=== PATIENT | male | born 1955 | race Caucasian/White ===

== ENCOUNTER → 2018-02-18 09:56 | Outpatient (CLI) | payer OTHER, SELFPAY ==
[2018-02-18 12:13] LABS: Absolute Lymphocyte Count 1.77 X10^3/ul (0.83-4.51); Absolute Neutrophil Count 5.3 X10^3/uL (2.0-7.7); Basophil# 0.05 X10^3/uL; Basophil% 0.6 % (0-1); Eosinophils% 1.3 % (0-5); Hematocrit 47.4 % (40-54); Hemoglobin 16.6 g/dl (13.0-16.5); Lymphocyte # 1.77 X10^3/ul (4.0); Lymphocyte % 22.6 % (19-41); Mean Corpuscular Hgb 31.3 pg (27.0-32.0); Mean Corpuscular Volume 89.3 fL (80-94); Mean Platelet Vol. 9.5 fl (6.2-12.0); Monocyte# 0.58 X10^3/uL; Monocyte% 7.4 % (0-10); Neutrophil # 5.32 X10^3/uL (2.7-7.7); Platelet Count 305 K/mm3 (150-450); RBC Distribution Width CV 13.1 % (11.6-14.6); RBC Distribution Width SD 42.6 fl (35.1-43.9); Red Blood Count 5.31 M/mm3 (4.6-6.2); White Blood Count 7.8 K/mm3 (4.4-11.0)
[2018-02-18 12:25] LABS: POSITIVE COUNT NO; POSITIVE DIFFERENTIAL NO; POSITIVE MORPHOLOGY NO
[2018-02-18 12:27] LABS: ALB/GLOB Ratio 1.4 RATIO (0.9-2.4); AST(SGOT) 34 U/L (15-37); Alanine Aminotransfer ALT/SGPT 72 U/L (16-61); Albumin, Serum 4.2 g/dL (3.2-5.0); Alkaline Phosphatase 78 U/L (45-117); Anion Gap 10 (5-15); BUN 16 mg/dL (7-18); BUN/Creat Ratio 15.8 RATIO (10-20); Calcium,Total 8.5 mg/dL (8.5-10.1); Chloride 106 mmol/L (98-107); Creatinine, Serum 1.01 mg/dL (0.70-1.30); EST Glomerular Filtration Rate 79 mL/min (>60); Est Glom Filt Rate - Afr Amer 96 mL/min (>60); Glucose 78 mg/dL (74-106); Potassium 3.9 mmol/L (3.5-5.1); Protein, Total 7.2 g/dL (6.4-8.2); Sodium Level 140 mmol/L (136-145)
--- OUTSIDE RECORDS SUMMARY | 2018-04-15 17:50 | XMS RPT_ITS ---
:1955 Author Organization OHIP Care Team Providers Name Role Phone Sean Boone Attending Unavailable Paolo, Sean Primary Care Unavailable Sean Boone Attending Unavailable Sean Boone Referring Unavailable Sean Boone Primary Care Unavailable PROBLEMS PROBLEMS No Problem Records FoundPROCEDURES PROCEDURES No Procedure Records FoundRESULTS RESULTS Observed: 02/19/2018 Status: C Source: KYM CDIFF (MOLECULAR) 8:00 AM [facility] REPOSITORY RESULTS CALLED TO [employer] 02/19/18 [facility] Arnel Downs. REPORT READ BACK BY SAME. SENT TO [facility] 02-19-18 [id number] Cdiff-Molecular Normal Reference Range = Negative C. Diff DNA Positive-Toxigenic C. Difficile DNA Detected NAAT METHOD Testing was performed using nucleic acid amplification ORGANISM 1: Toxigenic C. difficile DNA Performed By: #### M100.6796, M100.637 #### [facility] [address] [place], [place], [address] Observed: 02/19/2018 Status: F Source: KYM ENTERIC PATHOGEN 8:00 AM [facility] PANEL STOOL REPOSITORY RESULTS CALLED TO [employer] 02/19/18 1556 Arnel Downs. REPORT READ BACK BY SAME. SENT TO [facility] 02-19-18 [id number] EP PANEL STOOL Normal Reference Range = Not Detected Not detected for Campylobacter group, Salmonella species, Shigella species, Vibrio Group, Yersinia enterocolitica, EHEC (Shiga Toxin 1, Shiga Toxin 2), Norovirus Gl/Gll, and Rotavirus A. Other common stool pathogens are not detected on this panel include: Aeromonas/Plesiomonas or parasites. Order testing for these organisms separately if suspected. This is an amplified DNA test which makes it both specific and sensitive. CAMPYLOBACTER Not Detected Salmonella Not Detected Shigella sp. Not Detected Shiga Toxin Not Detected Yersinia Not Detected VIBRIO Not Detected Norovirus Not Detected Rotavirus Not Detected Performed By: #### M100.6796, M100.637 #### [facility] [address] [place], [address] Observed: 02/19/2018 Status: F Source: [place] OVA AND PARASITES 8:00 AM [facility] REPOSITORY O + P OVA AND PARASITES EXAM, ROUTINE These results were obtained using wet preparation(s) and trichrome stained smear. This test does not include testing for Crytosporidium parvum, Cyclospora, or Microsporidia. TESTING PERFORMED AT [facility]. ORIGINAL REPORT ON FILE IN LAB CONTAINS ADDITIONAL TEST SITE INFORMATION. Ova/Parasite Exam NO OVA, CYSTS, OR PARASITES FOUND. Performed By: #### M600.5000 #### [facility] [place], [address] CBC W/DIFF, AUTOMATED Collected: 02/18/2018 Status: F Source: KYM 9:58 AM [facility] REPOSITORY TYPE CODE TESTS RESULT OUT OF RANGE REFERENCE UNITS LAB L100.1000 4.4-11.0 K/mm3 Normal WBC 7.8 LAB L100.1200 4.6-6.2 M/mm3 Normal RBC 5.31 LAB L100.1300 13.0-16.5 g/dl High HGB 16.6 LAB L100.1400 40-54 % Normal HCT 47.4 LAB L100.1500 80-94 fL Normal MCV 89.3 LAB L100.1600 27.0-32.0 pg Normal MCH 31.3 LAB L100.1700 32-36 g/gl Normal MCHC 35.0 LAB L100.1810 11.6-14.6 % Normal RDW CV 13.1 LAB L100.1820 35.1-43.9 fl Normal RDW SD 42.6 LAB L100.1900 150-450 K/mm3 Normal PLT 305 LAB L100.2000 6.2-12.0 fl Normal MPV 9.5 LAB L100.2100 47-70 % Normal NEUT% 68.0 LAB L100.2200 19-41 % Normal LY% 22.6 LAB L100.2300 0-10 % Normal MONO% 7.4 LAB L100.2400 0-5 % Normal EO% 1.3 LAB L100.2500 0-1 % Normal BASO% 0.6 LAB L100.2550 0.0-0.9 % Normal IM GRAN % 0.100 Result Comment: IG% - Immature Granulocytes (promyelocytes, myelocytes and metamyelocytes) > 1% indicates that a LEFT SHIFT is Present. LAB L100.2620 2.0-7.7 X10 3/uL Normal Absolute Neut 5.3 LAB L100.2720 0.83-4.51 X10 3/ul Normal Absolute Lymph 1.77 Performed By: #### L100.0100 #### [facility] [address] [place], [address] COMPREHENSIVE METABOLIC Collected: 02/18/2018 Status: F Source: [facility] 9:58 AM [facility] REPOSITORY TYPE CODE TESTS RESULT OUT OF RANGE REFERENCE UNITS LAB L501.0100 74-106 mg/dL Normal GLU 78 Result Comment: Please note revised GLUCOSE reference range effective 2017. LAB L501.1000 7-18 mg/dL Normal BUN 16 LAB L501.1100 0.70-1.30 mg/dL Normal CREAT,SERUM 1.01 Result Comment: The validity of the calculated GFR AND GFRAA in patients over 70 years has not been determined. Clinical correlation is essential. LAB L501.1110 >60 mL/min Normal EST GFR 79 Result Comment: Non- GFR Calc LAB L501.1115 >60 mL/min Normal EST GFR - AA 96 Result Comment: GFR Calc LAB L501.1300 10-20 RATIO Normal BUN/CRE 15.8 LAB L501.1500 6.4-8.2 g/dL T Normal PROT 7.2 LAB L501.1800 3.2-5.0 g/dL Normal ALB 4.2 LAB L501.1950 2.2-4.2 g/dL Normal GLOB 3.0 LAB L501.2000 0.9-2.4 RATIO Normal A/G 1.4 LAB L501.2200 8.5-10.1 mg/dL CA Normal 8.5 LAB L501.4100 15-37 U/L Normal AST 34 LAB L501.4305 45-117 U/L Normal ALK P 78 LAB L501.4405 16-61 U/L High ALT 72 LAB L501.4600 0.20-1.00 mg/dL T Normal BILI 0.50 LAB L501.5300 136-145 mmol/L NA Normal 140 LAB L501.5600 3.5-5.1 mmol/L K Normal 3.9 LAB L501.5900 98-107 mmol/L CL Normal 106 LAB L501.6100 21.0-32.0 mmol/L Normal CO2 24.0 LAB L501.6200 5-15 Normal GAP 10 Performed By: #### L500.4050 #### [facility] [address] [place], [place], [address] ALLERGIES ALLERGIES No Allergies Records FoundENCOUNTERS ENCOUNTERS ADMIT/DISCHARGE ACCOUNT ADMITTING ENCOUNTER LOCATION SOURCE NUMBER CLASS 02/19/2018 [id number] [facility] 1 [facility] ing:LABSPEC Repository 02/18/2018 [id number] [facility] 4 [facility] ing:MFPLAB Repository PAYERS PAYERS ENCOUNTER GUARANTOR PAYER SUBSCRIBER SOURCE 02/19/2018 WILD Antunez Primary WILD [id number] Insurance:Ranjeet PETERSEN: [facility] Number: [id number] [id number] Repository [address]Pps: ([phone]) Date:6074-64-45[phone] () [id number] JOAO MORRIS [id number]: 02/19/2018 Secondary NOT GIVENUNK [place] Insurance:SELF PAY [facility] Number: Effective Repository Date:2018-02-19 02/18/2018 Wild Antunez Primary Wild [id number] Insurance:AETNAPolicy HodgRenataOB: [facility] Number: [id number], [place] [id number] Repository [address]Gqb: ([phone]) Date:2361-93-34TQ [phone] () [id number] [place] [address]GP: 02/18/2018 Secondary NOT GIVENUNK [place] Insurance:SELF PAY [facility] Number: Effective Repository Date:2018-02-18
== END ==
PROVIDERS: Family Provider Family Medicine; PCP Family Medicine; Visit Provider Family Medicine
DX: R19.7 Diarrhea, unspecified (principal)
CPT/HCPCS: 36415; 80053; 85025

== ENCOUNTER → 2018-02-19 12:53 | Outpatient (CLI) | payer OTHER, SELFPAY ==
--- OUTSIDE RECORDS SUMMARY | 2018-04-16 16:37 | XMS RPT_ITS ---
:1955 Author Organization OHIP Care Team Providers Name Role Phone Sean Boone Attending Unavailable Paolo, Sean Primary Care Unavailable Sean Boone Attending Unavailable Sean Boone Referring Unavailable Sean Boone Primary Care Unavailable PROBLEMS PROBLEMS No Problem Records FoundPROCEDURES PROCEDURES No Procedure Records FoundRESULTS RESULTS Observed: 02/19/2018 Status: C Source: KYM CDIFF (MOLECULAR) 8:00 AM [facility] REPOSITORY RESULTS CALLED TO [facility] 02/19/18 [facility] Arnel Downs. REPORT READ BACK BY SAME. SENT TO [facility] 02-19-18 [id number] Cdiff-Molecular Normal Reference Range = Negative C. Diff DNA Positive-Toxigenic C. Difficile DNA Detected NAAT METHOD Testing was performed using nucleic acid amplification ORGANISM 1: Toxigenic C. difficile DNA Performed By: #### M100.6796, M100.637 #### [facility] [address] [place], [place], [address] Observed: 02/19/2018 Status: F Source: KYM ENTERIC PATHOGEN 8:00 AM [facility] PANEL STOOL REPOSITORY RESULTS CALLED TO [facility] 02/19/18 1556 Arnel Downs. REPORT READ BACK BY SAME. SENT TO [facility] 02-19-18 [id number] EP PANEL STOOL Normal Reference Range = [...] Detected Performed By: #### M100.6796, M100.637 #### [facility] [address] [place], [address] Observed: 02/19/2018 Status: F Source: [place] OVA AND PARASITES 8:00 AM [facility] REPOSITORY O + P OVA AND PARASITES EXAM, ROUTINE These results were obtained using wet preparation(s) and trichrome stained smear. This test does not include testing for Crytosporidium parvum, Cyclospora, or Microsporidia. TESTING PERFORMED AT [facility]. ORIGINAL REPORT ON FILE IN LAB CONTAINS ADDITIONAL TEST SITE INFORMATION. Ova/Parasite Exam NO OVA, CYSTS, OR PARASITES FOUND. Performed By: #### M600.5000 #### [facility] [place], [address] CBC W/DIFF, AUTOMATED Collected: 02/18/2018 Status: F Source: KYM 9:58 AM [facility] REPOSITORY TYPE CODE TESTS RESULT OUT OF [...] Lymph 1.77 Performed By: #### L100.0100 #### [facility] [address] [place], [address] COMPREHENSIVE METABOLIC Collected: 02/18/2018 Status: F Source: [facility] 9:58 AM [facility] REPOSITORY TYPE CODE TESTS RESULT OUT OF [...] GAP 10 Performed By: #### L500.4050 #### [facility] [address] [place], [place], [address] ALLERGIES ALLERGIES No Allergies Records FoundENCOUNTERS ENCOUNTERS ADMIT/DISCHARGE ACCOUNT ADMITTING ENCOUNTER LOCATION SOURCE NUMBER CLASS 02/19/2018 [id number] [facility] 1 [facility] ing:LABSPEC Repository 02/18/2018 [id number] [facility] 4 [facility] ing:MFPLAB Repository PAYERS PAYERS ENCOUNTER GUARANTOR PAYER SUBSCRIBER SOURCE 02/19/2018 WILD Antunez Primary WILD [id number] Insurance:Ranjeet PETERSEN: [facility] Number: [id number], [place] [id number] Repository [address]Zar: ([phone]) Date:3302-87-05WX [phone] () [id number] JOAO MORRIS [id number]: 02/19/2018 Secondary NOT GIVENUNK [place] Insurance:SELF PAY [facility] Number: Effective Repository Date:2018-02-19 02/18/2018 Wild Antunez Primary [id number] Insurance:AETNAPolicy HodgRenataOB: Community Maria Stein Number: [id number], [place] [id number] Repository [address]Aef: ([phone]) Date:1793-07-92PK [phone] () [id number] [address]KJ: 02/18/2018 Secondary NOT GIVENUNK Kym Insurance:SELF PAY [facility] Number: Effective Repository Date:2018-02-18
== END ==
PROVIDERS: Family Provider Family Medicine; PCP Family Medicine; Referring Provider Family Medicine; Visit Provider Family Medicine
DX: R19.7 Diarrhea, unspecified (principal)
CPT/HCPCS: 87177; 87209; 87493; 87506

== ENCOUNTER → 2018-07-18 | Outpatient (CLI) | payer OTHER, SELFPAY ==
[2018-07-18 08:26] LABS: AST(SGOT) 21 U/L (15-37); Alanine Aminotransfer ALT/SGPT 44 U/L (16-61); Albumin, Serum 4.2 g/dL (3.2-5.0); Alkaline Phosphatase 77 U/L (45-117); Anion Gap 8 (5-15); BUN 18 mg/dL (7-18); Bilirubin, Direct 0.19 mg/dL (0.00-0.30); Calcium,Total 8.7 mg/dL (8.5-10.1); Chloride 106 mmol/L (98-107); Cholesterol 197 mg/dL (200); Creatinine, Serum 0.95 mg/dL (0.70-1.30); EST Glomerular Filtration Rate 85 mL/min (>60); Est Glom Filt Rate - Afr Amer 103 mL/min (>60); Glucose 208 mg/dL (74-106); High Density Lipoprotein 50 mg/dL; Potassium 4.2 mmol/L (3.5-5.1); Protein, Total 7.2 g/dL (6.4-8.2); Sodium Level 139 mmol/L (136-145); Triglycerides 150 mg/dL; Very Low Density Lipoprotein 30 mg/dL (5-40)
== END | disposition home or self-care (01) ==
LOC: LAB 07:22
PROVIDERS: Family Provider Family Medicine; PCP Family Medicine; Referring Provider Family Medicine; Visit Provider Family Medicine
DX: E11.9 Type 2 diabetes mellitus without complications (principal)
CPT/HCPCS: 36415; 80048; 80061; 80076

== ENCOUNTER 2019-03-25 10:51 | Emergency (ER) | payer OTHER, SELFPAY ==
[2019-03-25 10:52] VITALS: BP 153/87; PULSE 101; RESP 17; TEMP 36.9; O2SAT 96; BMI 31.7
--- NOTE | 2019-03-25 12:00 | ED.DCSUM_ITS ---
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 No loss of consciousness. Injury happened approximately 2 hours before evaluation. No nausea or vomiting. No neurologic deficits. Unknown last tetanus. He denies being on any blood thinners. Past Medical History - Allergies and Home Meds Allergies/Adverse Reactions: Allergies No Known Allergies Allergy (Verified 03/25/19 10:52) Primary Care Physician: Sean Boone MD [Primary Care Provider] - Smoking Status: Never smoker Review of Systems General: Denies: Chills, Fever, Sweats Eyes: Denies: Visual changes - bilaterally, Diplopia ENT: Denies: Rhinorrhea, Sore throat Cardiovascular: Denies: Chest pain, Palpitations Respiratory: Denies: Dyspnea, Cough, Dyspnea on exertion Gastrointestinal: Denies: Abdominal pain, Nausea, Vomiting, Diarrhea, Melena, Hematochezia Genitourinary: Denies: Dysuria, Hematuria, Frequency Musculoskeletal: Denies: Back pain, Extremity Pain Skin: Denies: Rash, Wounds Neurological: Denies: Headache, Weakness, Numbness Physical Exam Vital Signs/Narrative: Vital Signs Temp Pulse Resp BP Pulse Ox 03/25/19 10:52 98.4 F 101 H 17 153/87 H 96 Inital Vital Signs reviewed: Yes General: Well nourished, Well developed, No Acute Distress Head: Normocephalic, Trauma - Located in the occiput is a 5 cm linear laceration across the skin folds. There is matted hair both in and around the wound. There is no active bleeding. There is no palpable depression. Neurologically the patient is intact Eyes: Perrl, EOMI ENT: Moist mucous membranes, No rhinorrhea Neck: Supple, Nontender Cardiovascular: Regular rate, Regular rhythm, No murmurs Respiratory: No distress, CTA bilaterally, Chest nontender Abdomen: Soft, Nontender, Nondistended, Normal bowel sounds Back: Nontender, Normal Inspection Extremities: Nontender, No edema Skin: Normal color, No rash Neurological: Alert, Oriented x3, Cranial nerves II-XII grossly intact, Normal Strength, Normal Sensation Psychological: Normal affect, Normal Mood Diagnostic/Tx/Re-eval - Medical Decision Making Wounds were sutured. Wound care discussed with patient. Stitches will need to be removed in about 7 days. He does not wish this to be Workmen's Comp. as he is self-employed. Procedures - Lacerations No standard instances Length: 5 ft Depth: Sub Q Shape: Linear Prep: Sterile Conditions, Shure-Clens Laceration repair: Lidocaine, Wound explored Number of Sutures/[place]: 7 Suture Information: Ethilon, - - 3-0 ED Disposition - Plan for ED Patient: Disposition: Home or Assisted Living Diagnosis: Scalp laceration Instructions: HEAD INJURY, No Wake-Up (Adult), LACERATION, Scalp Referrals: Sean Boone MD [Primary Care Provider] - 7 Days for suture removal
[2019-03-25] MEDS: Diphth,Pertuss(Acell),Tet Vac 0.5 ML Vial IM (12:20)
[2019-03-25 12:27] VITALS: BP 147/91; PULSE 93; RESP 16; O2SAT 97
== END 2019-03-25 12:28 | disposition home or self-care (01) ==
PROVIDERS: Emergency Provider Emergency Medicine; Family Provider Family Medicine; PCP Family Medicine
DX: S01.01XA Laceration without foreign body of scalp, initial encounter (principal); W00.0XXA Fall on same level due to ice and snow, initial encounter; Y93.9 Activity, unspecified; Y92.9 Unspecified place or not applicable; Y99.0 Civilian activity done for income or pay
CPT/HCPCS: 12002; 90471; 90715; 99283

== ENCOUNTER → 2019-04-19 17:10 | Outpatient (CLI) | payer OTHER, SELFPAY ==
[2019-03-25 10:52] VITALS: BMI 31.7
--- NOTE | 2019-04-19 17:12 | RAD_ITS ---
STUDY: X-RAY - RIGHT KNEE REASON FOR EXAM: Male, 63 years old. PAIN, NKI TECHNIQUE: 4 view(s) of the knee. COMPARISON: None. FINDINGS: Normal visualized distal femur. Normal visualized proximal tibia and fibula. Normal proximal tibiofibular articulation. There is mild degenerative arthrosis of the medial femorotibial compartment. Normal lateral femorotibial compartment. Normal patellofemoral articulation. The soft tissue structures are unremarkable. RAD/Knee 4 or More Views IMPRESSION: Mild degenerative changes with joint space narrowing of the medial knee compartment. Electronically Signed: Randy Reyes MD at 23:49 EST , Service support ,
== END ==
PROVIDERS: PCP Family Medicine; Referring Provider Family Medicine; Visit Provider Family Medicine
DX: M25.569 Pain in unspecified knee (principal)
CPT/HCPCS: 73564

== ENCOUNTER → 2019-05-19 11:06 | Outpatient (CLI) | payer OTHER, SELFPAY ==
[2019-05-19 14:06] LABS: Absolute Lymphocyte Count 1.84 X10^3/uL (0.83-4.51); Absolute Neutrophil Count 8.2 X10^3/uL (2.0-7.7); Basophil# 0.05 X10^3/uL; Basophil% 0.5 % (0-1); Eosinophil# 0.11 X10^3/uL; Hematocrit 48.5 % (40-54); Hemoglobin 16.3 g/dL (13.0-16.5); Lymphocyte # 1.84 X10^3/ul (4.0); Lymphocyte % 16.9 % (19-41); Mean Corp Hgb Conc 33.6 g/dL (32-36); Mean Corpuscular Hgb 30.4 pg (27.0-32.0); Mean Corpuscular Volume 90.5 fL (80-94); Mean Platelet Vol. 9.8 fl (6.2-12.0); Monocyte# 0.64 X10^3/uL; Monocyte% 5.9 % (0-10); NRBC Flagged by Analyzer 0 % (0-5); Neutrophil # 8.18 X10^3/uL (2.7-7.7); Neutrophil % 75.3 % (47-70); Platelet Count 280 K/mm3 (150-450); RBC Distribution Width CV 12.3 % (11.6-14.6); RBC Distribution Width SD 40.5 fl (35.1-43.9); RET-HE 35.1 pg (30-35); Red Blood Count 5.36 M/mm3 (4.6-6.2); Reticulocyte Count 0.98 % (0.5-1.5); White Blood Count 10.9 K/mm3 (4.4-11.0)
[2019-05-19 14:35] LABS: Anion Gap 6 (5-15); BUN 16 mg/dL (7-18); BUN/Creat Ratio 15.5 RATIO (10-20); Calcium,Total 8.9 mg/dL (8.5-10.1); Chloride 105 mmol/L (98-107); Cholesterol 169 mg/dL (200); Creatinine, Serum 1.03 mg/dL (0.70-1.30); EST Glomerular Filtration Rate 77 mL/min (>60); Est Glom Filt Rate - Afr Amer 94 mL/min (>60); Glucose 125 mg/dL (74-106); High Density Lipoprotein 46 mg/dL; Iron 85 ug/dL (65-175); Iron Binding Capacity,Total 355 ug/dL (250-450); PERCENT IRON SATURATION 23.9 % (15.0-55.0); Potassium 3.9 mmol/L (3.5-5.1); Sodium Level 136 mmol/L (136-145); Triglycerides 100 mg/dL; Very Low Density Lipoprotein 20 mg/dL (5-40)
[2019-05-19 15:17] LABS: Microalbumin,Random Urine < 5.0 mg/L (NO RANGE EST.)
== END ==
PROVIDERS: PCP Family Medicine; Referring Provider Family Medicine; Visit Provider Family Medicine
DX: D64.9 Anemia, unspecified (principal); E11.9 Type 2 diabetes mellitus without complications
CPT/HCPCS: 36415; 80048; 80061; 82043; 82570; 83540; 83550; 85025; 85045

== ENCOUNTER → 2019-05-26 14:12 | Outpatient (CLI) | payer OTHER, SELFPAY ==
--- NOTE | 2019-05-26 14:15 | CT_ITS ---
STUDY: CT BRAIN WITHOUT CONTRAST REASON FOR EXAM: Male, 63 years old. Fall. Headache. RADIATION DOSAGE (If Supplied By Facility): CTDIvol = ( 44.99 ) mGy, DLP = ( 796.11 ) mGycm TECHNIQUE: Transaxial CT imaging of the brain was performed without administration of intravenous contrast material. Individualized dose optimization techniques were used for this CT. COMPARISON: None. FINDINGS: There is no acute bleed or infarct. There are mild chronic ischemic changes. The ventricles are normal in configuration. There is no hydrocephalus. The visualized paranasal sinuses are clear. The mastoid air cells are well aerated. There is no skull fracture. CT/Brain/Head without Contrast IMPRESSION: No acute intracranial abnormality. Mild chronic ischemic change. Electronically Signed: Dayron Overton, at 15:35 EST Tel , Service support ,
== END ==
PROVIDERS: PCP Family Medicine; Referring Provider Family Medicine; Visit Provider Family Medicine
DX: R51 Headache (principal)
CPT/HCPCS: 70450

== ENCOUNTER 2019-05-29 17:49 | Emergency (ER) | payer OTHER, SELFPAY ==
[2019-05-29 17:49] VITALS: BP 119/70; PULSE 85; RESP 16; TEMP 36.1; O2SAT 98; BMI 29.8
[2019-05-29 18:26] LABS: Bedside Glucose 109 mg/dL (70-110)
--- NOTE | 2019-05-29 18:43 | ED.VIS.GEN ---
History of Present Illness Chief Complaint: Hyperglycemia Informant: Patient, Significant Other Onset: Days - 4 Narrative: Presents for evaluation elevated blood glucose of 250s today. States his been running high for the past 4 days. However he has not really checked this. He states typically blood glucose 140s. He is on oral glucose medicines and is taking them regularly. Concern due to being started on oral fluconazole pills 4 days ago for thrush. States he was on nystatin swish and spit for 2 weeks prior. He is a diabetic. No steroid use with inhalers or pills. reports patient also has not been acting right since his head injury March 30 nearly 2 months ago. Fall on ice hitting back his head needing stitches. Intermittent headaches, sleeping more per . States follow-up with PCP had a CT head this past Friday that was negative. States has sleep study pending in 2 weeks. There is been no additional falls. States there is been discussion with neurology follow-up however states this has not been initiated. Reports patient's had trouble sleeping tried melatonin recently put on nortriptyline. Past Medical History - Allergies and Home Meds Allergies/Adverse Reactions: Allergies No Known Allergies Allergy (Verified 03/25/19 10:52) Primary Care Physician: Sean Boone MD [Primary Care Provider] - Past Medical History: - - Diabetes, concussion Smoking Status: Never smoker Review of Systems General: Denies: Chills, Fever, Sweats Eyes: Denies: Visual changes - bilaterally, Diplopia ENT: Denies: Rhinorrhea, Sore throat Cardiovascular: Denies: Chest pain, Palpitations Respiratory: Denies: Dyspnea, Cough, Dyspnea on exertion Gastrointestinal: Denies: Abdominal pain, Nausea, Vomiting, Diarrhea, Melena, Hematochezia Genitourinary: Denies: Dysuria, Hematuria, Frequency Musculoskeletal: Denies: Back pain, Extremity Pain Skin: Denies: Rash, Wounds Neurological: Reports: Headache. Denies: Weakness, Numbness Physical Exam Vital Signs/Narrative: Vital Signs Temp Pulse Resp BP Pulse Ox 05/29/19 17:49 97 F L 85 16 119/70 98 Inital Vital Signs reviewed: Yes General: Well nourished, Well developed, No Acute Distress Head: Normocephalic, Atraumatic Eyes: Perrl, EOMI ENT: Moist mucous membranes, No rhinorrhea, - - White layering noted on tongue, no posterior pharyngeal erythema, airway patent. Neck: Supple, Nontender Cardiovascular: Regular rate, Regular rhythm, No murmurs Respiratory: No distress, CTA bilaterally, Chest nontender Abdomen: Soft, Nontender, Nondistended, Normal bowel sounds Back: Nontender, Normal Inspection Extremities: Nontender, No edema Skin: Normal color, No rash Neurological: Alert, Oriented x3, Cranial nerves II-XII grossly intact, Normal Strength, Normal Sensation Psychological: Normal affect, Normal Mood Diagnostic/Tx/Re-eval - Medical Decision Making Patient's blood glucose 109. He does have oral thrush on his tongue which he is on medications for. states patient has been stressed over his symptoms, discussed likely from stress could elevate blood glucose. They will continue to monitor glucose at home. Further discussion patient spouse concerns for these postconcussive symptoms. Discussed patient using Tylenol and discussed likely need neuro follow-up. I did discuss with covering physician Dr. Longo for Dr. Fernandez, relayed their frustration concerns, he will relay a message to have a neuro referral for the patient. ED Disposition - Plan for ED Patient: Disposition: Home or Assisted Living Diagnosis: Postconcussion syndrome, Oral thrush Instructions: Managing Post-Traumatic Headaches After Traumatic Brain Injury, After a Concussion Referrals: Sean Boone MD [Primary Care Provider] - 3-5 Days
== END 2019-05-29 19:01 | disposition home or self-care (01) ==
PROVIDERS: Emergency Provider Emergency Medicine; PCP Family Medicine
DX: F07.81 Postconcussional syndrome (principal); B37.0 Candidal stomatitis; E11.9 Type 2 diabetes mellitus without complications
CPT/HCPCS: 82962; 99282

== ENCOUNTER → 2019-07-14 16:24 | Outpatient (CLI) | payer OTHER, SELFPAY ==
[2019-07-14 17:43] LABS: Absolute Lymphocyte Count 1.88 X10^3/uL (0.83-4.51); Basophil# 0.06 X10^3/uL; Basophil% 0.6 % (0-1); Eosinophil# 0.12 X10^3/uL; Eosinophils% 1.2 % (0-5); Hematocrit 43.4 % (40-54); Hemoglobin 14.8 g/dL (13.0-16.5); Lymphocyte # 1.88 X10^3/ul (4.0); Lymphocyte % 19.4 % (19-41); Mean Corp Hgb Conc 34.1 g/dL (32-36); Mean Corpuscular Hgb 30.1 pg (27.0-32.0); Mean Corpuscular Volume 88.2 fL (80-94); Mean Platelet Vol. 9.7 fl (6.2-12.0); Monocyte# 0.59 X10^3/uL; Monocyte% 6.1 % (0-10); NRBC Flagged by Analyzer 0 % (0-5); Neutrophil # 7.02 X10^3/uL (2.7-7.7); Neutrophil % 72.5 % (47-70); Platelet Count 254 K/mm3 (150-450); RBC Distribution Width CV 12.8 % (11.6-14.6); RBC Distribution Width SD 40.8 fl (35.1-43.9); Red Blood Count 4.92 M/mm3 (4.6-6.2); White Blood Count 9.7 K/mm3 (4.4-11.0)
[2019-07-14 18:17] LABS: ALB/GLOB Ratio 1.2 RATIO (0.9-2.4); AST(SGOT) 16 U/L (15-37); Alanine Aminotransfer ALT/SGPT 33 U/L (16-61); Albumin, Serum 3.9 g/dL (3.2-5.0); Alkaline Phosphatase 62 U/L (45-117); Anion Gap 8 (5-15); BUN 20 mg/dL (7-18); BUN/Creat Ratio 16.9 RATIO (10-20); Calcium,Total 8.7 mg/dL (8.5-10.1); Chloride 104 mmol/L (98-107); Creatinine, Serum 1.18 mg/dL (0.70-1.30); EST Glomerular Filtration Rate 66 mL/min (>60); Est Glom Filt Rate - Afr Amer 80 mL/min (>60); Globulin 3.2 g/dL (2.2-4.2); Glucose 116 mg/dL (74-106); Potassium 3.7 mmol/L (3.5-5.1); Protein, Total 7.1 g/dL (6.4-8.2); Sodium Level 137 mmol/L (136-145); Thyroid Stim Hormone (TSH) 1.24 uIU/mL (0.358-3.74)
== END ==
PROVIDERS: PCP Family Medicine; Referring Provider Family Medicine; Visit Provider Family Medicine
DX: R63.4 Abnormal weight loss (principal)
CPT/HCPCS: 36415; 80053; 84443; 85025

== ENCOUNTER → 2019-07-26 17:00 | Outpatient (CLI) | payer OTHER, SELFPAY ==
[2019-07-19 10:51] VITALS: BMI 29.8
--- NOTE | 2019-07-26 17:01 | CT_ITS ---
We are attempting to reach an attending provider to discuss findings. An addendum with communication details will be sent when the communication is complete. STUDY: CT ABDOMEN AND PELVIS WITH CONTRAST REASON FOR EXAM: Male, 63 years old. RLQ PAIN X 1 WEEK WITH CONSTIPATION, WEIGHT LOSS, PT IS DIABETIC RADIATION DOSAGE (If Supplied By Facility): CTDIvol = ( 17.49 ) mGy, DLP = ( 976.34 ) mGycm TECHNIQUE: Transaxial images were obtained from the dome of the diaphragm to the symphysis pubis without oral contrast. Oral and amp; IV Gastrografin and amp; 100mL Isovue-300 was administered. Sagittal and coronal images were reconstructed. Individualized dose optimization techniques were used for this CT. COMPARISON: None. FINDINGS: The visualized lung bases are unremarkable. The visualized portions of the heart are within normal limits. There are scattered hepatic cysts, the largest located in the anterior left hepatic lobe measuring 3.6 cm. There is an enhancing focus of the dome of the right hepatic lobe measuring 9 mm, suggestive of an hemangioma. There are several additional heterogeneously peripherally enhancing hypodensities of the inferior right hepatic lobe measuring 2.0 x 1.7 cm and 4.3 x 2.5 cm. These may also represent hemangiomas. Normal gallbladder and extrahepatic biliary system. Normal spleen. Normal pancreas. Normal bilateral adrenal glands. Normal right kidney. Normal left kidney. Normal visualized stomach. Normal small intestine. Normal colon. The appendix is fluid-filled and distended, measuring up to 10 mm. No periappendiceal inflammatory process is evident however. There are calcified plaques of the abdominal aorta. Normal inferior vena cava. Normal retroperitoneum. Normal urinary bladder. The prostate is enlarged and contains calcifications. The seminal vesicles and seminal vesicle angles appear normal. There is a small fat-containing right inguinal hernia. A small fat-containing umbilical hernia is also noted. There are diffuse degenerative changes of the visualized thoracolumbar spine. CT/Abdomen/Pelvis WITH Contrast IMPRESSION: 1. Dilated fluid-filled appendix suspicious for acute appendicitis. There is no evidence of periappendiceal inflammatory process or abnormal free or loculated fluid collection in the region however. 2. Scattered hepatic cysts. Enhancing focus of the dome of the right hepatic lobe measuring 9 mm suggestive of an hemangioma. There are several additional heterogeneously peripherally enhancing hypodensities of the inferior right hepatic lobe measuring 2.0 x 1.7 cm and 4.3 x 2.5 cm respectively. These may also represent hemangiomas, but neoplastic process cannot be excluded. Ultrasound and/or MRI correlation is recommended. 3. Enlarged prostate containing calcifications. 4. Small fat-containing right inguinal hernia and small fat-containing umbilical hernia. Electronically Signed: Randy Reyes MD at 20:12 EDT , Service support ,
== END ==
PROVIDERS: PCP Family Medicine; Referring Provider Surgery; Visit Provider Surgery
DX: R63.4 Abnormal weight loss (principal); R10.31 Right lower quadrant pain
CPT/HCPCS: 74177; Q9967

== ENCOUNTER → 2019-07-29 07:30 | Outpatient (CLI) | payer OTHER, SELFPAY ==
[2019-07-27 09:39] VITALS: BMI 29.8
--- NOTE | 2019-07-29 07:34 | US_ITS ---
STUDY: ABDOMINAL ULTRASOUND - RIGHT UPPER QUADRANT REASON FOR VISIT: Male, 63 years old LIVER MASS TECHNIQUE: Ultrasound evaluation of the right upper quadrant was performed with real-time and static yusuf-scale imaging. TECHNICAL QUALITY: Adequate. COMPARISON: Comparison is made with prior CT scan of the abdomen and pelvis dated July 26, 2019. FINDINGS: Liver: The liver measures 13.9 cm. There is normal echogenicity of the liver. The bile ducts are within normal limits. There is hepatic color flow. The direction of portal flow is hepatopetal. There is a 3.8 cm x 3.6 cm x 3.2 cm cyst in the left lobe of the liver. There is a 3.8 cm x 1.5 cm x 2.2 cm echogenic nodule in the central aspect of the right, the liver. A similar appearing nodule measuring 3.2 cm by 3.8 cm x 2.7 cm is seen near the dome of the right lobe of the liver. This is suggestive of hemangiomas. Gallbladder: Normal distended gallbladder. The gallbladder wall measures 2.5 mm. There is a negative sonographic Burt''s sign. There is no pericholecystic fluid. There are no gallstones. Common Bile Duct (C.B.D.): The common bile duct measures 2.5 mm. Pancreas: There is nonvisualization of the pancreas due to overlying bowel gas. Right Kidney: Normal size of the right kidney. The right kidney measures 11 cm x 5.1 cm x 5.0 cm. Normal renal cortex. The right cortex measures 1.7 cm. There is no demonstrated renal mass or cyst. There is no right hydronephrosis. US/Liver IMPRESSION: 2 hemangiomas are seen in the right lobe of the liver. 3.8 cm x 3.6 cm x 3.2 cm cyst is seen in the left lobe of the liver. Electronically Signed: Claudio Anderson, at 9:17 EDT , Service support ,
== END ==
PROVIDERS: PCP Family Medicine Geriatric Medicine; Referring Provider Family Medicine Geriatric Medicine; Visit Provider Family Medicine Geriatric Medicine
DX: K76.89 Other specified diseases of liver (principal)
CPT/HCPCS: 76705

== ENCOUNTER 2019-08-03 07:21 | Day surgery (SDC) | payer OTHER, SELFPAY ==
[2019-07-27 09:39] VITALS: BMI 29.8
[2019-08-03] VITALS (7 sets, daily range): BP systolic 114–136; BP diastolic 73–82; PULSE 58–73; RESP 15–16; TEMP 36.1–36.6; O2SAT 94–100; BMI 27.1
--- NOTE | 2019-08-03 | APP_PTH ---
PATIENT: NADIA CONKLIN LOC[place] [facility] [place][id number] AGE/SX: 63/M ROOM: RE08/03/[address]: Dr. Kehinde Sebastian MD : 1955 BED: DIS: 08/03/2019 SPEC #: [id number] RECD: 08/03/19 12:32 STATUS: ELGIN REQ #: [id number] NARENDRA: 08/03/19 00:[address]: Kehinde Sebastian DEPT: SURGICAL PATHOLOGY RECD BY: Fabian Reynolds ENTERED: 08/03/19 12:32 SP TYPE: APPENDIX OTHR DR: Dr. 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 SJ:saira 08/04/19 COMMENT Most of the lesion consists of mucocele, adenomatous changes are noted focally. Proximal resection margin is free of adenomatous changes. Case has been reviewed in consultation with Dr. Marie who concurs with the above diagnosis. IDC:AM MICROSCOPIC DESCRIPTION Slides are reviewed. GROSS DESCRIPTION Received is one container labeled with the patient's name and designated appendix. The specimen consists of an appendix measuring 4.5 cm in length. The proximal 3 cm portion of the appendix is dilated and measures up to 1 cm in diameter. The distal 1.5 cm portion of the appendix is not dilated and measures up to 0.4 cm in diameter. The attached periappendiceal adipose tissue measures up to 2.5 cm in width. The serosal surface of the appendix is inked black. The proximal resection margin is stapled. The serosal surface is amin, glistening. The lumen is filled with amin-yusuf, cloudy turbid fluid. No obvious mass lesion is identified. Sections of the periappendiceal adipose tissue do not reveal any obviously enlarged lymph node. Cigar Making Supervisor sections are submitted in four cassettes as follows: 1-3 - appendix (1 - proximal margin and tip of the appendix longitudinally bisected, 2 - proximal portion of appendix, 3 - distal portion of appendix, 4??periappendiceal adipose tissue. / DOUG:saira 08/03/19 TC:1 CPT: 39736
--- NOTE | 2019-08-03 07:31 | EKG12_ITS ---
Test Reason : PRE OP Blood Pressure : / mmHG Vent. Rate : 059 BPM Atrial Rate : 059 BPM P-R Int : 154 ms QRS Dur : 092 ms QT Int : 400 ms P-R-T Axes : 058 043 035 degrees QTc Int : 396 ms Sinus bradycardia Otherwise normal ECG No previous ECGs available Confirmed by NADIA TANG ([id number]), news assignment editor DONTAE CLEMENT ([id number]) on 08/09/2019 1:51:32 PM Referred By: Kehinde Sebastian Confirmed By:NADIA TANG
[2019-08-03] MEDS: Lactated Ringers 1,000 ML 100 ML IV (08:09)
--- NOTE | 2019-08-03 08:53 | PCM.HP.BLA ---
Problem List (1) Mucocele of appendix Status: Acute History and Physical Date of Admission: 08/03/19 Intake Intake Visit Reasons: Amb Documentation Chief Complaint: Right lower quadrant pain Allergies lisinopril Allergy (Mild, Verified 07/19/19 10:23) Unknown metformin Allergy (Mild, Verified 07/19/19 10:23) Unknown nortriptyline Allergy (Mild, Verified 07/19/19 10:23) Unknown Sulfa (Sulfonamide Antibiotics) Allergy (Mild, Verified 07/19/19 10:23) Unknown [facility] Medical History (Updated 07/19/19 @ 10:27 by Sammi Engel) Weight loss (Acute) Diabetes (Acute) Hypertension (Chronic) Social History (Updated 07/27/19 @ 09:[address] Kehinde Sebastian MD) Smoking Status: Never smoker second hand exposure: No alcohol intake: current alcohol intake frequency: holidays/special occasions only substance use type: does not use caffeine: No seatbelt use: always HPI HPI Chief Complaint: Right lower quadrant pain Details: Patient was informed that this visit will be billed to patient. This visit was conducted during COVID-19 pandemic. NADIA CONKLIN, is a 63 M Who had a CT scan due to right lower quadrant pain. I saw him in the office approximately 1 week ago and he was having 1 week of right lower quadrant pain and weight loss.Patient is still reporting right lower quadrant pain with no nausea or vomiting or fevers or chills. Nothing is changed in the last 2 weeks. ROS Const Constitutional: Positive for anorexia and weight change Resp Respiratory: No cough Cardio Cardiology: No chest pain at rest Gastro GI: Positive for abdominal pain and constipation Exam Const General: cooperative, comfortable GI Inspection: normal to inspection Palpation: soft, tender Assessment & Plan Problems 1. Mucocele of appendix K38.[address] scan done yesterday which showed a fluid-filled dilated appendix. There were no periappendiceal inflammatory changes. The patient has been having these symptoms for a few weeks now with no change. He is not having any nausea or vomiting or fevers or chills. I do not believe that the patient has acute appendicitis I believe that he has a mucocele of the appendix. I reviewed his CT scan and do recommend laparoscopic appendectomy. I discussed laparoscopic appendectomy in detail with the patient. I discussed the risks including but not limited to bleeding, infection, injury to surrounding structures such as bowel, perforation of the mucocele. Patient understands the risks and would like to proceed with laparoscopic appendectomy. I will perform surgery later this week as an outpatient. Patient understands and all questions were answered. Kehinde Sebastian MD Pager: [facility] [address] [place] [address], [address] [place] [address] Office: I have seen and examined the pt today and there are no changes. Kehinde Sebastian Essential Procedure Criteria Procedure Essential: Yes Criteria Note: On 06/08/2019 the [place] Department of Health ([facility]) Public Order signed by [facility] Director Gail Castillo M.D., regarding the Management of Non-Essential Surgeries and Procedures for the purpose of preserving Personal Protective Equipment (PPE) and critical hospital capacity and resources within [place] went into effect as of 06/09/2019 at 5:00PM. According to the [facility] Public Order: This action will remain in full force and effect until the State of Emergency declared by the Governor no longer exists or the Director of the [facility] rescinds or modifies this Order.. This [facility] order stated all non-essential or elective surgeries and procedures that utilize PPE should be delayed unless there is undue risk to the current or future health of a patient. After reviewing the aforementioned [facility] Public Order and the patients clinical case, I have determined that the scheduled procedure meets the criteria to go forward. Risk to Patient if Procedure Delayed: Risk of metastasis or progression of staging if delayed
[2019-08-03 09:41] LABS: Bedside Glucose 153 mg/dL (70-110)
[2019-08-03] MEDS: Bupiv/Epi 0.25% 30 ML Vial (10:00)
--- NOTE | 2019-08-03 10:13 | OP.PCM_ITS ---
Problem List (1) Mucocele of appendix Status: Acute Report of Operation Date of Procedure: 08/03/19 Pre-Operative Diagnosis: Mucocele of appendix Post-Operative Diagnosis: Same Surgery/Procedure Performed:: Laparoscopic appendectomy Specimen's removed: Appendix Description of Procedure: The patient was brought into the operating room and general anesthesia was i nduced. The left arm was tucked and the abdomen was prepped and draped in usual sterile fashion. A small midline incision was made superior to the umbilicus and deepened to the level of the fascia. The fascia was elevated and incised. The peritoneum was also elevated and incised. A finger sweep was performed and a balloon trocar was placed into the abdomen and inflated. The abdomen was insufflated to 15 mmHg and the camera was inserted and the abdomen was inspected for any injuries upon entering the abdomen. There were none. The patient was placed in Trendelenburg position and a 5 mm ports placed in the left lower quadrant and suprapubic areas under direct visualization. Next using atraumatic bowel graspers the appendix was identified. The appendix was grasped and elevated and Enseal was used to take down the mesoappendix. A stapler was used to come across the base of the appendix. The appendix was then placed in Endo Catch bag and removed through the umbilical incision. The staple line was inspected and found to be hemostatic and intact. The 2 5 mm ports are removed under direct visualization. The balloon trocar was deflated and removed and all the air was removed from the abdomen. The umbilical incision fascia was closed with an 0 Vicryl [id number] suture. The incisions were then irrigated with saline and dried. Local anesthetic was injected into the incision sites. The skin incisions were then closed with interrupted 4-0 Monocryl suture and Steri- Strips. Bandages were applied and the patient was awoken and taken to PACU in stable condition. Patient tolerated the procedure well. - Admit VTE Documentation VTE Mechan Device Prophylaxis: SCD's
--- NOTE | 2019-08-03 10:15 | PCM.DC.APPY ---
Discharge Diet: Light diet - advance as tolerated Discharge Activity: May Not Drive - for 3-5 days or while taking narcotic pain meds. May shower in (days): 1 Lifting Restrictions: 20 lbs for 2 weeks Call your doctor if your incision/area has: Continuous Slow Oozing, Sudden Increased Bleeding, Increased Pain/ Swelling, Increased Redness, Foul Smelling Discharge Call your doctor if you observe: Fever of 101 or Higher Suture Line Care: Avoid Pulling/Pushing, Avoid Pinching/Bending Additional Dressing/Incision Instructions:: Keep dressing clean and dry. Change or remove dressing in 2 days. Leave steri strips for 1 week. May protect with a gauze bandaid. Medications to take at Discharge Brimonidine Tartrate [Alphagan P] 1 drop OP BID 05/29/19 Glimepiride 2 mg PO BID 05/29/19 Prednisolone Acetate/Pf [Prednisolone Acet 1% Eye Drop] 1 drop OP QWEEK 05/29/19 Sitagliptin Phosphate [Januvia] 100 mg PO DAILY 05/29/19 zolpidem 5 mg tablet 5 mg PO QHS PRN 07/19/19 Docusate Sodium [Colace] 100 mg PO BID #30 cap 08/03/19 Oxycodone HCl/Acetaminophen [Percocet 5-325 mg Tablet] 1 - 2 tab PO Q6H PRN 4 Days #20 tablet 08/03/19 Allergies/Adverse Reactions: Allergies lisinopril Allergy (Mild, Verified 08/03/19 07:59) Unknown metformin Allergy (Mild, Verified 08/03/19 07:59) Unknown nortriptyline Allergy (Mild, Verified 08/03/19 07:59) Unknown Sulfa (Sulfonamide Antibiotics) Allergy (Mild, Verified 08/03/19 07:59) Unknown doxepin Adverse Reaction (Verified 08/03/19 07:59) PT UNSURE OF REACTION hallucinations The following prescriptions were given: Docusate Sodium [Colace] 100 mg PO BID #30 cap Transmission Status: Pending to [facility] Oxycodone HCl/Acetaminophen [Percocet 5-325 mg Tablet] 1 - 2 tab PO Q6H PRN 4 Days #20 tablet PRN Reason: Pain Score 4-10/10 Transmission Status: Sent to [facility] Primary Care Physician: Rudi,Leandro Chi, MD [Primary Care Provider] - Test Results: Test results from this visit will be discussed in further detail at your follow-up appointment, if applicable. Please Follow Up With: Kehinde Sebastian MD When: Please call to schedule 2 week follow up appointment. [phone]
[2019-08-03 11:06] LABS: Bedside Glucose 125 mg/dL (70-110)
== END 2019-08-03 12:30 | disposition home or self-care (01) ==
LOC: SDC 07:24 → AC 07:26
PROVIDERS: PCP Family Medicine Geriatric Medicine; Referring Provider Surgery; Visit Provider Surgery
PROC: 0DTJ4ZZ Resection of Appendix, Percutaneous Endoscopic Approach (ICD-10-PCS; CPT 44970; principal; 2019-08-03 09:05)
DX: D12.1 Benign neoplasm of appendix (principal); E11.9 Type 2 diabetes mellitus without complications; I10 Essential (primary) hypertension; Z79.899 Other long term (current) drug therapy; Z79.84 Long term (current) use of oral hypoglycemic drugs
CPT/HCPCS: 00840; 44970; 82962; 88304; 88307; 93005; J7120; C1760; J0330; J2405

== ENCOUNTER → 2019-08-12 16:29 | Outpatient (CLI) | payer OTHER, SELFPAY ==
[2019-08-03 08:00] VITALS: BMI 27.1
[2019-08-12 17:40] LABS: PSA,Total - Annual Screen 6.04 ng/mL (0.00-4.00); T3 Uptake 40 % (33-40); T4 Free Direct 0.98 ng/dL (0.76-1.46); Thyroid Stim Hormone (TSH) 0.79 uIU/mL (0.358-3.74)
[2019-08-15 01:04] LABS: Thyroid Peroxidase AB 15 IU/mL (0-34)
== END ==
PROVIDERS: PCP Family Medicine Geriatric Medicine; Visit Provider Family Medicine Geriatric Medicine
DX: R63.4 Abnormal weight loss (principal); Z12.5 Encounter for screening for malignant neoplasm of prostate
CPT/HCPCS: 36415; 84153; 84439; 84443; 84479; 86376; G0103

== ENCOUNTER 2019-09-02 06:55 | Day surgery (SDC) | payer OTHER, SELFPAY ==
[2019-08-03 08:00] VITALS: BMI 27.1
[2019-09-02] VITALS (8 sets, daily range): BP systolic 103–115; BP diastolic 68–75; PULSE 67–74; RESP 15–16; TEMP 36.3–36.8; O2SAT 96–100; BMI 25.8
--- NOTE | 2019-09-02 06:59 | HP.PCM_ITS ---
History of Present Illness Date of Admission: 09/02/19 The patient is a 63 year old M presents today for colonoscopy and EGD. The patient had right lower quadrant pain and weight loss. CT scan revealed a dilated appendix. The patient had surgery for mucocele of the appendix but he is still having abdominal pain and weight loss. I recommend an EGD and colonoscopy. Past Medical/Surgical History - Planned Operation Planned Operative Procedure/s: COLONOSCOPY, EGD Date of Operative Procedure: 09/02/19 Permit Signed: Yes S.O.S: No Is This Patient Having a Total Joint: No - Previous Hospitalizations/Surgeries HX Hospitalizations: No HX of Surgeries: fatty tumor removed scapula/right. wisdom teeth removed. LAP APPE 08/03/19 Any Problems With Anesthesia: No You/Your Family Experience Fever (Hyperthermia) With Anes: No Cholinesterase deficiency: No - Cardiovascular Hx Chest Pain within Last 2 months: No Hx of Irregular Heartbeat and/or Afib: No Hx Heart Attack: No Hx Congestive Heart Failure: No Hx Rheumatic Fever: No Hx Hypertension: No Hx Internal Defibrillator: No Hx Pacemaker: No Hx Cardiac Catheterization: No Hx Cardiac Surgery/Stents/Etc.: No Hx Stress Test: No HX Edema: No Hx Pain in Legs when Walking/Leg Cramps: No - Respiratory Chronic Cough: No HX of Shortness of Breath: No Hoarseness: No Hx Chronic Obstructive Pulmonary Disease (COPD): No Hx Asthma: No Hx Emphysema: No Hx Sleep Apnea: No - had sleep test 2019, states neg Hx Oxygen Use at Home: No Hx Respiratory Tract Infection/Cold (presently): No Do You Snore Loudly (louder than talking or can be heard): No Do You Often Feel Tired/ Fatigued/ Sleepy Dring Daytime?: No Has Anyone Observed You Stop Breathing During Sleep?: No Result (for STOP score): Negative Hx Smoking: No Smoking Status: Never smoker - Gastrointestinal Hx Gastroesophageal Reflux: No Hx Gastrointestinal Disorders: Yes - constipation Hx Gastrointestinal Bleed: No Hx Ulcer: No Hx Hiatal Hernia: No Difficulty Chewing/Swallowing: No Recent Onset of Swallowing Problems: No Special diet followed at home: Yes - diabetic Hx Unplanned Weight Loss of 20#: Yes - lost 20#+ HX Unplanned Weight Gain of 20#: No - Neurological Hx Seizures: No HX Syncope/Blackout Spells/Unconsciousness: No Hx CVA/Stroke: No Hx Transient Ischemic Attacks (TIA): No Hx Multiple Sclerosis: No Hx Parkinson's Disease: No Hx Head/Neck Injury: Yes - head injury, stitches 03/2019 Hx Headaches: Yes - occas Hx Back Injury/Pain: No Recent Onset of Speech Difficulty: No Restless Legs: No Does patient have nerve stimulator: No - Blood Disorder Hx Leukemia: No Bleeding Tendencies: No Hx Deep Vein Thrombosis: No Hx High Cholesterol: No Blood Transmitted Disease: No Hx Hepatitis: No Hx Cirrhosis: No Hx Anemia: No Hx Blood Disorders: No - Genitourinary Hx Renal Disease: No - Musculoskeletal Hx Arthritis: No Hx Rheumatoid Arthritis: No Hx Gout: No Recent Onset of an Orthopedic Problem: No - Endocrine Hx Diabetes: Yes - TYPE 2, oral med Insulin: No Thyroid Disease: No Hx Steroid Therapy: No - Psycho/Social Hx Substance Use: No Hx Alcohol Use: No Hx Anxiety: No Hx Depression: No Mental Illness: No Hx Dementia: No - Miscellaneous Hx Cancer: No Recent Exposure to Contagious Disease: No Active MRSA: No Hx of C-Diff: Yes - states treated 2018? Any Loose Teeth: No Allergies lisinopril Allergy (Mild, Verified 09/01/19 09:20) Unknown metformin Allergy (Mild, Verified 09/01/19 09:20) Unknown nortriptyline Allergy (Mild, Verified 09/01/19 09:20) Unknown Sulfa (Sulfonamide Antibiotics) Allergy (Mild, Verified 09/01/19 09:20) Unknown doxepin Adverse Reaction (Verified 09/01/19 09:20) PT UNSURE OF REACTION hallucinations - Discharge Is Pt Admitted From a Prison, or a Intermediate: No Who Could Help: -ADRIANA After D/C, Where Do you Plan to Go: Return Home - From the PAT History Number of Risk Factors: 2 - Physical Exam Vitals/I&O's: Body Mass Index (BMI) 27.1 Finger Stick Blood Glucose 109 General: Alert, Oriented x3 Neck: No JVD Lungs: Normal air movement Cardiovascular: Regular rate, Regular Rhythm Abdomen: Soft, Tender Laboratory Results 09/02/19 12:00: COVID-19 ([facility]GHAN) Not Detected Assessment/Plan All Active Problems (Last Reviewed 08/10/19 @ 14:22 by Debi Carpenter) Mucocele of appendix (Acute) Weight loss (Acute) Diabetes (Acute) 63-year-old male with weight loss and abdominal pain and appendiceal mucocele 1. Patient had laparoscopic appendectomy for appendiceal mucocele but he is co ntinuing to have abdominal pain as well as weight loss. Recommend EGD and colonoscopy. I explained endoscopy in detail to the patient. I explained the risks including but not limited to stroke or heart attack with anesthesia, perforation of the GI tract, bleeding, infection. I explained that any of these could necessitate further emergency surgery. The patient understands and all questions were answered sufficiently. The patient wishes to proceed with procedure. We discussed the current risks associated with COVID-19. While it is understood that there is a community spread of COVID-19, the risk of arturo COVID-19 while at [facility] ([facility]) is very low; however, the risk cannot be completely mitigated because of the community spread of the disease. We discussed in detail the risk of exposure to and/or potential harm posed by the COVID-19 virus with having a surgery/procedure at this time versus the risk of delaying the surgery/procedure. It is not possible to know either the risk of delaying the surgery or procedure or chance of getting an infection with perfect accuracy, but a joint decision was made to proceed at this time with the scheduled surgery/procedure as indicated on the consent form. Patient was notified that we will need to comply with any screening or testing [facility] wishes to perform or that surgery may be delayed for any positive results. Kehinde Sebastian MD Pager: [facility] [address] [place] [address], [address] [place] [address] Office: Surgery Risks - Colonoscopy Risks Include but are not Limited To: Risks include but are not limited to: Bleeding, perforation requiring further surgery, inability to complete colonoscopy requiring barium enema.
[2019-09-02] MEDS: Lactated Ringers 1,000 ML 100 ML IV (07:29)
[2019-09-02 07:36] LABS: Bedside Glucose 88 mg/dL (70-110)
--- NOTE | 2019-09-02 08:00 | EGD_PTH ---
PATIENT: NADIA CONKLIN LOC: [place] U#:[id number] AGE/SX: 63/M ROOM: RE09/02/[address]: Dr. Kehinde Sebastian MD : 1955 BED: DIS: 09/02/2019 SPEC #: [id number] RECD: 09/02/19 08:59 STATUS: ELGIN RELaura #: [id number] NARENDRA: 09/02/19 08:[address]: Kehinde Sebastian DEPT: SURGICAL PATHOLOGY RECD BY: Licha Soto ENTERED: 09/02/19 09:10 SP TYPE: EGD BIOPSY OTHR DR: Dr. Leandro Grijalva MD Tissues: Gastric mucous membrane Procedures: Surgery Specimen Level IV HEADER OPERATION: Colonoscopy, EGD ([facility] PRE-OP DIAGNOSIS: Mucocele of appendix, weight loss TISSUE SUBMITTED: Antrum biopsy for histo and H. pylori MICROSCOPIC DIAGNOSIS Antrum biopsy: Mild gastritis. A minute lymphoid aggregate, favor benign. See microscopic description and comment. DOUG:saira 09/03/19 COMMENT The results of immunohistochemistry for Helicobacter pylori will be reported separately ([id number]). MICROSCOPIC DESCRIPTION Slides are reviewed. The specimen shows fragments of gastric mucosa with chronic inflammatory cell infiltrates in the lamina propria consisting of lymphocytes and plasma cells, consistent with mild chronic gastritis. A minute lymphoid aggregate is also noted, favor benign. GROSS DESCRIPTION Received in fixative is one container labeled with the patient's name and designated antrum biopsy. The specimen consists of two irregular fragments of light amin soft tissue that in aggregate measure 0.3 x 0.2 x 0.1 cm. The specimen is totally submitted in one cassette. / DOUG:saira 09/02/19 TC:3 CPT: 27746
--- NOTE | 2019-09-02 08:00 | IMM_PTH ---
PATIENT: NADIA CONKLIN LOC: EN U#:[id number] AGE/SX: 63/M ROOM: RE09/02/[address]: Dr. Kehinde Sebastian MD : 1955 BED: DIS: 09/02/2019 SPEC #: [id number] RECD: 09/02/19 09:31 STATUS: ELGIN RELaura #: [id number] NARENDRA: 09/02/19 08:[address]: Kehinde Sebastian DEPT: IMMUNOHISTOCHEMISTRY RECD BY: Latrice Mesa ENTERED: 09/02/19 09:31 SP TYPE: IMMUNO OTHR DR: Dr. Leandro Grijalva MD Tissues: Stomach, NOS Procedures: H Pylori (initial) PHYSICIAN & INSTITUTION [place] [address] SPECIMEN INFORMATION: Tissue Source: Antrum biopsy Clinical Info: Mucocele of appendix, weight loss Specimen Number: [id number] CPT code: 49788 METHODOLOGY: Deparaffinized sections of prefer/formalin-fixed tissue or PAP/DQ stained slides are incubated with monoclonal/polyclonal antibodies/oligonucleotide probes. Localization is made via biotin free immunoperoxidase method. Appropriate controls are performed and reacted as expected. Results on target cell population are indicated in the following table: RESULTS: ANTIBODY / CLONE RESULT H Pylori (polyclonal) negative These tests were developed and their performance characteristics determined by [facility]. They may not have been cleared or approved by the U.S. Food and Drug Administration. The FDA has determined that such clearance or approval is not necessary. INTERPRETATION: Antrum, biopsy: Negative for Helicobacter pylori organisms. SJ:saira 09/06/19
--- NOTE | 2019-09-02 08:31 | OP.EGD_ITS ---
Patient Name: Wild Cornejo Procedure Date: 09/02/2019 7:27 AM Date of : 1955 Age: 63 Procedure: Upper GI endoscopy Indications: Abdominal pain in the right upper quadrant, Weight loss Providers: Kehinde Sebastian MD Medicines: Monitored Anesthesia Care Patient Profile: This is a 63 year old male. Refer to note in patient chart for documentation of history and physical. Complications: No immediate complications. Estimated blood loss: Minimal. Procedure: Pre-Anesthesia Assessment: - Prior to the procedure, a History and Physical was performed, and patient medications and allergies were reviewed. The patient's tolerance of previous anesthesia was also reviewed. The risks and benefits of the procedure and the sedation options and risks were discussed with the patient. All questions were answered, and informed consent was obtained. Prior Anticoagulants: The patient has taken no previous anticoagulant or antiplatelet agents. After reviewing the risks and benefits, the patient was deemed in satisfactory condition to undergo the procedure. After obtaining informed consent, the endoscope was passed under direct vision. Throughout the procedure, the patient's blood pressure, pulse, and oxygen saturations were monitored continuously. The gastroscope was introduced through the mouth, and advanced to the second part of duodenum. The upper GI endoscopy was accomplished without difficulty. The patient tolerated the procedure well. Scope In: 8:06:26 AM Scope Out: 8:09:19 AM Total Procedure Duration Time 0 hours 2 minutes 53 seconds Findings: The esophagus was normal. The examined duodenum was normal. Few oozing linear gastric ulcers with pigmented material were found in the gastric antrum. Biopsies were taken with a cold forceps for histology and Helicobacter pylori testing. Impression: - Normal esophagus. - Normal examined duodenum. - Oozing gastric ulcers with pigmented material. Biopsied. Recommendation: - Await pathology results. - Discharge patient to home. - Resume previous diet. - Use Prilosec (omeprazole) 20 mg PO daily for 3 months. - Continue present medications. - Use sucralfate tablets 1 gram PO QID for 1 month. Procedure Code(s): --- Professional --- 46520, Esophagogastroduodenoscopy, flexible, transoral; with biopsy, single or multiple Diagnosis Code(s): --- Professional --- K25.4, Chronic or unspecified gastric ulcer with hemorrhage R10.11, Right upper quadrant pain R63.4, Abnormal weight loss CPT copyright 2017 [employer]. All rights reserved. The codes documented in this report are preliminary and upon internet sales representative review may be revised to meet current compliance requirements. Kehinde Sebastian MD 09/02/2019 8:30:48 AM This report has been signed electronically. Number of Addenda: 0 Note Initiated On: 09/02/2019 7:27 AM
--- NOTE | 2019-09-02 08:31 | OP.CCLET_ITS ---
09/02/2019 Leandro Grijalva MD [address] [place] [address] Re : Upper GI endoscopy procedure for Wild Cornejo Dear Dr. Grijalva This procedure was performed on August. My impressions and recommendations are as follows: Impressions : - Normal esophagus. - Normal examined duodenum. - Oozing gastric ulcers with pigmented material. Biopsied. Recommendations : - Await pathology results. - Discharge patient to home. - Resume previous diet. - Use Prilosec (omeprazole) 20 mg PO daily for 3 months. - Continue present medications. - Use sucralfate tablets 1 gram PO QID for 1 month. My findings are described in the full procedure note, which is enclosed. If I can be of further assistance, please feel free to contact me at Doctor phone number(s): , Work: . Sincerely, Kehinde Sebastian MD 09/02/2019 8:30:48 AM This report has been signed electronically.
--- NOTE | 2019-09-02 08:32 | OP.CCLET_ITS ---
09/02/2019 Leandro Grijalva MD [address] [place] [address] Re : Colonoscopy procedure for Wild Cornejo Dear Dr. Grijalva This procedure was performed on August. My impressions and recommendations are as follows: Impressions : - The entire examined colon is normal on direct and retroflexion views. - No specimens collected. Recommendations : - Discharge patient to home. - Resume previous diet. - Continue present medications. - Repeat colonoscopy in 10 years for screening purposes. My findings are described in the full procedure note, which is enclosed. If I can be of further assistance, please feel free to contact me at Doctor phone number(s): , Work: . Sincerely, Kehinde Sebastian MD 09/02/2019 8:32:14 AM This report has been signed electronically.
--- NOTE | 2019-09-02 08:32 | OP.COLON_ITS ---
Patient Name: Wild Cornejo Procedure Date: 09/02/2019 8:10 AM Date of : 1955 Age: 63 Procedure: Colonoscopy Indications: Screening for colorectal malignant neoplasm Providers: Kehinde Sebastian MD Medicines: Monitored Anesthesia Care Patient Profile: This is a 63 year old male. Refer to note in patient chart for documentation of history and physical. Last Colonoscopy: none. The patient's first colonoscopy is today. Complications: No immediate complications. Estimated blood loss: Minimal. Procedure: Pre-Anesthesia Assessment: - Prior to the procedure, a History and Physical was performed, and patient medications and allergies were reviewed. The patient's tolerance of previous anesthesia was also reviewed. The risks and benefits of the procedure and the sedation options and risks were discussed with the patient. All questions were answered, and informed consent was obtained. Prior Anticoagulants: The patient has taken no previous anticoagulant or antiplatelet agents. After reviewing the risks and benefits, the patient was deemed in satisfactory condition to undergo the procedure. After I obtained informed consent, the scope was passed under direct vision. Throughout the procedure, the patient's blood pressure, pulse, and oxygen saturations were monitored continuously. The Colonoscope was introduced through the anus and advanced to the cecum, identified by appendiceal orifice and ileocecal valve. The colonoscopy was performed without difficulty. The patient tolerated the procedure well. The quality of the bowel preparation was good. Scope In: 8:11:17 AM Scope Withdrawal Time 0 hours 6 minutes 2 seconds Scope Out: 8:23:54 AM Total Procedure Duration Time 0 hours 12 minutes 37 seconds Findings: The entire examined colon appeared normal on direct and retroflexion views. Impression: - The entire examined colon is normal on direct and retroflexion views. - No specimens collected. Recommendation: - Discharge patient to home. - Resume previous diet. - Continue present medications. - Repeat colonoscopy in 10 years for screening purposes. Procedure Code(s): --- Professional --- 07087, Colonoscopy, flexible; diagnostic, including collection of specimen(s) by brushing or washing, when performed (separate procedure) Diagnosis Code(s): --- Professional --- Z12.11, Encounter for screening for malignant neoplasm of colon CPT copyright 2017 [employer]. All rights reserved. The codes documented in this report are preliminary and upon sergeant at arms review may be revised to meet current compliance requirements. Kehinde Sebastian MD 09/02/2019 8:32:14 AM This report has been signed electronically. Number of Addenda: 0 Note Initiated On: 09/02/2019 8:10 AM
== END 2019-09-02 09:28 | disposition home or self-care (01) ==
LOC: EN 06:56 → AC 06:57
PROVIDERS: Anesthesiology; PCP Family Medicine Geriatric Medicine; Referring Provider Family Medicine Geriatric Medicine; Visit Provider Surgery
PROC: 0DJD8ZZ Inspection of Lower Intestinal Tract, Via Natural or Artificial Opening Endoscopic (ICD-10-PCS; CPT 45378; principal; 2019-09-02 07:55)
DX: K29.70 Gastritis, unspecified, without bleeding (principal); K25.4 Chronic or unspecified gastric ulcer with hemorrhage; Z11.59 Encounter for screening for other viral diseases; R63.4 Abnormal weight loss; E11.9 Type 2 diabetes mellitus without complications; Z79.84 Long term (current) use of oral hypoglycemic drugs
CPT/HCPCS: 43239; 45378; 82962; 87635; 88305; 88342; G2023; J7120; U0003

== ENCOUNTER → 2019-09-27 15:33 | Outpatient (CLI) | payer OTHER, SELFPAY ==
[2019-09-02 07:14] VITALS: BMI 25.8
[2019-09-27 17:16] LABS: PSA,Total- Diagnostic 3.82 ng/mL (0.0-4.0)
[2019-09-29 15:17] LABS: PSA, Free 0.87 ng/mL; PSA, Free % 22.9 % (.); PSA, Total Ultrasensitive 3.8 ng/mL (0.0-4.0)
== END ==
PROVIDERS: PCP Family Medicine Geriatric Medicine; Referring Provider Nurse Practitioner Adult Health; Visit Provider Nurse Practitioner Adult Health
DX: R97.20 Elevated prostate specific antigen [PSA] (principal)
CPT/HCPCS: 36415; 84153; 84154

== ENCOUNTER → 2019-10-26 14:34 | Outpatient (CLI) | payer OTHER, SELFPAY ==
[2019-09-02 07:14] VITALS: BMI 25.8
[2019-10-26 15:39] LABS: Absolute Lymphocyte Count 1.88 X10^3/uL (0.83-4.51); Absolute Neutrophil Count 5.5 X10^3/uL (2.0-7.7); Basophil# 0.09 X10^3/uL; Basophil% 1.1 % (0-1); Eosinophil# 0.22 X10^3/uL; Eosinophils% 2.7 % (0-5); Hematocrit 44.6 % (40-54); Hemoglobin 15.2 g/dL (13.0-16.5); Lymphocyte # 1.88 X10^3/ul (4.0); Mean Corp Hgb Conc 34.1 g/dL (32-36); Mean Platelet Vol. 9.6 fl (6.2-12.0); Monocyte% 6.1 % (0-10); NRBC Flagged by Analyzer 0 % (0-5); Neutrophil # 5.49 X10^3/uL (2.7-7.7); Platelet Count 237 K/mm3 (150-450); RBC Distribution Width CV 12.8 % (11.6-14.6); RBC Distribution Width SD 42.1 fl (35.1-43.9); White Blood Count 8.2 K/mm3 (4.4-11.0)
[2019-10-26 16:00] LABS: ALB/GLOB Ratio 1.1 RATIO (0.9-2.4); AST(SGOT) 21 U/L (15-37); Alanine Aminotransfer ALT/SGPT 38 U/L (16-61); Albumin, Serum 3.7 g/dL (3.2-5.0); Alkaline Phosphatase 66 U/L (45-117); Anion Gap 6 (5-15); BUN 20 mg/dL (7-18); Calcium,Total 8.3 mg/dL (8.5-10.1); Chloride 104 mmol/L (98-107); EST Glomerular Filtration Rate 80 mL/min (>60); Est Glom Filt Rate - Afr Amer 97 mL/min (>60); Globulin 3.3 g/dL (2.2-4.2); Glucose 135 mg/dL (74-106); Sodium Level 138 mmol/L (136-145); Thyroid Stim Hormone (TSH) 1.19 uIU/mL (0.358-3.74)
== END ==
PROVIDERS: PCP Family Medicine Geriatric Medicine; Visit Provider Family Medicine Geriatric Medicine
DX: E11.65 Type 2 diabetes mellitus with hyperglycemia (principal); R53.83 Other fatigue
CPT/HCPCS: 36415; 80053; 84443; 85025

== ENCOUNTER → 2020-01-25 14:41 | Outpatient (CLI) | payer OTHER, SELFPAY ==
[2019-11-23 10:53] VITALS: BMI 29.7
[2020-01-25 17:20] LABS: Absolute Lymphocyte Count 2.65 X10^3/uL (0.83-4.51); Basophil# 0.12 X10^3/uL; Basophil% 1.4 % (0-1); Eosinophil# 0.24 X10^3/uL; Eosinophils% 2.8 % (0-5); Hematocrit 44.3 % (40-54); Hemoglobin 15.5 g/dL (13.0-16.5); Lymphocyte # 2.65 X10^3/ul (4.0); Lymphocyte % 30.6 % (19-41); Mean Corpuscular Hgb 31.8 pg (27.0-32.0); Mean Corpuscular Volume 90.8 fL (80-94); Mean Platelet Vol. 9.2 fl (6.2-12.0); Monocyte% 6.9 % (0-10); NRBC Flagged by Analyzer 0 % (0-5); Neutrophil % 57.8 % (47-70); Platelet Count 291 K/mm3 (150-450); RBC Distribution Width CV 12.6 % (11.6-14.6); RBC Distribution Width SD 41.1 fl (35.1-43.9); Red Blood Count 4.88 M/mm3 (4.6-6.2); White Blood Count 8.7 K/mm3 (4.4-11.0)
[2020-01-25 17:36] LABS: ALB/GLOB Ratio 1.1 RATIO (0.9-2.4); AST(SGOT) 25 U/L (15-37); Alanine Aminotransfer ALT/SGPT 45 U/L (16-61); Albumin, Serum 3.8 g/dL (3.2-5.0); Alkaline Phosphatase 69 U/L (45-117); Anion Gap 9 (5-15); BUN 22 mg/dL (7-18); BUN/Creat Ratio 21.6 RATIO (10-20); Calcium,Total 8.1 mg/dL (8.5-10.1); Chloride 103 mmol/L (98-107); Creatinine, Serum 1.02 mg/dL (0.70-1.30); EST Glomerular Filtration Rate 78 mL/min (>60); Est Glom Filt Rate - Afr Amer 95 mL/min (>60); Globulin 3.4 g/dL (2.2-4.2); Glucose 155 mg/dL (74-106); Protein, Total 7.2 g/dL (6.4-8.2); Sodium Level 136 mmol/L (136-145); Thyroid Stim Hormone (TSH) 1.63 uIU/mL (0.358-3.74)
== END ==
PROVIDERS: PCP Family Medicine Geriatric Medicine; Visit Provider Family Medicine Geriatric Medicine
DX: E11.65 Type 2 diabetes mellitus with hyperglycemia (principal); R53.83 Other fatigue
CPT/HCPCS: 36415; 80053; 84443; 85025

== ENCOUNTER → 2020-03-27 11:46 | Outpatient (CLI) | payer OTHER, SELFPAY ==
[2019-11-23 10:53] VITALS: BMI 29.7
[2020-03-27 13:22] LABS: PSA,Total- Diagnostic 6.04 ng/mL (0.0-4.0)
== END ==
PROVIDERS: PCP Family Medicine Geriatric Medicine; Referring Provider Nurse Practitioner Adult Health; Visit Provider Nurse Practitioner Adult Health
DX: R97.20 Elevated prostate specific antigen [PSA] (principal)
CPT/HCPCS: 36415; 84153

== ENCOUNTER → 2020-04-25 10:28 | Outpatient (CLI) | payer OTHER, SELFPAY ==
[2019-11-23 10:53] VITALS: BMI 29.7
[2020-04-25 12:58] LABS: Absolute Lymphocyte Count 2.84 X10^3/uL (0.83-4.51); Absolute Neutrophil Count 5.4 X10^3/uL (2.0-7.7); Basophil# 0.08 X10^3/uL; Basophil% 0.9 % (0-1); Eosinophil# 0.23 X10^3/uL; Eosinophils% 2.5 % (0-5); Hematocrit 48.9 % (40-54); Hemoglobin 16.2 g/dL (13.0-16.5); Lymphocyte # 2.84 X10^3/ul (4.0); Mean Corp Hgb Conc 33.1 g/dL (32-36); Mean Corpuscular Hgb 30.1 pg (27.0-32.0); Mean Corpuscular Volume 90.7 fL (80-94); Mean Platelet Vol. 9.2 fl (6.2-12.0); Monocyte# 0.63 X10^3/uL; Monocyte% 6.9 % (0-10); NRBC Flagged by Analyzer 0 % (0-5); Neutrophil # 5.36 X10^3/uL (2.7-7.7); Neutrophil % 58.5 % (47-70); Platelet Count 296 K/mm3 (150-450); RBC Distribution Width CV 12.6 % (11.6-14.6); RBC Distribution Width SD 41.2 fl (35.1-43.9); Red Blood Count 5.39 M/mm3 (4.6-6.2); White Blood Count 9.2 K/mm3 (4.4-11.0)
[2020-04-25 13:12] LABS: ALB/GLOB Ratio 1.1 RATIO (0.9-2.4); AST(SGOT) 30 U/L (15-37); Alanine Aminotransfer ALT/SGPT 46 U/L (16-61); Albumin, Serum 3.9 g/dL (3.2-5.0); Alkaline Phosphatase 68 U/L (45-117); Anion Gap 8 (5-15); BUN 22 mg/dL (7-18); BUN/Creat Ratio 21.6 RATIO (10-20); Calcium,Total 8.6 mg/dL (8.5-10.1); Chloride 106 mmol/L (98-107); Creatinine, Serum 1.02 mg/dL (0.70-1.30); EST Glomerular Filtration Rate 78 mL/min (>60); Est Glom Filt Rate - Afr Amer 94 mL/min (>60); Globulin 3.7 g/dL (2.2-4.2); Glucose 106 mg/dL (74-106); Potassium 4.1 mmol/L (3.5-5.1); Protein, Total 7.6 g/dL (6.4-8.2); Sodium Level 136 mmol/L (136-145); Thyroid Stim Hormone (TSH) 1.72 uIU/mL (0.358-3.74)
== END ==
PROVIDERS: PCP Family Medicine Geriatric Medicine; Visit Provider Family Medicine Geriatric Medicine
DX: E11.65 Type 2 diabetes mellitus with hyperglycemia (principal); R53.83 Other fatigue
CPT/HCPCS: 36415; 80053; 84443; 85025

== ENCOUNTER → 2020-06-30 11:33 | Outpatient (CLI) | payer OTHER, SELFPAY ==
[2019-11-23 10:53] VITALS: BMI 29.7
[2020-06-30 12:54] LABS: PSA,Total- Diagnostic 5.27 ng/mL (0.0-4.0)
[2020-07-01 13:28] LABS: PSA, Free 1.01 ng/mL; PSA, Total Ultrasensitive 4.8 ng/mL (0.0-4.0)
== END ==
PROVIDERS: PCP Family Medicine Geriatric Medicine; Referring Provider Nurse Practitioner Adult Health; Visit Provider Nurse Practitioner Adult Health
DX: R97.20 Elevated prostate specific antigen [PSA] (principal)
CPT/HCPCS: 36415; 84153; 84154

== ENCOUNTER → 2020-07-26 11:00 | Outpatient (CLI) | payer OTHER, SELFPAY ==
[2019-11-23 10:53] VITALS: BMI 29.7
[2020-07-26 11:54] LABS: Absolute Lymphocyte Count 2.37 X10^3/uL (0.83-4.51); Absolute Neutrophil Count 5.4 X10^3/uL (2.0-7.7); Basophil# 0.07 X10^3/uL; Basophil% 0.8 % (0-1); Eosinophil# 0.24 X10^3/uL; Eosinophils% 2.8 % (0-5); Hematocrit 45.6 % (40-54); Hemoglobin 15.7 g/dL (13.0-16.5); Lymphocyte # 2.37 X10^3/ul (0.83-4.51); Lymphocyte % 27.2 % (19-41); Mean Corp Hgb Conc 34.4 g/dL (32-36); Mean Corpuscular Hgb 30.8 pg (27.0-32.0); Mean Corpuscular Volume 89.6 fL (80-94); Mean Platelet Vol. 9.2 fl (6.2-12.0); Monocyte# 0.62 X10^3/uL; Monocyte% 7.1 % (0-10); NRBC Flagged by Analyzer 0 % (0-5); Neutrophil # 5.37 X10^3/uL (2.7-7.7); Neutrophil % 61.8 % (47-70); Platelet Count 272 K/mm3 (150-450); RBC Distribution Width CV 12.3 % (11.6-14.6); RBC Distribution Width SD 40.1 fl (35.1-43.9); Red Blood Count 5.09 M/mm3 (4.6-6.2); White Blood Count 8.7 K/mm3 (4.4-11.0)
[2020-07-26 12:25] LABS: ALB/GLOB Ratio 1.2 RATIO (0.9-2.4); AST(SGOT) 25 U/L (15-37); Alanine Aminotransfer ALT/SGPT 40 U/L (16-61); Alkaline Phosphatase 73 U/L (45-117); Anion Gap 7 (5-15); BUN 23 mg/dL (7-18); BUN/Creat Ratio 23.6 RATIO (10-20); Calcium,Total 8.7 mg/dL (8.5-10.1); Chloride 106 mmol/L (98-107); Creatinine, Serum 0.97 mg/dL (0.70-1.30); EST Glomerular Filtration Rate 82 mL/min (>60); Est Glom Filt Rate - Afr Amer 100 mL/min (>60); Globulin 3.2 g/dL (2.2-4.2); Glucose 129 mg/dL (74-106); PSA,Total - Annual Screen 3.56 ng/mL (0.00-4.00); Potassium 4.4 mmol/L (3.5-5.1); Protein, Total 7.2 g/dL (6.4-8.2); Sodium Level 136 mmol/L (136-145); Thyroid Stim Hormone (TSH) 1.46 uIU/mL (0.358-3.74)
== END ==
PROVIDERS: PCP Family Medicine Geriatric Medicine; Visit Provider Family Medicine Geriatric Medicine
DX: E11.65 Type 2 diabetes mellitus with hyperglycemia (principal); R53.83 Other fatigue; Z12.5 Encounter for screening for malignant neoplasm of prostate
CPT/HCPCS: 36415; 80053; 84153; 84443; 85025; G0103

== ENCOUNTER → 2021-01-08 10:20 | Outpatient (CLI) | payer OTHER, SELFPAY ==
[2021-01-08 12:17] LABS: PSA,Total- Diagnostic 3.65 ng/mL (0.0-4.0)
[2021-01-09 11:49] LABS: PSA, Free 0.74 ng/mL; PSA, Free % 24.7 % (.)
== END ==
PROVIDERS: PCP Family Medicine Geriatric Medicine; Referring Provider Nurse Practitioner Adult Health; Visit Provider Nurse Practitioner Adult Health
DX: R97.20 Elevated prostate specific antigen [PSA] (principal)
CPT/HCPCS: 36415; 84153; 84154

== ENCOUNTER → 2021-01-24 11:42 | Outpatient (CLI) | payer OTHER, SELFPAY ==
[2021-01-24 12:32] LABS: Absolute Lymphocyte Count 2.38 X10^3/uL (0.83-4.51); Absolute Neutrophil Count 5.4 X10^3/uL (2.0-7.7); Basophil# 0.08 X10^3/uL; Basophil% 0.9 % (0-1); Eosinophil# 0.25 X10^3/uL; Eosinophils% 2.9 % (0-5); Hematocrit 44.7 % (40-54); Hemoglobin 15.7 g/dL (13.0-16.5); Lymphocyte # 2.38 X10^3/ul (0.83-4.51); Lymphocyte % 27.2 % (19-41); Mean Corp Hgb Conc 35.1 g/dL (32-36); Mean Corpuscular Hgb 31.1 pg (27.0-32.0); Mean Corpuscular Volume 88.5 fL (80-94); Mean Platelet Vol. 9.3 fl (6.2-12.0); Monocyte# 0.65 X10^3/uL; Monocyte% 7.4 % (0-10); NRBC Flagged by Analyzer 0 % (0-5); Neutrophil # 5.37 X10^3/uL (2.7-7.7); Neutrophil % 61.4 % (47-70); Platelet Count 276 K/mm3 (150-450); RBC Distribution Width CV 12.4 % (11.6-14.6); RBC Distribution Width SD 39.4 fl (35.1-43.9); Red Blood Count 5.05 M/mm3 (4.6-6.2); White Blood Count 8.8 K/mm3 (4.4-11.0)
[2021-01-24 12:55] LABS: Vitamin D,25 Hydroxy 37.2 ng/mL
[2021-01-24 12:59] LABS: ALB/GLOB Ratio 1.1 RATIO (0.9-2.4); AST(SGOT) 23 U/L (15-37); Alanine Aminotransfer ALT/SGPT 49 U/L (16-61); Alkaline Phosphatase 72 U/L (45-117); Anion Gap 6 (5-15); BUN 22 mg/dL (7-18); BUN/Creat Ratio 21.2 RATIO (10-20); Calcium,Total 8.9 mg/dL (8.5-10.1); Chloride 104 mmol/L (98-107); Creatinine, Serum 1.04 mg/dL (0.70-1.30); EST Glomerular Filtration Rate 76 mL/min (>60); Est Glom Filt Rate - Afr Amer 92 mL/min (>60); Globulin 3.7 g/dL (2.2-4.2); Glucose 151 mg/dL (74-106); Potassium 4.2 mmol/L (3.5-5.1); Protein, Total 7.7 g/dL (6.4-8.2); Sodium Level 133 mmol/L (136-145); Thyroid Stim Hormone (TSH) 1.87 uIU/mL (0.358-3.74)
== END ==
PROVIDERS: PCP Family Medicine Geriatric Medicine; Visit Provider Family Medicine Geriatric Medicine
DX: E11.65 Type 2 diabetes mellitus with hyperglycemia (principal); E55.9 Vitamin D deficiency, unspecified; R53.83 Other fatigue
CPT/HCPCS: 36415; 80053; 82306; 84443; 85025

== ENCOUNTER 2021-04-06 12:12 | Outpatient (CLI) | payer OTHER, SELFPAY | END 2021-04-06 23:59 | disposition short-term general hospital (02) | LOC: PSN 12:14 | PROVIDERS: PCP Family Medicine Geriatric Medicine; Referring Provider Family Medicine Geriatric Medicine; Visit Provider Family Medicine Geriatric Medicine | DX: R68.83 Chills (without fever) (principal) | CPT/HCPCS: 87635; 87804; 87807; C9803; U0003; U0005 ==

== ENCOUNTER 2021-04-25 09:50 | Outpatient (CLI) | payer OTHER, SELFPAY ==
[2021-04-25 12:41] LABS: Absolute Lymphocyte Count 2.03 X10^3/uL (0.83-4.51); Absolute Neutrophil Count 6.6 X10^3/uL (2.0-7.7); Basophil# 0.11 X10^3/uL; Basophil% 1.1 % (0-1); Eosinophil# 0.22 X10^3/uL; Eosinophils% 2.3 % (0-5); Hematocrit 43.7 % (40-54); Hemoglobin 15.3 g/dL (13.0-16.5); Lymphocyte # 2.03 X10^3/ul (0.83-4.51); Lymphocyte % 20.8 % (19-41); Mean Corpuscular Hgb 31.3 pg (27.0-32.0); Mean Corpuscular Volume 89.4 fL (80-94); Mean Platelet Vol. 9.3 fl (6.2-12.0); Monocyte# 0.72 X10^3/uL; Monocyte% 7.4 % (0-10); NRBC Flagged by Analyzer 0 % (0-5); Neutrophil # 6.64 X10^3/uL (2.7-7.7); Neutrophil % 68.2 % (47-70); Platelet Count 275 K/mm3 (150-450); RBC Distribution Width CV 12.6 % (11.6-14.6); RBC Distribution Width SD 40.6 fl (35.1-43.9); Red Blood Count 4.89 M/mm3 (4.6-6.2); White Blood Count 9.7 K/mm3 (4.4-11.0)
[2021-04-25 13:13] LABS: AST(SGOT) 21 U/L (15-37); Alanine Aminotransfer ALT/SGPT 43 U/L (16-61); Albumin, Serum 3.7 g/dL (3.2-5.0); Alkaline Phosphatase 83 U/L (45-117); Anion Gap 8 (5-15); BUN 21 mg/dL (7-18); BUN/Creat Ratio 19.8 RATIO (10-20); Calcium,Total 8.8 mg/dL (8.5-10.1); Chloride 103 mmol/L (98-107); Creatinine, Serum 1.06 mg/dL (0.70-1.30); EST Glomerular Filtration Rate 74 mL/min (>60); Est Glom Filt Rate - Afr Amer 90 mL/min (>60); Globulin 3.8 g/dL (2.2-4.2); Glucose 143 mg/dL (74-106); Protein, Total 7.5 g/dL (6.4-8.2); Sodium Level 136 mmol/L (136-145); Thyroid Stim Hormone (TSH) 1.54 uIU/mL (0.358-3.74)
== END 2021-04-25 23:59 | disposition short-term general hospital (02) ==
LOC: POLAB3 09:51
PROVIDERS: PCP Family Medicine Geriatric Medicine; Visit Provider Family Medicine Geriatric Medicine
DX: E11.65 Type 2 diabetes mellitus with hyperglycemia (principal); R53.83 Other fatigue
CPT/HCPCS: 36415; 80053; 84443; 85025

== ENCOUNTER → 2021-07-27 | Outpatient (CLI) | payer OTHER, SELFPAY ==
[2021-07-27 12:43] LABS: Absolute Lymphocyte Count 2.38 X10^3/uL (0.83-4.51); Absolute Neutrophil Count 4.8 X10^3/uL (2.0-7.7); Basophil# 0.07 X10^3/uL; Basophil% 0.9 % (0-1); Eosinophil# 0.19 X10^3/uL; Eosinophils% 2.3 % (0-5); Hemoglobin 15.8 g/dL (13.0-16.5); Lymphocyte # 2.38 X10^3/ul (0.83-4.51); Lymphocyte % 29.3 % (19-41); Mean Corp Hgb Conc 35.9 g/dL (32-36); Mean Corpuscular Volume 89.1 fL (80-94); Mean Platelet Vol. 9.4 fl (6.2-12.0); Monocyte# 0.65 X10^3/uL; NRBC Flagged by Analyzer 0 % (0-5); Neutrophil % 59.3 % (47-70); Platelet Count 288 K/mm3 (150-450); RBC Distribution Width CV 12.7 % (11.6-14.6); RBC Distribution Width SD 39.7 fl (35.1-43.9); Red Blood Count 4.94 M/mm3 (4.6-6.2); White Blood Count 8.1 K/mm3 (4.4-11.0)
[2021-07-27 12:59] LABS: Vitamin D,25 Hydroxy 37.1 ng/mL
[2021-07-27 13:14] LABS: ALB/GLOB Ratio 1.1 RATIO (0.9-2.4); AST(SGOT) 20 U/L (15-37); Alanine Aminotransfer ALT/SGPT 40 U/L (16-61); Albumin, Serum 3.9 g/dL (3.2-5.0); Alkaline Phosphatase 62 U/L (45-117); Anion Gap 7 (5-15); BUN 22 mg/dL (7-18); BUN/Creat Ratio 23.1 RATIO (10-20); Calcium,Total 8.9 mg/dL (8.5-10.1); Chloride 105 mmol/L (98-107); Creatinine, Serum 0.95 mg/dL (0.70-1.30); EST Glomerular Filtration Rate 84 mL/min (>60); Est Glom Filt Rate - Afr Amer 102 mL/min (>60); Globulin 3.4 g/dL (2.2-4.2); Glucose 118 mg/dL (74-106); PSA,Total - Annual Screen 4.36 ng/mL (0.00-4.00); Potassium 4.2 mmol/L (3.5-5.1); Protein, Total 7.3 g/dL (6.4-8.2); Sodium Level 137 mmol/L (136-145); Thyroid Stim Hormone (TSH) 1.72 uIU/mL (0.358-3.74)
== END | disposition home or self-care (01) ==
LOC: POLAB3 10:36
PROVIDERS: PCP Family Medicine Geriatric Medicine; Visit Provider Family Medicine Geriatric Medicine
DX: E55.9 Vitamin D deficiency, unspecified (principal); R53.83 Other fatigue; Z12.5 Encounter for screening for malignant neoplasm of prostate
CPT/HCPCS: 36415; 80053; 82306; 84153; 84443; 85025; G0103

== ENCOUNTER → 2021-10-18 | Outpatient (CLI) | payer OTHER, SELFPAY ==
--- NOTE | 2021-10-18 17:49 | MRI_ITS ---
STUDY: MRI LUMBAR SPINE WITHOUT CONTRAST REASON FOR EXAM: Male, 66 years old. RADICULOPATHY TECHNIQUE: Standardized fat and water weighted pulse sequences were obtained in the sagittal and axial planes. COMPARISON: 07/25/2021 CT abdomen/pelvis FINDINGS: Normal lumbar lordosis. Mild retrolisthesis at L2-3, L3-4, L5-S1. There is no substantial scoliosis. Normal conus medullaris that terminates at the level of L1. T12-L1: Normal endplates. Normal disc height, hydration and morphology. Normal bilateral facet joints. Normal central canal and bilateral lateral recesses. Normal bilateral intervertebral neural foramina. L1-2: Normal endplates. Normal disc height, hydration and morphology. Normal bilateral facet joints. Normal central canal and bilateral lateral recesses. Normal bilateral intervertebral neural foramina. L2-3: Normal endplates. Disc bulge crowds both lateral recesses. Normal bilateral facet joints. Normal central canal. Normal bilateral intervertebral neural foramina. L3-4: Normal endplates. Mild disc bulge. Normal bilateral facet joints. Normal central canal and bilateral lateral recesses. Mild bilateral neural foraminal stenosis. L4-5: Normal endplates. Mild disc bulge. Moderate bilateral facet arthrosis. Normal central canal and bilateral lateral recesses. Mild bilateral neural foraminal stenosis. L5-S1: Normal endplates. Disc bulge and posterior annular fissure. Mild bilateral facet arthrosis with synovial cysts.. Normal central canal and bilateral lateral recesses. Normal bilateral intervertebral neural foramina. Normal visualized sacral ala. Normal visualized paraspinous soft tissue structures. MRI/Spine Lumbar (Routine) IMPRESSION: Mid to lower lumbar spine degenerative change with mild bilateral neural foraminal stenosis at L3-4 and L4-5. Electronically Signed: Sean Bridges MD at 6:22 EDT ,
== END | disposition home or self-care (01) ==
LOC: MRI 17:47
PROVIDERS: PCP Family Medicine Geriatric Medicine; Visit Provider Anesthesiology Pain Medicine
DX: M54.16 Radiculopathy, lumbar region (principal)
CPT/HCPCS: 72148

== ENCOUNTER → 2021-11-12 | Outpatient (CLI) | payer OTHER, SELFPAY ==
[2021-11-12 12:39] LABS: Absolute Lymphocyte Count 2.56 X10^3/uL (0.83-4.51); Absolute Neutrophil Count 5.5 X10^3/uL (2.0-7.7); Basophil# 0.07 X10^3/uL; Basophil% 0.8 % (0-1); Eosinophil# 0.14 X10^3/uL; Eosinophils% 1.6 % (0-5); Hemoglobin 14.1 g/dL (13.0-16.5); Lymphocyte # 2.56 X10^3/ul (0.83-4.51); Mean Corp Hgb Conc 36.2 g/dL (32-36); Mean Corpuscular Hgb 32.6 pg (27.0-32.0); Mean Corpuscular Volume 90.1 fL (80-94); Mean Platelet Vol. 9.1 fl (6.2-12.0); Monocyte# 0.58 X10^3/uL; Monocyte% 6.6 % (0-10); NRBC Flagged by Analyzer 0 % (0-5); Neutrophil # 5.45 X10^3/uL (2.7-7.7); Neutrophil % 61.7 % (47-70); Platelet Count 254 K/mm3 (150-450); RBC Distribution Width CV 13.3 % (11.6-14.6); Red Blood Count 4.33 M/mm3 (4.6-6.2); White Blood Count 8.8 K/mm3 (4.4-11.0)
[2021-11-12 13:22] LABS: ALB/GLOB Ratio 1.2 RATIO (0.9-2.4); AST(SGOT) 20 U/L (15-37); Alanine Aminotransfer ALT/SGPT 46 U/L (16-61); Albumin, Serum 3.7 g/dL (3.2-5.0); Alkaline Phosphatase 59 U/L (45-117); Anion Gap 7 (5-15); BUN 22 mg/dL (7-18); Calcium,Total 8.5 mg/dL (8.5-10.1); Chloride 105 mmol/L (98-107); EST Glomerular Filtration Rate 79 mL/min (>60); Est Glom Filt Rate - Afr Amer 96 mL/min (>60); Glucose 254 mg/dL (74-106); Protein, Total 6.7 g/dL (6.4-8.2); Sodium Level 136 mmol/L (136-145); Thyroid Stim Hormone (TSH) 1.28 uIU/mL (0.358-3.74)
== END | disposition home or self-care (01) ==
LOC: POLAB3 09:44
PROVIDERS: PCP Family Medicine Geriatric Medicine; Referring Provider Family Medicine Geriatric Medicine; Visit Provider Family Medicine Geriatric Medicine
DX: I10 Essential (primary) hypertension (principal); E11.65 Type 2 diabetes mellitus with hyperglycemia; E55.9 Vitamin D deficiency, unspecified
CPT/HCPCS: 36415; 80053; 82306; 84443; 85025

== ENCOUNTER 2022-01-18 16:30 | Outpatient (RCR) | payer OTHER, SELFPAY ==
--- NOTE | 2022-01-10 14:36 | HP.PTEVAL ---
Patient's Visit Information NADIA CONKLIN is a 66 year old M referred to Physical Therapy by ROSS Pearson with a diagnosis of L L4/L5 laminectomies, degenerative disc herniation. Date of Evaluation: 01/10/22 Physical Therapist: Gibran Steiner DPT - Visit Plan Frequency: 2x /Week Duration: 6 Weeks Plan: Start with neutral spine core stability. Wean out of brace over the next 3 weeks and slowly progress ROM over the same time frame. - Subjective Pt. is here today for his initial evaluation with diagnosis of L L4/L5 laminectomies, degenerative disc herniation. Pt. reports ~2 months ago he was lifting a box that was heavier than expected and felt a pop. He had a gradual increase in symptoms, but a few weeks before surgery his pain reduced, but then was unable to lift his foot on the L side. This was accompanied by N/T in his L foot. Pt. is still having issues with his L foot strengthen, but has improved. Pain is improved dramatically as well. He arrives with his brace on. He has been instructed to avoid bending, twisting, lifting. 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 He has been walking and working on light strengthening. He reports no adverse reaction thus far. He is not scheduled to see physician at this point in time, but is to follow up if not progressing like he should be. Pt. pleased with surgery thus far. - Pain L LE Pain Intensity (Out of 10): 2 Pain Intensity Range: 0, 6 - Objective POSTURE: Pt. has decent posture in stance. Pt. has slight increase in anterior pelvic tilt. Normal iliac crest heights. PALPATION: Normal healing noted. Pt. has mild tenderness along lumbar erector spinae. NEURO: Pt. has normal sensation in BLEs, except slight reduce in symptoms at L lateral distal LE and into foot. Pt. has 2+ achilles and patellar DTR bilaterally. Pt. is able to rise on heels well bilaterally. He is unable to do so on LLE only. He is able to complete DF B, but decreased strength noted in L LE. ROM: PT. has normal hip ROM bilaterally without issues. Pt. normal L ankle/knee ROM without increase in symptoms. LUMBAR SPINE: flexion min loss (tightness), ext mod loss (tightness), rotation mod loss bilat (tightness), SB mod loss (tightness). Pt. instructed to not force motion. Pt. did well. Tight B HS noted. MMT: RLE: ankle 5/5 throughout; knee: ext 5/5, flexion 5/5; hip: flexion 5-/5, abd 5-/5. LLE: ankle: PF 5/5, DF 3/5, INV 3/5, EVR 3+/5; knee: ext 4+/5, flexion 4+/5: hip: flexion 4+/5, abd 4+/5. Core strength: poor+. GAIT: Pt. has a decent gait pattern, but does have marked loss of DF during swing phase and decreased eccentric control of DF on L side. Pt. tends to have an increased R lateral lean to make up for his loss of DF. - Balance/Special Test Scores Oswestry Low Back Score: 20 - Goals Goal 1:: LTG: Pt. to be I with HEP. Goal Time Frame: 4-6 Weeks Goal 2:: LTG: Pt. to wean from brace over the next 3 weeks. Goal 3:: STG: Pt. to have normal gait pattern without increase in symptoms and improved DF of LLE. Goal Time Frame: 2-4 Weeks Goal 4:: STG: Pt. to have full active DF of L ankle. Goal Time Frame: 2 Weeks Goal 5:: LTG: Pt. have increased L DF strength by 1/2 grade allowing for improved gait mechanics. Goal Time Frame: 4-6 Weeks Goal 6:: LTG: Pt. to demonstrate proper body mechanics with all work related activities. Goal Time Frame: 4-6 Weeks - Rehabilitation Potential Physical Therapy Diagnosis: Pt. has signs and symptoms consistent with L L4/L5 laminectomies, degenerative disc herniation. Pt. has marked loss of core stability, difficulty with walking, and marked DF weakness on L side. Pt would benefit from PT to address the above limitations progressing back to all work and recreational activities without limitations. Rehabilitation Potential: Excellent - Anticipated Interventions Patient/Client Instruction: Educate patient on: Condition, Plan of Care, Risk Factors, Benefits of Fitness Program For the Purpose of:: To improve health and function, To foster healthy habits, To improve decision making, To facilitate caregiver knowledge, To improve self management, To prevent re-injury, To improve ability to perform tasks related to life management Therapeutic Exercise to Include: Strength training, Balance training, Coordination, Flexibilty training, Gait and locomotor training, Passive ROM, Active ROM, Dynamic Lumbar Stabilization For the Purpose of:: To decrease pain, To decrease swelling/inflammation, To increase ROM, To improve nutrient delivery to tissue, To increase oxygenation perfusion, To improve gait and locomotor functions, To improve health of tissue, To decrease soft tissue restriction Thank you for the opportunity to evaluate your patient. For Medicare and Medicare HMO plans, please review the plan of care and approve it. It will need to be FAXED BACK to us at [phone] for Medicare purposes. For Medicare only, by signing this I certify the plan of care. Please let me know if there are questions or concerns regarding this plan of care. Physician Signature: Date:
== END 2022-01-18 19:00 | disposition home or self-care (01) ==
LOC: PT 16:30
PROVIDERS: PCP Family Medicine Geriatric Medicine; Referring Provider Nurse Practitioner Acute Care; Visit Provider Nurse Practitioner Acute Care
DX: Z48.89 Encounter for other specified surgical aftercare (principal); M48.061 Spinal stenosis, lumbar region without neurogenic claudication; M21.372 Foot drop, left foot
CPT/HCPCS: 97110; 97161

== ENCOUNTER → 2022-01-30 | Outpatient (CLI) | payer OTHER, SELFPAY | END | disposition home or self-care (01) | LOC: PSN 12:44 | PROVIDERS: PCP Family Medicine Geriatric Medicine; Visit Provider Family Medicine Geriatric Medicine | DX: R68.83 Chills (without fever) (principal) | CPT/HCPCS: 87635; 87804; 87807; C9803; U0003; U0005 ==

== ENCOUNTER → 2022-02-18 | Outpatient (CLI) | payer OTHER, SELFPAY ==
[2022-02-18 13:21] LABS: Absolute Lymphocyte Count 1.83 X10^3/uL (0.83-4.51); Absolute Neutrophil Count 5.8 X10^3/uL (2.0-7.7); Basophil# 0.08 X10^3/uL; Eosinophil# 0.18 X10^3/uL; Eosinophils% 2.2 % (0-5); Hematocrit 45.2 % (40-54); Hemoglobin 15.7 g/dL (13.0-16.5); Lymphocyte # 1.83 X10^3/ul (0.83-4.51); Lymphocyte % 21.9 % (19-41); Mean Corp Hgb Conc 34.7 g/dL (32-36); Mean Corpuscular Hgb 31.5 pg (27.0-32.0); Mean Corpuscular Volume 90.8 fL (80-94); Mean Platelet Vol. 9.6 fl (6.2-12.0); Monocyte# 0.43 X10^3/uL; Monocyte% 5.1 % (0-10); NRBC Flagged by Analyzer 0 % (0-5); Neutrophil # 5.81 X10^3/uL (2.7-7.7); Neutrophil % 69.4 % (47-70); Platelet Count 245 K/mm3 (150-450); RBC Distribution Width SD 39.2 fl (35.1-43.9); Red Blood Count 4.98 M/mm3 (4.6-6.2); White Blood Count 8.4 K/mm3 (4.4-11.0)
[2022-02-18 13:42] LABS: Vitamin D,25 Hydroxy 31.7 ng/mL
[2022-02-18 14:18] LABS: AST(SGOT) 17 U/L (15-37); Alanine Aminotransfer ALT/SGPT 38 U/L (16-61); Albumin, Serum 3.6 g/dL (3.2-5.0); Alkaline Phosphatase 70 U/L (45-117); Anion Gap 12 (5-15); BUN 18 mg/dL (7-18); BUN/Creat Ratio 18.5 RATIO (10-20); Calcium,Total 8.4 mg/dL (8.5-10.1); Chloride 102 mmol/L (98-107); Creatinine, Serum 0.98 mg/dL (0.70-1.30); EST Glomerular Filtration Rate 82 mL/min (>60); Est Glom Filt Rate - Afr Amer 99 mL/min (>60); Globulin 3.5 g/dL (2.2-4.2); Glucose 363 mg/dL (74-106); Potassium 3.9 mmol/L (3.5-5.1); Protein, Total 7.1 g/dL (6.4-8.2); Sodium Level 134 mmol/L (136-145); Thyroid Stim Hormone (TSH) 1.54 uIU/mL (0.358-3.74)
== END | disposition home or self-care (01) ==
LOC: POLAB3 09:28
PROVIDERS: PCP Family Medicine Geriatric Medicine; Visit Provider Family Medicine Geriatric Medicine
DX: E55.9 Vitamin D deficiency, unspecified (principal); E11.65 Type 2 diabetes mellitus with hyperglycemia; I10 Essential (primary) hypertension
CPT/HCPCS: 36415; 80053; 82306; 84443; 85025

== ENCOUNTER → 2022-05-15 | Outpatient (CLI) | payer OTHER, SELFPAY ==
[2022-05-15 17:20] LABS: Absolute Lymphocyte Count 2.35 X10^3/uL (0.83-4.51); Absolute Neutrophil Count 5.9 X10^3/uL (2.0-7.7); Basophil# 0.06 X10^3/uL; Basophil% 0.7 % (0-1); Eosinophil# 0.16 X10^3/uL; Eosinophils% 1.8 % (0-5); Hematocrit 43.5 % (40-54); Hemoglobin 15.3 g/dL (13.0-16.5); Lymphocyte # 2.35 X10^3/ul (0.83-4.51); Mean Corp Hgb Conc 35.2 g/dL (32-36); Mean Corpuscular Hgb 31.7 pg (27.0-32.0); Mean Corpuscular Volume 90.1 fL (80-94); Mean Platelet Vol. 9.7 fl (6.2-12.0); Monocyte# 0.55 X10^3/uL; Monocyte% 6.1 % (0-10); NRBC Flagged by Analyzer 0 % (0-5); Neutrophil % 65.3 % (47-70); Platelet Count 294 K/mm3 (150-450); RBC Distribution Width CV 13.5 % (11.6-14.6); RBC Distribution Width SD 41.3 fl (35.1-43.9); Red Blood Count 4.83 M/mm3 (4.6-6.2)
[2022-05-15 17:56] LABS: ALB/GLOB Ratio 1.2 RATIO (0.9-2.4); AST(SGOT) 27 U/L (15-37); Alanine Aminotransfer ALT/SGPT 44 U/L (16-61); Albumin, Serum 4.1 g/dL (3.2-5.0); Alkaline Phosphatase 73 U/L (45-117); Anion Gap 10 (5-15); BUN 21 mg/dL (7-18); BUN/Creat Ratio 19.1 RATIO (10-20); Calcium,Total 9.1 mg/dL (8.5-10.1); Chloride 106 mmol/L (98-107); EST Glomerular Filtration Rate 71 mL/min (>60); Est Glom Filt Rate - Afr Amer 86 mL/min (>60); Globulin 3.4 g/dL (2.2-4.2); Glucose 173 mg/dL (74-106); Protein, Total 7.5 g/dL (6.4-8.2); Sodium Level 138 mmol/L (136-145)
== END | disposition home or self-care (01) ==
LOC: POLAB3 13:50
PROVIDERS: PCP Family Medicine Geriatric Medicine; Visit Provider Family Medicine Geriatric Medicine
DX: E11.65 Type 2 diabetes mellitus with hyperglycemia (principal); I10 Essential (primary) hypertension; E55.9 Vitamin D deficiency, unspecified
CPT/HCPCS: 36415; 80053; 82306; 84443; 85025

== ENCOUNTER → 2022-08-14 | Outpatient (CLI) | payer OTHER, SELFPAY ==
[2022-08-14 13:12] LABS: Absolute Lymphocyte Count 2.01 X10^3/uL (0.83-4.51); Absolute Neutrophil Count 5.8 X10^3/uL (2.0-7.7); Basophil# 0.08 X10^3/uL; Basophil% 0.9 % (0-1); Eosinophil# 0.23 X10^3/uL; Eosinophils% 2.6 % (0-5); Hematocrit 43.6 % (40-54); Hemoglobin 15.3 g/dL (13.0-16.5); Lymphocyte # 2.01 X10^3/ul (0.83-4.51); Lymphocyte % 23.1 % (19-41); Mean Corp Hgb Conc 35.1 g/dL (32-36); Mean Corpuscular Hgb 31.7 pg (27.0-32.0); Mean Corpuscular Volume 90.5 fL (80-94); Monocyte# 0.56 X10^3/uL; Monocyte% 6.4 % (0-10); NRBC Flagged by Analyzer 0 % (0-5); Neutrophil # 5.78 X10^3/uL (2.7-7.7); Neutrophil % 66.7 % (47-70); Platelet Count 291 K/mm3 (150-450); RBC Distribution Width CV 12.5 % (11.6-14.6); Red Blood Count 4.82 M/mm3 (4.6-6.2); White Blood Count 8.7 K/mm3 (4.4-11.0)
[2022-08-14 13:28] LABS: Vitamin D,25 Hydroxy 43.8 ng/mL
[2022-08-14 13:48] LABS: ALB/GLOB Ratio 1.3 RATIO (0.9-2.4); AST(SGOT) 25 U/L (15-37); Alanine Aminotransfer ALT/SGPT 40 U/L (16-61); Albumin, Serum 3.9 g/dL (3.2-5.0); Alkaline Phosphatase 60 U/L (45-117); Anion Gap 9 (5-15); BUN 22 mg/dL (7-18); BUN/Creat Ratio 21.6 RATIO (10-20); Calcium,Total 8.4 mg/dL (8.5-10.1); Chloride 107 mmol/L (98-107); Creatinine, Serum 1.02 mg/dL (0.70-1.30); EST Glomerular Filtration Rate 77 mL/min (>60); Est Glom Filt Rate - Afr Amer 94 mL/min (>60); Glucose 183 mg/dL (74-106); PSA,Total - Annual Screen 3.92 ng/mL (0.00-4.00); Potassium 4.4 mmol/L (3.5-5.1); Protein, Total 6.9 g/dL (6.4-8.2); Sodium Level 138 mmol/L (136-145)
== END | disposition home or self-care (01) ==
LOC: POLAB3 11:01
PROVIDERS: PCP Family Medicine Geriatric Medicine; Visit Provider Family Medicine Geriatric Medicine
DX: E11.65 Type 2 diabetes mellitus with hyperglycemia (principal); I10 Essential (primary) hypertension; E55.9 Vitamin D deficiency, unspecified
CPT/HCPCS: 36415; 80053; 82306; 84153; 84443; 85025; G0103

== ENCOUNTER → 2022-10-18 | Outpatient (CLI) | payer OTHER, SELFPAY ==
[2022-10-18 13:52] LABS: PSA,Total- Diagnostic 3.78 ng/mL (0.0-4.0)
[2022-10-21 12:08] LABS: PSA, Free % 27.4 % (.)
== END | disposition home or self-care (01) ==
LOC: LAB 12:33
PROVIDERS: PCP Family Medicine Geriatric Medicine; Referring Provider Urology; Visit Provider Urology
DX: R97.20 Elevated prostate specific antigen [PSA] (principal)
CPT/HCPCS: 36415; 84153; 84154

== ENCOUNTER 2022-12-21 19:26 | Emergency (ER) | payer OTHER, SELFPAY ==
[2022-12-21 19:28] VITALS: BP 122/79; PULSE 80; RESP 18; TEMP 36.7; O2SAT 99; BMI 29.8
--- NOTE | 2022-12-21 19:58 | EX.ED.DYSGE1 ---
HPI <CLARA Nowak - Last Filed: 12/21/22 21:06> History of Present Illness Chief Complaint: Hyperglycemia Narrative Narrative: Patient presenting today due to poor troll of his blood sugar that he has had over the past several weeks. He reports that in the mornings it has been in the 200s. He recently started a new medication, Janumet and is also on glimepiride. He last saw his PCP, Dr. Grijalva on Friday who did not seem to be overly concerned. He reports that he has had a difficult time sleeping over the past few months due to being under a lot of stress and sometimes only sleeps 1 to [address] Grijalva gave him a prescription for sleeping medication anxiety which seems to be helping some, but he is still only getting a few hours of sleep each night. His reports that he has been acting more confused over the past several weeks. She reports that Dr. Grijalva seem to think that this was related to him being sleep deprived. He denies any fever, chills, abdominal pain, nausea, vomiting, chest pain, and shortness of breath. [facility] <CLARA Nowak - Last Filed: 12/21/22 21:06> [facility] Medical History (Updated 12/21/22 @ 23:[address] Sergey Rosen MD) Diabetes Hypertension Weight loss Home Medications brimonidine 0.15 % eye drops 1 drp RIGHT EYE BID glaucoma 05/29/19 [History Last Taken Unknown] glimepiride 2 mg tablet 2 mg PO BID diabetes 05/29/19 [History Last Taken Unknown] prednisolone acetate (PF) 1 % eye drops,suspension 1 drp RIGHT EYE QWEEK eye pain 05/29/19 [History Last Taken Unknown] sitagliptin phosphate 100 mg tablet 100 mg PO DAILY diabetes 05/29/19 [History Last Taken Unknown] zolpidem 5 mg tablet (Ambien) 3.75 mg PO QHS PRN Insomnia 07/19/19 [History Last Taken Unknown] omeprazole 20 mg tablet,delayed release 20 mg PO DAILY #60 tabs 09/02/19 [Rx Last Taken Unknown] sucralfate 1 gram tablet (Carafate) 1 g PO QACHS #120 tabs 09/02/19 [Rx Last Taken Unknown] quetiapine 25 mg tablet (Seroquel) 25 mg PO TID #90 tabs 12/21/22 [Rx Last Taken Unknown] Allergy/AdvReac Type Severity Reaction Status Date / Time lisinopril Allergy Mild Unknown Verified 12/21/22 19:30 metformin Allergy Mild Unknown Verified 12/21/22 19:30 nortriptyline Allergy Mild Unknown Verified 12/21/22 19:30 Sulfa (Sulfonamide Allergy Mild Unknown Verified 12/21/22 19:30 Antibiotics) doxepin AdvReac PT UNSURE Verified 12/21/22 19:30 OF REACTION Surgical History S/P appendectomy Social History Smoking Status: Never smoker second hand exposure: No alcohol intake: current alcohol intake frequency: holidays/special occasions only substance use type: does not use caffeine: No frequency: 3-4 times per week seatbelt use: always ROS <CLARA Nowak - Last Filed: 12/21/22 21:06> ROS ED Constitutional Constitutional ED: Denies chills or fever(s) Cardiovascular Cardiovascular: Denies chest pain or palpitations Respiratory/Chest Respiratory/Chest: Denies cough or dyspnea Gastrointestinal Gastrointestinal: Denies abdominal pain, nausea or vomiting Genitourinary Genitourinary ED: Denies dysuria, hematuria or urinary urgency Musculoskeletal Musculoskeletal: Denies arthralgias or myalgias Integumentary Denies rash Neurologic Neurologic: Denies paresthesias or weakness EXAM <CLARA Nowak - Last Filed: 12/21/22 21:06> Physical Exam Const Vital Signs: 12/21/22 19:28 12/21/22 20:15 Temperature 98.1 F Temperature Source Temporal Pulse Rate 80 Respiratory Rate 18 Respiratory Effort Normal Non-Labored Blood Pressure 122/79 H Blood Pressure Mean 93 Pulse Ox 99 Oxygen Delivery Method Room Air Positive well nourished, well developed and no apparent distress General Appearance ED: well developed HEENT Reports normocephalic and head/scalp atraumatic Mouth ED: Yes moist mucous membranes normal Eyes PERRL and EOMs intact bilaterally Neck full ROM and supple Chest Wall inspection of chest normal Resp normal respiratory effort and clear to auscultation bilaterally Cardio regular rate and regular rhythm GI soft to palpation, non-tender, non-distended and no masses Back/Spine normal ROM and normal to inspection Extremity normal to inspection and full ROM Neuro oriented x3, CN's II-XII intact bilaterally, moves all extremities, no focal motor deficits and no sensory deficits noted Sensorium / Orientation: awake and alert Psych mental status grossly normal and thought process normal Skin no rashes or lesions noted and no wounds <Dr. Sergey Rosen MD - Last Filed: 12/21/22 23:28> Physical Exam Const Vital Signs: 12/21/22 19:28 12/21/22 20:15 Temperature 98.1 F Temperature Source Temporal Pulse Rate 80 Respiratory Rate 18 Respiratory Effort Normal Non-Labored Blood Pressure 122/79 H Blood Pressure Mean 93 Pulse Ox 99 Oxygen Delivery Method Room Air MDM <CLARA Nowak - Last Filed: 12/21/22 21:06> MDM MDM Narrative Medical decision making narrative: Patient presenting due to concerns for hyperglycemia as his blood sugars have been under good control over the past several weeks, he was recently started on an additional blood sugar medication, Janumet which has not seemed to help him much. He saw his PCP on Friday, Dr. Grijalva who did not seem to be overly concerned for this and did not prescribe any additional medications. He is also had very little sleep over the past several weeks due to being stressed and is sometimes only sleeping 1 to 2 hours per night and his reports that he has been acting more confused because he is not sleeping. Dr. Grijalva prescribed him a sleeping medication as well as an anxiety medication to help with this, he reports he is sleeping a little bit more, but still is not sleeping enough. Labs and UA will be obtained, as well as an EKG, chest x-ray, and head CT. Lab Data Attestation: I reviewed the patient's lab results. Labs: Laboratory Results - last 24 hr 12/21/22 12/21/22 19:35 20:20 WBC 9.3 RBC 4.82 Hgb 15.6 Hct 43.1 MCV 89.4 MCH 32.4 H MCHC 36.2 H RDW Std Deviation 39.5 RDW Coeff of Anabelle 12.2 Plt Count 258 MPV 9.1 Immature Gran % (Auto) 0.100 Neut % (Auto) 62.7 Lymph % (Auto) 28.7 [place] % (Auto) 6.6 Eos % (Auto) 1.4 Baso % (Auto) 0.5 Absolute Neuts (auto) 5.8 Absolute Lymphs (auto) 2.68 Nucleated RBC % 0 Sodium 135 L Potassium 3.9 Chloride 104 Carbon Dioxide 24.0 Anion Gap 7 BUN 18 Creatinine 0.98 Estim Creat Clear Calc 73.14 Est GFR (MDRD) Af Amer 98 Est GFR (MDRD) Non-Af 81 BUN/Creatinine Ratio 18.4 Glucose 177 H Calcium 8.7 Urine Color Yellow Urine Clarity Clear Urine pH 6.0 Ur Specific [place] 1.015 Urine Protein Negative Urine Glucose (UA) Normal Urine Ketones Negative Urine Occult Blood Negative Urine Nitrite Negative Urine Bilirubin Negative Urine Urobilinogen Normal Ur Leukocyte Esterase Negative Urine RBC 0 SEEN Urine WBC 0 SEEN Ur Squamous Epith Cells 0 SEEN Urine Bacteria 0 SEEN Urine Mucus 0 SEEN Radiography Diagnostic Testing: Clinical Impression(s) from Imaging Studies Brain CT 12/21/22 20:50 IMPRESSION: No acute intracranial hemorrhage. Similar examination findings compared to prior CT. Electronically Signed: Enio Chapman MD at 21:26 EDT , Chest X-Ray 12/21/22 21:00 IMPRESSION: No radiographic evidence of acute cardiopulmonary disease. Electronically Signed: Enio Chapman MD at 21:22 EDT , <Dr. Sergey Rosen MD - Last Filed: 12/21/22 23:28> [facility] Lab Data Labs: Laboratory Results - last 24 hr 12/21/22 12/21/22 19:35 20:20 WBC 9.3 RBC 4.82 Hgb 15.6 Hct 43.1 MCV 89.4 MCH 32.4 H MCHC 36.2 H RDW Std Deviation 39.5 RDW Coeff of Anabelle 12.2 Plt Count 258 MPV 9.1 Immature Gran % (Auto) 0.100 Neut % (Auto) 62.7 Lymph % (Auto) 28.7 [place] % (Auto) 6.6 Eos % (Auto) 1.4 Baso % (Auto) 0.5 Absolute Neuts (auto) 5.8 Absolute Lymphs (auto) 2.68 Nucleated RBC % 0 Sodium 135 L Potassium 3.9 Chloride 104 Carbon Dioxide 24.0 Anion Gap 7 BUN 18 Creatinine 0.98 Estim Creat Clear Calc 73.14 Est GFR (MDRD) Af Amer 98 Est GFR (MDRD) Non-Af 81 BUN/Creatinine Ratio 18.4 Glucose 177 H Calcium 8.7 Urine Color Yellow Urine Clarity Clear Urine pH 6.0 Ur Specific [place] 1.015 Urine Protein Negative Urine Glucose (UA) Normal Urine Ketones Negative Urine Occult Blood Negative Urine Nitrite Negative Urine Bilirubin Negative Urine Urobilinogen Normal Ur Leukocyte Esterase Negative Urine RBC 0 SEEN Urine WBC 0 SEEN Ur Squamous Epith Cells 0 SEEN Urine Bacteria 0 SEEN Urine Mucus 0 SEEN Radiography Diagnostic Testing: Clinical Impression(s) from Imaging Studies Brain CT 12/21/22 20:50 IMPRESSION: No acute intracranial hemorrhage. Similar examination findings compared to prior CT. Electronically Signed: Enio Chapman MD at 21:26 EDT , Chest X-Ray 12/21/22 21:00 IMPRESSION: No radiographic evidence of acute cardiopulmonary disease. Electronically Signed: Enio Chapman MD at 21:22 EDT , Rhythm Strip Rhythm Strip: Sinus Rhythm Rate: 80 Ectopy: None EKG Initial EKG: Attestation: I personally reviewed and interpreted this EKG as follows: Interpretation: Sinus Rhythm and No Acute Injury Pattern Comments: nml EKG Prior EKG tracings: available for review Prior: Unchanged Management Discussion w/another healthcare provider: PCP Treatment and Re-Evaluation Comments:: I have personally performed a face to face assessment of the patient and have reviewed the PHILLIP Note. I performed a substantive portion of the visit including all aspects of the following. My hamilton findings include: History is 5-6 weeks of bizarre behavior according to the . Insomnia, waxing and waning blood sugars which seem to make things worse according to the patient, she is very concerned and states that he is doing dangerous things which she refers to as sitting on a tractor refusing to get off threatening to use it. No suicidality or homicidality. states patient has seemed to be delusional at times, agitated about the police looking for him to arrest him, nonsensically laying down in the middle of the ER to take a 10-minute nap and then getting up to walk to the barn, wandering aimlessly in the house in the middle of the night, complaining that he has been hemorrhaging from his nose for 3 days when he has not had a nosebleed at all, etc. Exam is normal physical exam. Not objectively delusional at this time nor actively hallucinating. Patient is writing off all of what the is saying to me as stress, poor sleep, and my blood sugar. Medical Decison Making medical work-up including CT of the head, chest x-ray, EKG normal/negative. I reviewed images of the CT and the report which I agree with. 2 view chest x-ray normal my interpretation, radiology in agreement. EKG on my interpretation is normal. I do not think this is all blood sugar related. It may be worsened by that and/or insomnia or stress, but this has been worsening for 1-2 months. I discussed with the patient's PCP. He knows the patient well. My suspicion or thoughts was that this could be dementia with or without behavior disturbance and/or psychotic features. His thoughts were more that this is actually a psychiatric illness. The patient was in the office this past week and PCP tried to encourage him to start Seroquel but he was resistant and wanted to start mirtazapine instead. Does not seem to be helping with his sleep as much. He is amenable to starting Seroquel. I offered crisis evaluation of possible psychiatric admission which I do not think he will qualify for emergently right now, they declined this and will follow-up with PCP and we will start him on Seroquel tonight. Discussed at length with and patient. Discharge Plan Triage Chief Complaint: Hyperglycemia ED Midlevel Provider: Ale Bradford ED Provider: Sergey Rosen Dx/Rx/DC Orders Clinical Impression: Insomnia, Hyperglycemia due to type 2 diabetes mellitus, Anxiety, Delusional disorder Instructions: Understanding Delusional Disorders Prescriptions: New quetiapine [Seroquel] 25 mg tablet 25 mg PO TID Qty: 90 0RF No Action zolpidem [Ambien] 5 mg tablet 3.75 mg PO QHS PRN (Reason: Insomnia) sucralfate [Carafate] 1 gram tablet 1 g PO QACHS Qty: 120 0RF omeprazole 20 mg tablet,delayed release (DR/EC) 20 mg PO DAILY Qty: 60 1RF glimepiride 2 MG tablet 2 mg PO BID brimonidine 5 ML drops 1 drp RIGHT EYE BID sitagliptin phosphate 100 MG tablet 100 mg PO DAILY prednisolone acetate (PF) 5 ML drops,suspension 1 drp RIGHT EYE QWEEK Primary Care Provider: Leandro Grijalva Chi Referrals: Leandro Grijalva Chi, MD [Primary Care Provider] - As soon as possible Disposition Disposition: Home, Self Care
[2022-12-21 20:11] LABS: Absolute Lymphocyte Count 2.68 X10^3/uL (0.83-4.51); Absolute Neutrophil Count 5.8 X10^3/uL (2.0-7.7); Basophil# 0.05 X10^3/uL; Basophil% 0.5 % (0-1); Eosinophil# 0.13 X10^3/uL; Eosinophils% 1.4 % (0-5); Hematocrit 43.1 % (40-54); Hemoglobin 15.6 g/dL (13.0-16.5); Lymphocyte # 2.68 X10^3/ul (0.83-4.51); Lymphocyte % 28.7 % (19-41); Mean Corp Hgb Conc 36.2 g/dL (32-36); Mean Corpuscular Hgb 32.4 pg (27.0-32.0); Mean Corpuscular Volume 89.4 fL (80-94); Mean Platelet Vol. 9.1 fl (6.2-12.0); Monocyte# 0.62 X10^3/uL; Monocyte% 6.6 % (0-10); NRBC Flagged by Analyzer 0 % (0-5); Neutrophil # 5.84 X10^3/uL (2.7-7.7); Neutrophil % 62.7 % (47-70); Platelet Count 258 K/mm3 (150-450); RBC Distribution Width CV 12.2 % (11.6-14.6); RBC Distribution Width SD 39.5 fl (35.1-43.9); Red Blood Count 4.82 M/mm3 (4.6-6.2); White Blood Count 9.3 K/mm3 (4.4-11.0)
[2022-12-21 20:25] LABS: Anion Gap 7 (5-15); BUN 18 mg/dL (7-18); BUN/Creat Ratio 18.4 RATIO (10-20); Calcium,Total 8.7 mg/dL (8.5-10.1); Chloride 104 mmol/L (98-107); Creatinine, Serum 0.98 mg/dL (0.70-1.30); EST Glomerular Filtration Rate 81 mL/min (>60); Est Glom Filt Rate - Afr Amer 98 mL/min (>60); Estimated Creatinine Clearance 73.14 ml/min; Glucose 177 mg/dL (74-106); Potassium 3.9 mmol/L (3.5-5.1); Sodium Level 135 mmol/L (136-145)
[2022-12-21 20:26] LABS: Bacteria 0 SEEN /hpf (None Seen); Mucous, Urine 0 SEEN /hpf (<or=2+); Red Blood Cells-Urine 0 SEEN /hpf (0-5); Squamous Epithelial Cells - UA 0 SEEN /hpf (0-5); White Blood Cells 0 SEEN /hpf (0-5)
[2022-12-21 20:27] LABS: Color, Urine Yellow (Yellow); Glucose, Dipstick Normal (Normal); Ketone-Dipstick Negative (Negative); Leukocyte Esterase-Dipstick Negative /ul (Negative); Nitrite-Dipstick Negative (Negative); Occult Blood-Urine Negative /ul (Negative); Protein-Dipstick Negative (Negative); Specific Gravity, Urine 1.015 (1.002-1.030); Urine Bilirubin Dipstick Negative (Negative); Urine Clarity Clear (Clear); Urine Urobilinogen Normal (Normal)
--- NOTE | 2022-12-21 20:50 | CT_ITS ---
INDICATION: confusion EXAMINATION: CT BRAIN - CT Head or Brain W/O Contrast Injection TECHNIQUE: Multiple axial images were obtained of the head without intravenous contrast. A radiation dose optimization technique was used for this scan. IV Contrast dosage and agent: None. COMPARISON: May 26, 2019 FINDINGS: BRAIN PARENCHYMA: No intra- or extra-axial hemorrhage. No evidence of acute infarct. No intracranial mass or mass effect. There is preservation of the yusuf/white matter interface. Mild periventricular and deep white matter hypodensities. Posterior fossa structures are unremarkable. CSF SPACES: Appropriate for age. No hydrocephalus. Basal cisterns are patent. CALVARIUM, SKULL BASE, PARANASAL SINUSES AND MASTOID AIR CELLS: Clear. No discrete lytic or blastic abnormalities. ORBITS: Both globes, extraocular muscles, optic nerves and retrobulbar fat appear unremarkable. CT/Brain/Head without Contrast IMPRESSION: No acute intracranial hemorrhage. Similar examination findings compared to prior CT. Electronically Signed: Enio Chapman MD at 21:26 EDT ,
--- NOTE | 2022-12-21 21:00 | RAD_ITS ---
INDICATION: confusion EXAMINATION/TECHNIQUE: X-RAY - XR Chest 2 Views COMPARISON: June 19, 2015. FINDINGS: LINES/DEVICES: None. LUNGS: No consolidation, edema or effusion. No pneumothorax. MEDIASTINUM AND CARDIOVASCULAR STRUCTURES: Cardiac silhouette not enlarged. Central airways and mediastinal contour are stable. BONES AND SOFT TISSUES: Stable. RAD/Chest PA and Lateral IMPRESSION: No radiographic evidence of acute cardiopulmonary disease. Electronically Signed: Enio Chapman MD at 21:22 EDT ,
[2022-12-21 23:25] VITALS: BP 138/85; PULSE 86; RESP 18; O2SAT 99
== END 2022-12-21 23:26 | disposition home or self-care (01) ==
PROVIDERS: Physician Assistant; Emergency Provider Emergency Medicine; PCP Family Medicine Geriatric Medicine; Visit Provider Emergency Medicine
DX: G47.00 Insomnia, unspecified (principal); E11.65 Type 2 diabetes mellitus with hyperglycemia; F41.9 Anxiety disorder, unspecified; Z79.84 Long term (current) use of oral hypoglycemic drugs
CPT/HCPCS: 70450; 71046; 80048; 81001; 85025; 93005; 99282; A4216

== ENCOUNTER 2022-12-29 10:59 | Emergency (ER) | payer OTHER, SELFPAY ==
[2022-12-29 11:00] VITALS: BP 136/111; PULSE 101; RESP 16; TEMP 36.2; O2SAT 96; BMI 28.5
--- NOTE | 2022-12-29 11:20 | CT_ITS ---
INDICATION: Abdominal pain, constipation. APPENDECTOMY EXAMINATION: CT ABDOMEN AND PELVIS WITHOUT CONTRAST - CT Abdomen And Pelvis W/O Contrast Injection TECHNIQUE: Helically acquired images were obtained of the abdomen and pelvis without oral or IV contrast. A radiation dose optimization technique was used for this scan. IV Contrast dosage and agent: None. Oral contrast: None. RADIATION DOSAGE (If Supplied By Facility): CTDIvol = ( 8.42 ) mGy, DLP = ( 477.43 ) mGycm COMPARISON: July 26, 2019 FINDINGS: LOWER CHEST: Lung bases are clear. No cardiomegaly or pericardial effusion. The lack of intravenous contrast patient is solid visceral organs. LIVER: There is a stable round low-attenuation focus arising from the left hepatic lobe that likely reflects a cyst. There is an additional stable lobular low-attenuation focus arising from the right hepatic lobe which may reflect a hemangioma. GALLBLADDER AND BILIARY TREE: No calcified gallstones. No gallbladder distension or wall edema. No intra- or extrahepatic biliary ductal dilation. PANCREAS: No focal cystic or solid mass. SPLEEN: Normal size without focal cystic or solid mass. ADRENAL GLANDS: No nodules. KIDNEYS AND URETERS: Normal renal size and position. No hydronephrosis. PERITONEUM: No ascites or free air. No other fluid collection. BOWEL: No stomach or bowel distension. No focal inflammatory change. There are surgical clips within the right lower quadrant consistent with prior appendectomy. LYMPH NODES: No enlarged mesenteric or retroperitoneal lymph nodes. VESSELS: Aorta is non-dilated. There are peripheral calcifications of the abdominal aorta consistent with atherosclerosis. URINARY BLADDER: Unremarkable. REPRODUCTIVE ORGANS: The prostate gland is enlarged. ABDOMINAL WALL: No discrete abdominal or pelvic wall hernia. BONES: There are degenerative changes of the visualized thoracic and lumbar spine. CT/Abdomen/Pelvis without Cont IMPRESSION: No acute intra-abdominal process. Enlarged prostate gland. Atherosclerosis. Degenerative changes of the visualized thoracic and lumbar spine. Electronically Signed: Chiqui Travis MD at 12:36 EDT ,
--- NOTE | 2022-12-29 11:21 | EDS_ITS ---
HPI History of Present Illness Chief Complaint: Constipation Informant: patient and spouse/S.O. Onset/Context/Timing Onset: Days Narrative Narrative: Patient presents secondary to concerns for constipation. He states he has not had a bowel movement in the past week. He states he feels the urge to go and is passing gas but has not had a bowel movement. states he has not had anything to eat in the last 3 days. Because he is not eating he has not been taking his diabetes medications. Patient was seen in the emergency room a week ago with confusion and hallucinations. He was recently started on mirtazapine which does have a constipating side effect. Patient has also been intermittently using Januvia which reportedly makes his constipated as well. [facility] Medical History (Updated 12/29/22 @ 12:[address] Yasmine Buchanan MD) Diabetes Hypertension Weight loss Home Medications brimonidine 0.15 % eye drops 1 drp RIGHT EYE BID glaucoma 05/29/19 [History Last Taken Unknown] glimepiride 2 mg tablet 2 mg PO BID diabetes 05/29/19 [History Last Taken Unknown] prednisolone acetate (PF) 1 % eye drops,suspension 1 drp RIGHT EYE QWEEK eye pain 05/29/19 [History Last Taken Unknown] sitagliptin phosphate 100 mg tablet 100 mg PO DAILY diabetes 05/29/19 [History Last Taken Unknown] zolpidem 5 mg tablet (Ambien) 3.75 mg PO QHS PRN Insomnia 07/19/19 [History Last Taken Unknown] omeprazole 20 mg tablet,delayed release 20 mg PO DAILY #60 tabs 09/02/19 [Rx Last Taken Unknown] sucralfate 1 gram tablet (Carafate) 1 g PO QACHS #120 tabs 09/02/19 [Rx Last Taken Unknown] quetiapine 25 mg tablet (Seroquel) 25 mg PO TID #90 tabs 12/21/22 [Rx Last Taken Unknown] Allergy/AdvReac Type Severity Reaction Status Date / Time lisinopril Allergy Mild Unknown Verified 12/29/22 11:06 metformin Allergy Mild Unknown Verified 12/29/22 11:06 nortriptyline Allergy Mild Unknown Verified 12/29/22 11:06 Sulfa (Sulfonamide Allergy Mild Unknown Verified 12/29/22 11:06 Antibiotics) doxepin AdvReac PT UNSURE Verified 12/29/22 11:06 OF REACTION Surgical History S/P appendectomy Social History Smoking Status: Never smoker second hand exposure: No alcohol intake: current alcohol intake frequency: holidays/special occasions only substance use type: does not use caffeine: No frequency: 3-4 times per week seatbelt use: always ROS ROS ED Constitutional Constitutional ED: Denies chills or fever(s) Eyes Eyes: Denies change in vision ENT ENT ED: Denies rhinorrhea or sore throat Cardiovascular Cardiovascular: Denies chest pain or palpitations Respiratory/Chest Respiratory/Chest: Denies cough or dyspnea Gastrointestinal Gastrointestinal: Reports abdominal pain and constipation; Denies diarrhea, nausea or vomiting Genitourinary Genitourinary ED: Denies dysuria Musculoskeletal Musculoskeletal: Denies back pain or extremity pain Integumentary Denies Abrasions or rash Neurologic Neurologic: Denies headache(s) or weakness Psychiatric Psychiatric: Denies anxiety or depression Allergic/Immunologic Allergic/Immunologic ED: Denies lip swelling or urticaria EXAM Physical Exam Const Vital Signs: 12/29/22 11:00 Temperature 97.2 F L Temperature Source Temporal Pulse Rate 101 H Respiratory Rate 16 Blood Pressure 136/111 H Blood Pressure Mean 119 Pulse Ox 96 Oxygen Delivery Method Room Air Positive well nourished and well developed General Appearance ED: well developed HEENT Reports normocephalic and head/scalp atraumatic Eyes PERRL and EOMs intact bilaterally Neck supple Chest Wall inspection of chest normal and palpation of chest normal Resp normal respiratory effort and clear to auscultation bilaterally Cardio regular rate and regular rhythm GI GI Narrative: Abdomen soft with no focal tenderness to palpation. No bowel sounds noted on auscultation. Palpation: soft Extremity normal to inspection Neuro oriented x3 and no sensory deficits noted Sensorium / Orientation: alert Motor Exam: strength 5/5 throughout Psych mental status grossly normal Skin no rashes or lesions noted MDM MDM MDM Narrative Medical decision making narrative: IV line established. Labwork obtained to evaluate for leukocytosis, anemia, and electrolyte derangement. CT flank obtained to evaluate for possible bowel obstruction. Lab Data Attestation: I reviewed the patient's lab results. Labs: Laboratory Results - last 24 hr 10/08/23 11:30 WBC 8.1 RBC 5.50 Hgb 16.8 H Hct 48.6 MCV 88.4 MCH 30.5 MCHC 34.6 RDW Std Deviation 39.4 RDW Coeff of Anabelle 12.1 Plt Count 291 MPV 8.6 Immature Gran % (Auto) 0.100 Neut % (Auto) 69.1 Lymph % (Auto) 23.2 Hooker % (Auto) 5.5 Eos % (Auto) 1.4 Baso % (Auto) 0.7 Absolute Neuts (auto) 5.6 Absolute Lymphs (auto) 1.87 Nucleated RBC % 0 Sodium 136 Potassium 3.9 Chloride 102 Carbon Dioxide 28.0 Anion Gap 6 BUN 10 Creatinine 1.08 Estim Creat Clear Calc 66.37 Est GFR (MDRD) Af Amer 88 Est GFR (MDRD) Non-Af 72 BUN/Creatinine Ratio 9.3 L Glucose 192 H Calcium 8.7 Total Bilirubin 0.80 Direct Bilirubin 0.28 AST 24 ALT 45 Alkaline Phosphatase 64 Total Protein 7.5 Albumin 4.1 Globulin 3.4 Radiography Diagnostic Testing: Clinical Impression(s) from Imaging Studies Abdomen/Pelvis CT 12/29/22 11:20 IMPRESSION: No acute intra-abdominal process. Enlarged prostate gland. Atherosclerosis. Degenerative changes of the visualized thoracic and lumbar spine. Electronically Signed: Chiqui Travis MD at 12:36 EDT , Treatment and Re-Evaluation :: CBC was normal white count 8.1 with normal differential. Hemoglobin is slightly concentrated at 16.8. Chemistry studies are unremarkable with normal renal function and normal potassium. Glucose is 192. LFTs are unremarkable. CT flank reveals no acute intra-abdominal process. Prostate gland is slightly enlarged. I looked at the images myself and do not see a lot of stool and certainly no evidence of bowel obstruction or blockage. I ordered a soapsuds enema to help with the patient's feelings of constipation, however when nurse went to get that he stated that he had a bowel movement here. states it was brown and watery. I discussed with the patient that at this time I do not see significant stool and do not feel that we necessarily have to do the enema. The medication that he is on can cause constipation. Apparently he has been given a stool softener to try to help combat this. We discussed the importance of eating something every day to help keep his bowel moving and regular. Patient is to follow-up with his PCP within the next week. Discharge Plan Triage Chief Complaint: Constipation ED Provider: Yasmine Buchanan Dx/Rx/DC Orders Clinical Impression: Abdominal pain Instructions: ED Abdominal Pain Unkn Cause Male... Prescriptions: No Action zolpidem [Ambien] 5 mg tablet 3.75 mg PO QHS PRN (Reason: Insomnia) sucralfate [Carafate] 1 gram tablet 1 g PO QACHS Qty: 120 0RF omeprazole 20 mg tablet,delayed release (DR/EC) 20 mg PO DAILY Qty: 60 1RF glimepiride 2 MG tablet 2 mg PO BID brimonidine 5 ML drops 1 drp RIGHT EYE BID sitagliptin phosphate 100 MG tablet 100 mg PO DAILY prednisolone acetate (PF) 5 ML drops,suspension 1 drp RIGHT EYE QWEEK quetiapine [Seroquel] 25 mg tablet 25 mg PO TID Qty: 90 0RF Primary Care Provider: Leandro Grijalva Chi Referrals: Leandro Grijalva Chi, MD [Primary Care Provider] - 1 Week Disposition Disposition: Home, Self Care
[2022-12-29] MEDS: 0.9% Normal Saline (1000mL) 1,000 ML 150 ML IV (11:30)
[2022-12-29 11:44] LABS: Absolute Lymphocyte Count 1.87 X10^3/uL (0.83-4.51); Absolute Neutrophil Count 5.6 X10^3/uL (2.0-7.7); Basophil# 0.06 X10^3/uL; Basophil% 0.7 % (0-1); Eosinophil# 0.11 X10^3/uL; Eosinophils% 1.4 % (0-5); Hematocrit 48.6 % (40-54); Hemoglobin 16.8 g/dL (13.0-16.5); Lymphocyte # 1.87 X10^3/ul (0.83-4.51); Lymphocyte % 23.2 % (19-41); Mean Corp Hgb Conc 34.6 g/dL (32-36); Mean Corpuscular Hgb 30.5 pg (27.0-32.0); Mean Corpuscular Volume 88.4 fL (80-94); Mean Platelet Vol. 8.6 fl (6.2-12.0); Monocyte# 0.44 X10^3/uL; Monocyte% 5.5 % (0-10); NRBC Flagged by Analyzer 0 % (0-5); Neutrophil # 5.57 X10^3/uL (2.7-7.7); Neutrophil % 69.1 % (47-70); Platelet Count 291 K/mm3 (150-450); RBC Distribution Width CV 12.1 % (11.6-14.6); RBC Distribution Width SD 39.4 fl (35.1-43.9); White Blood Count 8.1 K/mm3 (4.4-11.0)
[2022-12-29 12:04] LABS: AST(SGOT) 24 U/L (15-37); Alanine Aminotransfer ALT/SGPT 45 U/L (16-61); Albumin, Serum 4.1 g/dL (3.2-5.0); Alkaline Phosphatase 64 U/L (45-117); Anion Gap 6 (5-15); BUN 10 mg/dL (7-18); BUN/Creat Ratio 9.3 RATIO (10-20); Bilirubin, Direct 0.28 mg/dL (0.00-0.30); Calcium,Total 8.7 mg/dL (8.5-10.1); Chloride 102 mmol/L (98-107); Creatinine, Serum 1.08 mg/dL (0.70-1.30); EST Glomerular Filtration Rate 72 mL/min (>60); Est Glom Filt Rate - Afr Amer 88 mL/min (>60); Estimated Creatinine Clearance 66.37 ml/min; Globulin 3.4 g/dL (2.2-4.2); Glucose 192 mg/dL (74-106); Potassium 3.9 mmol/L (3.5-5.1); Protein, Total 7.5 g/dL (6.4-8.2); Sodium Level 136 mmol/L (136-145)
[2022-12-29 13:02] VITALS: BP 140/98; PULSE 90; RESP 18; O2SAT 93
== END 2022-12-29 13:03 | disposition home or self-care (01) ==
PROVIDERS: Emergency Provider Emergency Medicine; PCP Family Medicine Geriatric Medicine; Visit Provider Emergency Medicine
DX: R10.9 Unspecified abdominal pain (principal)
CPT/HCPCS: 74176; 80048; 80076; 85025; 99283; J7030; A4216

== ENCOUNTER → 2023-02-12 | Outpatient (CLI) | payer OTHER, SELFPAY ==
[2023-02-12 11:19] LABS: Absolute Lymphocyte Count 1.87 X10^3/uL (0.83-4.51); Absolute Neutrophil Count 6.6 X10^3/uL (2.0-7.7); Basophil# 0.07 X10^3/uL; Basophil% 0.7 % (0-1); Eosinophil# 0.15 X10^3/uL; Eosinophils% 1.6 % (0-5); Hematocrit 42.1 % (40-54); Hemoglobin 14.4 g/dL (13.0-16.5); Lymphocyte # 1.87 X10^3/ul (0.83-4.51); Mean Corp Hgb Conc 34.2 g/dL (32-36); Mean Corpuscular Hgb 31.1 pg (27.0-32.0); Mean Corpuscular Volume 90.9 fL (80-94); Monocyte% 6.4 % (0-10); NRBC Flagged by Analyzer 0 % (0-5); Neutrophil # 6.62 X10^3/uL (2.7-7.7); Neutrophil % 70.9 % (47-70); Platelet Count 264 K/mm3 (150-450); RBC Distribution Width SD 42.4 fl (35.1-43.9); Red Blood Count 4.63 M/mm3 (4.6-6.2); White Blood Count 9.4 K/mm3 (4.4-11.0)
[2023-02-12 11:59] LABS: Hemoglobin A1c 7.7 % (3.8-5.6)
[2023-02-12 12:11] LABS: Vitamin D,25 Hydroxy 50.8 ng/mL
[2023-02-12 12:21] LABS: AST(SGOT) 13 U/L (15-37); Alanine Aminotransfer ALT/SGPT 30 U/L (16-61); Albumin, Serum 3.5 g/dL (3.2-5.0); Alkaline Phosphatase 71 U/L (45-117); Anion Gap 6 (5-15); BUN 15 mg/dL (7-18); BUN/Creat Ratio 17.2 RATIO (10-20); Calcium,Total 8.7 mg/dL (8.5-10.1); Chloride 104 mmol/L (98-107); Creatinine, Serum 0.87 mg/dL (0.70-1.30); EST Glomerular Filtration Rate 93 mL/min (>60); Est Glom Filt Rate - Afr Amer 112 mL/min (>60); Globulin 3.5 g/dL (2.2-4.2); Glucose 143 mg/dL (74-106); Potassium 4.1 mmol/L (3.5-5.1); Sodium Level 135 mmol/L (136-145); Thyroid Stim Hormone (TSH) 1.66 uIU/mL (0.358-3.74)
== END | disposition home or self-care (01) ==
LOC: POLAB3 10:58
PROVIDERS: PCP Family Medicine Geriatric Medicine; Visit Provider Family Medicine Geriatric Medicine
DX: E11.65 Type 2 diabetes mellitus with hyperglycemia (principal); E55.9 Vitamin D deficiency, unspecified; I10 Essential (primary) hypertension
CPT/HCPCS: 36415; 80053; 82306; 83036; 84443; 85025

== ENCOUNTER → 2023-08-19 | Outpatient (CLI) | payer OTHER, SELFPAY ==
[2023-08-19 12:04] LABS: Absolute Lymphocyte Count 2.47 X10^3/uL (0.83-4.51); Absolute Neutrophil Count 6.5 X10^3/uL (2.0-7.7); Basophil# 0.09 X10^3/uL; Basophil% 0.9 % (0-1); Eosinophil# 0.28 X10^3/uL; Eosinophils% 2.8 % (0-5); Hematocrit 43.5 % (40-54); Hemoglobin 14.7 g/dL (13.0-16.5); Lymphocyte # 2.47 X10^3/ul (0.83-4.51); Lymphocyte % 24.7 % (19-41); Mean Corp Hgb Conc 33.8 g/dL (32-36); Mean Corpuscular Hgb 30.1 pg (27.0-32.0); Mean Corpuscular Volume 89.1 fL (80-94); Mean Platelet Vol. 8.7 fl (6.2-12.0); Monocyte# 0.66 X10^3/uL; Monocyte% 6.6 % (0-10); NRBC Flagged by Analyzer 0 % (0-5); Neutrophil # 6.48 X10^3/uL (2.7-7.7); Neutrophil % 64.7 % (47-70); Platelet Count 253 K/mm3 (150-450); RBC Distribution Width CV 13.1 % (11.6-14.6); RBC Distribution Width SD 42.2 fl (35.1-43.9); Red Blood Count 4.88 M/mm3 (4.6-6.2)
[2023-08-19 12:31] LABS: Vitamin D,25 Hydroxy 37.7 ng/mL
[2023-08-19 12:37] LABS: ALB/GLOB Ratio 1.2 RATIO (0.9-2.4); AST(SGOT) 19 U/L (15-37); Alanine Aminotransfer ALT/SGPT 36 U/L (16-61); Albumin, Serum 3.9 g/dL (3.2-5.0); Alkaline Phosphatase 50 U/L (45-117); Anion Gap 6 (5-15); BUN 18 mg/dL (7-18); BUN/Creat Ratio 20.2 RATIO (10-20); Calcium,Total 8.8 mg/dL (8.5-10.1); Chloride 105 mmol/L (98-107); Cholesterol 144 mg/dL (200); Creatinine, Serum 0.89 mg/dL (0.70-1.30); EST Glomerular Filtration Rate 90 mL/min (>60); Est Glom Filt Rate - Afr Amer 109 mL/min (>60); Globulin 3.3 g/dL (2.2-4.2); Glucose 96 mg/dL (74-106); High Density Lipoprotein 40 mg/dL; PSA,Total - Annual Screen 4.82 ng/mL (0.00-4.00); Potassium 4.1 mmol/L (3.5-5.1); Protein, Total 7.2 g/dL (6.4-8.2); Sodium Level 135 mmol/L (136-145); Thyroid Stim Hormone (TSH) 1.57 uIU/mL (0.358-3.74); Triglycerides 177 mg/dL; Very Low Density Lipoprotein 35 mg/dL (5-40)
[2023-08-19 13:08] LABS: Hemoglobin A1c 6.6 % (3.8-5.6)
[2023-08-19 13:19] LABS: Microalbumin,Random Urine 5.6 mg/L (NO RANGE EST.)
== END | disposition home or self-care (01) ==
LOC: LAB 11:39
PROVIDERS: PCP Family Medicine Geriatric Medicine; Referring Provider Family Medicine Geriatric Medicine; Visit Provider Family Medicine Geriatric Medicine
DX: E11.65 Type 2 diabetes mellitus with hyperglycemia (principal); I10 Essential (primary) hypertension; E55.9 Vitamin D deficiency, unspecified; E78.5 Hyperlipidemia, unspecified
CPT/HCPCS: 36415; 80053; 80061; 82043; 82306; 83036; 84153; 84443; 85025; G0103

== ENCOUNTER → 2023-10-28 | Outpatient (CLI) | payer OTHER, SELFPAY ==
[2023-10-28 11:51] LABS: PSA,Total- Diagnostic 4.55 ng/mL (0.0-4.0)
== END | disposition home or self-care (01) ==
PROVIDERS: PCP Family Medicine Geriatric Medicine; Referring Provider Urology; Visit Provider Urology
DX: R97.20 Elevated prostate specific antigen [PSA] (principal)
CPT/HCPCS: 36415; 84153

== ENCOUNTER 2024-01-26 10:48 | Outpatient (RCR) | payer OTHER, SELFPAY ==
--- NOTE | 2024-01-26 17:49 | HP.PTEVAL ---
Patient's Visit Information Visit Information Visit Information: NADIA CONKLIN is a 68 year old M referred to Physical Therapy by Dr. Mookie Saez DO with a diagnosis of L IT band syndrome. Date of Evaluation: 01/26/24 Physical Therapist: Gibran Steiner DPT Visit Plan Frequency: 1x/Week Duration: 6 Weeks Plan: 1) IT band and piriformis stretching. 2) glute med strengthening 3) TFL inhibition Subjective Subjective: Pt. is here today for his initial evaluation with diagnosis of L IT band syndrome. Pt. reports ~2 months ago he was getting of his tracker and slid down the side and jammed his L hip. Pt. reports having increased lateral hip pain that goes down his leg a bit at times. He also reports having some issues in his quad and adductor region with prolonged walking. Pt. has some numbness in his L dorsum of foot from previous lumbar surgery. Pt. reports no new N/T and no new weakness. He reports overall doing a little bit better since taking increased anti inflammatory over the past few days. 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 Pt. is hopeful to reduce symptoms in order to get back to all recreational and work activities without limitations. Pain L lateral hip: Pain Intensity (Out of 10): 1 Pain Intensity Range: 0 and 4 L groin region: Pain Intensity (Out of 10): 0 Pain Intensity Range: 0 and 2 Objective Objective: POSTURE: Pt. has decent posture in stance. Pt. has no large lateral shift noted. PALPATION: pt. has marked tenderness along TFL, greater trochanter, and TI band. Pt. has most pain at TLF region. Not much pain throughout hip flexor or lumbar spine. NEURO: Pt. has normal sensation, except for on bottom of his L foot. ROM: hips: full motion bilaterally, tightness noted in B HS and H piriformis. L IT band tightness noted as well. Lumbar spine: full motion without increase in symptoms. MMT: 5/5 strength throughout, except 4-/5 L ankle DF (this was since previous back surgery), glute medius 5-/5. GAIT: pt. has fairly normal gait pattern without increase in symptoms. Special Tests L/S Slump test left side: Negative L/S Slump test right side: Negative L/S Left Straight Leg Raise: Negative L/S Right Straight Leg Raise: Negative L Hip Scour: Negative L Hip TUNG - Intraarticular Pathology: Negative L Hip FADDIR - Labrum: Negative L Hip Dheeraj - IT Band: Positive Balance/Special Test Scores Lower Extremity Functional Score: 58 Goals Goal 1:: LTG: Pt. to be I with HEP. Goal Time Frame: 4-6 Weeks Goal 2:: LTG: Pt. to have negative obers test. Goal Time Frame: 4-6 Weeks Goal 3:: LTG: Pt. to have 5/5 glute medius strength. Goal Time Frame: 4-6 Weeks Goal 4:: LTG: pt. to be able to complete all daily and work activities without increase in L hip pain. Goal Time Frame: 4-6 Weeks Rehabilitation Potential Physical Therapy Diagnosis: Pt. has signs and symptoms consistent with L IT band syndrome. Pt. has some glute medius weakness, IT band tightness. He has a previous history of back surgery, but this does not seem to be related. I would recommend that he work on IT band stretching and glute strengthening. Rehabilitation Potential: Excellent Anticipated Interventions Patient/Client Instruction: Educate patient on: Condition, Plan of Care, Risk Factors and Benefits of Fitness Program For the Purpose of:: To improve decision making, To facilitate caregiver knowledge, To improve self management, To prevent re-injury and To improve ability to perform tasks related to life management Therapeutic Exercise to Include: Strength training, Postural training, Flexibilty training, Passive ROM and Active ROM For the Purpose of:: To decrease pain, To decrease swelling/inflammation, To increase ROM, To improve nutrient delivery to tissue, To increase oxygenation perfusion, To improve muscle performance and motor function, To improve health of tissue, To decrease soft tissue restriction and To increase flexibility/ROM Manual Therapy Techniques to Include: Mobilization For the Purpose of:: To decrease pain, To decrease swelling/inflammation, To increase ROM, To improve nutrient delivery to tissue and To increase oxygenation perfusion Text: Thank you for the opportunity to evaluate your patient. For Medicare and Medicare HMO plans, please review the plan of care and approve it. It will need to be FAXED BACK to us at [phone] for Medicare purposes. For Medicare only, by signing this I certify the plan of care. Please let me know if there are questions or concerns regarding this plan of care. Physician Signature: Date:
== END 2024-01-26 19:00 | disposition home or self-care (01) ==
LOC: PT 10:48
PROVIDERS: PCP Family Medicine Geriatric Medicine; Referring Provider Orthopaedic Surgery; Visit Provider Orthopaedic Surgery
DX: M76.30 Iliotibial band syndrome, unspecified leg (principal); M70.62 Trochanteric bursitis, left hip
CPT/HCPCS: 97161

== ENCOUNTER → 2024-02-10 | Outpatient (CLI) | payer OTHER, SELFPAY ==
[2024-02-10 11:07] LABS: Absolute Lymphocyte Count 2.29 X10^3/uL (0.83-4.51); Absolute Neutrophil Count 5.4 X10^3/uL (2.0-7.7); Basophil# 0.08 X10^3/uL; Basophil% 0.9 % (0-1); Eosinophil# 0.23 X10^3/uL; Eosinophils% 2.7 % (0-5); Hematocrit 44.9 % (40-54); Hemoglobin 15.4 g/dL (13.0-16.5); Lymphocyte # 2.29 X10^3/ul (0.83-4.51); Lymphocyte % 26.8 % (19-41); Mean Corp Hgb Conc 34.3 g/dL (32-36); Mean Corpuscular Hgb 30.4 pg (27.0-32.0); Mean Corpuscular Volume 88.6 fL (80-94); Mean Platelet Vol. 8.6 fl (6.2-12.0); Monocyte# 0.55 X10^3/uL; Monocyte% 6.4 % (0-10); NRBC Flagged by Analyzer 0 % (0-5); Neutrophil # 5.36 X10^3/uL (2.7-7.7); Platelet Count 261 K/mm3 (150-450); RBC Distribution Width CV 12.5 % (11.6-14.6); Red Blood Count 5.07 M/mm3 (4.6-6.2); White Blood Count 8.5 K/mm3 (4.4-11.0)
[2024-02-10 11:42] LABS: Hemoglobin A1c 7.3 % (3.8-5.6); Vitamin D,25 Hydroxy 29.6 ng/mL
[2024-02-10 11:46] LABS: ALB/GLOB Ratio 1.1 RATIO (0.9-2.4); AST(SGOT) 22 U/L (15-37); Alanine Aminotransfer ALT/SGPT 34 U/L (16-61); Alkaline Phosphatase 59 U/L (45-117); Anion Gap 3 (5-15); BUN 22 mg/dL (7-18); BUN/Creat Ratio 22.4 RATIO (10-20); Calcium,Total 8.9 mg/dL (8.5-10.1); Chloride 105 mmol/L (98-107); Cholesterol 181 mg/dL (200); Creatinine, Serum 0.98 mg/dL (0.70-1.30); EST Glomerular Filtration Rate 80 mL/min (>60); Est Glom Filt Rate - Afr Amer 97 mL/min (>60); Globulin 3.6 g/dL (2.2-4.2); Glucose 147 mg/dL (74-106); High Density Lipoprotein 42 mg/dL; Potassium 4.3 mmol/L (3.5-5.1); Protein, Total 7.6 g/dL (6.4-8.2); Sodium Level 134 mmol/L (136-145); Triglycerides 186 mg/dL; Very Low Density Lipoprotein 37 mg/dL (5-40)
== END | disposition home or self-care (01) ==
LOC: POLAB3 10:51
PROVIDERS: PCP Family Medicine Geriatric Medicine; Visit Provider Family Medicine Geriatric Medicine
DX: E11.65 Type 2 diabetes mellitus with hyperglycemia (principal); I10 Essential (primary) hypertension; E55.9 Vitamin D deficiency, unspecified; E78.5 Hyperlipidemia, unspecified
CPT/HCPCS: 36415; 80053; 80061; 82306; 83036; 84443; 85025

== ENCOUNTER → 2024-07-06 | Outpatient (CLI) | payer OTHER, SELFPAY | END | disposition home or self-care (01) | PROVIDERS: PCP Family Medicine Geriatric Medicine; Referring Provider Family Medicine Geriatric Medicine; Visit Provider Family Medicine Geriatric Medicine | DX: R05.9 Cough, unspecified (principal); R06.2 Wheezing | CPT/HCPCS: 87631 ==

== ENCOUNTER → 2024-08-19 | Outpatient (CLI) | payer OTHER, SELFPAY ==
[2024-08-19 13:25] LABS: Absolute Lymphocyte Count 1.98 X10^3/uL (0.83-4.51); Absolute Neutrophil Count 8.6 X10^3/uL (2.0-7.7); Basophil# 0.07 X10^3/uL; Basophil% 0.6 % (0-1); Eosinophil# 0.16 X10^3/uL; Eosinophils% 1.4 % (0-5); Hematocrit 45.2 % (40-54); Hemoglobin 15.7 g/dL (13.0-16.5); Lymphocyte # 1.98 X10^3/ul (0.83-4.51); Lymphocyte % 17.2 % (19-41); Mean Corp Hgb Conc 34.7 g/dL (32-36); Mean Corpuscular Hgb 30.8 pg (27.0-32.0); Mean Corpuscular Volume 88.8 fL (80-94); Mean Platelet Vol. 8.7 fl (6.2-12.0); Monocyte# 0.66 X10^3/uL; Monocyte% 5.7 % (0-10); NRBC Flagged by Analyzer 0 % (0-5); Neutrophil # 8.63 X10^3/uL (2.7-7.7); Neutrophil % 74.8 % (47-70); Platelet Count 276 K/mm3 (150-450); RBC Distribution Width CV 12.4 % (11.6-14.6); RBC Distribution Width SD 39.9 fl (35.1-43.9); Red Blood Count 5.09 M/mm3 (4.6-6.2); White Blood Count 11.5 K/mm3 (4.4-11.0)
[2024-08-19 13:50] LABS: Microalbumin,Random Urine 12.6 mg/L (NO RANGE EST.); Microalbumin:Creatinine Ratio 129.5 mg/g CRE
[2024-08-19 14:06] LABS: ALB/GLOB Ratio 1.7 RATIO (0.9-2.4); AST(SGOT) 19 U/L (<=37); Alanine Aminotransfer ALT/SGPT 24 U/L (<=46); Albumin, Serum 4.4 g/dL (3.4-4.8); Alkaline Phosphatase 80 U/L (40-129); Anion Gap 13 (5-15); BUN 16 mg/dL (4-19); BUN/Creat Ratio 16.8 RATIO (10-20); Carbon Dioxide 22.9 mmol/L (21.0-32.0); Chloride 97 mmol/L (98-108); Cholesterol 172 mg/dL (<=200); Creatinine, Serum 0.97 mg/dL (0.70-1.20); EST Glomerular Filtration Rate 85 (>60); Globulin 2.7 g/dL (2.2-4.2); Glucose 292 mg/dL (70-99); High Density Lipoprotein 44 mg/dL; Low Density Lipoprotein Calc. 86 mg/dL; PSA,Total - Annual Screen 3.81 ng/mL (0.02-4.00); Potassium 4.3 mmol/L (3.3-5.1); Protein, Total 7.1 g/dL (5.9-8.4); Sodium Level 133 mmol/L (133-145); Thyroid Stim Hormone (TSH) 0.946 uIU/mL (0.300-4.200); Total Bilirubin 0.35 mg/dL (0.00-1.30); Triglycerides 209 mg/dL; Very Low Density Lipoprotein 42 mg/dL (5-40); Vitamin D,25 Hydroxy 22.7 ng/mL (30-100); cholesterol:hdl ratio screen 3.87
[2024-08-19 15:23] LABS: Hemoglobin A1c 12.1 % (<=5.6)
== END | disposition home or self-care (01) ==
LOC: LAB 12:57
PROVIDERS: PCP Family Medicine Geriatric Medicine; Referring Provider Family Medicine Geriatric Medicine; Visit Provider Family Medicine Geriatric Medicine
DX: E11.65 Type 2 diabetes mellitus with hyperglycemia (principal); I10 Essential (primary) hypertension; E55.9 Vitamin D deficiency, unspecified; E78.5 Hyperlipidemia, unspecified; Z12.5 Encounter for screening for malignant neoplasm of prostate
CPT/HCPCS: 36415; 80053; 80061; 82043; 82306; 82570; 83036; 84153; 84443; 85025; G0103

== ENCOUNTER → 2024-09-22 | Outpatient (CLI) | payer OTHER, SELFPAY | END | disposition home or self-care (01) | PROVIDERS: PCP Family Medicine Geriatric Medicine; Referring Provider Family Medicine Geriatric Medicine; Visit Provider Family Medicine Geriatric Medicine | DX: R50.9 Fever, unspecified (principal); E11.65 Type 2 diabetes mellitus with hyperglycemia; R05.9 Cough, unspecified | CPT/HCPCS: 36415; 83036; 87631 ==

== ENCOUNTER → 2024-11-03 | Outpatient (CLI) | payer OTHER, SELFPAY ==
[2024-11-03 12:15] LABS: Hematocrit 43.1 % (40-54); Hemoglobin 15.0 g/dL (13.0-16.5); Immature Granulocytes Count 0.020 X10^3/uL (0.0-0.0); Mean Corp Hgb Conc 34.8 g/dL (32-36); Mean Corpuscular Volume 89.8 fL (80-94); Mean Platelet Vol. 9.3 fl (6.2-12.0); NRBC Flagged by Analyzer 0 % (0-5); Platelet Count 296 K/mm3 (150-450); RBC Distribution Width CV 12.5 % (11.6-14.6); RBC Distribution Width SD 40.1 fl (35.1-43.9); Red Blood Count 4.80 M/mm3 (4.6-6.2); White Blood Count 8.4 K/mm3 (4.4-11.0)
[2024-11-03 13:03] LABS: AST(SGOT) 22 U/L (<=37); Alanine Aminotransfer ALT/SGPT 31 U/L (<=46); Albumin, Serum 4.4 g/dL (3.4-4.8); Alkaline Phosphatase 73 U/L (40-129); Anion Gap 13 (5-15); BUN 21 mg/dL (4-19); BUN/Creat Ratio 23.7 RATIO (10-20); Calcium,Total 9.3 mg/dL (7.6-11.0); Carbon Dioxide 22.7 mmol/L (21.0-32.0); Chloride 100 mmol/L (98-108); Globulin 2.5 g/dL (2.2-4.2); Glucose 251 mg/dL (70-99); Potassium 4.2 mmol/L (3.3-5.1)
[2024-11-03 13:47] LABS: Cholesterol 157 mg/dL (<=200); Low Density Lipoprotein Calc. 78 mg/dL; Triglycerides 161 mg/dL; Very Low Density Lipoprotein 32 mg/dL (5-40); cholesterol:hdl ratio screen 3.35
--- OUTSIDE RECORDS SUMMARY | 2024-11-03 19:33 | XMS RPT_ITS | CCD ---
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 Leandro Grijalva Chi Primary Care Provider [phone] Dr. Leandro Grijalva Chi Referring Provider [phone] Mariajose Gonzalez Attending Provider [phone] Rudi, Leandro Chi Referring Unavailable Rudi, Leandro Chi Primary Care Unavailable Mookie Saez Attending Unavailable Rudi, Leandro Chi Referring Unavailable Rudi, Leandro Chi Primary Care Unavailable DosMariajose gregory Attending Unavailable Rudi, Leandro Chi Referring Unavailable DossiMariajose Attending Unavailable Rudi, Leandro Chi Primary Care Unavailable Rudi, Leandro Chi Attending Unavailable Rudi, Leandro Chi Primary Care Unavailable Rudi, Leandro Chi Primary Care Unavailable Rudi, Leandro Chi Referring Unavailable Rudi, Leandro Chi Attending Unavailable Rudi, Leandro Chi Attending Unavailable Rudi, Leandro Chi Primary Care Unavailable Rudi, Leandro Chi Referring Unavailable Rudi, Leandro Chi Attending Unavailable Abdirahman Gonzalez Referring Unavailable Rudi, Leandro Chi Primary Care Unavailable Rudi, Leandro Chi Primary Care Unavailable Rudi, Leandro Chi Referring Unavailable Mookie Saez Attending Unavailable Rudi, Leandro Chi Primary Care Unavailable Sherif Tobar Attending Unavailable Rudi, Leandro Chi Primary Care Unavailable Rudi, Leandro Chi Referring Unavailable DossiMariajose Attending Unavailable Rudi, Leandro Chi Primary Care Unavailable Rudi, Leandro Chi Referring Unavailable DossiMariajose Attending Unavailable Rudi, Leandro Chi Primary Care Unavailable Rudi, Leandro Chi Referring Unavailable DossiMariajose Attending Unavailable Rudi, Leandro Chi Primary Care Unavailable Rudi, Leandro Chi Referring Unavailable DossiMariajose Attending Unavailable Rudi, Leandro Chi Referring Unavailable DossiMariajose Attending Unavailable Rudi, Leandro Chi Primary Care Unavailable Rudi, Leandro Chi Referring Unavailable Rudi, Leandro Chi Primary Care Unavailable Dossi, Mariajose Attending Unavailable Rudi, Leandro Chi Primary Care Unavailable Sherif Tobar Attending Unavailable Rudi, Leandro Chi Primary Care Unavailable Dossi, Mariajose Attending Unavailable Rudi, Leandro Chi Referring Unavailable Rudi, Leandro Chi Primary Care Unavailable Rudi, Leandro Chi Referring Unavailable Dossi, Mariajose Attending Unavailable Rudi, Leandro Chi Primary Care Unavailable Rudi, Leandro Chi Referring Unavailable Dossi, Mariajose Attending Unavailable Rudi, Leandro Chi Primary Care Unavailable Rudi, Leandro Chi Referring Unavailable Dossi, Mariajose Attending Unavailable Rudi, Leandro Chi Primary Care Unavailable Mookie Saez Referring Unavailable BorrusoMookie Attending Unavailable Rudi, Leandro Chi Primary Care Unavailable Rudi, Leandro Chi Referring Unavailable Rudi, Leandro Chi Attending Unavailable Rudi, Leandro Chi Referring Unavailable Rudi, Leandro Chi Primary Care Unavailable Dossi, Mariajose Attending Unavailable Rudi, Leandro Chi Referring Unavailable Rudi, Leandro Chi Primary Care Unavailable Dossi, Mariajose Attending Unavailable Allergies Allergy Classification Reported Allergen(s) Allergy Type Date of Onset Reaction(s) Facility (7 sources) Doxepin Drug Allergy 2 PT UNSURE OF REACTION [facility] (7 sources) Lisinopril Drug Allergy 2 Unknown [facility] (7 sources) metFORMIN Drug Allergy 2 Unknown [facility] (7 sources) Nortriptyline Drug Allergy 2 Unknown [facility] (9 sources) Sulfonamides (Antibiotic); Translations: [SULFA (SULFONAMIDE ANTIBIOTICS)] Allergy to substance 1 Unknown [facility] (1 source) Doxepin Drug Allergy 5 [facility] Repository (1 source) Lisinopril Drug Allergy 5 [facility] Repository (1 source) metFORMIN Drug Allergy 5 [facility] Repository (1 source) Nortriptyline Drug Allergy 5 [facility] Repository Medications Current Medications Medication Drug Class(es) Dates Sig (Normalized) Sig (Original) brimonidine tartrate 1.5 mg/ml ophthalmic solution (7 sources) alpha-Adrenergic Agonist Start: 05-29-2019 Brimonidine Active 1 DRP RIGHT EYE TWICE A DAY May 29, 2019 1:00am glimepiride 2 mg oral tablet (7 sources) Sulfonylurea Start: 05-29-2019 take 2 mg by mouth twice daily Glimepiride Active 2 MG PO TWICE A DAY May 29, 2019 1:00am omeprazole 20 mg delayed release oral tablet (7 sources) Proton Pump Inhibitor Start: 09-02-2019 take 20 mg by mouth once daily Omeprazole Active 20 MG PO DAILY 60 September 02, 2019 12:00am prednisoLONE (7 sources) Corticosteroid Start: 05-29-2019 Prednisolone Acetate (Pf) Active 1 DRP RIGHT EYE EVERY WEEK May 29, 2019 7:34pm Start: 05-29-2019 Prednisolone A cetate (Pf) Active 1 DRP RIGHT EYE EVERY WEEK May 29, 2019 12:00am Start: 05-29-2019 Prednisolone A cetate (Pf) Active 1 DRP RIGHT EYE EVERY WEEK May 29, 2019 1:00am QUEtiapine 25 mg oral tablet (1 source) Atypical Antipsychotic Start: 12-21-2022 take 1 tablet by mouth three times daily Quetiapine (Seroquel) 25 mg tablet Active 25 MG PO THREE TIMES A DAY 90 December 21, 2022 12:00am SITagliptin 100 mg oral tablet (7 sources) Dipeptidyl Peptidase 4 Inhibitor Start: 05-29-2019 take 100 mg by mouth once daily Sitagliptin Phosphate Active 100 MG PO DAILY May 29, 2019 1:00am sucralfate 1000 mg oral tablet (7 sources) Aluminum Complex Start: 09-02-2019 take 1 tablet by mouth at bedtime Sucralfate (Carafate) 1 gram tablet Active 1 GM PO before meals and at bedtime 120 September 02, 2019 12:00am zolpidem tartrate 5 mg oral tablet (7 sources) gamma-Aminobutyric Acid-ergic Agonist Start: 07-19-2019 take 3.75 mg by mouth at bedtime Zolpidem (Ambien) 5 mg tablet Active 3.75 MG PO AT BEDTIME July 19, 2019 12:00am Completed/Discontinued Medications Medication Drug Class(es) Dates Sig (Normalized) Sig (Original) acetaminophen 325 mg / oxyCODONE hydrochloride 5 mg oral tablet (7 sources) Opioid Agonist Start: 08-03-2019 End: 08-07-2019 take 1 tablet by mouth every six hours Oxycodone-Acetamin ophen Discontinued 1 - 2 TABLET PO EVERY 6 HOURS 11 07August 03, 2019 August 07, 2019 12:02am nortriptyline 25 mg oral capsule (7 sources) Tricyclic Antidepressant Start: 05-29-2019 End: 07-19-2019 take 25 mg by mouth at bedtime Nortriptyline Discontinued 25 MG PO AT BEDTIME May 29, 2019 1:00am July 19, 2019 10:24am nystatin [id number] unt/ml oral suspension (7 sources) Polyene Antifungal Start: 08-10-2019 End: 08-20-2019 Nystatin Discontinued [id number] UNIT PO EVERY 6 HOURS 200 10 August 10, 2019 12:00am August 20, 2019 12:02am administer 1/2 of dose in each side of the mouth Problems Active Problems Problem Classification Problem Date Documented Da te Episodic/Chronic Anxiety disorders (1 source) Anxiety; Translations: [Anxiety disorder, unspecified] 12-21-2022 Chronic Appendicitis and other appendiceal conditions (7 sources) Mucocele of appendix; Translations: [Other specified diseases of appendix] 08-03-2019 Episodic Delirium, dementia, and amnestic and other cognitive disorders (7 sources) Postconcussion syndrome; Translations: [Postconcussional syndrome] 05-30-2019 Chronic Diabetes mellitus with complications (3 sources) Hyperglycemia due to type 2 diabetes mellitus; Translations: [Type 2 diabetes mellitus with hyperglycemia] Onset: 08-24-2024 12-21-2022 Chronic Diabetes mellitus without complication (7 sources) Diabetes mellitus; Translations: [Type 2 diabetes mellitus without complications] 08-03-2019 Chronic Disorders of lipid metabolism (1 source) Hyperlipidemia, unspecified; Translations: [Hyperlipidemia, unspecified] Onset: 11-03-2024 Chronic Essential hypertension (8 sources) Hypertensive disorder; Translations: [Essential (primary) hypertension] Onset: 11-03-2024 08-03-2019 Chronic Fever of unknown origin (1 source) Fever, unspecified; Translations: [Fever, unspecified] Onset: 09-28-2024 Episodic Mycoses (7 sources) Candidiasis of mouth; Translations: [Candidal stomatitis] 05-30-2019 Episodic Open wounds of head; neck; and trunk (7 sources) Scalp laceration; Translations: [Laceration without foreign body of scalp, initial encounter] 03-26-2019 Episodic Other bone disease and musculoskeletal deformities (20 sources) Segmental and somatic dysfunction; Translations: [Segmental and somatic dysfunction of cervical region] 11-23-2019 Episodic Other bone disease and musculoskeletal deformities (20 sources) Segmental and somatic dysfunction of cervical region; Translations: [Nonallopathic lesions, cervical region] Onset: 11-03-2024 Episodic Other bone disease and musculoskeletal deformities (20 sources) Segmental and somatic dysfunction of lumbar region; Translations: [Nonallopathic lesions, lumbar region] Onset: 11-03-2024 Episodic Other bone disease and musculoskeletal deformities (20 sources) Segmental and somatic dysfunction of pelvic region; Translations: [Nonallopathic lesions, pelvic region] Onset: 11-03-2024 Episodic Other bone disease and musculoskeletal deformities (20 sources) Segmental and somatic dysfunction of thoracic region; Translations: [Nonallopathic lesions, thoracic region] Onset: 11-03-2024 Episodic Other connective tissue disease (1 source) Iliotibial band syndrome, unspecified leg; Translations: [Iliotibial band syndrome, unspecified leg] Onset: 08-10-2024 Episodic Other connective tissue disease (1 source) Trochanteric bursitis, left hip; Translations: [Trochanteric bursitis, left hip] Onset: 08-10-2024 Episodic Other connective tissue disease (1 source) Iliotibial band syndrome, left leg; Translations: [Iliotibial band syndrome, left leg] Onset: 08-10-2024 Episodic Other nutritional; endocrine; and metabolic disorders (7 sources) Weight loss; Translations: [Abnormal weight loss] 08-03-2019 Episodic Other screening for suspected conditions (not mental disorders or infectious disease) (1 source) Elevated prostate specific antigen [PSA]; Translations: [Elevated prostate specific antigen [PSA]] Onset: 11-03-2024 Episodic Residual codes; unclassified (3 sources) History of operative procedure on lumbar spinal structure; Translations: [Other specified postprocedural states] 04-25-2022 Episodic Residual codes; unclassified (11 sources) Other specified postprocedural states; Translations: [Personal history of surgery to other organs] Onset: 08-10-2024 04-25-2022 Episodic Residual codes; unclassified (1 source) Insomnia; Translations: [Insomnia, unspecified] 12-21-2022 Episodic Schizophrenia and other psychotic disorders (1 source) Delusional disorder; Translations: [Delusional disorders] 12-21-2022 Chronic Spondylosis; intervertebral disc disorders; other back problems (20 sources) Degeneration of lumbosacral intervertebral disc; Translations: [Other intervertebral disc degeneration, lumbosacral region] Onset: 01-12-2024 Chronic Spondylosis; intervertebral disc disorders; other back problems (20 sources) Backache; Translations: [Dorsalgia, unspecified] Onset: 03-01-2024 Episodic Unclassified (1 source) Low back pain, unspecified; Translations: [Low back pain, unspecified] Onset: 11-03-2024 Unclassified (1 source) Other intervertebral disc degeneration, lumbosacral region with discogenic back pain and lower extremity pain; Translations: [Other intervertebral disc degeneration, lumbosacral region with discogenic back pain and lower extremity pain] Onset: 11-03-2024 Unclassified (1 source) Cough, unspecified; Translations: [Cough, unspecified] Onset: 07-10-2024 Past or Other Problems Problem Classification Problem Date Documented Da te Episodic/Chronic Other non-traumatic joint disorders (1 source) Pain in left knee; Translations: [Pain in left knee] Onset: 02-16-2024 Episodic Other non-traumatic joint disorders (1 source) Pain in left hip; Translations: [Pain in left hip] Onset: 01-12-2024 Episodic Results Test Name Value Interpretation Reference Range Facility Chiropractic Reporton 2024 Chiropractic Report [facility] [address] [place] [address] OFFICE VISIT Date of Service: 10/12/24 MR#: [id number] Acct: [id number] Name: WILD CONKLIN Rep #: [id number] : 1955 Provider: VANIA Rudd Age/Sex: 69/M [place] [facility] [place] Status: Signed Intake Vital Signs 09/13/24 09:14 Height 5 ft 9 in Intake Visit Reasons: Back pain Chief Complaint: low back pain Is patient in pain?: Yes (neck and low back ) Pain scale (1-10): 5 Allergies lisinopril Allergy (Mild, Verified 10/12/24 11:28) Unknown metformin Allergy (Mild, Verified 10/12/24 11:28) Unknown nortriptyline Allergy (Mild, Verified 10/12/24 11:28) Unknown Sulfa (Sulfonamide Antibiotics) Allergy (Mild, Verified 10/12/24 11:28) Unknown doxepin Adverse Reaction (Verified 10/12/24 11:28) PT UNSURE OF REACTION Medications ???Medication ???Instructions ???Recorded ???Confirmed ???Type sitagliptin phosphate 100 mg tablet 100 mg PO DAILY diabetes 10/12/24 History citalopram 10 mg tablet 10 mg PO QDAY 01/23/24 10/12/24 Hi story glimepiride 4 mg tablet 4 mg PO QDAY 01/23/24 10/12/24 His tory melatonin 3 mg capsule 3 mg PO HS PRN 01/23/24 10/12/24 H istory metformin 500 mg tablet 500 mg PO QDAY 01/23/24 10/12/24 H istory Have you fallen in the past year?: No [facility] Medical History (Updated 10/12/24 @ 13:[address] Mariajose [place], [place]) Weight loss Diabetes Hypertension Surgical History S/P appendectomy Social History Smoking Status: Never smoker second hand exposure: No alcohol intake: current alcohol intake frequency: holidays/special occasions only substance use type: does not use caffeine: No frequency: 3-4 times per week seatbelt use: always HPI Back pain Chief Complaint: neck and low back pain Visit Number: 6 Details: Blayne is a 69 year old male here to f/u with neck and low back pain. Pt. complains of left neck and shoulder pain today. He rates his L neck/shoulder pain 5/10. 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 He rates his low back pain 5/10. He has been treating pain at home with ice, Ibuprofen and stretching. Pt. denies new injury, numbness, tingling or radiculopathy. 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 Blayne reports chiropractic adjustments are helpful in relieving some of his back pain and discomfort but it gradually returns. 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 Pain Quality: aching and dull Exam Musc General: Yes joint tenderness and decreased range of motion; No normal posture or normal gait Cervical Spine: Yes loss of normal cervical lordosis, Yes cervical muscular tenderness left greater than right diffuse , Yes cervical spasm right greater than left lower trapezius and paracervical muscles, left upper intrinsics and Yes misalignment misalignment: C5, C6 and C7 Thoracic/Lumber: Yes thoracic and lumbar spine normal to inspection, Yes Surgical scar(s) present, Yes paraspinal tenderness on the right greater than left (upper thoracic) and on the left greater than right (lumbopelvic), Yes thoraco-lumbar spasm on the right greater than left (trap, levator, lumbar multifidi) and on the left greater than right (glute medius) and Yes misalignment T2, T3, T4, RIL and LIL Sacroiliac joints: on the left tender to palpation Office Procedures Procedures - Chiropractic Procedures Manipulation: Cervical C6, Thoracic T3 and Pelvis LIL Manipulation: 3-4 regions Patient Response: positive Assessment and Plan Assessment and Plan (1) Segmental and somatic dysfunction of cervical region: Status: Acute (2) Segmental and somatic dysfunction of thoracic region: Status: Acute (3) Segmental and somatic dysfunction of pelvic region: Status: Acute (4) History of lumbar surgery: Status: Chronic (5) Back pain: Status: Acute Qualifiers: Back pain location: low back pain Chronicity: acute Back pain laterality: bilateral Sciatica presence: without sciatica Qualified Code(s): M54.50 - Low back pain, unspecified Orders: Orders Chiropractic Treatments Today M51.372 - Other intervertebral disc degeneration, lumbosacral region with discogenic back pain and lower extremity pain, M99.01 - Segmental and somatic dysfunction of cervical region, M99.02 - Segmental and somatic dysfunction of thoracic region, M99.03 - Segmental and somatic dysfunction of lumbar region, M99.05 - Segmental and somatic dysfunction of pelvic region Plan Patient was treated with prone n (more content not included)... Normal [facility] Hemoglobin A1con 09-22-2024 HbA1c (Bld) [Mass fraction] 11.3 % High <=5.6 [facility] Comment on above: Result Comment: Norm al < 5.7 % Prediabetic 5.7 - 6.4 % Diabetic >or= 6.5 % Please note range changes. Performed By: #### L 501.9985 ####[facility] [address] [place], [address] M100.678on 09-22-2024 M100.678 Pending SARS-CoV-2 (COVID 19) Negative INFLUENZA A Negative INFLUENZA B Negative RSV PCR Negative Normal [facility] Comment on above: Performed By: #### M 100.678 #### [facility] [address] [place], [address] Microalb:Creat Ratio,Random URon 09-14-2024 MALB:CREAT 12.9 mg/g CRE Normal [facility] Comment on above: Result Comment: AMENDED REPORT 09/14/24 1108 MALB:CREAT previously reported as: 129.5 mg/g CRE Performed By: #### L 501.9910, L501.9985, L100.0100, L502.0250, L500.4050, L506.1001, L500.4100, L501.9520 ####[facility] [id number] [place], [place], [id number] Chiropractic Reporton 2024 Chiropractic Report [facility] [address] [place] [id number] OFFICE VISIT Date of Service: 09/13/24 MR#: [id number] Acct: [id number] Name: WILD CONKLIN Rep #: [id number] : 1955 Provider: VANIA Rudd Age/Sex: 68/M [place] [facility] [place] Status: Signed Intake Vital Signs 09/13/24 09:14 Height 5 ft 9 in Intake Visit Reasons: Back pain Chief Complaint: low back pain Is patient in pain?: Yes (low back ) Pain scale (1-10): 5 Allergies lisinopril Allergy (Mild, Verified 09/13/24 11:01) Unknown metformin Allergy (Mild, Verified 09/13/24 11:01) Unknown nortriptyline Allergy (Mild, Verified 09/13/24 11:01) Unknown Sulfa (Sulfonamide Antibiotics) Allergy (Mild, Verified 09/13/24 11:01) Unknown doxepin Adverse Reaction (Verified 09/13/24 11:01) PT UNSURE OF REACTION Medications ???Medication ???Instructions ???Recorded ???Confirmed ???Type sitagliptin phosphate 100 mg tablet 100 mg PO DAILY diabetes 09/13/24 History citalopram 10 mg tablet 10 mg PO QDAY 01/23/24 09/13/24 Hi story glimepiride 4 mg tablet 4 mg PO QDAY 01/23/24 09/13/24 His tory melatonin 3 mg capsule 3 mg PO HS PRN 01/23/24 09/13/24 H istory metformin 500 mg tablet 500 mg PO QDAY 01/23/24 09/13/24 H istory Have you fallen in the past year?: No PFSH Medical History Weight loss Diabetes Hypertension Surgical History S/P appendectomy Social History Smoking Status: Never smoker second hand exposure: No alcohol intake: current alcohol intake frequency: holidays/special occasions only substance use type: does not use caffeine: No frequency: 3-4 times per week seatbelt use: always HPI Back pain Chief Complaint: neck and low back pain Visit Number: 5 Details: Blayne is a 68 year old male here to f/u with neck and low back pain. Pt. complains of low pain today. He describes his pain as a constant tightness equal bilaterally. He rates his low back pain 5/10. He has been doing some manual digging which has aggravated his low back He states his neck and upper back are stiff and extends into his L upper back. He has been treating pain at home with ice, Ibuprofen and stretching. Pt. denies new injury, numbness, tingling or radiculopathy. 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 Blayne reports chiropractic adjustments are helpful in relieving some of his back pain and discomfort but it gradually returns. 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 Pain Quality: aching and dull Exam Musc General: Yes joint tenderness and decreased range of motion; No normal posture or normal gait Cervical Spine: Yes loss of normal cervical lordosis, Yes cervical muscular tenderness bilateral lower , Yes cervical spasm right greater than left lower trapezius and paracervical muscles, left upper intrinsics and Yes misalignment misalignment: C5, C6 and C7 Thoracic/Lumber: Yes thoracic and lumbar spine normal to inspection, Yes Surgical scar(s) present, Yes paraspinal tenderness on the right greater than left (upper thoracic) and on the left greater than right (lumbopelvic), Yes thoraco-lumbar spasm on the right greater than left (trap, levator, lumbar multifidi) and on the left greater than right (glute medius) and Yes misalignment T2, T3, T4, RIL and LIL Sacroiliac joints: on the left tender to palpation Office Procedures Procedures - Chiropractic Procedures Manipulation: Cervical C6, Thoracic T3 and Pelvis LIL Manipulation: 3-4 regions Patient Response: positive Assessment and Plan Assessment and Plan (1) Back pain: Status: Acute Qualifiers: Back pain laterality: left Back pain location: low back pain Chronicity: acute Sciatica presence: without sciatica Qualified Code(s): M54.50 - Low back pain, unspecified (2) Segmental and somatic dysfunction of cervical region: Status: Acute (3) Segmental and somatic dysfunction of thoracic region: Status: Acute (4) Segmental and somatic dysfunction of lumbar region: Status: Acute (5) Segmental and somatic dysfunction of pelvic region: Status: Acute (6) DDD (degenerative disc disease), lumbosacral: Status: Chronic Qualifiers: Disc-related pain type: discogenic back pain and lower extremity pain Qualified Code(s): M51.372 - Other intervertebral disc degeneration, lumbosacral region with discogenic back pain and lower extremity pain Orders: Orders Chiropractic Treatments Today M51.372 - Other intervertebral disc degeneration, lumbosacral region with discogenic back pain and lower ex (more content not included)... Normal [facility] CBC W/Diff, Automatedon 05-2 Absolute Lymph 1.98 X10 3/uL Normal 0.83-4.51 [facility] Comment on above: Performed By: #### L 501.9910, L501.9985, L100.0100, L502.0250, L500.4050, L506.1001, L500.4100, L501.9520 ####[facility] [address] [place], [address] Absolute Neut 8.6 X10 3/uL High 2.0-7.7 [facility] Comment on above: Performed By: #### L 501.9910, L501.9985, L100.0100, L502.0250, L500.4050, L506.1001, L500.4100, L501.9520 ####[facility] [address] [place], [address] Basophils/100 WBC (Bld) 0.6 % Normal 0-1 [facility] Comment on above: Performed By: #### L 501.9910, L501.9985, L100.0100, L502.0250, L500.4050, L506.1001, L500.4100, L501.9520 ####[facility] [address] [place], [address] Eosinophils/100 WBC (Bld) 1.4 % Normal 0-5 [facility] Comment on above: Performed By: #### L 501.9910, L501.9985, L100.0100, L502.0250, L500.4050, L506.1001, L500.4100, L501.9520 ####[facility] [address] [place], [address] Erythrocyte distribution width (RBC) [Ratio] 12.4 % Normal 11.6-14.6 [facility] Comment on above: Performed By: #### L 501.9910, L501.9985, L100.0100, L502.0250, L500.4050, L506.1001, L500.4100, L501.9520 ####[facility] [address] [place], [address] Hematocrit (Bld) [Volume fraction] 45.2 % Normal 40-54 [facility] Comment on above: Performed By: #### L 501.9910, L501.9985, L100.0100, L502.0250, L500.4050, L506.1001, L500.4100, L501.9520 ####[facility] [address] [place], [address] Hemoglobin (Bld) [Mass/Vol] 15.7 g/dL Normal 13.0-16.5 [facility] Comment on above: Performed By: #### L 501.9910, L501.9985, L100.0100, L502.0250, L500.4050, L506.1001, L500.4100, L501.9520 ####[facility] [address] [place], [address] IG% 0.300 Normal 0.0-0.9 [facility] Comment on above: Result Comment: IG% - Immature Granulocytes (promyelocytes, myelocytes and metamyelocytes) > 1% indicates that a LEFT SHIFT is Present. Performed By: #### L 501.9910, L501.9985, L100.0100, L502.0250, L500.4050, L506.1001, L500.4100, L501.9520 ####[facility] [address] [place], [address] Lymphocytes/100 WBC (Bld) 17.2 % Low 19-41 [facility] Comment on above: Performed By: #### L 501.9910, L501.9985, L100.0100, L502.0250, L500.4050, L506.1001, L500.4100, L501.9520 ####[facility] [address] [place], [address] MCH (RBC) [Entitic mass] 30.8 pg Normal 27.0-32.0 [facility] Comment on above: Performed By: #### L 501.9910, L501.9985, L100.0100, L502.0250, L500.4050, L506.1001, L500.4100, L501.9520 ####[facility] [address] [place], [address] MCHC (RBC) [Mass/Vol] 34.7 g/dL Normal 32-36 [facility] Comment on above: Performed By: #### L 501.9910, L501.9985, L100.0100, L502.0250, L500.4050, L506.1001, L500.4100, L501.9520 ####[facility] [address] [place], [address] MCV (RBC) [Entitic vol] 88.8 fL Normal 80-94 [facility] Comment on above: Performed By: #### L 501.9910, L501.9985, L100.0100, L502.0250, L500.4050, L506.1001, L500.4100, L501.9520 ####[facility] [address] [place], [address] Monocytes/100 WBC (Bld) 5.7 % Normal 0-10 [facility] Comment on above: Performed By: #### L 501.9910, L501.9985, L100.0100, L502.0250, L500.4050, L506.1001, L500.4100, L501.9520 ####[facility] [address] [place], [address] Neutrophils/100 WBC (Bld) 74.8 % High 47-70 [facility] Comment on above: Performed By: #### L 501.9910, L501.9985, L100.0100, L502.0250, L500.4050, L506.1001, L500.4100, L501.9520 ####[facility] [address] [place], [address] Nucleated RBC (Bld) [#/Vol] 0 10*3/uL Normal 0-5 [facility] Comment on above: Performed By: #### L 501.9910, L501.9985, L100.0100, L502.0250, L500.4050, L506.1001, L500.4100, L501.9520 ####[facility] [address] [place], [address] Platelet mean volume (Bld) [Entitic vol] 8.7 fL Normal 6.2-12.0 [facility] Comment on above: Performed By: #### L 501.9910, L501.9985, L100.0100, L502.0250, L500.4050, L506.1001, L500.4100, L501.9520 ####[facility] [address] [place], [address] Platelets (Bld) [#/Vol] 276 10*3/uL Normal 150-450 [facility] Comment on above: Performed By: #### L 501.9910, L501.9985, L100.0100, L502.0250, L500.4050, L506.1001, L500.4100, L501.9520 ####[facility] [address] [place], [address] RBC (Bld) [#/Vol] 5.09 10*6/uL Normal 4.6-6.2 [facility] Comment on above: Performed By: #### L 501.9910, L501.9985, L100.0100, L502.0250, L500.4050, L506.1001, L500.4100, L501.9520 ####[facility] [address] [place], [address] RDW SD 39.9 fl Normal 35.1-43.9 [facility] Comment on above: Performed By: #### L 501.9910, L501.9985, L100.0100, L502.0250, L500.4050, L506.1001, L500.4100, L501.9520 ####[facility] [address] [place], [address] WBC (Bld) [#/Vol] 11.5 10*3/uL High 4.4-11.0 [facility] Comment on above: Performed By: #### L 501.9910, L501.9985, L100.0100, L502.0250, L500.4050, L506.1001, L500.4100, L501.9520 ####[facility] [address] [place], [address] Comprehensive Metabolic Prof vton 08-19-2024 Albumin [Mass/Vol] 4.4 g/dL Normal 3.4-4.8 [facility] Comment on above: Performed By: #### L 501.9910, L501.9985, L100.0100, L502.0250, L500.4050, L506.1001, L500.4100, L501.9520 ####[facility] [address] [place], [address] Albumin/Globulin [Mass ratio] 1.7 {ratio} Normal 0.9-2.4 [facility] Comment on above: Performed By: #### L 501.9910, L501.9985, L100.0100, L502.0250, L500.4050, L506.1001, L500.4100, L501.9520 ####[facility] [address] [place], [address] ALK PHOS 80 U/L Normal 40-129 [facility] Comment on above: Performed By: #### L 501.9910, L501.9985, L100.0100, L502.0250, L500.4050, L506.1001, L500.4100, L501.9520 ####[facility] [address] [place], [address] ALT [Catalytic activity/Vol] 24 U/L Normal <=46 [facility] Comment on above: Performed By: #### L 501.9910, L501.9985, L100.0100, L502.0250, L500.4050, L506.1001, L500.4100, L501.9520 ####[facility] [address] [place], [address] AST [Catalytic activity/Vol] 19 U/L Normal <=37 [facility] Comment on above: Performed By: #### L 501.9910, L501.9985, L100.0100, L502.0250, L500.4050, L506.1001, L500.4100, L501.9520 ####[facility] [address] [place], [place], [id number] Bilirubin [Mass/Vol] 0.35 mg/dL Normal 0.00-1.30 [facility] Comment on above: Performed By: #### L 501.9910, L501.9985, L100.0100, L502.0250, L500.4050, L506.1001, L500.4100, L501.9520 ####[facility] [address] [place], [address] BUN/CRE 16.8 RATIO Normal 10-20 [facility] Comment on above: Performed By: #### L 501.9910, L501.9985, L100.0100, L502.0250, L500.4050, L506.1001, L500.4100, L501.9520 ####[facility] [address] [place], [address] Calcium [Mass/Vol] 9.0 mg/dL Normal 7.6-11.0 [facility] Comment on above: Performed By: #### L 501.9910, L501.9985, L100.0100, L502.0250, L500.4050, L506.1001, L500.4100, L501.9520 ####[facility] [address] [place], [address] Chloride [Moles/Vol] 97 mmol/L Low 98-108 [facility] Comment on above: Performed By: #### L 501.9910, L501.9985, L100.0100, L502.0250, L500.4050, L506.1001, L500.4100, L501.9520 ####[facility] [address] [place], [address] CO2 [Moles/Vol] 22.9 mmol/L Normal 21.0-32.0 [facility] Comment on above: Performed By: #### L 501.9910, L501.9985, L100.0100, L502.0250, L500.4050, L506.1001, L500.4100, L501.9520 ####[facility] [address] [place], [address] Creatinine [Mass/Vol] 0.97 mg/dL Normal 0.70-1.20 [facility] Comment on above: Performed By: #### L 501.9910, L501.9985, L100.0100, L502.0250, L500.4050, L506.1001, L500.4100, L501.9520 ####[facility] [address] [place], [place], [phone]) GAP 13 Normal 5-15 [facility] Comment on above: Performed By: #### L 501.9910, L501.9985, L100.0100, L502.0250, L500.4050, L506.1001, L500.4100, L501.9520 ####[facility] [address] [place], [place], [phone]) GFR/1.73 sq M.predicted among non-blacks MDRD (S/P/Bld) [Vol rate/Area] 85 mL/min/{1.73_m2} Normal >60 [facility] Comment on above: Result Comment: mL/m in/1.73m2 CKD-EPI Creatinine Equation (2020) Performed By: #### L 501.9910, L501.9985, L100.0100, L502.0250, L500.4050, L506.1001, L500.4100, L501.9520 ####[facility] [address] [place], [place], [phone]) Globulin (S) [Mass/Vol] 2.7 g/dL Normal 2.2-4.2 [facility] Comment on above: Performed By: #### L 501.9910, L501.9985, L100.0100, L502.0250, L500.4050, L506.1001, L500.4100, L501.9520 ####[facility] [address] [place], [place], [phone] Glucose [Mass/Vol] 292 mg/dL High 70-99 [facility] Comment on above: Performed By: #### L 501.9910, L501.9985, L100.0100, L502.0250, L500.4050, L506.1001, L500.4100, L501.9520 ####[facility] [address] [place], [address] Potassium [Moles/Vol] 4.3 mmol/L Normal 3.3-5.1 [facility] Comment on above: Performed By: #### L 501.9910, L501.9985, L100.0100, L502.0250, L500.4050, L506.1001, L500.4100, L501.9520 ####[facility] [address] [place], [address] Sodium [Moles/Vol] 133 mmol/L Normal 133-145 [facility] Comment on above: Performed By: #### L 501.9910, L501.9985, L100.0100, L502.0250, L500.4050, L506.1001, L500.4100, L501.9520 ####[facility] [address] [place], [address] T PROT 7.1 g/dL Normal 5.9-8.4 [facility] Comment on above: Performed By: #### L 501.9910, L501.9985, L100.0100, L502.0250, L500.4050, L506.1001, L500.4100, L501.9520 ####[facility] [address] [place], [address] Urea nitrogen [Mass/Vol] 16 mg/dL Normal 4-19 [facility] Comment on above: Performed By: #### L 501.9910, L501.9985, L100.0100, L502.0250, L500.4050, L506.1001, L500.4100, L501.9520 ####[facility] [address] [place], [address] Hemoglobin A1con 08-19-2024 HbA1c (Bld) [Mass fraction] 12.1 % High <=5.6 [facility] Comment on above: Result Comment: Norm al < 5.7 % Prediabetic 5.7 - 6.4 % Diabetic >or= 6.5 % Please note range changes. Performed By: #### L 501.9910, L501.9985, L100.0100, L502.0250, L500.4050, L506.1001, L500.4100, L501.9520 ####[facility] [address] [place], [address] Lipid Profileon 08-19-2024 CHOL:HDL 3.87 Normal [facility] Comment on above: Performed By: #### L 501.9910, L501.9985, L100.0100, L502.0250, L500.4050, L506.1001, L500.4100, L501.9520 ####[facility] [address] [place], [address] Cholesterol [Mass/Vol] 172 mg/dL Normal <=200 [facility] Comment on above: Result Comment: Chol esterol level, Desirable <200 mg/dL Borderline high cholesterol 200-239 mg/dL High cholesterol >=240 mg/dL Recommendations of the NCEP Adult Treatment Panel for the following risk-cutoff thresholds for the [place] population. Performed By: #### L 501.9910, L501.9985, L100.0100, L502.0250, L500.4050, L506.1001, L500.4100, L501.9520 ####[facility] [address] [place], [place], [phone] Cholesterol in HDL [Mass/Vol] 44 mg/dL Normal [facility] Comment on above: Result Comment: Bridget onal Cholesterol Education Program (NCEP) guidelines: <40 mg/dL: Low HDL-cholesterol (major risk factor for CHD) >= 60 mg/dL: High HDL-cholesterol (negative risk factor for CHD) HDL-cholesterol is affected by a number of factors, e.g. smoking, exercise, hormones, sex and age. Performed By: #### L 501.9910, L501.9985, L100.0100, L502.0250, L500.4050, L506.1001, L500.4100, L501.9520 ####[facility] [address] [place], [address] Cholesterol in LDL [Mass/Vol] 86 mg/dL Normal [facility] Comment on above: Result Comment: Bord uwpndz=805-199 mg/dL Higher Bgbz=304 mg/dL or greater Performed By: #### L 501.9910, L501.9985, L100.0100, L502.0250, L500.4050, L506.1001, L500.4100, L501.9520 ####[facility] [address] [place], [address] Cholesterol in VLDL [Mass/Vol] 42 mg/dL High 5-40 [facility] Comment on above: Performed By: #### L 501.9910, L501.9985, L100.0100, L502.0250, L500.4050, L506.1001, L500.4100, L501.9520 ####[facility] [address] [place], [address] Triglyceride [Mass/Vol] 209 mg/dL High [facility] Comment on above: Result Comment: The drugs N-Acetylcysteine and Metamizole may falsely depress this assay. Normal range: <150 mg/dL Borderline High: 150-199 mg/dL High: 200-499 mg/dL Very High: >500 mg/dL Performed By: #### L 501.9910, L501.9985, L100.0100, L502.0250, L500.4050, L506.1001, L500.4100, L501.9520 ####[facility] [address] [place], [place], [phone]) PSA,Total - Annual Screenon 08-19-2024 PSA,TOT SCREEN 3.81 ng/mL Normal 0.02-4.00 [facility] Comment on above: Result Comment: This test was performed using the [employer] tPSA method. Measured values of a patient??sample can vary depending on the testing procedure used. PSA values determined on patient samples by different testing procedures cannot be used interchangeably. If there is a change in PSA assays while monitoring therapy, sequential testing should be performed to confirm baseline values. Performed By: #### L 501.9910, L501.9985, L100.0100, L502.0250, L500.4050, L506.1001, L500.4100, L501.9520 ####[facility] [address] [place], [address] Thyroid Stim Hormone (TSH)on 08-19-2024 TSH 0.946 uIU/mL Normal 0.300-4.200 [facility] Comment on above: Performed By: #### L 501.9910, L501.9985, L100.0100, L502.0250, L500.4050, L506.1001, L500.4100, L501.9520 ####[facility] [address] [place], [address] Vitamin D,25 Hydroxyon 08-19 Vitamin D 25-OH 22.7 ng/mL Low 30-100 [facility] Comment on above: Result Comment: Violeta min D Status Deficiency: <20 ng/mL (50nmol/L) Insufficiency: 20-30 ng/mL (50-75 nmol/L) Sufficiency: 30-100 ng/mL (75-250 nmol/L) Toxicity: >100 ng/mL (>250 nmol/L) Performed By: #### L 501.9910, L501.9985, L100.0100, L502.0250, L500.4050, L506.1001, L500.4100, L501.9520 ####[facility] [address] [place], [place], [id number] Chiropractic Reporton 2024 Chiropractic Report [facility] [address] [place] [address] OFFICE VISIT Date of Service: 08/17/24 MR#: [id number] Acct: [id number] Name: WILD CONKLIN Rep #: [id number] : 1955 Provider: VANIA Rudd Age/Sex: 68/M [place] [facility] [place] [facility] [place] Status: Signed Intake Vital Signs 02/09/24 13:38 Height 5 ft 9 in Intake Visit Reasons: Back pain Chief Complaint: low back pain Is patient in pain?: Yes (low back ) Pain scale (1-10): 4 Allergies lisinopril Allergy (Mild, Verified 08/17/24 09:59) Unknown metformin Allergy (Mild, Verified 08/17/24 09:59) Unknown nortriptyline Allergy (Mild, Verified 08/17/24 09:59) Unknown Sulfa (Sulfonamide Antibiotics) Allergy (Mild, Verified 08/17/24 09:59) Unknown doxepin Adverse Reaction (Verified 08/17/24 09:59) PT UNSURE OF REACTION Have you fallen in the past year?: No PFSH Medical History Weight loss Diabetes Hypertension Surgical History S/P appendectomy Social History Smoking Status: Never smoker second hand exposure: No alcohol intake: current alcohol intake frequency: holidays/special occasions only substance use type: does not use caffeine: No frequency: 3-4 times per week seatbelt use: always HPI Back pain Chief Complaint: neck and low back pain Visit Number: 5 Details: Blayne is a 68 year old male here to f/u with neck and low back pain. Pt. complains of low pain that is slightly worse on the left side. He describes his pain as a constant tightness with intermittent sharp twinges of pain. He rates his low back pain 4/10. He states his neck and upper back are stiff and extends into his L upper back. He has been treating pain at home with ice, Ibuprofen and stretching. Pt. denies new injury, numbness, tingling or radiculopathy. He states he has been working outside doing a lot of lifting and twisting which contributes to his low back pain. Blayne reports chiropractic adjustments are helpful in relieving some of his back pain and discomfort but it gradually returns. 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 Pain Quality: aching and dull Exam Musc General: Yes joint tenderness and decreased range of motion; No normal posture or normal gait Cervical Spine: Yes loss of normal cervical lordosis, Yes cervical muscular tenderness left greater than right lower , Yes cervical spasm right greater than left lower trapezius and paracervical muscles, left upper intrinsics and Yes misalignment misalignment: C5, C6 and C7 Thoracic/Lumber: Yes thoracic and lumbar spine normal to inspection, Yes Surgical scar(s) present, Yes paraspinal tenderness on the right greater than left (upper thoracic) and on the left greater than right (lumbopelvic), Yes thoraco-lumbar spasm on the right greater than left (trap, levator, lumbar multifidi) and on the left greater than right (glute medius) and Yes misalignment T2, T3, T4, RIL and LIL Sacroiliac joints: on the left tender to palpation Office Procedures Procedures - Chiropractic Procedures Manipulation: Cervical C6, Thoracic T3 and Pelvis LIL Manipulation: 3-4 regions Patient Response: positive Assessment and Plan Assessment and Plan (1) Segmental and somatic dysfunction of cervical region: Status: Acute (2) Segmental and somatic dysfunction of thoracic region: Status: Acute (3) Segmental and somatic dysfunction of pelvic region: Status: Acute (4) DDD (degenerative disc disease), lumbosacral: Status: Chronic Qualifiers: Disc-related pain type: discogenic back pain and lower extremity pain Qualified Code(s): M51.372 - Other intervertebral disc degeneration, lumbosacral region with discogenic back pain and lower extremity pain (5) Back pain: Status: Acute Qualifiers: Back pain location: low back pain Chronicity: acute Back pain laterality: left Sciatica presence: without sciatica Qualified Code(s): M54.50 - Low back pain, unspecified (6) History of lumbar surgery: Status: Chronic Orders: Orders Chiropractic Treatments Today M51.372 - Other intervertebral disc degeneration, lumbosacral region with discogenic back pain and lower extremity pain, M99.01 - Segmental and somatic dysfunction of cervical region, M99.02 - Segmental and somatic dysfunction of thoracic region, M99.03 - Segmental and somatic dysfunction of lumbar region, M99.05 - Segmental and somatic dysfunction of pelvic region Plan Patient was treated without incident. Continue care as needed. Plan Details Goals Barriers: Goals Improve ROM Decrease spasm Improve workability Decrease pain Barriers (more content not included)... Normal [facility] Chiropractic Reporton 2024 Chiropractic Report [facility]ic [facility] [place] [address] OFFICE VISIT Date of Service: 07/20/24 MR#: [id number] Acct: [id number] Name: WILD CONKLIN Rep #: [id number] : 1955 Provider: VANIA Rudd Age/Sex: 68/M [place] [facility] [place] Signed Intake Vital Signs 02/09/24 13:38 Height 5 ft 9 in Intake Visit Reasons: Back pain Chief Complaint: low back pain Is patient in pain?: Yes (Neck, LBP) Pain scale (1-10): 4 Allergies lisinopril Allergy (Mild, Verified 07/20/24 09:48) Unknown metformin Allergy (Mild, Verified 07/20/24 09:48) Unknown nortriptyline Allergy (Mild, Verified 07/20/24 09:48) Unknown Sulfa (Sulfonamide Antibiotics) Allergy (Mild, Verified 07/20/24 09:48) Unknown doxepin Adverse Reaction (Verified 07/20/24 09:48) PT UNSURE OF REACTION Medications ???Medication ???Instructions ???Recorded ???Confirmed ???Type sitagliptin phosphate 100 mg tablet 100 mg PO DAILY diabetes 07/20/24 History citalopram 10 mg tablet 10 mg PO QDAY 01/23/24 07/20/24 Hi story glimepiride 4 mg tablet 4 mg PO QDAY 01/23/24 07/20/24 His tory melatonin 3 mg capsule 3 mg PO HS PRN 01/23/24 07/20/24 H istory metformin 500 mg tablet 500 mg PO QDAY 01/23/24 07/20/24 H istory Have you fallen in the past year?: No [facility] Medical History Weight loss Diabetes Hypertension Surgical History S/P appendectomy Social History Smoking Status: Never smoker second hand exposure: No alcohol intake: current alcohol intake frequency: holidays/special occasions only substance use type: does not use caffeine: No frequency: 3-4 times per week seatbelt use: always HPI Back pain Chief Complaint: neck and low back pain Visit Number: 4 Details: Blayne is a 68 year old male here to f/u with neck and low back pain. He complains of neck pain that is equal bilaterally and extends into his upper back. He complains of low back pain and stiffness that is equal bilaterally. He has been treating pain at home with ice, Ibuprofen and stretching. Pt. denies new injury, numbness, tingling or radiculopathy. He rates his pain 4/10. He states he has been working outside doing a lot of lifting and twisting which contributes to his low back pain. Blayne reports chiropractic adjustments are helpful in relieving some of his back pain and discomfort but it gradually returns. 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 Pain Quality: aching and dull Exam Musc General: Yes joint tenderness and decreased range of motion; No normal posture or normal gait Cervical Spine: Yes loss of normal cervical lordosis, Yes cervical muscular tenderness bilateral lower , Yes cervical spasm right greater than left lower trapezius and paracervical muscles, left upper intrinsics and Yes misalignment misalignment: C5, C6 and C7 Thoracic/Lumber: Yes thoracic and lumbar spine normal to inspection, Yes Surgical scar(s) present, Yes paraspinal tenderness on the right greater than left (upper thoracic) and on the left greater than right (lumbopelvic), Yes thoraco-lumbar spasm on the right greater than left (trap, levator, lumbar multifidi) and on the left greater than right (glute medius) and Yes misalignment T2, T3, T4, RIL and LIL Sacroiliac joints: on the left tender to palpation Office Procedures Procedures - Chiropractic Procedures Manipulation: Cervical C6, Thoracic T3 and Pelvis LIL Manipulation: 3-4 regions Hot and/or cold packs: Yes Patient Response: positive Assessment and Plan Assessment and Plan (1) Back pain: Status: Acute Qualifiers: Back pain laterality: left Back pain location: low back pain Chronicity: acute Sciatica presence: without sciatica Qualified Code(s): M54.50 - Low back pain, unspecified (2) Segmental and somatic dysfunction of cervical region: Status: Acute (3) Segmental and somatic dysfunction of thoracic region: Status: Acute (4) Segmental and somatic dysfunction of pelvic region: Status: Acute (5) History of lumbar surgery: Status: Chronic Orders: Orders Chiropractic Treatments Today M54.50 - Low back pain, unspecified, M99.01 - Segmental and somatic dysfunction of cervical region, M99.02 - Segmental and somatic dysfunction of thoracic region, M99.03 - Segmental and somatic dysfunction of lumbar region, M99.05 - Segmental and somatic dysfunction of pelvic region, Z98.890 - Other specified postprocedural states Plan Patient was treated without incident. Continue care as needed. Plan Details Goals Barriers: Goals Improve ROM Dec (more content not included)... Normal [facility] M100.678on 07-06-2024 M100.678 Pending SARS-CoV-2 (COVID 19) Negative INFLUENZA A Negative INFLUENZA B Negative RSV PCR Negative [facility] Comment on above: Performed By: #### M 100.678 ####[facility] [id number] [place], [place], [id number] Chiropractic Reporton 2024 Chiropractic Report [facility] [address] [place] [address] OFFICE VISIT Date of Service: 06/21/24 MR#: [id number] Acct: [id number] Name: CONKLINWILDFFREY Rep #: [id number] : 1955 Provider: VANIA Rudd Age/Sex: 68/M [place] [facility] [place] Signed Intake Vital Signs 02/09/24 13:38 Height 5 ft 9 in Intake Visit Reasons: Back pain Chief Complaint: low back pain Is patient in pain?: Yes (low back ) Pain scale (1-10): 6 Allergies lisinopril Allergy (Mild, Verified 06/21/24 09:56) Unknown metformin Allergy (Mild, Verified 06/21/24 09:56) Unknown nortriptyline Allergy (Mild, Verified 06/21/24 09:56) Unknown Sulfa (Sulfonamide Antibiotics) Allergy (Mild, Verified 06/21/24 09:56) Unknown doxepin Adverse Reaction (Verified 06/21/24 09:56) PT UNSURE OF REACTION Medications ???Medication ???Instructions ???Recorded ???Confirmed ???Type sitagliptin phosphate 100 mg tablet 100 mg PO DAILY diabetes 06/21/24 History citalopram 10 mg tablet 10 mg PO QDAY 01/23/24 06/21/24 Hi story glimepiride 4 mg tablet 4 mg PO QDAY 01/23/24 06/21/24 His tory melatonin 3 mg capsule 3 mg PO HS PRN 01/23/24 06/21/24 H istory metformin 500 mg tablet 500 mg PO QDAY 01/23/24 06/21/24 H istory Have you fallen in the past year?: No PFSH Medical History Weight loss Diabetes Hypertension Surgical History S/P appendectomy Social History Smoking Status: Never smoker second hand exposure: No alcohol intake: current alcohol intake frequency: holidays/special occasions only substance use type: does not use caffeine: No frequency: 3-4 times per week seatbelt use: always HPI Back pain Chief Complaint: neck and low back pain Visit Number: 3 Details: Blayne is a 68 year old male here to f/u with neck and low back pain. Pt. complains of low back stiffness and pain equal across bilaterally. He rates his low back pain 6/10 today. He is also experiencing some mild tightness in his neck. His neck and upper back is also tight and sore. He has been treating pain at home with ice, Ibuprofen and stretching. Pt. denies new injury, numbness, tingling or radiculopathy. 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 Blayne reports chiropractic adjustments are helpful in relieving some of his back pain and discomfort but it gradually returns. 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 Pain Quality: aching and dull Exam Musc General: Yes joint tenderness and decreased range of motion; No normal posture or normal gait Cervical Spine: Yes loss of normal cervical lordosis, Yes cervical muscular tenderness bilateral lower , Yes cervical spasm right greater than left lower trapezius and paracervical muscles, left upper intrinsics and Yes misalignment misalignment: C1, C2, C5, C6 and C7 Thoracic/Lumber: Yes thoracic and lumbar spine normal to inspection, Yes Surgical scar(s) present, Yes paraspinal tenderness on the right greater than left (upper thoracic) and on the left greater than right (lumbopelvic), Yes thoraco-lumbar spasm on the right greater than left (trap, levator, lumbar multifidi) and on the left greater than right (glute medius) and Yes misalignment T2, T3, T4, RIL and LIL Sacroiliac joints: on the left tender to palpation Office Procedures Procedures - Chiropractic Procedures Manipulation: Cervical C6, Thoracic T3 and Pelvis LIL Manipulation: 3-4 regions Patient Response: positive Assessment and Plan Assessment and Plan (1) Segmental and somatic dysfunction of cervical region: Status: Acute (2) Segmental and somatic dysfunction of thoracic region: Status: Acute (3) Segmental and somatic dysfunction of lumbar region: Status: Acute (4) Segmental and somatic dysfunction of pelvic region: Status: Acute (5) Back pain: Status: Acute Qualifiers: Back pain location: low back pain Chronicity: acute Back pain laterality: left Sciatica presence: without sciatica Qualified Code(s): M54.50 - Low back pain, unspecified (6) History of lumbar surgery: Status: Chronic Orders: Orders Chiropractic Treatments Today M99.01 - Segmental and somatic dysfunction of cervical region, M99.02 - Segmental and somatic dysfunction of thoracic region, M99.03 - Segmental and somatic dysfunction of lumbar region, M99.05 - Segmental and somatic dysfunction of pelvic region Plan Patient was treated without incident. Continue care as needed. Plan Details Goals Barriers: Goals Improve ROM (more content not included)... Normal [facility] Chiropractic Reporton 2024 Chiropractic Report [facility] Chiropractic [facility] [place] [address] OFFICE VISIT Date of Service: 05/19/24 MR#: [id number] Acct: [id number] Name: WILD CONKLIN Rep #: [id number] : 1955 Provider: VANIA Rudd Age/Sex: 68/M [place] [facility] [place] Status: Signed Intake Vital Signs 02/09/24 13:38 Height 5 ft 9 in Intake Visit Reasons: Back pain Chief Complaint: right low back Is patient in pain?: Yes (low back) Pain scale (1-10): 5 Allergies lisinopril Allergy (Mild, Verified 05/19/24 11:17) Unknown metformin Allergy (Mild, Verified 05/19/24 11:17) Unknown nortriptyline Allergy (Mild, Verified 05/19/24 11:17) Unknown Sulfa (Sulfonamide Antibiotics) Allergy (Mild, Verified 05/19/24 11:17) Unknown doxepin Adverse Reaction (Verified 05/19/24 11:17) PT UNSURE OF REACTION Medications ???Medication ???Instructions ???Recorded ???Confirmed ???Type sitagliptin phosphate 100 mg tablet 100 mg PO DAILY diabetes 05/19/24 History citalopram 10 mg tablet 10 mg PO QDAY 01/23/24 05/19/24 Hi story glimepiride 4 mg tablet 4 mg PO QDAY 01/23/24 05/19/24 His tory melatonin 3 mg capsule 3 mg PO HS PRN 01/23/24 05/19/24 H istory metformin 500 mg tablet 500 mg PO QDAY 01/23/24 05/19/24 H istory Have you fallen in the past year?: No PFSH Medical History Weight loss Diabetes Hypertension Surgical History S/P appendectomy Social History Smoking Status: Never smoker second hand exposure: No alcohol intake: current alcohol intake frequency: holidays/special occasions only substance use type: does not use caffeine: No frequency: 3-4 times per week seatbelt use: always HPI Back pain Chief Complaint: neck and low back pain Visit Number: 2 Details: Blayne is a 68 year old male here to f/u with neck and low back pain. Pt. complains of low back achiness and pain. He rates his low back pain 5/10 today. He is also experiencing some mild stiffness in his neck. He has been treating pain at home with ice, Ibuprofen and stretching. Pt. denies new injury, numbness, tingling or radiculopathy. 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 Blayne reports chiropractic adjustments are helpful in relieving some of his back pain and discomfort but it gradually returns. 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 Pain Quality: aching and dull Exam Musc General: Yes joint tenderness and decreased range of motion; No normal posture or normal gait Cervical Spine: Yes loss of normal cervical lordosis, Yes cervical muscular tenderness bilateral diffuse , Yes cervical spasm right greater than left lower trapezius and paracervical muscles, left upper intrinsics and Yes misalignment misalignment: C1, C2, C5, C6 and C7 Thoracic/Lumber: Yes thoracic and lumbar spine normal to inspection, Yes Surgical scar(s) present, Yes paraspinal tenderness on the right greater than left (upper thoracic) and on the left greater than right (lumbopelvic), Yes thoraco-lumbar spasm on the right greater than left (trap, levator, lumbar multifidi) and on the left greater than right (glute medius) and Yes misalignment T2, T3, T4, RIL and LIL Sacroiliac joints: on the left tender to palpation Office Procedures Procedures - Chiropractic Procedures Manipulation: Cervical C6, Thoracic T3 and Pelvis LIL Manipulation: 3-4 regions Patient Response: positive Assessment and Plan Assessment and Plan (1) Segmental and somatic dysfunction of cervical region: Status: Acute (2) Segmental and somatic dysfunction of thoracic region: Status: Acute (3) Segmental and somatic dysfunction of pelvic region: Status: Acute (4) History of lumbar surgery: Status: Chronic Orders: Orders Chiropractic Treatments 05/19/24 M99.01 - Segmental and somatic dysfunction of cervical region, M99.02 - Segmental and somatic dysfunction of thoracic region, M99.03 - Segmental and somatic dysfunction of lumbar region, M99.05 - Segmental and somatic dysfunction of pelvic region Plan Patient was treated without incident. Continue care as needed. 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 Normal [facility] Chiropractic Reporton 2024 Chiropractic Report [facility] [address] [place] [address] OFFICE VISIT Date of Service: 04/20/24 MR#: [id number] Acct: [id number] Name: WILD CONKLIN Rep #: [id number] : 1955 Provider: VANIA Rudd Age/Sex: 68/M [place] [facility] [place] Signed Intake Vital Signs 02/09/24 13:38 Height 5 ft 9 in Intake Visit Reasons: Back pain Chief Complaint: right low back Is patient in pain?: Yes (right low back ) Pain scale (1-10): 5 Allergies lisinopril Allergy (Mild, Verified 04/20/24 13:05) Unknown metformin Allergy (Mild, Verified 04/20/24 13:05) Unknown nortriptyline Allergy (Mild, Verified 04/20/24 13:05) Unknown Sulfa (Sulfonamide Antibiotics) Allergy (Mild, Verified 04/20/24 13:05) Unknown doxepin Adverse Reaction (Verified 04/20/24 13:05) PT UNSURE OF REACTION Medications ???Medication ???Instructions ???Recorded ???Confirmed ???Type sitagliptin phosphate 100 mg tablet 100 mg PO DAILY diabetes 05/29/19 04/20/24 History citalopram 10 mg tablet 10 mg PO QDAY 01/23/24 04/20/24 History glimepiride 4 mg tablet 4 mg PO QDAY 01/23/24 04/20/24 History melatonin 3 mg capsule 3 mg PO HS PRN 01/23/24 04/20/24 History metformin 500 mg tablet 500 mg PO QDAY 01/23/24 04/20/24 History Have you fallen in the past year?: No PFSH Medical History Weight loss Diabetes Hypertension Surgical History S/P appendectomy Social History Smoking Status: Never smoker second hand exposure: No alcohol intake: current alcohol intake frequency: holidays/special occasions only substance use type: does not use caffeine: No frequency: 3-4 times per week seatbelt use: always HPI Back pain Chief Complaint: neck and low back pain Visit Number: 1 Details: Blayne is a 68 year old male here to f/u with neck and low back pain. Pt. complains of right low back pain. He states he twisted as he was loading some small ike of hay about 10 days ago and his right low back has been painful since then. He rates his pain 5/10 today. The pain isn't radiating, but feels more like he pulled something. He has been treating pain at home with ice, Ibuprofen and stretching which has helped some. Pt. denies numbness, tingling or radiculopathy. Blayne reports chiropractic adjustments are helpful in relieving some of his back pain and discomfort but it gradually returns. 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 Pain Quality: aching and dull Exam Musc General: Yes joint tenderness and decreased range of motion; No normal posture or normal gait Cervical Spine: Yes loss of normal cervical lordosis, Yes cervical muscular tenderness bilateral lower , Yes cervical spasm right greater than left lower trapezius and paracervical muscles, left upper intrinsics and Yes misalignment misalignment: C1, C2, C5, C6 and C7 Thoracic/Lumber: Yes thoracic and lumbar spine normal to inspection, Yes Surgical scar(s) present, Yes paraspinal tenderness on the right greater than left (upper thoracic) and on the left greater than right (lumbopelvic), Yes thoraco-lumbar spasm on the right greater than left (trap, levator, lumbar multifidi) and on the left greater than right (glute medius) and Yes misalignment T2, T3, T4, RIL and LIL Sacroiliac joints: on the left tender to palpation Office Procedures Procedures - Chiropractic Procedures Manipulation: Cervical C6, Thoracic T3 and Pelvis LIL Manipulation: 3-4 regions Patient Response: positive Assessment and Plan Assessment and Plan (1) Segmental and somatic dysfunction of cervical region: Status: Acute (2) Segmental and somatic dysfunction of thoracic region: Status: Acute (3) Segmental and somatic dysfunction of pelvic region: Status: Acute (4) History of lumbar surgery: Status: Chronic (5) Back pain: Status: Acute Qualifiers: Back pain location: low back pain Chronicity: acute Back pain laterality: left Sciatica presence: without sciatica Qualified Code(s): M54.50 - Low back pain, unspecified Orders: Orders Chiropractic Treatments Today M99.01 - Segmental and somatic dysfunction of cervical region, M99.02 - Segmental and somatic dysfunction of thoracic region, M99.03 - Segmental and somatic dysfunction of lumbar region, M99.05 - Segmental and somatic dysfunction of pelvic region Plan Patient was treated with gentle non rotational adjustment. He continues to have some L hip bursitis, but is improving. Continue care as needed. Plan Details Goals Barriers: Goals Improve ROM Decrease spasm Improve workability Decrease pain B (more content not included)... Normal [facility] Chiropractic Reporton 2023 Chiropractic Report [facility] Chiropractic [address] [place] [address] OFFICE VISIT Date of Service: 03/09/24 MR#: [id number] Acct: [id number] Name: WILD CONKLIN Rep #: [id number] : 1955 Provider: VANIA Rudd Age/Sex: 68/M [place] [facility] [place]: Signed Intake Vital Signs 02/09/24 13:38 Height 5 ft 9 in Intake Visit Reasons: Back pain Chief Complaint: Left low back Allergies lisinopril Allergy (Mild, Verified 03/09/24 11:09) Unknown metformin Allergy (Mild, Verified 03/09/24 11:09) Unknown nortriptyline Allergy (Mild, Verified 03/09/24 11:09) Unknown Sulfa (Sulfonamide Antibiotics) Allergy (Mild, Verified 03/09/24 11:09) Unknown doxepin Adverse Reaction (Verified 03/09/24 11:09) PT UNSURE OF REACTION Medications ???Medication ???Instructions ???Recorded ???Confirmed ???Type sitagliptin phosphate 100 mg tablet 100 mg PO DAILY diabetes 05/29/19 03/09/24 History citalopram 10 mg tablet 10 mg PO QDAY 01/23/24 03/09/24 History glimepiride 4 mg tablet 4 mg PO QDAY 01/23/24 03/09/24 History melatonin 3 mg capsule 3 mg PO HS PRN 01/23/24 03/09/24 History metformin 500 mg tablet 500 mg PO QDAY 01/23/24 03/09/24 History Have you fallen in the past year?: No PFSH Medical History Weight loss Diabetes Hypertension Surgical History S/P appendectomy Social History Smoking Status: Never smoker second hand exposure: No alcohol intake: current alcohol intake frequency: holidays/special occasions only substance use type: does not use caffeine: No frequency: 3-4 times per week seatbelt use: always HPI Back pain Chief Complaint: neck and low back pain Visit Number: 12 Details: Blayne is a 68 year old male here to f/u with neck and low back pain. Pt. complains of left low back/hip discomfort. He has been dealing with some left leg/knee issues which is causing his left hip to feel out of alignment. He has been treating pain at home with ice and stretching to help alleviate his symptoms. Pt. denies new injury, numbness, or tingling. Blayne reports chiropractic adjustments are helpful in relieving some of his back pain and discomfort but it gradually returns. 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 Pain Quality: aching, dull and radiating Exam Musc General: Yes joint tenderness and decreased range of motion; No normal posture or normal gait Cervical Spine: Yes loss of normal cervical lordosis, Yes cervical muscular tenderness bilateral diffuse , Yes cervical spasm right greater than left lower trapezius and paracervical muscles, left upper intrinsics and Yes misalignment misalignment: C1, C2, C5, C6 and C7 Thoracic/Lumber: Yes thoracic and lumbar spine normal to inspection, Yes Surgical scar(s) present, Yes paraspinal tenderness on the right greater than left (upper thoracic) and on the left greater than right (lumbopelvic), Yes thoraco-lumbar spasm on the right greater than left (trap, levator) and on the left greater than right (paraspinal L3-L5) and Yes misalignment T2, T3, T4, RIL and LIL Sacroiliac joints: on the left tender to palpation Office Procedures Procedures - Chiropractic Procedures Manipulation: Cervical C6, Thoracic T3 and Pelvis LIL Manipulation: 3-4 regions Patient Response: positive Assessment and Plan Assessment and Plan (1) Segmental and somatic dysfunction of cervical region: Status: Acute (2) Segmental and somatic dysfunction of thoracic region: Status: Acute (3) Segmental and somatic dysfunction of lumbar region: Status: Acute (4) Segmental and somatic dysfunction of pelvic region: Status: Acute (5) DDD (degenerative disc disease), lumbosacral: Status: Chronic Qualifiers: Disc-related pain type: discogenic back pain and lower extremity pain Qualified Code(s): M51.372 - Other intervertebral disc degeneration, lumbosacral region with discogenic back pain and lower extremity pain Orders: Orders Chiropractic Treatments Today M99.01 - Segmental and somatic dysfunction of cervical region, M99.02 - Segmental and somatic dysfunction of thoracic region, M99.03 - Segmental and somatic dysfunction of lumbar region, M99.05 - Segmental and somatic dysfunction of pelvic region Plan Patient was treated without incident. Continue care as needed. 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 Normal [facility] Knee 4 or More Viewson 02-15 Knee 4 or More Views [facility] [address] [place] [address] Knee 4 or More Views MR#: [id number] Acct: [id number] Name: WILD CONKLIN Rep #: [id number] : 1955 M 68 From: Lawrence Singer MD PCP: Dr. Leandro Grijalva MD Status: DEP AMB Study: Knee 4 or More Views Date of Exam: 02/16/24 Exam# [id number] Ordering Dr: Mookie Saez DO [id number] EXAM: XR LEFT KNEE COMPLETE, 4 OR MORE VIEWS CLINICAL INDICATION: pain TECHNIQUE: Four or more views of the left knee. COMPARISON: No relevant prior studies available. FINDINGS: BONES/JOINTS: Unremarkable. No acute fracture. No subluxation. Normal alignment. Preservation of the joint space. No sclerotic or destructive changes observed. SOFT TISSUES: Unremarkable. No soft tissue swelling or gas. No radiopaque foreign body. RAD/Knee 4 or More Views IMPRESSION: Negative left knee x-rays. Electronically Signed: Lawrence Singer MD at 8:41 EST , CC: Dr. Mookie Saez DO; Dr. Leandro Grijalva MD Screen Roller: Signed Normal [facility] Orthopedic Visit Reporton Orthopedic Visit Report [facility] [address] [place] [address] [address] [place] [address] OFFICE VISIT Date of Service: 02/16/24 MR#: [id number] Acct: [id number] Name: WILD CONKLIN Rep #: [id number] : 1955 Provider: Dr. Mookie haley DO Age/Sex: 68/M [place] [facility] [place]: Signed Intake Vital Signs 01/23/24 10:39 02/09/24 13:38 Height 5 ft 9 in 5 ft 9 in Intake Visit Reasons: LEFT HIP Chief Complaint: Left knee Allergies lisinopril Allergy (Mild, Verified 02/16/24 08:10) Unknown metformin Allergy (Mild, Verified 02/16/24 08:10) Unknown nortriptyline Allergy (Mild, Verified 02/16/24 08:10) Unknown Sulfa (Sulfonamide Antibiotics) Allergy (Mild, Verified 02/16/24 08:10) Unknown doxepin Adverse Reaction (Verified 02/16/24 08:10) PT UNSURE OF REACTION Medications ???Medication ???Instructions ???Recorded ???Confirmed ???Type sitagliptin phosphate 100 mg tablet 100 mg PO DAILY diabetes 05/29/19 02/16/24 History citalopram 10 mg tablet 10 mg PO QDAY 01/23/24 02/16/24 History glimepiride 4 mg tablet 4 mg PO QDAY 01/23/24 02/16/24 History melatonin 3 mg capsule 3 mg PO HS PRN 01/23/24 02/16/24 History metformin 500 mg tablet 500 mg PO QDAY 01/23/24 02/16/24 History Have you fallen in the past year?: No PFSH Medical History Weight loss Diabetes Hypertension Surgical History S/P appendectomy Social History Smoking Status: Never smoker second hand exposure: No alcohol intake: current alcohol intake frequency: holidays/special occasions only substance use type: does not use caffeine: No frequency: 3-4 times per week seatbelt use: always HPI LEFT HIP Details: This documentation accurately reflects the service provided and the decisions made by me, Dr. Mookie Saez, DO 02/16/24 [id number]. Part of today???s visit was documented by Nevin YOUSIF, acting as scribe. WILD CONKLIN is a 02/16/2024 : 68 year old M here today for. He states that he is having some left knee pain. his hip pain is doing better after physical therapy, He states that over his distal medial thigh it feels tight and feels like he was feeling snapping over his posterior medial knee. He believes that this is related to the hip. He is unable to dorsiflex his left ankle back as far as his right for many years which he attributed to has back. He noticed the snapping about 2 weeks ago but it has subsided. He describes the pain as aching and point to his medial hamstring. He had clicking and popping which was painful, he was given some stretches, which seemed to help. He has been taking advil 400mg tid for pain which has also helped. No prior injury or surgery to the knee. 01/23/2024: here today for initial evaluation of left hip pain. He reports a 4 month history of left hip pain that has progressively getting worse. 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 Since then the pain has gotten worse. The pain does radiate down into his leg. 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 He denies numbness and tingling. When he is working he has pain over the lateral hip and thigh but when he is walking he has pain over his medial thigh. He did have a lumbar laminectomy in [address] Gatica and [facility]. He does use ice an the hip which does help relieve his pain. plan: Educated on anatomy and etiology of the left hip. Reviewed xrays with patient today and he doesn't have any significant arthritis in the hip but I did advise patient that people with stiff back do tend to get stiffness of the IT band and trochanteric bursitis. I did advise patient that he can keep seeing his chiropractor. Spoke with patient that his treatment options would be do nothing, steroid injection, formal physical therapy, or NSAIDs. I did advise patient that he can take 600mg of Advil or Ibuprofen 3 times a day for 1 week to get the anti-inflammatory effect. Patient wishes to proceed with the physical therapy for now. Ortho Exam General General: Yes no acute distress Neurologic: Yes alert and Yes oriented x3 Psychologic: Yes reasonable and appropriate Right Knee Patella Translation: 1 Left Knee Skin/Wound: Yes CDI, No ecchymosis, No erythema and No swelling Knee ROM: Yes ROM-Extension -20 to 0 (+2) and Yes ROM-Flexion 0-140 (130) Examination: Yes med jt line tenderness, No Lat jt line tenderness, No TTP inf pole patella, No Tina's Test, No TTP Tibial tubercle, Yes TTP Pes Anserine and No Illiotibial band tenderness Stability: NML: Anterior Drawer, NML: Posterior Drawer, NML: Valgus 0, NML: Valgus 30, NML: Varus 0 and NML: Varus 30 P (more content not included)... Normal [facility] CBC W/Diff, Automatedon 01-22 Absolute Lymph 2.29 X10 3/uL Normal 0.83-4.51 [facility] Comment on above: Performed By: #### L 100.0100, L501.9985, L500.4050, L506.1000, L500.4100, L501.9520 #### [facility] [address] [place], [address] Absolute Neut 5.4 X10 3/uL Normal 2.0-7.7 [facility] Comment on above: Performed By: #### L 100.0100, L501.9985, L500.4050, L506.1000, L500.4100, L501.9520 #### [facility] [address] [place], [address] Basophils/100 WBC (Bld) 0.9 % Normal 0-1 [facility] Comment on above: Performed By: #### L 100.0100, L501.9985, L500.4050, L506.1000, L500.4100, L501.9520 #### [facility] [address] [place], [address] Eosinophils/100 WBC (Bld) 2.7 % Normal 0-5 [facility] Comment on above: Performed By: #### L 100.0100, L501.9985, L500.4050, L506.1000, L500.4100, L501.9520 #### [facility] [address] [place], [address] Erythrocyte distribution width (RBC) [Ratio] 12.5 % Normal 11.6-14.6 [facility] Comment on above: Performed By: #### L 100.0100, L501.9985, L500.4050, L506.1000, L500.4100, L501.9520 #### [facility] [address] [place], [address] Hematocrit (Bld) [Volume fraction] 44.9 % Normal 40-54 [facility] Comment on above: Performed By: #### L 100.0100, L501.9985, L500.4050, L506.1000, L500.4100, L501.9520 #### [facility] [address] [place], [address] Hemoglobin (Bld) [Mass/Vol] 15.4 g/dL Normal 13.0-16.5 [facility] Comment on above: Performed By: #### L 100.0100, L501.9985, L500.4050, L506.1000, L500.4100, L501.9520 #### [facility] [address] [place], [address] IG% 0.200 Normal 0.0-0.9 [facility] Comment on above: Result Comment: IG% - Immature Granulocytes (promyelocytes, myelocytes and metamyelocytes) > 1% indicates that a LEFT SHIFT is Present. Performed By: #### L 100.0100, L501.9985, L500.4050, L506.1000, L500.4100, L501.9520 #### [facility] [address] [place], [address] Lymphocytes/100 WBC (Bld) 26.8 % Normal 19-41 [facility] Comment on above: Performed By: #### L 100.0100, L501.9985, L500.4050, L506.1000, L500.4100, L501.9520 #### [facility] [address] [place], [address] MCH (RBC) [Entitic mass] 30.4 pg Normal 27.0-32.0 [facility] Comment on above: Performed By: #### L 100.0100, L501.9985, L500.4050, L506.1000, L500.4100, L501.9520 #### [facility] [address] [place], [address] MCHC (RBC) [Mass/Vol] 34.3 g/dL Normal 32-36 [facility] Comment on above: Performed By: #### L 100.0100, L501.9985, L500.4050, L506.1000, L500.4100, L501.9520 #### [facility] [address] [place], [address] MCV (RBC) [Entitic vol] 88.6 fL Normal 80-94 [facility] Comment on above: Performed By: #### L 100.0100, L501.9985, L500.4050, L506.1000, L500.4100, L501.9520 #### [facility] [address] [place], [address] Monocytes/100 WBC (Bld) 6.4 % Normal 0-10 [facility] Comment on above: Performed By: #### L 100.0100, L501.9985, L500.4050, L506.1000, L500.4100, L501.9520 #### [facility] [address] [place], [address] Neutrophils/100 WBC (Bld) 63.0 % Normal 47-70 [facility] Comment on above: Performed By: #### L 100.0100, L501.9985, L500.4050, L506.1000, L500.4100, L501.9520 #### [facility] [address] [place], [address] Nucleated RBC (Bld) [#/Vol] 0 10*3/uL Normal 0-5 [facility] Comment on above: Performed By: #### L 100.0100, L501.9985, L500.4050, L506.1000, L500.4100, L501.9520 #### [facility] [address] [place], [address] Platelet mean volume (Bld) [Entitic vol] 8.6 fL Normal 6.2-12.0 [facility] Comment on above: Performed By: #### L 100.0100, L501.9985, L500.4050, L506.1000, L500.4100, L501.9520 #### [facility] [address] [place], [address] Platelets (Bld) [#/Vol] 261 10*3/uL Normal 150-450 [facility] Comment on above: Performed By: #### L 100.0100, L501.9985, L500.4050, L506.1000, L500.4100, L501.9520 #### [facility] [address] [place], [address] RBC (Bld) [#/Vol] 5.07 10*6/uL Normal 4.6-6.2 [facility] Comment on above: Performed By: #### L 100.0100, L501.9985, L500.4050, L506.1000, L500.4100, L501.9520 #### [facility] [address] [place], [address] RDW SD 40.0 fl Normal 35.1-43.9 [facility] Comment on above: Performed By: #### L 100.0100, L501.9985, L500.4050, L506.1000, L500.4100, L501.9520 #### [facility] [address] [place], [address] WBC (Bld) [#/Vol] 8.5 10*3/uL Normal 4.4-11.0 [facility] Comment on above: Performed By: #### L 100.0100, L501.9985, L500.4050, L506.1000, L500.4100, L501.9520 #### [facility] [address] [place], [address] Chiropractic Reporton 2023 Chiropractic Report [facility] [address] [place] [id number] OFFICE VISIT Date of Service: 02/10/24 MR#: [id number] Acct: [id number] Name: WILD CONKLIN Rep #: [id number] : 1955 Provider: VANIA Rudd Age/Sex: 68/M [place] [facility] [place] Status: Signed Intake Vital Signs 12/29/22 11:00 02/09/24 13:38 Height 5 ft 9 in 5 ft 9 in Intake Visit Reasons: Back pain Chief Complaint: Left hip/low back Is patient in pain?: Yes Pain scale (1-10): 8 Allergies lisinopril Allergy (Mild, Verified 02/10/24 13:07) Unknown metformin Allergy (Mild, Verified 02/10/24 13:07) Unknown nortriptyline Allergy (Mild, Verified 02/10/24 13:07) Unknown Sulfa (Sulfonamide Antibiotics) Allergy (Mild, Verified 02/10/24 13:07) Unknown doxepin Adverse Reaction (Verified 02/10/24 13:07) PT UNSURE OF REACTION Have you fallen in the past year?: No [facility] Medical History (Updated 02/10/24 @ 13:[address] Mariajose Gonzalez, [place]) Weight loss Diabetes Hypertension Surgical History S/P appendectomy Social History Smoking Status: Never smoker second hand exposure: No alcohol intake: current alcohol intake frequency: holidays/special occasions only substance use type: does not use caffeine: No frequency: 3-4 times per week seatbelt use: always HPI Back pain Chief Complaint: neck and low back pain Visit Number: 11 Details: Blayne is a 68 year old male here to f/u with neck and low back pain. Pt. has complains of mild stiffness in his neck but states it is not painful. He denies any headaches or limited ROM at this time. He also has c/o pain and stiffness in his low back that is worse on the L side. The pain radiates from the distal left thigh up to mid thigh. He describes the pain as a constant deep ache. He rates his pain at an 8/10 today. He uses ice and stretching at home to help alleviate his symptoms. Patient did a PT session but it was focused on his L hip and he feels its coming from the knee. Pt. denies new injury, numbness, or tingling. Blayne reports chiropractic adjustments are helpful in relieving some of his back pain and discomfort but it gradually returns. 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 Pain Quality: aching, dull and radiating Exam Musc General: Yes joint tenderness and decreased range of motion; No normal posture or normal gait Cervical Spine: Yes loss of normal cervical lordosis, Yes cervical muscular tenderness bilateral lower , Yes cervical spasm right greater than left lower trapezius and paracervical muscles, left upper intrinsics and Yes misalignment misalignment: C1, C2, C5, C6 and C7 Thoracic/Lumber: Yes thoracic and lumbar spine normal to inspection, Yes Surgical scar(s) present, Yes paraspinal tenderness on the right greater than left (upper thoracic) and on the left greater than right (lumbopelvic), Yes thoraco-lumbar spasm on the right greater than left (trap, levator) and on the left greater than right (paraspinal L3-L5) and Yes misalignment T2, T3, T4, L3, RIL and LIL Sacroiliac joints: on the left tender to palpation Office Procedures Procedures - Chiropractic Procedures Manipulation: Cervical C6, Lumbar L3, Thoracic T3 and Pelvis LIL Manipulation: 3-4 regions Patient Response: positive Assessment and Plan Assessment and Plan (1) Back pain: Status: Acute Qualifiers: Back pain laterality: left Back pain location: low back pain Chronicity: acute Sciatica presence: without sciatica Qualified Code(s): M54.50 - Low back pain, unspecified (2) Segmental and somatic dysfunction of cervical region: Status: Acute (3) Segmental and somatic dysfunction of thoracic region: Status: Acute (4) Segmental and somatic dysfunction of lumbar region: Status: Acute (5) Segmental and somatic dysfunction of pelvic region: Status: Acute Orders: Orders Chiropractic Treatments Today M54.41 - Lumbago with sciatica, right side, M99.01 - Segmental and somatic dysfunction of cervical region, M99.02 - Segmental and somatic dysfunction of thoracic region, M99.03 - Segmental and somatic dysfunction of lumbar region, M99.05 - Segmental and somatic dysfunction of pelvic region Plan Patient was treated without incident. Continue care as needed. Discussed home stretches to be performed. Instructed patient to ask ortho to modify the PT order. 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 Normal [facility] Comprehensive Metabolic Prof natasha 02-10-2024 Albumin [Mass/Vol] 4.0 g/dL Normal 3.2-5.0 [facility] Comment on above: Performed By: #### L 100.0100, L501.9985, L500.4050, L506.1000, L500.4100, L501.9520 ####[facility] [address] [place], [place], [id number] Albumin/Globulin [Mass ratio] 1.1 {ratio} Normal 0.9-2.4 [facility] Comment on above: Performed By: #### L 100.0100, L501.9985, L500.4050, L506.1000, L500.4100, L501.9520 ####[facility] [address] [place], [address] ALK P 59 U/L Normal 45-117 [facility] Comment on above: Performed By: #### L 100.0100, L501.9985, L500.4050, L506.1000, L500.4100, L501.9520 ####[facility] [address] [place], [address] ALT [Catalytic activity/Vol] 34 U/L Normal 16-61 [facility] Comment on above: Performed By: #### L 100.0100, L501.9985, L500.4050, L506.1000, L500.4100, L501.9520 ####[facility] [address] [place], [address] AST [Catalytic activity/Vol] 22 U/L Normal 15-37 [facility] Comment on above: Performed By: #### L 100.0100, L501.9985, L500.4050, L506.1000, L500.4100, L501.9520 ####[facility] [address] [place], [address] Bilirubin [Mass/Vol] 0.50 mg/dL Normal 0.20-1.00 [facility] Comment on above: Result Comment: For patients on eltrombopag therapy, use of Dimension [place] TBIL is not recommended. Performed By: #### L 100.0100, L501.9985, L500.4050, L506.1000, L500.4100, L501.9520 ####[facility] [address] [place], [address] BUN/CRE 22.4 RATIO High 10-20 [facility] Comment on above: Performed By: #### L 100.0100, L501.9985, L500.4050, L506.1000, L500.4100, L501.9520 ####[facility] [address] [place], [address] CA,Total 8.9 mg/dL Normal 8.5-10.1 [facility] Comment on above: Performed By: #### L 100.0100, L501.9985, L500.4050, L506.1000, L500.4100, L501.9520 ####[facility] [address] [place], [address] Chloride [Moles/Vol] 105 mmol/L Normal 98-107 [facility] Comment on above: Performed By: #### L 100.0100, L501.9985, L500.4050, L506.1000, L500.4100, L501.9520 ####[facility] [address] [place], [address] CO2 [Moles/Vol] 26.0 mmol/L Normal 21.0-32.0 [facility] Comment on above: Performed By: #### L 100.0100, L501.9985, L500.4050, L506.1000, L500.4100, L501.9520 ####[facility] [address] [place], [address] Creatinine [Mass/Vol] 0.98 mg/dL Normal 0.70-1.30 [facility] Comment on above: Result Comment: The validity of the calculated GFR GFRAA in patients over 70 years has not been determined. Clinical correlation is essential. Performed By: #### L 100.0100, L501.9985, L500.4050, L506.1000, L500.4100, L501.9520 ####[facility] [address] [place], [address] EST GFR - AA 97 mL/min Normal >60 [facility] Comment on above: Result Comment: Afri can Taiwanese GFR Calc Performed By: #### L 100.0100, L501.9985, L500.4050, L506.1000, L500.4100, L501.9520 ####[facility] [address] [place], [address] GAP 3 Low 5-15 [facility] Comment on above: Performed By: #### L 100.0100, L501.9985, L500.4050, L506.1000, L500.4100, L501.9520 ####[facility] [address] [place], [address] GFR/1.73 sq M.predicted among non-blacks MDRD (S/P/Bld) [Vol rate/Area] 80 mL/min/{1.73_m2} Normal >60 [facility] Comment on above: Result Comment: Non- GFR Calc Performed By: #### L 100.0100, L501.9985, L500.4050, L506.1000, L500.4100, L501.9520 ####[facility] [address] [place], [address] Globulin (S) [Mass/Vol] 3.6 g/dL Normal 2.2-4.2 [facility] Comment on above: Performed By: #### L 100.0100, L501.9985, L500.4050, L506.1000, L500.4100, L501.9520 ####[facility] [address] [place], [address] Glucose [Mass/Vol] 147 mg/dL High 74-106 [facility] Comment on above: Result Comment: Fast ing Glucose result greater than or equal to 126 mg/dL suggests DIABETES MELLITUS per A.D.A. criteria. Performed By: #### L 100.0100, L501.9985, L500.4050, L506.1000, L500.4100, L501.9520 ####[facility] [address] [place], [address] Potassium [Moles/Vol] 4.3 mmol/L Normal 3.5-5.1 [facility] Comment on above: Performed By: #### L 100.0100, L501.9985, L500.4050, L506.1000, L500.4100, L501.9520 ####[facility] [address] [place], [address] Sodium [Moles/Vol] 134 mmol/L Low 136-145 [facility] Comment on above: Performed By: #### L 100.0100, L501.9985, L500.4050, L506.1000, L500.4100, L501.9520 ####[facility] [address] [place], [address] T PROT 7.6 g/dL Normal 6.4-8.2 [facility] Comment on above: Performed By: #### L 100.0100, L501.9985, L500.4050, L506.1000, L500.4100, L501.9520 ####[facility] [address] [place], [address] Urea nitrogen [Mass/Vol] 22 mg/dL High 7-18 [facility] Comment on above: Performed By: #### L 100.0100, L501.9985, L500.4050, L506.1000, L500.4100, L501.9520 ####[facility] [address] [place], [address] Hemoglobin A1con 02-10-2024 HbA1c (Bld) [Mass fraction] 7.3 % High 3.8-5.6 [facility] Comment on above: Result Comment: Norm al < 5.7 % Prediabetic 5.7 - 6.4 % Diabetic >or= 6.5 % Please note range changes. Performed By: #### L 100.0100, L501.9985, L500.4050, L506.1000, L500.4100, L501.9520 ####[facility] [address] [place], [address] Lipid Profileon 02-10-2024 Cholesterol [Mass/Vol] 181 mg/dL Normal 200 [facility] Comment on above: Result Comment: <200 mg/dL Desirable 200-240 mg/dL Borderline >240 mg/dL High Risk Performed By: #### L 100.0100, L501.9985, L500.4050, L506.1000, L500.4100, L501.9520 ####[facility] [address] [place], [address] Cholesterol in HDL [Mass/Vol] 42 mg/dL Normal [facility] Comment on above: Result Comment: The drugs N-Acetylcysteine and Metamizole may falsely depress this assay. Reference Range HDL <40 mg/dL Low HDL Cholesterol HDL >or= 60 mg/dL High HDL Cholesterol Performed By: #### L 100.0100, L501.9985, L500.4050, L506.1000, L500.4100, L501.9520 ####[facility] [address] [place], [address] Cholesterol in LDL [Mass/Vol] 102 mg/dL Normal 0-130 [facility] Comment on above: Performed By: #### L 100.0100, L501.9985, L500.4050, L506.1000, L500.4100, L501.9520 ####[facility] [address] [place], [address] Cholesterol in VLDL [Mass/Vol] 37 mg/dL Normal 5-40 [facility] Comment on above: Performed By: #### L 100.0100, L501.9985, L500.4050, L506.1000, L500.4100, L501.9520 ####[facility] [address] [place], [place], [phone] Triglyceride [Mass/Vol] 186 mg/dL Normal [facility] Comment on above: Result Comment: The drugs N-Acetylcysteine and Metamizole may falsely depress this assay. Serum Triglycerides Reference Interval Normal <150 mg/dL Borderline high 150 - 199 mg/dL High 200 - 499 mg/dL Very High > or = 500 mg/dL Performed By: #### L 100.0100, L501.9985, L500.4050, L506.1000, L500.4100, L501.9520 ####[facility] [address] [place], [place], [phone] Thyroid Stim Hormone (TSH)on 02-10-2024 TSH 1.840 uIU/mL Normal 0.358-3.740 [facility] Comment on above: Performed By: #### L 100.0100, L501.9985, L500.4050, L506.1000, L500.4100, L501.9520 ####[facility] [address] [place], [id number] Vitamin D,25 Hydroxyon 02-09 Vitamin D 25-OH 29.6 ng/mL Normal [facility] Comment on above: Result Comment: Violeta min D 25(OH) Status Range Deficiency <20 ng/mL (50nmol/L) Insufficiency 20 - 30 ng/mL (50 - 75 nmol/L) Sufficiency 30 - 100 ng/mL (75 - 250 nmol/L) Toxicity >100 ng/mL (>250 nmol/L) Performed By: #### L 100.0100, L501.9985, L500.4050, L506.1000, L500.4100, L501.9520 #### [facility] [address] [place], [phone] Inital Evaluation (1) - PTon 01-26-2024 Inital Evaluation (1) - PT [facility] Physical Therapy [address] [place] [address] / REHABILITATION SERVICES INITIAL EVALUATION MR#: [id number] Acct: [id number] Name: WILD CONKLIN Rep #: [id number] : 1955 68 From: Gibran Steiner DPT Referring Dr.: Dr. Mookie Saez DO Status: R EG RCR Insurance: [employer] SELF [employer]Y INSURANCE Patient's Visit Information Visit Information Visit Information: WIDL CONKLIN is a 68 year old M referred to Physical Therapy by Dr. Mookie Saez DO with a diagnosis of L IT band syndrome. Date of Evaluation: 01/26/24 Physical Therapist: Gibran Steiner DPT Visit Plan Frequency: 1x/Week Duration: 6 Weeks Plan: 1) IT band and piriformis stretching. 2) glute med strengthening 3) TFL inhibition Subjective Subjective: Pt. is here today for his initial evaluation with diagnosis of L IT band syndrome. Pt. reports 2 months ago he was getting of his tracker and slid down the side and jammed his L hip. Pt. reports having increased lateral hip pain that goes down his leg a bit at times. He also reports having some issues in his quad and adductor region with prolonged walking. Pt. has some numbness in his L dorsum of foot from previous lumbar surgery. Pt. reports no new N/T and no new weakness. He reports overall doing a little bit better since taking increased anti inflammatory over the past few days. 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 Pt. is hopeful to reduce symptoms in order to get back to all recreational and work activities without limitations. Pain L lateral hip: Pain Intensity (Out of 10): 1 Pain Intensity Range: 0 and 4 L groin region: Pain Intensity (Out of 10): 0 Pain Intensity Range: 0 and 2 Objective Objective: POSTURE: Pt. has decent posture in stance. Pt. has no large lateral shift noted. PALPATION: pt. has marked tenderness along TFL, greater trochanter, and TI band. Pt. has most pain at TLF region. Not much pain throughout hip flexor or lumbar spine. NEURO: Pt. has normal sensation, except for on bottom of his L foot. ROM: hips: full motion bilaterally, tightness noted in B HS and H piriformis. L IT band tightness noted as well. Lumbar spine: full motion without increase in symptoms. MMT: 5/5 strength throughout, except 4-/5 L ankle DF (this was since previous back surgery), glute medius 5-/5. GAIT: pt. has fairly normal gait pattern without increase in symptoms. Special Tests L/S Slump test left side: Negative L/S Slump test right side: Negative L/S Left Straight Leg Raise: Negative L/S Right Straight Leg Raise: Negative L Hip Scour: Negative L Hip TUNG - Intraarticular Pathology: Negative L Hip FADDIR - Labrum: Negative L Hip Dheeraj - IT Band: Positive Balance/Special Test Scores Lower Extremity Functional Score: 58 Goals Goal 1:: LTG: Pt. to be I with HEP. Goal Time Frame: 4-6 Weeks Goal 2:: LTG: Pt. to have negative obers test. Goal Time Frame: 4-6 Weeks Goal 3:: LTG: Pt. to have 5/5 glute medius strength. Goal Time Frame: 4-6 Weeks Goal 4:: LTG: pt. to be able to complete all daily and work activities without increase in L hip pain. Goal Time Frame: 4-6 Weeks Rehabilitation Potential Physical Therapy Diagnosis: Pt. has signs and symptoms consistent with L IT band syndrome. Pt. has some glute medius weakness, IT band tightness. He has a previous history of back surgery, but this does not seem to be related. I would recommend that he work on IT band stretching and glute strengthening. Rehabilitation Potential: Excellent Anticipated Interventions Patient/Client Instruction: Educate patient on: Condition, Plan of Care, Risk Factors and Benefits of Fitness Program For the Purpose of:: To improve decision making, To facilitate caregiver knowledge, To improve self management, To prevent re-injury and To improve ability to perform tasks related to life management Therapeutic Exercise to Include: Strength training, Postural training, Flexibilty training, Passive ROM and Active ROM For the Purpose of:: To decrease pain, To decrease swelling/inflammation, To increase ROM, To improve nutrient delivery to tissue, To increase oxygenation perfusion, To improve muscle performance and motor function, To improve health of tissue, To decrease soft tissue restriction and To increase flexibility/ROM Manual Therapy Techniques to Include: Mobilization For the Purpose of:: To decrease pain, To decrease swelling/inflammation, To increase ROM, To improve nutrient delivery to tissue and To increase oxygenation perfusion Text: Thank you for the opportunity to evaluate your patient. For Medicare and Medicare HMO plans, please review the plan of care and approve it. It will need to be FAXED BACK to us at [phone] for Medicare purposes. For Medicare only, by signing (more content not included)... [facility] Orthopedic Visit Reporton Orthopedic Visit Report [facility] [address] [place] [id number] OFFICE VISIT Date of Service: 01/23/24 MR#: [id number] Acct: [id number] Name: WILD CONKLIN Rep #: [id number] : 1955 Provider: Dr. Mookie haley DO Age/Sex: 68/M [place] [facility] [place]: Signed Intake Vital Signs 12/29/22 11:00 01/12/24 11:55 01/23/24 10:39 Height 5 ft 9 in 5 ft 9 in 5 ft 9 in Weight: 217 lb BMI 32.0 Intake Visit Reasons: LEFT HIP Chief Complaint: Left hip Accompanied by: Is patient in pain?: Yes (Left hip) Pain scale (1-10): 5 Allergies lisinopril Allergy (Mild, Verified 01/23/24 10:40) Unknown metformin Allergy (Mild, Verified 01/23/24 10:40) Unknown nortriptyline Allergy (Mild, Verified 01/23/24 10:40) Unknown Sulfa (Sulfonamide Antibiotics) Allergy (Mild, Verified 01/23/24 10:40) Unknown doxepin Adverse Reaction (Verified 01/23/24 10:40) PT UNSURE OF REACTION Medications ???Medication ???Instructions ???Recorded ???Confirmed ???Type sitagliptin phosphate 100 mg tablet 100 mg PO DAILY diabetes 05/29/19 01/23/24 History citalopram 10 mg tablet 10 mg PO QDAY 01/23/24 01/23/24 History glimepiride 4 mg tablet 4 mg PO QDAY 01/23/24 01/23/24 History melatonin 3 mg capsule 3 mg PO HS PRN 01/23/24 01/23/24 History metformin 500 mg tablet 500 mg PO QDAY 01/23/24 01/23/24 History Have you fallen in the past year?: No [facility] Medical History (Updated 01/23/24 @ 11:[address] Mookie Saez, ) Weight loss Diabetes Hypertension Surgical History S/P appendectomy Social History Smoking Status: Never smoker second hand exposure: No alcohol intake: current alcohol intake frequency: holidays/special occasions only substance use type: does not use caffeine: No frequency: 3-4 times per week seatbelt use: always HPI LEFT HIP Details: This documentation accurately reflects the service provided and the decisions made by me, Dr. Mookie Saez, 01/23/24 0755. Part of today???s visit was documented by Pratima Castellon LPN, acting as scribe. WILD CONKLIN is a 68 year old M here today for initial evaluation of left hip pain. He reports a 4 month history of left hip pain that has progressively getting worse. 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 Since then the pain has gotten worse. The pain does radiate down into his leg. 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 He denies numbness and tingling. When he is working he has pain over the lateral hip and thigh but when he is walking he has pain over his medial thigh. He did have a lumbar laminectomy in [address] Gatica and [facility]. He does use ice an the hip which does help relieve his pain. Ortho Exam General General: Yes no acute distress Neurologic: Yes alert and Yes oriented x3 Psychologic: Yes reasonable and appropriate Left Hip Skin/Wound: No Ecchymosis, No soft tissue swelling and No Erythema Hip: Present tender to palpate -; Absent eccymosis, soft tissue swelling or erythema internal rotation @90 degree flexion: 10 degrees external rotation @90 degree extension: 80 degrees Special Tests: Yes DHEERAJ test HIP: lumbar incision is we healed no sign of infection tender over trochanteric bursa medial thigh tightness and mild groin pain with external rotation Supplemental Info 01/12/2024 x-ray left hip: Preserved joint space no acute findings 10/18/2021 MRI lumbar spine: 1. Multilevel lumbar spondylosis, degenerative grade 1 anterolisthesis of L2 on 3 and L5 on S1. 2. Multilevel disc changes without evidence of shruthi canal stenosis, however disc and facet changes contribute to lateral recess narrowing and crowding of nerve roots at L2-3 greater on LEFT than RIGHT, L3-4 bilaterally, and mild changes at L4-5. 3. There is broad-based disc bulge/for line protrusion at L3-4 without canal stenosis, crowding of nerve roots and lateral recesses however there is contact with the emerging L3 nerve roots within the neural foramina bilaterally suspicious of early displacement and impingement. 4. There is a concentric bulge/protrusion osteophyte complex at L4-5 extending into the region of the neural foramina and lateral to the neural foramen with contact and displacement of the emerging L4 nerve roots bilaterally. Early L4 nerve root impingement is suspected. 5. RIGHT posterior lateral bulge and osteophyte complex at L5-S1 contacting the emerging RIGHT L5 nerve root lateral to the neural foramen without evidence of shruthi nerve root impingement. 6. Multilevel facet hypertrophic changes greater on LEFT than RIGHT, and most notable at the L4-5 lev (more content not included)... [facility] Chiropractic Reporton 2023 Chiropractic Report [facility] [address] [place] [address] OFFICE VISIT Date of Service: 01/12/24 MR#: [id number] Acct: [id number] Name: WILD CONKLIN Rep #: [id number] : 1955 Provider: VANIA Rudd Age/Sex: 68/M [place] [facility] [place] Status: Signed Intake Vital Signs 12/29/22 11:00 Height 5 ft 9 in Intake Visit Reasons: Back pain Chief Complaint: upper, low back, neck Is patient in pain?: Yes (Left low back) Pain scale (1-10): 5 Allergies lisinopril Allergy (Mild, Verified 01/12/24 11:12) Unknown metformin Allergy (Mild, Verified 01/12/24 11:12) Unknown nortriptyline Allergy (Mild, Verified 01/12/24 11:12) Unknown Sulfa (Sulfonamide Antibiotics) Allergy (Mild, Verified 01/12/24 11:12) Unknown doxepin Adverse Reaction (Verified 01/12/24 11:12) PT UNSURE OF REACTION Medications ???Medication ???Instructions ???Recorded ???Confirmed ???Type brimonidine 0.15 % eye drops 1 drp RIGHT EYE BID glaucoma 05/29/19 01/12/24 History glimepiride 2 mg tablet 2 mg PO BID diabetes 05/29/19 01/12/24 History prednisolone acetate (PF) 1 % eye 1 drp RIGHT EYE QWEEK eye pain 05/29/19 01/12/24 History drops,suspension sitagliptin phosphate 100 mg tablet 100 mg PO DAILY diabetes 05/29/19 01/12/24 History zolpidem 5 mg tablet (Ambien) 3.75 mg PO QHS PRN Insomnia 07/19/19 01/12/24 History omeprazole 20 mg tablet,delayed 20 mg PO DAILY #60 tabs 09/02/19 01/12/24 Rx release sucralfate 1 gram tablet (Carafate) 1 g PO QACHS #120 tabs 09/02/19 01/12/24 Rx quetiapine 25 mg tablet (Seroquel) 25 mg PO TID #90 tabs 12/21/22 01/12/24 Rx Have you fallen in the past year?: No PFSH Medical History (Updated 01/12/24 @ 13:[address] Mariajose Gonzalez, [place]) Weight loss Diabetes Hypertension Surgical History S/P appendectomy Social History Smoking Status: Never smoker second hand exposure: No alcohol intake: current alcohol intake frequency: holidays/special occasions only substance use type: does not use caffeine: No frequency: 3-4 times per week seatbelt use: always HPI Back pain Chief Complaint: neck and low back pain Visit Number: 10 Details: Blayne is a 68 year old male here to f/u with neck and low back pain. Pt. complains of stiffness in his neck. He states his left hip is still painful. He is having radiating pain down the left thigh. He describes the pain as a constant deep ache. He rates his neck pain 5/10 today. 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 He has been using magnesium spray at night which does decrease his pain and help him sleep. He uses ice and stretching at home to help alleviate his symptoms. Pt. denies new injury, numbness, or tingling. Blayne reports chiropractic adjustments are helpful in relieving some of his back pain and discomfort but it gradually returns. 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 Pain Quality: aching, dull and radiating Exam Musc General: Yes joint tenderness and decreased range of motion; No normal posture or normal gait Cervical Spine: Yes loss of normal cervical lordosis, Yes cervical muscular tenderness bilateral diffuse , Yes cervical spasm right greater than left lower trapezius and paracervical muscles, left upper intrinsics and Yes misalignment misalignment: C1, C2, C5, C6 and C7 Thoracic/Lumber: Yes thoracic and lumbar spine normal to inspection, Yes Surgical scar(s) present, Yes straight leg raise negative bilaterally, Yes Lasegue's sign positive on the left, Yes paraspinal tenderness on the right greater than left (upper thoracic) and on the left greater than right (lumbopelvic), Yes thoraco-lumbar spasm on the right greater than left (trap, levator) and on the left greater than right (paraspinal L3-L5) and Yes misalignment T2, T3, T4, L3, RIL and LIL Sacroiliac joints: on the left tender to palpation Office Procedures Procedures - Chiropractic Procedures Manipulation: Cervical C2 and C6, Lumbar L3, Thoracic T3 and Pelvis LIL Manipulation: 3-4 regions Hot and/or cold packs: Yes Patient Response: positive Assessment and Plan Assessment and Plan (1) Segmental and somatic dysfunction of cervical region: Status: Acute (2) Segmental and somatic dysfunction of thoracic region: Status: Acute (3) Segmental and somatic dysfunction of lumbar region: Status: Acute (4) Segmental and somatic dysfunction of pelvic region: Status: Acute (5) DDD (degenerative disc disease), lumbosacral: Status: Chronic Qualifiers: Disc-related pain type: discogenic back pain and lower extremity pain Qualified Code(s): M51.372 - Other interver (more content not included)... [facility] HIP, UNI W/ Pelvis 2-3 Views on 01-12-2024 HIP, UNI W/ Pelvis 2-3 Views [facility] [address] [place] [address] HIP, UNI W/ Pelvis 2-3 Views MR#: [id number] Acct: [id number] Name: WILD CONKLIN Rep #: [id number] : 1955 M 68 From: Johnathon pittman DO PCP: Dr. Leandro Grijalva MD Status: DEP AMB Study: HIP, UNI W/ Pelvis 2-3 Views Date of Exam: Exam# [id number] Ordering Dr: Mariajose Gonzalez D.C. [id number] EXAM: XR LEFT HIP WITH PELVIS WHEN PERFORMED, 4 OR MORE VIEWS CLINICAL INDICATION: L hip pain TECHNIQUE: Four or more views of the left hip with pelvis when performed. COMPARISON: CT abdomen and pelvis, 12/29/2022 FINDINGS: BONES/JOINTS: Degenerative changes in the lower lumbar spine and bilateral SI joints. Bilateral acetabular sclerosis and hypertrophic changes, left greater than right. No widening of the pubic symphysis. No acute fracture or dislocation. SOFT TISSUES: No significant abnormality. No soft tissue swelling or gas. RAD/HIP, UNI W/ Pelvis 2-3 Views IMPRESSION: No acute fracture or dislocation. Degenerative changes of the bilateral hips, left greater than right. Electronically Signed: Johnathon Mclean DO at 20:33 EDT , CC: VANIA Gonzalez; Dr. Leandro Grijalva MD Screen Roller: Signed [facility] Chiropractic Reporton 2023 Chiropractic Report [facility] [address] [place] [address] OFFICE VISIT Date of Service: 12/16/23 MR#: [id number] Acct: [id number] Name: WILD CONKLIN Rep #: [id number] : 1955 Provider: VANIA Rudd Age/Sex: 68/M [place] [facility] [place] Status: Signed Intake Vital Signs 12/29/22 11:00 Height 5 ft 9 in Intake Visit Reasons: Back pain Chief Complaint: upper, low back, neck Is patient in pain?: Yes Pain scale (1-10): 5 Allergies lisinopril Allergy (Mild, Verified 12/16/23 11:06) Unknown metformin Allergy (Mild, Verified 12/16/23 11:06) Unknown nortriptyline Allergy (Mild, Verified 12/16/23 11:06) Unknown Sulfa (Sulfonamide Antibiotics) Allergy (Mild, Verified 12/16/23 11:06) Unknown doxepin Adverse Reaction (Verified 12/16/23 11:06) PT UNSURE OF REACTION Have you fallen in the past year?: No PFSH Medical History Weight loss Diabetes Hypertension Surgical History S/P appendectomy Social History Smoking Status: Never smoker second hand exposure: No alcohol intake: current alcohol intake frequency: holidays/special occasions only substance use type: does not use caffeine: No frequency: 3-4 times per week seatbelt use: always HPI Back pain Chief Complaint: neck and low back pain Visit Number: 9 Details: Blayne is a 68 year old male here to f/u with neck and low back pain. Pt. has some mild stiffness in his neck today but it is mild and not painful. He states that his L low back is flared up today. He is having sciatica down the left leg. He was busy moving tires around over the weekend so this exacerbated the low back pain. He rates his neck pain 5/10 today. 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 He uses ice and stretching at home to help alleviate his symptoms. Pt. denies new injury, numbness, or tingling. Blayne reports chiropractic adjustments are helpful in relieving some of his back pain and discomfort but it gradually returns. 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 Pain Quality: aching, dull and radiating Exam Musc General: Yes joint tenderness and decreased range of motion; No normal posture or normal gait Cervical Spine: Yes loss of normal cervical lordosis, Yes cervical muscular tenderness bilateral diffuse , Yes cervical spasm right greater than left lower trapezius and paracervical muscles, left upper intrinsics and Yes misalignment misalignment: C1, C2, C5, C6 and C7 Thoracic/Lumber: Yes thoracic and lumbar spine normal to inspection, Yes Surgical scar(s) present, Yes paraspinal tenderness on the right greater than left (upper thoracic) and on the left greater than right (lumbopelvic), Yes thoraco-lumbar spasm on the right greater than left (trap, levator,glute med) and on the left greater than right (paraspinal L3-L5) and Yes misalignment T2, T3, T4, L3, RIL and LIL Sacroiliac joints: on the left tender to palpation Office Procedures Procedures - Chiropractic Procedures Manipulation: Cervical C2 and C6, Lumbar L3, Thoracic T3 and Pelvis LIL Manipulation: 3-4 regions Patient Response: positive Assessment and Plan Assessment and Plan (1) Segmental and somatic dysfunction of cervical region: Status: Acute (2) Segmental and somatic dysfunction of thoracic region: Status: Acute (3) Segmental and somatic dysfunction of lumbar region: Status: Acute (4) Segmental and somatic dysfunction of pelvic region: Status: Acute (5) DDD (degenerative disc disease), lumbosacral: Status: Chronic Orders: Orders Chiropractic Treatments Today M51.37 - Other intervertebral disc degeneration, lumbosacral region, M99.01 - Segmental and somatic dysfunction of cervical region, M99.02 - Segmental and somatic dysfunction of thoracic region, M99.03 - Segmental and somatic dysfunction of lumbar region, M99.05 - Segmental and somatic dysfunction of pelvic region Plan Patient was treated without incident. Follow up should LBP persist. 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 [facility] Chiropractic Reporton [address] [facility] [address] [place] [address] OFFICE VISIT Date of Service: 11/18/23 MR#: [id number] Acct: [id number] Name: WILD CONKLIN Rep #: [id number] : 1955 Provider: VANIA Rudd Age/Sex: 68/M [place] [facility] [place] Status: Signed Intake Vital Signs 12/29/22 11:00 Height 5 ft 9 in Intake Visit Reasons: Back pain Chief Complaint: upper, low back, neck Is patient in pain?: Yes (neck upper back ) Pain scale (1-10): 1 Allergies lisinopril Allergy (Mild, Verified 11/18/23 10:36) Unknown metformin Allergy (Mild, Verified 11/18/23 10:36) Unknown nortriptyline Allergy (Mild, Verified 11/18/23 10:36) Unknown Sulfa (Sulfonamide Antibiotics) Allergy (Mild, Verified 11/18/23 10:36) Unknown doxepin Adverse Reaction (Verified 11/18/23 10:36) PT UNSURE OF REACTION Medications ???Medication ???Instructions ???Recorded ???Confirmed ???Type brimonidine 0.15 % eye drops 1 drp RIGHT EYE BID glaucoma 05/29/19 11/18/23 History glimepiride 2 mg tablet 2 mg PO BID diabetes 05/29/19 11/18/23 History prednisolone acetate (PF) 1 % eye 1 drp RIGHT EYE QWEEK eye pain 05/29/19 11/18/23 History drops,suspension sitagliptin phosphate 100 mg tablet 100 mg PO DAILY diabetes 05/29/19 11/18/23 History zolpidem 5 mg tablet (Ambien) 3.75 mg PO QHS PRN Insomnia 07/19/19 11/18/23 History omeprazole 20 mg tablet,delayed 20 mg PO DAILY #60 tabs 09/02/19 11/18/23 Rx release sucralfate 1 gram tablet (Carafate) 1 g PO QACHS #120 tabs 09/02/19 11/18/23 Rx quetiapine 25 mg tablet (Seroquel) 25 mg PO TID #90 tabs 12/21/22 11/18/23 Rx Have you fallen in the past year?: No PFSH Medical History Weight loss Diabetes Hypertension Surgical History S/P appendectomy Social History Smoking Status: Never smoker second hand exposure: No alcohol intake: current alcohol intake frequency: holidays/special occasions only substance use type: does not use caffeine: No frequency: 3-4 times per week seatbelt use: always HPI Back pain Chief Complaint: neck and low back pain Visit Number: 8 Details: Blayne is a 68 year old male here to f/u with neck and low back pain. Pt. complains of stiffness that extends into his shoulder blades bilaterally. He states he has decreased ROM when turning his head to the left side. He rates his neck pain 1/10 today. He states his low back is often tight as well. 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 Pt. denies new injury, numbness, tingling or radiculopathy. Blayne reports chiropractic adjustments are helpful in relieving some of his back pain and discomfort but it gradually returns. 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 Pain Quality: aching, dull and radiating Exam Musc General: Yes joint tenderness and decreased range of motion; No normal posture or normal gait Cervical Spine: Yes loss of normal cervical lordosis, Yes cervical muscular tenderness left greater than right diffuse , Yes cervical spasm right greater than left lower trapezius and paracervical muscles, left upper intrinsics and Yes misalignment misalignment: C1, C2, C5, C6 and C7 Thoracic/Lumber: Yes thoracic and lumbar spine normal to inspection, Yes Surgical scar(s) present, Yes paraspinal tenderness on the right greater than left (upper thoracic, lumbopelvic), Yes thoraco- lumbar spasm on the right greater than left (trap, levator,glute med) and on the left greater than right (paraspinal L3-L5) and Yes misalignment T2, T3, T4, L3 and RIL Sacroiliac joints: on the right tender to palpation Office Procedures Procedures - Chiropractic Procedures Manipulation: Cervical C2 and C6, Lumbar L3, Thoracic T3 and Pelvis RIL Manipulation: 3-4 regions Patient Response: positive Assessment and Plan Assessment and Plan (1) Segmental and somatic dysfunction of cervical region: Status: Acute (2) Segmental and somatic dysfunction of thoracic region: Status: Acute (3) Segmental and somatic dysfunction of lumbar region: Status: Acute (4) Segmental and somatic dysfunction of pelvic region: Status: Acute (5) DDD (degenerative disc disease), lumbosacral: Status: Chronic (6) History of lumbar surgery: Status: Chronic Orders: Orders Chiropractic Treatments Today M51.37 - Other intervertebral disc degeneration, lumbosacral region, M54.2 - Cervicalgia, M54.41 - Lumbago with sciatica, right side, M99.01 - Segmental and somatic dysfunction of cervical region, M99.02 - Segment (more content not included)... [facility] CASE MANAGEMon 02-03-2023 CASE MANAGEM HNO ID: [id number] Author: Ligia Becreril LSW Service: Social Work Author Type: Bartender Manager Type: Care Mgt Progress Note Filed: 02/03/2023 12:48 PM Note Text: BEHAVIORAL HEALTH SOCIAL WORK DISCHARGE NOTE SERVICE DATE: 02/03/2023 SERVICE TIME: 1247 Discharge Information Row Name ED to Hosp-Admission (Discharged) from 01/17/[address] CRISIS INTERVENTION Psychiatry Follow-Up Appointment Psychiatrist Name Diagnostic Assessment with Justine Brown [facility] ([place]) Address / Phone # [phone], [place] [address] / / Appointment Date 02/05/23 Appointment Time 9:30 am, in person appt Counselor Follow-Up Appointment Additional Instructions referral recommended Case Management Follow-Up Appointment Additional Instructions referral recommended Discharge Disposition Discharge Disposition Home with Family/Friend Additional Discharge Information Additional Discharge Resources Suicide crisis hotline 915 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 Pt is active in o/p care Patient/Licensed Practical Nurse Instructor Given/Explained Medicare Discharge Notice (IM letter): Not Applicable TRANSPORTATION ARRANGEMENTS: Pt transport home PRESCRIPTIONS FILLED PRIOR TO DISCHARGE: Yes, at hospital pharmacy ADDITIONAL NOTES: Pt is d/c. SW faxed discharge clinical, including After Visit Summary, to [facility] for continuity of care on 02/03/2023 at 12:45 pm. Levi provided support. SIGNATURE: TESHA Zabala PATIENT NAME: Wild Conklin DATE: February 03, 2023 TIME: 12:47 PM [facility] HNO ID: [id number] Author: Alejo Grant MD Service: Psychiatry Author Type: Physician Type: Discharge Summary Filed: 02/03/2023 4:16 PM Note Text: DISCHARGE SUMMARY BEHAVIORAL HEALTH PATIENT NAME: Wild Conklin ADMISSION DATE: 01/17/2023 DISCHARGE DATE: 02/03/2023 ATTENDING PHYSICIAN: Markus Sam MD Code Status: Not on file Highest Readmission Risk Score: 9 The 30 day readmissions risk score is derived from an internally validated risk model which evaluates patient level characteristics, utilization history, medication orders and lab results up until the day of discharge. Patients with a score of 40 or above are considered highest risk for readmission. Specific patient level drivers will be listed at the bottom of the summary. REASON FOR HOSPITALIZATION: Risk of physical harm to self, Acute psychosis, Behavior that created a grave and imminent risk to the rights of others or the person, Inability to care for self, and In need of treatment in order to prevent a relapse or deterioration that would be likely to result in substantial risk of serious harm to the person or others: DISCHARGE DIAGNOSIS: PRIMARY: Major depressive disorder, single episode , severe, w psychotic features Catatonia R/o neurocognitive disorder OPERATIONS DURING HOSPITALIZATION: None PROCEDURES DURING HOSPITALIZATION: No procedures performed HOSPITAL COURSE: Wild Conklin was admitted to the psychiatric unit for suicidal ideations in the context of depression and bizarre beliefs. He was started on Citalopram 20 mg QHs for depression and Zyprexa 5 mg QHS for bizarre beliefs and mood stabilization. Pt continued to present w slowed speech and cognition and physical features. Ativan 1 mg TID challenge was trialed d/t concerns for catatonia. It was found to be effective -however, pt complained of mornIng grogginess - Ativan was decreased to 1 mg BID. Pt continued with daytime sleepiness - medications were adjusted further - Ativan decreased to 0.5 mg daily and 1 mg at night - and Risperdal was decreased to 0.75 mg nightly for paranoia. Pt competed a Gt Cognitive Assessment to screen for cognitive decline - he scored 28/30 points indicating low possibility for cognitive decline/dementia at this time. If pt has further concerns for cognitive decline, he can follow up out patient. Pt verbalized feeling well and ready for discharge. Wild Conklin appeared to respond well to the following medication changes this visit without any side effects noted: -Ativan 0.5 mg daily AND 1 mg QHS for catatonia Risperdal 0.75 mg QHS for psychosis/paranoia Celexa 20 mg QHS for depression CONSULTING TEAMS DURING HOSPITALIZATION: Internal Medicine: Dr. De La Garza Treatment Team: Attending Provider: Markus Sam MD Consulting: Cuco De La Garza MD Consulting: Grabiel San MD Nurse Practitioner: Nancie Hagan APRN.CNP Nurse Practitioner: Spenser Orellana APRN.CNP PATIENT CONDITION AT DISCHARGE: Good At this time the patient has maximized his benefit from hospitalization.. The patient denies suicidal or homicidal ideation, intent or plan and is safe for discharge. The patient voices a readiness to transition back to his home setting and has agreed to our follow-up recommendations including medication compliance. DISCHARGE DISPOSITION: Home with Self Care COMPLICATIONS: None SUBJECTIVE: Today, Wild Conklin reports that he does not feel tired and groggy this morning - he states his mind is clear and he is sleeping a normal amount. 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 Patient reports mood is stable and improving. Wild Conklin denies suicidal ideations, thoughts of non-suicidal self-harm, homicidal ideations, paranoia, auditory hallucinations, and visual hallucinations. 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 Patient is able to describe the discharge plan including how to meet basic needs for care home, activities of daily living, and physical/mental health follow up. Spoke w pt's - Roseanne - she states that all guns have been removed from the home. Discussed discharge plan -all questions answered. Emphasized the importance of pt continuing to take his medications - detention. Difficulties with sleep: None reported. Anormal appetite/eating: None reported. Concerns for side effects with medications: None reported. Any additional physical complaints: None reported. OBJECTIVE: SUICIDE RISK ASSESSMENT APPLICABLE: Yes: Suicide Assessment Five-step Evaluation and Triage (SAFE-T) for Mental Health Professionals 1 IDENTIFY RISK FACTORS Note those that can be modified to reduce risk 2 IDENTIFY PROTECTIVE FACTORS Note those that can be enhanced 3 CONDUCT SUICIDE INQUIRY Anabel (more content not included)... Normal [facility] NURSING PROGon 02-03-2023 NURSING PROG HNO ID: [id number] Author: Trinidad Sagastume RN Service: Nursing Author Type: Registered Nurse Type: Nursing Progress Note Filed: 02/03/2023 5:13 PM Note Text: BEHAVIORAL HEALTH INPATIENT INTERDISCIPLINARY TREATMENT PLAN UPDATE DATE INITIATED: 02/03/2023 10:54 AM Patient's Goal of Treatment: to be able to function again Active Hospital Problems *Catatonia Depression with suicidal ideation Malnutrition of mild degree (HCC) Criteria for Discharge: Elimination/reduction of presenting behavior: depression Estimated length of stay: 5-10 days Interdisciplinary Treatment Plan Date Initiated: 01/17/23 Time Initiated: 2300 Patient Participation in Initial Treatment Plan: Yes Initial Treatment Plan Date: 01/17/23 Other Participants: N/A Strengths/Assets: Motivated for treatment, Able to read and/ or write Limitations: Lacks health literacy Precautions indicated: 1:1 Constant Observation Individualized problems: Risk of harm to self Problem - Discharge Needs Date Initiated: 02/03/23 Time Initiated: 854 Discharge Needs: Patient/Family will participate in the development of the Discharge Aftercare Plan, Resolve acute symptoms through medication management, Assess for appropriate level of care, Link/relink to community supports, Encourage patient to utilize appropriate coping skills Interventions - Nursing: Obtain baseline level of functioning on admission Interventions - Social Work: Resolve acute symptoms by working with interdisciplinary team, Psychoeducation (family or patient) as needed, Encourage milieu therapy daily or as needed, Encourage medication compliance daily or as needed, Encourage group participation daily or as needed, Coordination with outpatient providers as needed, Coordination with family as needed, Collateral information as needed, Assist with identifying community/social supports daily or as needed, Assess Social Determinants of Health upon admission or as needed, Assess for appropriate level of care and initiate referral upon admission or as needed Interventions - Therapy: Educate on/promote the utilization of Community Resources daily and as needed, Help patient to identify people, places and things that support recovery and stabilization of mental health, Promote medication compliance as needed, Promote ongoing practice of effective coping strategies daily and as needed, Promote the importance of following up with medical/behavioral health providers daily and as needed Post discharge referrals: Crisis Hotline Number, Individual Counseling, Psychiatry Identify next level of care: Home, with others Problem - Risk of Harm to Self As evidenced by: Suicidal thoughts or behavior, Impaired impulse control, Past and/or recent hx of self-injurious behavior Date Initiated: 01/17/23 Time Initiated: 2300 Short Term Goals: Refrain from self injurious behavior Target Date Short Term Goals: 01/20/23 Progress Towards Short Term Goals: Progressing Usp Goals: Identify positive alternatives to self-injurious behavior Target Date Pickle Sorter Goals: 01/20/23 Progress Towards Usp Goals: Not progressing Interventions - Nursing: Encourage patient participation in milieu activities daily and as needed, Assist with developing positive coping behaviors daily and as needed, Provide non-judgmental supportive, empathetic and comprehensive trauma informed care daily and as needed, Administer medications as indicated and monitor patient for effect daily, Remain calm and firmly set limits for the patient's behaviors daily and as needed Medical Problems Medical Problems Identified: Yes Active Problems: Diabetes Diabetes - Short Term Goal: Patient will demonstrate compliance with medical treatment Diabetes - Interventions: Medications, Monitor Diabetes - Target Date Short Term Goals: 01/20/23 Diabetes - Progress Towards Short Term Goals: Progressing Plan is to discharge today with appointment and medications. Staff in attendance and in agreement with this plan: Nurse Practitioner: spenser Nurse: Trinidad Bartender Manager: Ligia Recreational Therapy: Malorie Pt declined to come to treatment team. This plan was reviewed with patient/family. Attending Psychiatrist: DOCUMENTED BY: Trinidad Sagastume RN PATIENT NAME: Wild Conklin DATE: February 03, 2023 TIME: 10:54 AM [facility] NURSING PROG HNO ID: [id number] Author: Trinidad Sagastume, MEGHAN Service: Nursing Author Type: Registered Nurse Type: Nursing Progress Note Filed: 02/03/2023 9:44 AM Note Text: Patient observed in day topete eating breakfast Patient is well groomed, calm and cooperative. Patient complaint with morning medications, reports sleeping good' Patient denies SI/HI/AVH , reports anxiety of 6/10 and depression of 5/10. Emotional support given. Patient with no physical complaints, reports no side effects from medications. Patient encouraged to attend groups/therapies, encouraged to seek out staff prefitter doors with questions/needs/concerns. Will continue to monitor. [facility] NURSING PROGon 02-02-2023 NURSING PROG HNO ID: [id number] Author: Masoud Cruz RN Service: ? Author Type: Registered Nurse Type: Nursing Progress Note Filed: 02/03/2023 1:36 AM Note Text: Pt resting in his room during his assessment. Pt withdrawn to self and room. Pt came out for HS snack later as he had slept thru it. Pt alert and oriented x 3. Pt unkept in appearance. Pt calm and cooperative, behavior in control. Pt brief and superficial in response. Pt given medication education, pt compliant with HS medication. Pt states anxiety and depression are both a 6/10. Pt denies suicidal and homicidal ideations. Pt denies any perceptual disturbances. Pt offered emotional support and encouragement. Pt denies any physical complaints. Pt has no questions or concerns at this time. Pt encouraged to seek staff with any. Pt safe per routine observations. Will continue to monitor. [facility] NURSING PROG HNO ID: [id number] Author: Martin Smith, MEGHAN Service: Nursing Author Type: Registered Nurse Type: Nursing Progress Note Filed: 02/02/2023 11:18 AM Note Text: Nursing Progress Note Patient Name: Wild Conklin Patient Location: [place] [id number] Daily Note: Assessed patient in room appears well groomed. Describes mood as good. States he's fine was a little sleepy still but looking forward to seeing if the lower dose would be more effective and not make him as tired. AANDOx3 denies anxiety/depression/AVH/SI/ HI/thoughts of self harm. Patient safety maintained with Q15 minute routine safety checks and hourly rounding. States will be safe on the unit. No medical complaints at this time auscultation deferred. This note was completed by: Martin Parra [facility] CONSULT PROGon 02-01-2023 CONSULT PROG HNO ID: [id number] Author: Cuco De La Garza MD Service: General Internal Medicine Author Type: Physician Type: Consult Progress Note Filed: 02/01/2023 5:10 PM Note Text: INTERNAL MEDICINE PROGRESS NOTE SERVICE DATE: 02/01/2023 SERVICE TIME: 5:08 PM ADMITTING PHYSICIAN: Janet Queen MD SUBJECTIVE: Patient sitting in the chair . Says he is doing fine. No hx of fever cold cough. No chest pain. No abdominal pain. No hypoglycemic symptoms. Current Facility-Administered Medications Medication Dose Route Frequency risperiDONE (RisperDAL) tab(s) 0.75 mg 0.75 mg ORAL AT BEDTIME LORazepam 1 mg tab(s) (ATIVAN) 1 mg ORAL AT BEDTIME citalopram 20 mg tab(s) (CeleXA) 20 mg ORAL AT BEDTIME OLANZapine 2.5 mg tab(s) (ZYPREXA) 2.5 mg ORAL q 8 H PRN Or OLANZapine 2.5 mg injection (ZYPREXA) 2.5 mg INTRAMUSCULAR q 8 H PRN sitaGLIPtin phosphate 100 mg tab(s) (JANUVIA) 100 mg ORAL DAILY And metFORMIN ER 1,000 mg tab(s) (GLUCOPHAGE XR) 1,000 mg ORAL DAILY WITH BREAKFAST melatonin 3 mg tab(s) 3 mg ORAL DAILY (8 PM) LORazepam 0.25 mg tab(s) (ATIVAN) 0.25 mg ORAL q 6 H PRN brimonidine 0.2 % 1 Drop (ALPHAGAN) 1 Drop RIGHT EYE BID acetaminophen 650 mg tab(s) (TYLENOL) 650 mg ORAL q 6 H PRN aluminum-magnesium hydroxide-simethicone 200-200-20 mg/5 mL 30 mL 30 mL ORAL q 4 H PRN magnesium hydroxide 400 mg/5 mL 30 mL (MOM) 30 mL ORAL DAILY PRN HISTORIES 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 GENERAL: Not in acute distress SKIN: No skin rashes OROPHARYNX: no lesions NECK: No jugulovenous distention, No carotid bruits, Carotid pulse normal contour, Supple LUNGS: Air entry fair. CARDIAC: S1 S2 heard ABDOMEN: Abdomen soft, non-tender, BS normal, No masses or organomegaly EXTREMITIES: No calf tenderness. NEURO: No acute neuro changes. PULSES: Pedal pulses felt DATA: Diagnostic tests reviewed for today's visit / past visits: CBC, Coags, BMP, Mg, Phos Assessment/Plan Principal Problem: Suicide attempt (HCC) (POA: Yes) Assessment AND Plan: Active Problems: Malnutrition of mild degree (HCC) (POA: Unknown) Assessment AND Plan: DJD/ Osteoarthritis no complaints of joint pains. Walking normally. DM II No hypo or hyperglycemic symptoms Constipation Denies any complaints. Headaches: no complaints. Anemia: by history. Denies any fatigue or shortness of breath. Continue to monitor labs. Dermatitis / Itching no complaints. Plan: WIll follow clinically. Continue current treatment SIGNATURE: Cuco De La Garza MD PATIENT NAME: Wild Conklin DATE: February 01, 2023 TIME: 5:08 PM PAGER/CONTACT #: [phone] [facility] NURSING PROGon 02-01-2023 NURSING PROG HNO ID: [id number] Author: Masoud Cruz, MEGHAN Service: ? Author Type: Registered Nurse Type: Nursing Progress Note Filed: 02/02/2023 1:11 AM Note Text: Pt resting in his room during assessment. Pt out for HS snack and to watch TV for a little bit. Pt alert and oriented x 3. Pt well groomed. Pt calm and cooperative, behavior in control. Pt withdrawn to self, pt guarded and brief in assessment. Pt given medication education, pt compliant with HS medication. Pt states anxiety and depression are both a 4/10. Pt denies suicidal and homicidal ideations. Pt denies any perceptual disturbances. Pt given much emotional support, reassurance and encouragement. Pt denies any physical complaints. Pt has no questions or concerns at this time. Pt encouraged to seek staff with any. Pt safe per routine observations. Will continue to monitor. [facility] NURSING PROG HNO ID: [id number] Author: Martin Smith, MEGHAN Service: Nursing Author Type: Registered Nurse Type: Nursing Progress Note Filed: 02/01/2023 1:33 PM Note Text: Nursing Progress Note Patient Name: Wild Conklin Patient Location: [place] [id number] Daily Note: Assessed patient in room appears well groomed. Describes mood as okay, fine. Rates anxiety and depression 4/10. AANDOx3 denies AVH/SI/HI/thoughts of self harm. Patient safety maintained with Q15 minute routine safety checks and hourly rounding. States will be safe on the unit. No medical complaints at this time auscultation deferred. This note was completed by: Martin Smith [facility] CASE MANAGEMon 01-31-2023 CASE MANAGEM HNO ID: [id number] Author: Ligia Becerril LSW Service: Social Work Author Type: Bartender Manager Type: Care Mgt Progress Note Filed: 01/31/2023 9:19 AM Note Text: BEHAVIORAL HEALTH SOCIAL WORK PROGRESS NOTE SERVICE DATE: 01/31/2023 SERVICE TIME: 918 Per chart review: Pt appears flat and blunted; compliant with medications; pt called and is asking when pt will be discharged due to insurance worries; pt has strong family support; scheduled with o/p Counseling of [facility] for o/p psychiatry. Sw to provide support and ongoing needs. SIGNATURE: TESHA Zabala PATIENT NAME: Wild Conklin DATE: January 31, 2023 TIME: 9:18 AM [facility] CONSULT PROGon 01-31-2023 CONSULT PROG HNO ID: [id number] Author: Cuco De La Garza MD Service: General Internal Medicine Author Type: Physician Type: Consult Progress Note Filed: 01/31/2023 4:33 PM Note Text: INTERNAL MEDICINE PROGRESS NOTE SERVICE DATE: 01/31/2023 SERVICE TIME: 4:32 PM ADMITTING PHYSICIAN: Janet Queen MD SUBJECTIVE: Patient denies any fever cold cough. Says he is doing fine. Hx of fever cold cough.no chest pain. No abdominal pain. No urinary problems. No diarrhea. Current Facility-Administered Medications Medication Dose Route Frequency LORazepam 1 mg tab(s) (ATIVAN) 1 mg ORAL BID citalopram 20 mg tab(s) (CeleXA) 20 mg ORAL AT BEDTIME OLANZapine 2.5 mg tab(s) (ZYPREXA) 2.5 mg ORAL q 8 H PRN Or OLANZapine 2.5 mg injection (ZYPREXA) 2.5 mg INTRAMUSCULAR q 8 H PRN sitaGLIPtin phosphate 100 mg tab(s) (JANUVIA) 100 mg ORAL DAILY And metFORMIN ER 1,000 mg tab(s) (GLUCOPHAGE XR) 1,000 mg ORAL DAILY WITH BREAKFAST melatonin 3 mg tab(s) 3 mg ORAL DAILY (8 PM) LORazepam 0.25 mg tab(s) (ATIVAN) 0.25 mg ORAL q 6 H PRN brimonidine 0.2 % 1 Drop (ALPHAGAN) 1 Drop RIGHT EYE BID acetaminophen 650 mg tab(s) (TYLENOL) 650 mg ORAL q 6 H PRN aluminum-magnesium hydroxide-simethicone 200-200-20 mg/5 mL 30 mL 30 mL ORAL q 4 H PRN magnesium hydroxide 400 mg/5 mL 30 mL (MOM) 30 mL ORAL DAILY PRN HISTORIES 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 FIBRQ TAGS ANY AREA UPW/15 Removal skin tags, mole removal face Objective PHYSICAL EXAM: Patient Vitals for the past 24 hrs: BP Temp Temp src Pulse Resp SpO2 01/31/23 0819 128/83 36.6 ?C (97.9 ?F) Temporal 64 18 97 % Body mass index is 27.28 kg/m?. GENERAL: Not in acute distress SKIN: No skin rashes OROPHARYNX: no lesions NECK: No jugulovenous distention, No carotid bruits, Carotid pulse normal contour, Supple LUNGS: Air entry fair. CARDIAC: S1 S2 heard ABDOMEN: Abdomen soft, non-tender, BS normal, No masses or organomegaly EXTREMITIES: No calf tenderness. NEURO: No acute neuro changes. PULSES: Pedal pulses felt DATA: Diagnostic tests reviewed for today's visit / past visits: CBC, Coags, BMP, Mg, Phos Assessment/Plan Principal Problem: Suicide attempt (HCC) (POA: Yes) Assessment AND Plan: Active Problems: Malnutrition of mild degree (HCC) (POA: Unknown) Assessment AND Plan: DM II No hypo or hyperglycemic symptoms Constipation Denies any complaints. Headaches: no complaints. Anemia: by history. Denies any fatigue or shortness of breath. Continue to monitor labs. DJD: denies any pain or discomfort. Up ambulating without incident. Continue PRN tylenol. Dermatitis / Itching On hydrocortisone cream Plan: WIll follow clinically. Continue current treatment. SIGNATURE: Cuco De La Garza MD PATIENT NAME: Wild Conklin DATE: January 31, 2023 TIME: 4:32 PM PAGER/CONTACT #: [phone] [facility] NURSING PROGon 01-31-2023 NURSING PROG HNO ID: [id number] Author: Masoud Cruz RN Service: ? Author Type: Registered Nurse Type: Nursing Progress Note Filed: 02/01/2023 2:03 AM Note Text: Pt out in the beginning of the shift. Pt out for HS snack. Pt withdrawn to self and room most of the night. Pt alert and oriented x 3. Pt unkept in appearance. Pt calm and cooperative, behavior in control. Pt given medication education, pt compliant with HS medications. Pt states anxiety and depression are both a 4/10. Pt denies suicidal and homicidal ideations. Pt denies perpetual disturbances. Pt denies any physical complaints. Pt offered emotional support and encouragement. Pt has no questions or complaints at this time. Pt encouraged to seek staff with any. Pt safe per routine observations. Will continue to monitor. [facility] NURSING PROG HNO ID: [id number] Author: Shraddha You RN Service: Nursing Author Type: Registered Nurse Type: Nursing Progress Note Filed: 01/31/2023 8:08 AM Note Text: Nursing Progress Note Topic of Note: Daily Note PATIENT NAME: Wild Conklin Patient Location: [place] [id number] Room: [place] [address] Pt sitting in day topete finishing breakfast and filling out his menu. Pt is flat, avoidant and guarded. Pt reports that he feels groggy stating I think they gave me that heavy duty medication again last night. This RN informed pt that he has not received the Trazodone since Friday night and that order had been discontinued. Pt states oh wow, it sure feels like I took it. This RN discussed with pt that the Ativan he is currently taking could be making him feel tired and that he also slept for 10.5 hours. Pt states I slept that much. This RN discussed with pt that he had been functioning on minimal sleep for some time and that his body is going to have to adjust to sleeping again. Pt nods his head in understanding. When asked if pt is feeling anxious or depressed, pt states I don't know, they are still there but I don't know how to rate them. Pt denies SI/HI/AH/VH. This RN notes that pt appears more disheveled today than in the past 2 days. Pt reports that he would like to have some prune juice stating I haven't gone in a couple days, I need more prune juice. This RN will call down to dietary to obtain some prune juice for pt. Pt voices no other complaints or concerns at this time. Encouraged pt to continue attending groups, interacting with peers and to seek out staff as needed. Pt remains safe. Will continue to monitor per routine precautions and nurse rounding. Full physical assessment deferred at this time. Heart, lungs, and bowel sounds not auscultated. Pt denies any physical concerns and does not appear to be in any physical distress at this time. No GI, concerns noted. Urine/ stool not visualized by RN. If physical condition changes full assessment will be done. This note was completed by: Shraddha You [facility] NURSING PROG HNO ID: [id number] Author: Carole Newman RN Service: Nursing Author Type: Registered Nurse Type: Nursing Progress Note Filed: 01/31/2023 6:05 AM Note Text: Nursing Progress Note PATIENT NAME: Wild Conklin Patient Location: [place] [address] [address] Room: [place] [address] Wild was asleep in bed when I greeted him and introduced myself at the beginning of the shift. He wakened easily and was courteous and cooperative. Affect is blunted. Mood is depressed but better. He denies any self harming thoughts, SI, HI and A/V hallucinations. As we were talking, he appeared fatigued and not very interested in talking. He limited our interaction to answering my questions but beyond that did not seem interested in conversing with me. Eye contact was limited. His behavior and responses were appropriate and he voiced no delusions. During the short time I was assessing him, he did not indicate that is paranoid. At he was compliant with his medications and denied intolerance to these. I offered support and encouraged patient to inform staff should he have any problems or concerns. Wild has been withdrawn to his room and sleeping the entire night. His respirations are regular and unlabored. He appears to have had a comfortable night of sleep with no apparent change in status. Patient has slept a total of 10.5 hours. This note was completed by: Carole Newman [facility] CONSULT PROGon 01-30-2023 CONSULT PROG HNO ID: [id number] Author: Cuco De La Garza MD Service: General Internal Medicine Author Type: Physician Type: Consult Progress Note Filed: 01/30/2023 2:58 PM Note Text: INTERNAL MEDICINE PROGRESS NOTE SERVICE DATE: 01/30/2023 SERVICE TIME: 2:56 PM ADMITTING PHYSICIAN: Janet Queen MD SUBJECTIVE: Patient says he is doing fine. Wants to eat more protein food. Denies any fever cold cough. No chest pain. No abdominal pain. No urinary problems. Current Facility-Administered Medications Medication Dose Route Frequency OLANZapine 2.5 mg tab(s) (ZYPREXA) 2.5 mg ORAL AT BEDTIME citalopram 20 mg tab(s) (CeleXA) 20 mg ORAL AT BEDTIME OLANZapine 2.5 mg tab(s) (ZYPREXA) 2.5 mg ORAL q 8 H PRN Or OLANZapine 2.5 mg injection (ZYPREXA) 2.5 mg INTRAMUSCULAR q 8 H PRN sitaGLIPtin phosphate 100 mg tab(s) (JANUVIA) 100 mg ORAL DAILY And metFORMIN ER 1,000 mg tab(s) (GLUCOPHAGE XR) 1,000 mg ORAL DAILY WITH BREAKFAST melatonin 3 mg tab(s) 3 mg ORAL DAILY (8 PM) LORazepam 0.25 mg tab(s) (ATIVAN) 0.25 mg ORAL q 6 H PRN brimonidine 0.2 % 1 Drop (ALPHAGAN) 1 Drop RIGHT EYE BID acetaminophen 650 mg tab(s) (TYLENOL) 650 mg ORAL q 6 H PRN aluminum-magnesium hydroxide-simethicone 200-200-20 mg/5 mL 30 mL 30 mL ORAL q 4 H PRN magnesium hydroxide 400 mg/5 mL 30 mL (MOM) 30 mL ORAL DAILY PRN HISTORIES 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 FIBRQ TAGS ANY AREA UPW/15 Removal skin tags, mole removal face Objective PHYSICAL EXAM: Patient Vitals for the past 24 hrs: BP Temp Temp src Pulse Resp SpO2 01/30/23 0806 114/81 36.2 ?C (97.2 ?F) Temporal 71 16 97 % Body mass index is 27.28 kg/m?. GENERAL: Not in acute distress SKIN: No skin rashes OROPHARYNX: no lesions NECK: No jugulovenous distention, No carotid bruits, Carotid pulse normal contour, Supple LUNGS: Air entry fair. CARDIAC: S1 S2 heard ABDOMEN: Abdomen soft, non-tender, BS normal, No masses or organomegaly EXTREMITIES: No calf tenderness. NEURO: No acute neuro changes. PULSES: Pedal pulses felt DATA: Diagnostic tests reviewed for today's visit / past visits: CBC, Coags, BMP, Mg, Phos Assessment/Plan Principal Problem: Suicide attempt (HCC) (POA: Yes) Assessment AND Plan: Active Problems: Malnutrition of mild degree (HCC) (POA: Unknown) Assessment AND Plan: DM II No hypo or hyperglycemic symptoms Constipation Denies any complaints. Headaches: no complaints. Anemia: by history. Denies any fatigue or shortness of breath. Continue to monitor labs. DJD: denies any pain or discomfort. Up ambulating without incident. Continue PRN tylenol. Dermatitis / Itching On hydrocortisone cream Plan: WIll follow clinically. Continue current treatment. SIGNATURE: Cuco De La Garza MD PATIENT NAME: Wild Conklin DATE: January 30, 2023 TIME: 2:56 PM PAGER/CONTACT #: [phone] [facility] NURSING PROGon 01-30-2023 NURSING PROG HNO ID: [id number] Author: Shraddha You RN Service: Nursing Author Type: Registered Nurse Type: Nursing Progress Note Filed: 01/30/2023 11:07 AM Note Text: Nursing Progress Note Topic of Note: Daily Note PATIENT NAME: Wild Conklin Patient Location: [place] [address]/[id number] Room: [place] [address] Pt resting in bed when approached by this RN for morning medications. Pt pleasant and calm during interaction. Pt reports that he feels less drowsy today with the discontinuation of the Trazodone last night. Pt reports that he still has mild anxiety and depression stating they are tolerable. Pt denies HI/AH/VH but when asked about SI states I don't know maybe they are still there. Pt voices no complaints or concerns at this time. Encouraged pt to continue attending groups, interacting with peers and to seek out staff as needed. Pt remains safe. Will continue to monitor per routine precautions and nurse rounding. Full physical assessment deferred at this time. Heart, lungs, and bowel sounds not auscultated. Pt denies any physical concerns and does not appear to be in any physical distress at this time. No GI, concerns noted. Urine/ stool not visualized by RN. If physical condition changes full assessment will be done. This note was completed by: Shraddha You [facility] NUTRITIONon 01-30-2023 NUTRITION HNO ID: [id number] Author: Henna Tierney DTR Service: Nutrition Therapy Author Type: Craft Demonstrator Type: Nutrition Filed: 01/30/2023 4:26 PM Note Text: NUTRITION THERAPY TRAINS SERVICE CONDUCTOR NOTE SERVICE DATE: 01/30/2023 SERVICE TIME: 1300 Visit Type: Length of Stay Supplement flavor out of stock. Will follow up for acceptance of new flavor. Weight loss noted. Plan of Care: Supplements: Zone Perfect Bar Follow-Up: Tech Reassessment Nursing Admission Assessment Malnutrition Score: 4 Nutrition Intake: Diet Orders (From admission, onward) Start Ordered 01/18/23 1430 DIET SUPPLEMENTS START NOW Question Answer Comment Supplement 1 ZONE BAR SALTED CARAMEL BROWNIE Supplement 1 Frequency DINNER 01/18/23 1419 01/18/23 0000 DIET CARBOHYDRATE CONTROLLED START NOW Question: Carbohydrate Control Answer: CONSISTENT CARBOHYDRATE 01/17/23 2349 Average intake over: Unable to determine Average Supplement Intake (kcal): 200 kcal Average Supplement Intake (gm): 14 gm Average supplement intake over: 5 days Appetite: Good (Po intake 50-100%) GI Symptoms: None Anthropometrics: Body mass index is 27.28 kg/m?. Usual Weight: 98.9 kg (218 lb) Weight Change: Decreased MNT Billing: $ Routine Care : 1-15 minutes SIGNATURE: Henna Tierney DTR PATIENT NAME: Wild Conklin DATE: January 30, 2023 TIME: 4:25 PM [facility] CASE MANAGEMon 01-29-2023 CASE MANAGEM HNO ID: [id number] Author: Ligia Becerril LSW Service: Social Work Author Type: Bartender Manager Type: Care Mgt Progress Note Filed: 01/29/2023 9:04 AM Note Text: BEHAVIORAL HEALTH SOCIAL WORK PROGRESS NOTE SERVICE DATE: 01/29/2023 SERVICE TIME: 902 Per chart review: Pt states anxiety and depression are both a 6/10. Pt denies suicidal and homicidal ideations; pt has strong family support; scheduled with o[facility]p [facility] for [facility]p psychiatry. Sw to provide support and ongoing needs. SIGNATURE: TESHA Zabala PATIENT NAME: Wild Conklin DATE: January 29, 2023 TIME: 9:02 AM [facility] NURSING PROGon 01-29-2023 NURSING PROG HNO ID: [id number] Author: Poonam Orosco, RN Service: Nursing Author Type: Registered Nurse Type: Nursing Progress Note Filed: 01/30/2023 5:53 AM Note Text: Pt observed walking the halls when approached by this RN. Pt appears well groomed with clear speech and average eye contact. Pt pleasant and calm throughout interaction. Pt is cooperative with assessment and medication compliant this evening. Pt is currently endorsing baseline anxiety rated at 6 out of 10, pt reports that it is manageable at this time for him. Pt reports mild depression and is currently denying SI/HI/AH/VH. Pt reports his mood as a lot better and reports feeling like he is able to communicate better now. Pt is currently denying pain or other physical concerns. Pt spent time in the day topete this evening and went to bed shortly after receiving HS medications. Pt agrees to be safe on the unit and is monitored by staff q 15 minutes and is rounded on hourly by RN. Pt is encouraged to address staff with questions or concerns, emotional support offered. [facility] NURSING PROG HNO ID: [id number] Author: Shraddha You RN Service: Nursing Author Type: Registered Nurse Type: Nursing Progress Note Filed: 01/29/2023 9:04 AM Note Text: Nursing Progress Note Topic of Note: Daily Note PATIENT NAME: Wild Conklin Patient Location: [id number] Room: [id number] Pt resting in bed when approached by this RN for morning medications. Pt pleasant and calm during interaction. Pt remains avoidant of eye contact but his slowed speech has resolved with pt answering questions appropriately. Pt reports that his depression is mild stating the antidepressants are working I guess. Pt reports that he feels tired stating I don't know what medication is doing it but I just feel tired. I guess it is the medication they are giving to help me sleep. It works. Pt denies SI/HI/AH/VH. Pt reports that he had a BM this morning and is no longer feeling constipated. Pt voices no other complaints or concerns at this time. This RN notes that pt's hygiene has greatly improved since the last time I cared for pt. Encouraged pt to continue attending groups, interacting with peers and to seek out staff as needed. Pt remains safe. Will continue to monitor per routine precautions and nurse rounding. Full physical assessment deferred at this time. Heart, lungs, and bowel sounds not auscultated. Pt denies any physical concerns and does not appear to be in any physical distress at this time. No GI, concerns noted. Urine/ stool not visualized by RN. If physical condition changes full assessment will be done. This note was completed by: Shraddha Parra [facility] CONSULT PROGon 01-28-2023 CONSULT PROG HNO ID: [id number] Author: Cuco De La Garza MD Service: General Internal Medicine Author Type: Physician Type: Consult Progress Note Filed: 01/28/2023 3:40 PM Note Text: INTERNAL MEDICINE PROGRESS NOTE SERVICE DATE: 01/28/2023 SERVICE TIME: 3:38 PM ADMITTING PHYSICIAN: Janet Queen MD SUBJECTIVE: Patient says he feels better and says Ativan is helping him. Denies any problems like cold cough no chest pain or abdominal pain. No diarrhea. No hypoglycemic sympotms. Current Facility-Administered Medications Medication Dose Route Frequency LORazepam 1 mg tab(s) (ATIVAN) 1 mg ORAL TID hydrocortisone 2.5 % oint TOPICAL BID citalopram 20 mg tab(s) (CeleXA) 20 mg ORAL AT BEDTIME OLANZapine 2.5 mg tab(s) (ZYPREXA) 2.5 mg ORAL q 8 H PRN Or OLANZapine 2.5 mg injection (ZYPREXA) 2.5 mg INTRAMUSCULAR q 8 H PRN sitaGLIPtin phosphate 100 mg tab(s) (JANUVIA) 100 mg ORAL DAILY And metFORMIN ER 1,000 mg tab(s) (GLUCOPHAGE XR) 1,000 mg ORAL DAILY WITH BREAKFAST melatonin 3 mg tab(s) 3 mg ORAL DAILY (8 PM) LORazepam 0.25 mg tab(s) (ATIVAN) 0.25 mg ORAL q 6 H PRN brimonidine 0.2 % 1 Drop (ALPHAGAN) 1 Drop RIGHT EYE BID acetaminophen 650 mg tab(s) (TYLENOL) 650 mg ORAL q 6 H PRN aluminum-magnesium hydroxide-simethicone 200-200-20 mg/5 mL 30 mL 30 mL ORAL q 4 H PRN magnesium hydroxide 400 mg/5 mL 30 mL (MOM) 30 mL ORAL DAILY PRN HISTORIES 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 FIBRQ TAGS ANY AREA UPW/15 Removal skin tags, mole removal face Objective PHYSICAL EXAM: Patient Vitals for the past 24 hrs: BP Temp Temp src Pulse Resp SpO2 01/28/23 1137 123/69 36.6 ?C (97.9 ?F) Temporal 78 19 96 % Body mass index is 27.28 kg/m?. GENERAL: Not in acute distress SKIN: No skin rashes OROPHARYNX: no lesions NECK: No jugulovenous distention, No carotid bruits, Carotid pulse normal contour, Supple LUNGS: Air entry fair. CARDIAC: S1 S2 heard ABDOMEN: Abdomen soft, non-tender, BS normal, No masses or organomegaly EXTREMITIES: No calf tenderness. NEURO: No acute neuro changes. PULSES: Pedal pulses felt DATA: Diagnostic tests reviewed for today's visit / past visits: CBC, Coags, BMP, Mg, Phos Assessment/Plan Principal Problem: Suicide attempt (HCC) (POA: Yes) Assessment AND Plan: Active Problems: Malnutrition of mild degree (HCC) (POA: Unknown) Assessment AND Plan: DM II No hypo or hyperglycemic symptoms Constipation Denies any complaints. Headaches: no complaints. Anemia: by history. Denies any fatigue or shortness of breath. Continue to monitor labs. DJD: denies any pain or discomfort. Up ambulating without incident. Continue PRN tylenol. Dermatitis / Itching On hydrocortisone cream Plan: WIll follow clinically. Continue current treatment. SIGNATURE: Cuco De La Garza MD PATIENT NAME: Wild Conklin DATE: January 28, 2023 TIME: 3:38 PM PAGER/CONTACT #: [phone] [facility] NURSING PROGon 01-28-2023 NURSING PROG HNO ID: [id number] Author: Masoud Cruz, MEGHAN Service: ? Author Type: Registered Nurse Type: Nursing Progress Note Filed: 01/29/2023 1:33 AM Note Text: Pt out in day topete during assessment. Pt out for HS snack. Pt well groomed. Pt calm and cooperative, pt behavior in control. Pt more bright and talkative. Pt states that he can see a difference in himself since he started taking the Ativan. Pt given medication education, pt complaint with HS medications. Pt states anxiety and depression are both a 6/10. Pt denies suicidal and homicidal ideations. Pt denies perceptual disturbances. Pt denies any physical complaints at this time. Pt has no questions or concerns at this time. Pt encouraged to seek staff with any. Pt safe per routine observations. Will continue to monitor. [facility] NURSING PROG HNO ID: [id number] Author: Martin Smith RN Service: Nursing Author Type: Registered Nurse Type: Nursing Progress Note Filed: 01/28/2023 2:17 PM Note Text: Nursing Progress Note Patient Name: Wild Conklin Patient Location: [id number] Daily Note: Assessed patient in room appears well groomed. Describes moods as good, new pill really helped. Rates anxiety and depression as better. AANDOx3 denies AVH/SI/HI/thoughts of self harm. Patient safety maintained with Q15 minute routine safety checks and hourly rounding. States will be safe on the unit. No medical complaints at this time auscultation deferred. This note was completed by: Martin Smith [facility] NURSING PROG HNO ID: [id number] Author: Masoud Cruz, MEGHAN Service: ? Author Type: Registered Nurse Type: Nursing Progress Note Filed: 01/28/2023 3:28 AM Note Text: Pt out in the day area during assessment and out for snack . Pt alert and oriented x 3. Pt well groomed. Pt calm and cooperative, behavior in control. Pts affect is much brighter, more interactive with peers and staff and visible on the unit. This has been a major change since the weekend. Pt states that he feels so much better since that first 1 mg of Ativan. Pt given more education about the Ativan trial. Pt given medication education, pt compliant with HS medication. Pt states anxiety and depression have both improved, anxiety at a 3/10 and depression is still up there at about a 6/10. Pt denies suicidal and homicidal ideations. Pt denies any perceptual disturbances. Pt given much emotional support, reassurance and encouragement. Pt denies any physical complaints. Pt has no questions or concerns at this time. Pt encouraged to seek staff with any. Pt safe per routine observations. Will continue to monitor. [facility] CONSULT PROGon 01-27-2023 CONSULT PROG HNO ID: [id number] Author: Cuco De La Garza MD Service: General Internal Medicine Author Type: Physician Type: Consult Progress Note Filed: 01/27/2023 5:22 PM Note Text: INTERNAL MEDICINE PROGRESS NOTE SERVICE DATE: 01/27/2023 SERVICE TIME: 4:52 PM ADMITTING PHYSICIAN: Janet Queen MD SUBJECTIVE: Patient talking better and is seen walking in topete way. Says he still has constipation but prune juice is helping him. Feels he might pass bowels. No complains of abdominal pain. No headache no nausea or vomiting. Patient complains of skin irritation around nose. Reviewed CT scan of head done in [facility] on . Current Facility-Administered Medications Medication Dose Route Frequency LORazepam 1 mg tab(s) (ATIVAN) 1 mg ORAL TID citalopram 20 mg tab(s) (CeleXA) 20 mg ORAL AT BEDTIME OLANZapine 5 mg tab(s) (ZYPREXA) 5 mg ORAL AT BEDTIME traZODone 25 mg tab(s) (DESYREL) 25 mg ORAL AT BEDTIME PRN OLANZapine 2.5 mg tab(s) (ZYPREXA) 2.5 mg ORAL q 8 H PRN Or OLANZapine 2.5 mg injection (ZYPREXA) 2.5 mg INTRAMUSCULAR q 8 H PRN sitaGLIPtin phosphate 100 mg tab(s) (JANUVIA) 100 mg ORAL DAILY And metFORMIN ER 1,000 mg tab(s) (GLUCOPHAGE XR) 1,000 mg ORAL DAILY WITH BREAKFAST melatonin 3 mg tab(s) 3 mg ORAL DAILY (8 PM) LORazepam 0.25 mg tab(s) (ATIVAN) 0.25 mg ORAL q 6 H PRN brimonidine 0.2 % 1 Drop (ALPHAGAN) 1 Drop RIGHT EYE BID acetaminophen 650 mg tab(s) (TYLENOL) 650 mg ORAL q 6 H PRN aluminum-magnesium hydroxide-simethicone 200-200-20 mg/5 mL 30 mL 30 mL ORAL q 4 H PRN magnesium hydroxide 400 mg/5 mL 30 mL (MOM) 30 mL ORAL DAILY PRN HISTORIES 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 GENERAL: Not in acute distress SKIN: No skin rashes OROPHARYNX: no lesions NECK: No jugulovenous distention, No carotid bruits, Carotid pulse normal contour, Supple LUNGS: Air entry fair. CARDIAC: S1 S2 heard ABDOMEN: Abdomen soft, non-tender, BS normal, No masses or organomegaly EXTREMITIES: No calf tenderness. NEURO: No acute neuro changes. PULSES: Pedal pulses felt DATA: Diagnostic tests reviewed for today's visit / past visits: CBC, Coags, BMP, Mg, Phos Reviewed CT scan of head done in [facility] on . NO Acute IC abnormality. Assessment/Plan Principal Problem: Suicide attempt (HCC) (POA: Yes) Assessment AND Plan: Active Problems: Malnutrition of mild degree (HCC) (POA: Unknown) Assessment AND Plan: = DM II No hypo or hyperglycemic symptoms Constipation Headaches: no complaints. Anemia: by history. Denies any fatigue or shortness of breath. Continue to monitor labs. DJD: denies any pain or discomfort. Up ambulating without incident. Continue PRN tylenol. Dermatitis / Itching around nose. Plan: Patient will continue with laxatives and prune juice. Will order Hydrocortisone cream to skin for three days.WIll follow. Reviewed CT scan of head done in [facility] on . - No Acute IC abnormality SIGNATURE: Cuco De La Garza MD PATIENT NAME: Wild Conklin DATE: January 27, 2023 TIME: 4:52 PM PAGER/CONTACT #: [phone] [facility] NURSING PROGon 01-27-2023 NURSING PROG HNO ID: [id number] Author: Zena Macias RN Service: Nursing Author Type: Registered Nurse Type: Nursing Progress Note Filed: 01/27/2023 6:15 PM Note Text: Nursing Progress Note Patient Name: Wild Conklin Patient Location: [id number] Note: Patient withdrawn to his room. Soft-spoken, does not make eye contact. Reports that nothing has changed since last assigned by this RN on Friday. The only pain patient is endorsing is constipation. Patient given po, prn MOM. Compliant with morning medication. Patient agrees to maintain safety on unit. Pt encouraged to seek staff if feeling unsafe or with any other concerns. Q15 minutes safety checks are being performed. Will continue to monitor. Physical assessment: Alert and oriented to person, place and time. Able to follow commands. Speech soft, mumbled. Moves all extremities. Gait is a little unsteady; patient observed grabbing wall occasionally as walking down hallway. Pt has functional ROM. No CP. No SOB. Heart/lung/bowel sounds not auscultated. No peripheral edema noted. Visible skin intact. Respirations even and unlabored. No cough. No voiced c/o GI. No n/v. Urine not observed; pt voiced no concerns r/t urination. 1813: Patient given total 2 containers of warmed prune juice in hopes of successful bm today. Patient states 2 days since last bm. Patient requesting hydrocortisone cream for face/nose. Dr. De La Garza notified and put order in today. This note was completed by: Zena Macias [facility] NURSING PROGon 01-26-2023 NURSING PROG HNO ID: [id number] Author: Masoud Cruz, MEGHAN Service: ? Author Type: Registered Nurse Type: Nursing Progress Note Filed: 01/27/2023 6:07 AM Note Text: Pt withdrawn and isolative to his room thus far this shift. Pt alert and oriented x 3. Pt unkept in appearance. Pt calm and cooperative, behavior in control. Pt given medication education, pt compliant with HS medication. Pt states anxiety and depression are a 7/10, pt appears flat and depressed. Pt denies suicidal and homicidal ideations. Pt denies any perceptual disturbances. Pt offered emotional support, reassurance and encouragement. Pt denies any physical complaints. Pt has no questions or concerns at this time. Pt encouraged to seek staff with any. Pt safe per routine observations. Will continue to monitor. [facility] NURSING PROG HNO ID: [id number] Author: Arnel Rice, MEGHAN Service: Nursing Author Type: Registered Nurse Type: Nursing Progress Note Filed: 01/26/2023 10:12 AM Note Text: Nursing Progress Note Patient Name: Wild Conklin Patient Location: [id number] Daily Note:Pt is withdrawn to his room after breakfast, resting in bed. Pt seems more awake and participates more during conversation, but still appears somewhat thought blocked at times during conversation. He denies SI/HI AVH and rates depression at 6/10, anxiety 2/10. Pt complies with scheduled medications and agrees to notify staff with any changes or concerns. Will continue to monitor. This note was completed by: Arnel Riec [facility] CASE MANAGEMon 01-25-2023 CASE MANAGEM HNO ID: [id number] Author: Roberta Leblanc LSW Service: Social Work Author Type: Bartender Manager Type: Care Mgt Progress Note Filed: 01/25/2023 8:49 AM Note Text: BEHAVIORAL HEALTH SOCIAL WORK PROGRESS NOTE SERVICE DATE: 01/25/2023 SERVICE TIME: 8:47 AM Pt chart reviewed. Pt is from home with and will return home upon discharge. He has follow up scheduled with the counseling center of [facility]. Pt requires continued admission for medication adjustments. SW to continue of follow for discharge planning and ongoing support. SIGNATURE: TESHA Snow PATIENT NAME: Wild Conklin DATE: January 25, 2023 TIME: 8:47 AM [facility] CONSULT PROGon 01-25-2023 CONSULT PROG HNO ID: [id number] Author: Cuco De La Garza MD Service: General Internal Medicine Author Type: Physician Type: Consult Progress Note Filed: 01/25/2023 4:10 PM Note Text: INTERNAL MEDICINE PROGRESS NOTE SERVICE DATE: 01/25/2023 SERVICE TIME: 4:07 PM ADMITTING PHYSICIAN: Janet Queen MD SUBJECTIVE: Patient denies any problems like cold cough no chest pain or abdominal pain. No diarrhea. Current Facility-Administered Medications Medication Dose Route Frequency OLANZapine 5 mg tab(s) (ZYPREXA) 5 mg ORAL AT BEDTIME traZODone 25 mg tab(s) (DESYREL) 25 mg ORAL AT BEDTIME PRN OLANZapine 2.5 mg tab(s) (ZYPREXA) 2.5 mg ORAL q 8 H PRN Or OLANZapine 2.5 mg injection (ZYPREXA) 2.5 mg INTRAMUSCULAR q 8 H PRN sitaGLIPtin phosphate 100 mg tab(s) (JANUVIA) 100 mg ORAL DAILY And metFORMIN ER 1,000 mg tab(s) (GLUCOPHAGE XR) 1,000 mg ORAL DAILY WITH BREAKFAST melatonin 3 mg tab(s) 3 mg ORAL DAILY (8 PM) LORazepam 0.25 mg tab(s) (ATIVAN) 0.25 mg ORAL q 6 H PRN brimonidine 0.2 % 1 Drop (ALPHAGAN) 1 Drop RIGHT EYE BID acetaminophen 650 mg tab(s) (TYLENOL) 650 mg ORAL q 6 H PRN aluminum-magnesium hydroxide-simethicone 200-200-20 mg/5 mL 30 mL 30 mL ORAL q 4 H PRN magnesium hydroxide 400 mg/5 mL 30 mL (MOM) 30 mL ORAL DAILY PRN HISTORIES 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 FIBRQ TAGS ANY AREA UPW/15 Removal skin tags, mole removal face Objective PHYSICAL EXAM: Patient Vitals for the past 24 hrs: BP Temp Temp src Pulse Resp SpO2 Weight 01/25/23 0806 -- -- -- -- -- -- 83.8 kg (184 lb 11.2 oz) 01/25/23 0743 132/85 36.6 ?C (97.9 ?F) Temporal 84 16 98 % -- Body mass index is 27.28 kg/m?. GENERAL: Not in acute distress SKIN: No skin rashes OROPHARYNX: no lesions NECK: No jugulovenous distention, No carotid bruits, Carotid pulse normal contour, Supple LUNGS: Air entry fair. CARDIAC: S1 S2 heard ABDOMEN: Abdomen soft, non-tender, BS normal, No masses or organomegaly EXTREMITIES: No calf tenderness. NEURO: No acute neuro changes. PULSES: Pedal pulses felt DATA: Diagnostic tests reviewed for today's visit / past visits: CBC, Coags, BMP, Mg, Phos Assessment/Plan Principal Problem: Suicide attempt (HCC) (POA: Yes) Assessment AND Plan: Active Problems: Malnutrition of mild degree (HCC) (POA: Unknown) Assessment AND Plan: Resolved Problems: * No resolved hospital problems. * DM II: Continue accu checks. Continue januvia, metformin.. Headaches: no complaints. Anemia: by history. Denies any fatigue or shortness of breath. Continue to monitor labs. DJD: denies any pain or discomfort. Up ambulating without incident. Continue PRN tylenol. Plan : Will follow clinically. Continue current treatment. SIGNATURE: Cuco De La Garza MD PATIENT NAME: Wild Conklin DATE: January 25, 2023 TIME: 4:07 PM PAGER/CONTACT #: [phone] [facility] NURSING PROGon 01-25-2023 NURSING PROG HNO ID: [id number] Author: Masoud Cruz, MEGHAN Service: ? Author Type: Registered Nurse Type: Nursing Progress Note Filed: 01/26/2023 5:26 AM Note Text: Pt isolative and withdrawn to room entire shift. Pt brief and superficial in answer. Pt flat affect and appears very depressed. Pt rates anxiety and depression at a 6/10. Pt given medication education, pt compliant with HS medications. Pt denies suicidal and homicidal ideations. Pt denies perceptual disturbances. Pt denies any physical complaints. Pt given emotional support and encouragement. Pt has no questions or concerns at this time. Pt encouraged to seek staff with any. Pt safe per routine observations. Will continue to monitor. [facility] NURSING PROG HNO ID: [id number] Author: Arnel Rice, RN Service: Nursing Author Type: Registered Nurse Type: Nursing Progress Note Filed: 01/25/2023 2:57 PM Note Text: Nursing Progress Note Patient Name: Wild Conklin Patient Location: [place] [address]/[id number]- Daily Note:Pt's requested to speak with provider about treatment planning and updates whenever possible. This note was completed by: Arnel Rice [facility] NURSING PROG HNO ID: [id number] Author: Arnel Rice, RN Service: Nursing Author Type: Registered Nurse Type: Nursing Progress Note Filed: 01/25/2023 9:56 AM Note Text: Nursing Progress Note Patient Name: Wild Conklin Patient Location: [id number] Daily Note:Pt is withdrawn to his room, disheveled and malodorous. Pt has depressed affect and appears thought blocked during conversation having delayed responses. Pt denies SI/HI AVH at this time, sts depression is 6/10. Pt requires much encouragement to come out for breakfast this morning. He was offered assistance with shower and ADL's but declines at this time. Pt denies any pain or discomfort and is compliant with scheduled medications. He agrees to notify staff with any changes or concerns. Will continue to monitor. This note was completed by: Arnel Parra [facility] CONSULT PROGon 01-24-2023 CONSULT PROG HNO ID: [id number] Author: Yun Eugene APRN.RELIGIOUS HEALER Service: Hospital Medicine Author Type: Nurse Practitioner Type: Consult Progress Note Filed: 01/24/2023 4:51 PM Note Text: -- Attestation signed by Cuco De La Garza MD at 01/25/2023 4:07 PM Examined and interviewed patient on 01/24/2023. Agree with FLEET DISPATCH MANAGER notes. -- INTERNAL MEDICINE PROGRESS NOTE SERVICE DATE: 01/24/2023 SERVICE TIME: 7:20 AM ADMITTING PHYSICIAN: Janet Queen MD SUBJECTIVE: Patient states he is better and wants to go home. Also c/o headaches, says it started early this morning. Denies any dizziness or blurred vision. Currently eating breakfast without incident. Denies any fever,cough, nausea, vomiting, diarrhea, or difficulty breathing at this time. Nursing states that patient is compliant with medications, but becomes resistive to accu checks. Current Facility-Administered Medications Medication Dose Route Frequency OLANZapine 5 mg tab(s) (ZYPREXA) 5 mg ORAL AT BEDTIME traZODone 25 mg tab(s) (DESYREL) 25 mg ORAL AT BEDTIME PRN OLANZapine 2.5 mg tab(s) (ZYPREXA) 2.5 mg ORAL q 8 H PRN Or OLANZapine 2.5 mg injection (ZYPREXA) 2.5 mg INTRAMUSCULAR q 8 H PRN sitaGLIPtin phosphate 100 mg tab(s) (JANUVIA) 100 mg ORAL DAILY And metFORMIN ER 1,000 mg tab(s) (GLUCOPHAGE XR) 1,000 mg ORAL DAILY WITH BREAKFAST melatonin 3 mg tab(s) 3 mg ORAL DAILY (8 PM) LORazepam 0.25 mg tab(s) (ATIVAN) 0.25 mg ORAL q 6 H PRN brimonidine 0.2 % 1 Drop (ALPHAGAN) 1 Drop RIGHT EYE BID acetaminophen 650 mg tab(s) (TYLENOL) 650 mg ORAL q 6 H PRN aluminum-magnesium hydroxide-simethicone 200-200-20 mg/5 mL 30 mL 30 mL ORAL q 4 H PRN magnesium hydroxide 400 mg/5 mL 30 mL (MOM) 30 mL ORAL DAILY PRN HISTORIES 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 FIBRQ TAGS ANY AREA UPW/15 Removal skin tags, mole removal face Objective PHYSICAL EXAM: Patient Vitals for the past 24 hrs: BP Temp Pulse Resp SpO2 Weight 01/24/23 1414 -- -- -- -- -- 84.5 kg (186 lb 4.8 oz) 01/24/23 0911 137/80 36.6 ?C (97.9 ?F) 73 16 95 % -- Body mass index is 27.51 kg/m?. GENERAL: Not in acute distress SKIN: No skin rashes OROPHARYNX: no lesions NECK: No jugulovenous distention, No carotid bruits, Carotid pulse normal contour, Supple LUNGS: Air entry fair. CARDIAC: S1 S2 heard ABDOMEN: Abdomen soft, non-tender, BS normal, No masses or organomegaly EXTREMITIES: No calf tenderness. NEURO: No acute neuro changes. PULSES: Pedal pulses felt DATA: Diagnostic tests reviewed for today's visit / past visits: CBC, Coags, BMP, Mg, Phos Assessment/Plan Principal Problem: Suicide attempt (HCC) (POA: Yes) Headaches: denies any dizziness or blurred vision. Continue PRN tylenol. Anemia: by history. Denies any fatigue or shortness of breath. Continue to monitor labs. DM II: no hyper/hypo glycemic episodes noted. Continue accu checks. Continue januvia, metformin. DJD: denies any pain or discomfort. Up ambulating without incident. Continue PRN tylenol. SIGNATURE: Yun Eugene APRN.RELIGIOUS HEALER PATIENT NAME: Wild Conklin DATE: January 24, 2023 TIME: 7:20 AM PAGER/CONTACT #: [phone] Normal [facility] HbA1c (Bld)on 01-24-2023 Average glucose Estimated from glycated hemoglobin (Bld) [Mass/Vol] 186 mg/dL Normal [facility] Comment on above: Order Comment: Speci men Type: BLOOD SPECIMENOrdering Facility: [facility] Address: [address] [place] [address] Result Comment: eAG: (Estimated average glucose) is a calculated value from HgbA1c and is procurement representative of the average blood glucose level in the last 2-3 month period. Performed By: #### 5 5454-3 ####[facility]ORATORYCLIA [id number] [place] [address] [facility] HbA1c (Bld) [Mass fraction] 8.1 % High 4.3-5.6 [facility] Comment on above: Order Comment: [facility] Type: BLOOD SPECIMENOrdering Facility: [facility] Address: [address] [place] [address] Result Comment: Amer ican Diabetes Association guidelines indicate that patients with HgbA1c in the range 5.7-6.4% are at increased risk for development of diabetes, and intervention by lifestyle modification may be beneficial. HgbA1c greater or equal to 6.5% is considered diagnostic of diabetes. Performed By: #### 5 5454-3 ####[facility]ORYCLIA [id number] [address] Lipid 1996 panelon 3 Cholesterol [Mass/Vol] 159 mg/dL Normal <200 [facility] Comment on above: Order Comment: Speci men Type: BLOOD SPECIMENOrdering Facility: [facility] Address: [address] [place] [address] Result Comment: <200 mg/dL, Desirable 200-239 mg/dL, Borderline high >239 mg/dL, High Performed By: #### 2 132-9, 10747-4 ####[facility]ORYCLIA [id number] [address] Cholesterol in HDL [Mass/Vol] 41 mg/dL Normal >39 [facility] Comment on above: Order Comment: Speci men Type: BLOOD SPECIMENOrdering Facility: [facility] Address: [address] [place] [address] Result Comment: 40-5 9 mg/dL, Acceptable >59 mg/dL, High: Negative risk factor for coronary heart disease <40 mg/dL, Low: Positive risk factor for coronary heart disease Performed By: #### 2 132-9, 36529-5 ####[facility]ORYCLIA [id number] [address] Cholesterol in LDL [Mass/Vol] 95 mg/dL Normal <100 [facility] Comment on above: Order Comment: Speci men Type: BLOOD SPECIMENOrdering Facility: [facility] Address: [address] [place] [address] Result Comment: <100 mg/dL, Optimal 100-129 mg/dL, Near optimal/above optimal 130-159 mg/dL, Borderline high 160-189 mg/dL, High >189 mg/dL, Very high Secondary prevention optimal LDL Cholesterol levels are recommended to be < 70 mg/dL Performed By: #### 2 132-9, 34566-6 ####[facility]ORYCLIA [id number] [address] Cholesterol in LDL/Cholesterol in HDL [Mass ratio] 2.32 {ratio} Normal <2.54 [facility] Comment on above: Order Comment: Speci ella Type: BLOOD SPECIMENOrdering Facility: [facility] Address: [address] [place] [address] Result Comment: Shonda lozoya: 1. National Cholesterol Education Program ATP III Guideline At-A-Glance Quick Desk Reference: National Heart, Lung, and Blood [place]. National Institutes of Health. 2001: NIH Publication No. 01-3305. 2. An International Atherosclerosis Society position paper: global recommendations for the management of dyslipidemia: executive summary, Atherosclerosis. 2014: 232(2):410-413. Performed By: #### 2 132-9, 50352-8 ####[facility]ORYCLIA [id number] [address] [place] Cholesterol in VLDL [Mass/Vol] 23 mg/dL Normal <30 [facility] Comment on above: Order Comment: Tereza ella Type: BLOOD SPECIMENOrdering Facility: [facility] Address: [address] [place] [address] Performed By: #### 2 132-9, 68991-2 ####[facility]ORYCLIA [id number] [address] [place] Cholesterol non HDL [Mass/Vol] 118 mg/dL Normal <130 [facility] Comment on above: Order Comment: Tereza ella Type: BLOOD SPECIMENOrdering Facility: [facility] Address: [address] [place] [address] Result Comment: <130 mg/dL, Optimal 130-159 mg/dL, Near optimal/above optimal 160-189 mg/dL, Borderline high 190-219 mg/dL, High >219 mg/dL, Very high Secondary prevention optimal non HDL Cholesterol levels are recommended to be <100 mg/dL Performed By: #### 2 132-9, 24342-0 ####[facility]ORYCLIA [id number] [address] [place] Cholesterol.total/Janay sterol in HDL [Mass ratio] 3.88 {ratio} Normal <5.10 [facility] Comment on above: Order Comment: Mauricioantione jaramillo Type: BLOOD SPECIMENOrdering Facility: [facility] Address: [address] [place] [address] Performed By: #### 2 132-9, 04570-0 ####[facility]ORYCLIA [id number] [place] [id number] [facility] FAST[facility] TIME 8 hrs Normal [facility] Comment on above: Order Comment: Speci men Type: BLOOD SPECIMENOrdering Facility: [facility] Address: [address] [place] [address] Performed By: #### 2 132-9, 81817-9 ####[facility]ORYCLIA [id number] [address] [place] Triglyceride [Mass/Vol] 115 mg/dL Normal <150 [facility] Comment on above: Order Comment: Speci men Type: BLOOD SPECIMENOrdering Facility: [facility] Address: [address] [place] [address] Result Comment: <150 mg/dL, Normal 150-199 mg/dL, Borderline high 200-499 mg/dL, High >499 mg/dL, Very high Performed By: #### 2 132-9, 72453-5 ####[facility] LABORATORYCLIA [id number] [address] [place] NURSING PROGon 01-24-2023 NURSING PROG HNO ID: [id number] Author: Masoud Cruz RN Service: ? Author Type: Registered Nurse Type: Nursing Progress Note Filed: 01/25/2023 6:00 AM Note Text: Pt withdrawn and isolative to room. Pt alert and oriented x 3. Pt appears flat and depressed. Pt calm and cooperative, behavior in control. Pt brief and not engaging in assessment. Pt given medication education, pt compliant with HS medication. Pt states anxiety and depression are both a 7/10. Pt denies suicidal and homicidal ideations. Pt denies any perceptual disturbances. Pt given much emotional support, reassurance and encouragement. Pt denies any physical complaints. Pt has no questions or concerns at this time. Pt encouraged to seek staff with any. Pt safe per routine observations. Will continue to monitor. Normal [facility] NURSING PROG HNO ID: [id number] Author: Zena Macias, MEGHAN Service: Nursing Author Type: Registered Nurse Type: Nursing Progress Note Filed: 01/24/2023 9:11 AM Note Text: Nursing Progress Note Patient Name: Wild Conklin Patient Location: [id number] Daily Note: Patient withdrawn to his room. Soft-spoken, does not make eye contact. Denies pain, states anxiety is so-so, reports that Celexa made him sleepy and is not sure if he wants to take it, but eventually was compliant with medication. States that depression and SI is still there. Denies HI, AH/VH. Patient agrees to maintain safety on unit. Pt encouraged to seek staff if feeling unsafe or with any other concerns. Pt denies any SI/HI/AH/VH. Q15 minutes safety checks are being performed. Will continue to monitor. Physical assessment: Alert and oriented to person, place and time. Able to follow commands. Speech soft, mumbled. Moves all extremities. Gait is a little unsteady; patient observed grabbing wall occasionally as walking down hallway. Pt has functional ROM. No CP. No SOB. Heart/lung/bowel sounds not auscultated. No peripheral edema noted. Visible skin intact. Respirations even and unlabored. No cough. No voiced c/o GI. No n/v. Urine not observed; pt voiced no concerns r/t urination. This note was completed by: Zena Parra [facility] NUTRITIONon 01-24-2023 NUTRITION HNO ID: [id number] Author: Henna Tierney DTR Service: Nutrition Therapy Author Type: Craft Demonstrator Type: Nutrition Filed: 01/24/2023 12:35 PM Note Text: NUTRITION THERAPY TRAINS SERVICE CONDUCTOR NOTE SERVICE DATE: 01/24/2023 SERVICE TIME: 1109 Visit Type: Length of Stay Patient reports being dehydrated, encouraged to drink fluids. No new weight available, consult placed to re-weigh patient. Plan of Care: Supplements: Zone Perfect Bar Follow-Up: Tech Reassessment Nursing Admission Assessment Malnutrition Score: 4 Nutrition Intake: Diet Orders (From admission, onward) Start Ordered 01/18/23 1430 DIET SUPPLEMENTS START NOW Question Answer Comment Supplement 1 ZONE BAR SALTED CARAMEL BROWNIE Supplement 1 Frequency DINNER 01/18/23 1419 01/18/23 0000 DIET CARBOHYDRATE CONTROLLED START NOW Question: Carbohydrate Control Answer: CONSISTENT CARBOHYDRATE 01/17/23 2349 Average intake over: Unable to determine Average Supplement Intake (kcal): 200 kcal Average Supplement Intake (gm): 14 gm Average supplement intake over: 3 days Appetite: Good (Po intake mostly 100%) GI Symptoms: Constipation resolved Anthropometrics: Body mass index is 27.78 kg/m?. Usual Weight: 98.9 kg (218 lb) Food Preferences: only willing to eat Zone easton MNT Billing: $ Routine Care : 1-15 minutes SIGNATURE: Henna Tierney DTR PATIENT NAME: Wild Conklin DATE: January 24, 2023 TIME: 12:34 PM Normal [facility] Vit B12 SerPl-ncon 023 Cobalamin (Vitamin B12) [Mass/Vol] 975 pg/mL Normal 232-1245 [facility] Comment on above: Order Comment: Speci men Type: BLOOD SPECIMENOrdering Facility: [facility] Address: [address] [place] [address] Performed By: #### 2 132-9, 79173-3 ####[facility]ATORYCLIA [id number] [place] [address] [facility] NURSING PROGon 01-23-2023 NURSING PROG HNO ID: [id number] Author: Clarita Henderson, RN Service: ? Author Type: Registered Nurse Type: Nursing Progress Note Filed: 01/23/2023 10:01 PM Note Text: Patient appears to be sleeping in room both during nursing handoff and when approached at this time. Patient awakens to verbal stimuli and describes mood as tired. Denies SI, HI, AVH, pain, and physical complaints. AANDO x 3. Compliant with nighttime medications. Encouraged to seek out staff with concerns. Monitored via unit safety rounds and hourly RN rounding Normal [facility] NURSING PROG HNO ID: [id number] Author: Shraddha You RN Service: Nursing Author Type: Registered Nurse Type: Nursing Progress Note Filed: 01/23/2023 12:44 PM Note Text: Nursing Progress Note Topic of Note: Daily Note PATIENT NAME: Wild Conklin Patient Location: [place] [address]/[id number] Room: [place] [address] Pt sitting in day topete staring out the window when this RN approached for morning medications. Pt remains withdrawn and guarded. Pt reports that he is feeling anxious but that his anxiety has decreased since he ate breakfast. Pt continues to ruminate on things at home but does not elaborate further. Pt denies depression stating I am sad. Pt further denies HI/AH/VH but endorses passive SI stating I still have the thoughts in the back of my head. Pt unsure if those thoughts have become more or less intrusive while being on the unit. Pt continues to avoid eye contact and speech remains slowed. Pt voices that he is unsure if he had a BM yesterday but denies feeling bloated or uncomfortable. Pt voices no other complaints or concerns. Encouraged pt to continue attending groups, interacting with peers and to seek out staff as needed. Pt remains safe. Will continue to monitor per close observation and nurse rounding. Full physical assessment deferred at this time. Heart, lungs, and bowel sounds not auscultated. Pt denies any physical concerns and does not appear to be in any physical distress at this time. No GI, concerns noted. Urine/ stool not visualized by RN. If physical condition changes full assessment will be done. 1131 - Close observation discontinued and pt placed on routine precautions. This note was completed by: Shraddha You [facility] CONSULT PROGon 01-22-2023 CONSULT PROG HNO ID: [id number] Author: Cuco De La Garza MD Service: General Internal Medicine Author Type: Physician Type: Consult Progress Note Filed: 01/22/2023 11:40 AM Note Text: INTERNAL MEDICINE PROGRESS NOTE SERVICE DATE: 01/22/2023 SERVICE TIME: 11:38 AM ADMITTING PHYSICIAN: Janet Queen MD SUBJECTIVE: patient denies any problems no fever cold cough. No chest pain. No abdominal pain. No urinary problems. NO hypoglycemic symptoms. Getting accuchecks and does not want get finger sticks. Current Facility-Administered Medications Medication Dose Route Frequency citalopram 20 mg tab(s) (CeleXA) 20 mg ORAL DAILY traZODone 25 mg tab(s) (DESYREL) 25 mg ORAL AT BEDTIME PRN OLANZapine 2.5 mg tab(s) (ZYPREXA) 2.5 mg ORAL AT BEDTIME OLANZapine 2.5 mg tab(s) (ZYPREXA) 2.5 mg ORAL q 8 H PRN Or OLANZapine 2.5 mg injection (ZYPREXA) 2.5 mg INTRAMUSCULAR q 8 H PRN sitaGLIPtin phosphate 100 mg tab(s) (JANUVIA) 100 mg ORAL DAILY And metFORMIN ER 1,000 mg tab(s) (GLUCOPHAGE XR) 1,000 mg ORAL DAILY WITH BREAKFAST melatonin 3 mg tab(s) 3 mg ORAL DAILY (8 PM) LORazepam 0.25 mg tab(s) (ATIVAN) 0.25 mg ORAL q 6 H PRN brimonidine 0.2 % 1 Drop (ALPHAGAN) 1 Drop RIGHT EYE BID acetaminophen 650 mg tab(s) (TYLENOL) 650 mg ORAL q 6 H PRN aluminum-magnesium hydroxide-simethicone 200-200-20 mg/5 mL 30 mL 30 mL ORAL q 4 H PRN magnesium hydroxide 400 mg/5 mL 30 mL (MOM) 30 mL ORAL DAILY PRN HISTORIES 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 GENERAL: Not in acute distress SKIN: No skin rashes OROPHARYNX: no lesions NECK: No jugulovenous distention, No carotid bruits, Carotid pulse normal contour, Supple LUNGS: Air entry fair. CARDIAC: S1 S2 heard ABDOMEN: Abdomen soft, non-tender, BS normal, No masses or organomegaly EXTREMITIES: No calf tenderness. NEURO: No acute neuro changes. PULSES: Pedal pulses felt DATA: Diagnostic tests reviewed for today's visit / past visits: CBC, Coags, BMP, Mg, Phos Recent Labs 01/20/23 0430 NA 139 K 4.0 CHLOR 102 CO2 25 BUN 12 CREAT 0.76 GLUC 203* CA 9.1 Assessment/Plan Principal Problem: Suicide attempt (HCC) (POA: Yes) Assessment AND Plan: Active Problems: Malnutrition of mild degree (HCC) (POA: Unknown) Assessment AND Plan: DM II Will change accuchecks to once a day. Patient refused to have sticks four times a day. Hyponatremia Resolved. Elevated PSA levels. Will follow up with PCP as an Out patient. SIGNATURE: Cuco De La Garza MD PATIENT NAME: Wild Conklin DATE: January 22, 2023 TIME: 11:38 AM PAGER/CONTACT #: [phone] Normal [facility] NURSING PROGon 01-22-2023 NURSING PROG HNO ID: [id number] Author: Marcelo Enriquez RN Service: Nursing Author Type: Registered Nurse Type: Nursing Progress Note Filed: 01/23/2023 3:02 AM Note Text: Pt awake resting in bed. Appears unkempt. Denies SI, HI, AVH, anxiety and depression. He is slow to respond taking a few moments to find his words. He appears anxious and sad. Pt repeats to himself I've messed it all up. RN unable to get him to elaborate further at this time. Emotional support provided. Compliant with HS medications. Denies any needs from RN at this time. Denies physical concerns. Frequent observation for SI and safety. Encouraged to seek staff for needs. Physical assessment: Alert and oriented to person, place and time. Able to follow commands. Speech clear and coherent. Moves all extremities. Gait is steady. Pt has functional ROM. No weakness. No CP. No SOB. Heart/lung/bowel sounds not auscultated. No peripheral edema noted. Visible skin intact. Respirations even and unlabored. No cough. No voiced c/o GI. No n/v. Urine not observed; pt voiced no concerns r/t urination. Normal [facility] NURSING PROG HNO ID: [id number] Author: Luke, Shraddha M, RN Service: Nursing Author Type: Registered Nurse Type: Nursing Progress Note Filed: 01/22/2023 9:19 AM Note Text: Nursing Progress Note Topic of Note: Daily Note PATIENT NAME: Wild Conklin Patient Location: [place] [id number] Room: [place] [address] Pt sitting in day topete when approached by this RN for morning medications. Pt calm but withdrawn. Pt noted to be somewhat thought blocked as he is slow to respond to questions. Pt reports that he feels a little anxious but denies depression at this time. Pt denies SI stating not today and further denies HI/AH/VH. Pt reports no BM in 2 days, will discuss constipation medications with Dr. De La Garza when he rounds today. Pt voices no other complaints or concerns at this time. Encouraged pt to attend groups, interact with peers and to seek out staff as needed. Pt remains safe. Will continue to monitor per close observation and nurse rounding. Full physical assessment deferred at this time. Heart, lungs, and bowel sounds not auscultated. Pt denies any physical concerns and does not appear to be in any physical distress at this time. No GI, concerns noted. Urine/ stool not visualized by RN. If physical condition changes full assessment will be done. This note was completed by: Shraddha You [facility] CASE MANAGEMon 01-21-2023 CASE MANAGEM HNO ID: [id number] Author: Ligia Becerril LSW Service: Social Work Author Type: Bartender Manager Type: Care Mgt Progress Note Filed: 01/21/2023 9:42 AM Note Text: BEHAVIORAL HEALTH SOCIAL WORK PROGRESS NOTE SERVICE DATE: 01/21/2023 SERVICE TIME: 942 Sw spoke with pt re outpatient care,follow up, sw scheduled o/p care with [facility]. Pt reports guns have been removed. Sw to provide support and ongoing needs. SIGNATURE: TESHA Zabala PATIENT NAME: Wild Conklin DATE: January 21, 2023 TIME: 9:42 AM [facility] CONSULT PROGon 01-21-2023 CONSULT PROG HNO ID: [id number] Author: Cuco De La Garza MD Service: General Internal Medicine Author Type: Physician Type: Consult Progress Note Filed: 01/21/2023 4:03 PM Note Text: INTERNAL MEDICINE PROGRESS NOTE SERVICE DATE: 01/21/2023 SERVICE TIME: 3:59 PM ADMITTING PHYSICIAN: Janet Queen MD SUBJECTIVE: Patient denies any dizziness today. Walking in the hallways. Says he is fine. He still has elevated blood sugars. No hx of any urinary symptoms. PSA is elevated and Urology wants that patient can be followed as OP . No hx of fever cold cough. No chest pain. Current Facility-Administered Medications Medication Dose Route Frequency traZODone 25 mg tab(s) (DESYREL) 25 mg ORAL AT BEDTIME PRN OLANZapine 2.5 mg tab(s) (ZYPREXA) 2.5 mg ORAL q 8 H PRN Or OLANZapine 2.5 mg injection (ZYPREXA) 2.5 mg INTRAMUSCULAR q 8 H PRN melatonin 3 mg tab(s) 3 mg ORAL DAILY (8 PM) LORazepam 0.25 mg tab(s) (ATIVAN) 0.25 mg ORAL q 6 H PRN brimonidine 0.2 % 1 Drop (ALPHAGAN) 1 Drop RIGHT EYE BID acetaminophen 650 mg tab(s) (TYLENOL) 650 mg ORAL q 6 H PRN aluminum-magnesium hydroxide-simethicone 200-200-20 mg/5 mL 30 mL 30 mL ORAL q 4 H PRN magnesium hydroxide 400 mg/5 mL 30 mL (MOM) 30 mL ORAL DAILY PRN HISTORIES 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 GENERAL: Not in acute distress SKIN: No skin rashes OROPHARYNX: no lesions NECK: No jugulovenous distention, No carotid bruits, Carotid pulse normal contour, Supple LUNGS: Air entry fair. CARDIAC: S1 S2 heard ABDOMEN: Abdomen soft, non-tender, BS normal, No masses or organomegaly EXTREMITIES: No calf tenderness. NEURO: No acute neuro changes. PULSES: Pedal pulses felt DATA: Diagnostic tests reviewed for today's visit / past visits: CBC, Coags, BMP, Mg, Phos Recent Labs 01/20/23 0430 NA 139 K 4.0 CHLOR 102 CO2 25 BUN 12 CREAT 0.76 GLUC 203* CA 9.1 Assessment/Plan Principal Problem: Suicide attempt (HCC) (POA: Yes) Assessment AND Plan: Active Problems: Malnutrition of mild degree DM II Accucheck are being followed. Hyponatremia Resolved. Elevated PSA levels. Plan: Will increase Januvia to 100 mg daily and continue with metformin. Will follow clinically. Patient follows with PCP in the community. WIll be advised to follow up with Urology for elevated PSA levels. SIGNATURE: Cuco De La Garza MD PATIENT NAME: Wild Conklin DATE: January 21, 2023 TIME: 3:59 PM PAGER/CONTACT #: [phone] Normal [facility] NURSING PROGon 01-21-2023 NURSING PROG HNO ID: [id number] Author: Marcelo Enriquez RN Service: Nursing Author Type: Registered Nurse Type: Nursing Progress Note Filed: 01/21/2023 9:06 PM Note Text: Pt awake resting in bed. Appears unkempt. Denies SI, HI, AVH, anxiety and depression. He is slow to respond taking a few moments to find his words. Appears confused by questions then taking a moment to process and responds appropriately. Tells RN that he feels sleepy this evening. Compliant with HS medications. Denies any needs from RN at this time. Denies physical concerns. Frequent observation for SI and safety. Encouraged to seek staff for needs. Physical assessment: Alert and oriented to person, place and time. Able to follow commands. Speech clear and coherent. Moves all extremities. Gait is steady. Pt has functional ROM. No weakness. No CP. No SOB. Heart/lung/bowel sounds not auscultated. No peripheral edema noted. Visible skin intact. Respirations even and unlabored. No cough. No voiced c/o GI. No n/v. Urine not observed; pt voiced no concerns r/t urination. Normal [facility] NURSING PROG HNO ID: [id number] Author: Clarita Henderson RN Service: ? Author Type: Registered Nurse Type: Nursing Progress Note Filed: 01/21/2023 6:35 PM Note Text: Patient awake in day area when approached by RN. He is unkempt and agreeable to assessment. Patient is AANDO x 3 and appears less confused than the previous day. 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 Patient states he still has SI sometimes. Of note, patient is on 1:1 observation. Discussed with LIP. Patient denies AVH, pain, and physical complaints. When patient's visits she reports that he made the following statements We need to go. They're kicking us out because they need the beds. There's been a trial and we're going to lose the house. We destroyed the countryside. Patient's requests to speak with LIP, LIP notified. Encouraged to seek out staff with concerns. Monitored via unit safety rounds and hourly RN rounding Normal [facility] ALLIED HEALTHon 01-20-2023 ALLIED HEALTH HNO ID: [id number] Author: Asia Cox LPC Service: ? Author Type: Therapist Type: Allied Health Filed: 01/21/2023 11:52 AM Note Text: THERAPEUTIC PROGRAMMING ASSESSMENT SERVICE DATE: 01/20/2023 SERVICE TIME: 1000 RECOMMENDATIONS: Community Resources Illness/Symptom Management Stress Management ACTIVITIES OF DAILY LIVING (Difficulty in the following ADL areas): all ADL's, no difficulties GENERAL OBSERVATIONS: Affect: Blunted Appearance: Unkempt Communication: Responds when approached Mood: Calm Oriented to: person, place, time and situation ASSESSMENT COMPLETED: Yes: STRESS MANAGEMENT SKILLS: Identified Stressors: SA due to financial and other life stress. 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 INTERESTS: Current: Clubs/Organization and Walk Outdoors Future: Clubs/Organization and Walk Outdoors No Interest: None Past Interest: None PATIENT'S GOALS FOR THERAPEUTIC PROGRAMMING: To be able to function again. SIGNATURE: Asia Cox LPC PATIENT NAME: Wild Conklin DATE: January 20, 2023 TIME: 10:27 AM PAGER/CONTACT #: Normal [facility] Basic metabolic 2000 panelon 01-20-2023 Anion gap [Moles/Vol] 12 mmol/L Normal 9-18 [facility] Comment on above: Order Comment: Speci men Type: BLOOD SPECIMEN Ordering Facility: [facility] Address: [address] [place] [address] Performed By: #### 2 4321-2 #### [facility] CLIA [id number] [address] [place] Calcium [Mass/Vol] 9.1 mg/dL Normal 8.5-10.2 [facility] Comment on above: Order Comment: Speci men Type: BLOOD SPECIMEN Ordering Facility: [facility] Address: [address] [place] [address] Performed By: #### 2 4321-2 #### [facility] CLIA [id number] [address] [place] [address] [place] Chloride [Moles/Vol] 102 mmol/L Normal 97-105 [facility] Comment on above: Order Comment: Speci men Type: BLOOD SPECIMEN Ordering Facility: [facility] Address: [address] [place] [address] Performed By: #### 2 4321-2 #### [facility] CLIA [id number] [address] [place] [address] [place] CO2 [Moles/Vol] 25 mmol/L Normal 22-30 [facility] Comment on above: Order Comment: Speci men Type: BLOOD SPECIMEN Ordering Facility: [facility] Address: [address] [place] [address] Performed By: #### 2 4321-2 #### [facility] CLIA [id number] [address] [place] [address] [place] Creatinine [Mass/Vol] 0.76 mg/dL Normal 0.73-1.22 [facility] Comment on above: Order Comment: Speci men Type: BLOOD SPECIMEN Ordering Facility: [facility] Address: [address] [place] [address] Performed By: #### 2 4321-2 #### [facility] CLIA [id number] [address] [place] [address] [place] Creatinine and Glomerular filtration rate.predicted panel (S/P/Bld) 99 mL/min/1.73m??? Normal >=60 [facility] Comment on above: Order Comment: Tereza jaramillo Type: BLOOD SPECIMEN Ordering Facility: [facility] Address: [address] [place] [address] Result Comment: Karin mated Glomerular Filtration Rate (eGFR) is calculated using the 2020 CKD-EPI creatinine equation. This equation utilizes serum creatinine, sex, and age as parameters. The creatinine assay has traceable calibration to isotope dilution-mass spectrometry. Refer to KDIGO guidelines for clinical interpretation. In patients with unstable renal function, e.g. those with acute kidney injury, the eGFR may not accurately reflect actual GFR. Performed By: #### 2 4321-2 #### [facility] CLIA [id number] [address] [place] [address] [place] Glucose [Mass/Vol] 203 mg/dL High 74-99 [facility] Comment on above: Order Comment: Tereza jaramillo Type: BLOOD SPECIMEN Ordering Facility: [facility] Address: [address] [place] [address] Result Comment: The [place] Diabetes [employer] (ADA) provides guidance for cutoff values for fasting glucose and random glucose. The ADA defines fasting as no caloric intake for at least 8 hours. Fasting plasma glucose results between 100 to 125 mg/dL indicate increased risk for diabetes (prediabetes). Fasting plasma glucose results greater than or equal to 126 mg/dL meet the criteria for diagnosis of diabetes. In the absence of unequivocal hyperglycemia, results should be confirmed by repeat testing. In a patient with classic symptoms of hyperglycemia or hyperglycemic crisis, random plasma glucose results greater than or equal to 200 mg/dL meet the criteria for diagnosis of diabetes. Reference: Standards of Medical Care in Diabetes 2016, [place] [employer] Association. Diabetes Care. 2016.39(Suppl 1). Performed By: #### 2 4321-2 #### [facility] CLIA [id number] [address] [place] [address] [place] Potassium [Moles/Vol] 4.0 mmol/L Normal 3.7-5.1 [facility] Comment on above: Order Comment: Speci men Type: BLOOD SPECIMEN Ordering Facility: [facility] Address: [place] [address] Performed By: #### 2 4321-2 #### [facility] CLIA [id number] [address] Sodium [Moles/Vol] 139 mmol/L Normal 136-144 [facility] Comment on above: Order Comment: Speci men Type: BLOOD SPECIMEN Ordering Facility: [facility] Address: [address] [place] [address] Performed By: #### 2 4321-2 #### [facility] CLIA [id number] [address] Urea nitrogen [Mass/Vol] 12 mg/dL Normal 9-24 [facility] Comment on above: Order Comment: Speci men Type: BLOOD SPECIMEN Ordering Facility: [facility] Address: [address] [place] [address] Performed By: #### 2 4321-2 #### [facility] CLIA [id number] [address] CASE MANAGEMon 01-20-2023 CASE MANAGEM HNO ID: [id number] Author: Ligia Becerril LSW Service: Social Work Author Type: Bartender Manager Type: Care Mgt Progress Note Filed: 01/20/2023 2:51 PM Note Text: BEHAVIORAL HEALTH SOCIAL WORK PROGRESS NOTE SERVICE DATE: 01/20/2023 SERVICE TIME: 249 Sw spoke with pt re outpatient care,follow up, sw scheduled o/p care with [facility] to provide support and ongoing needs. SIGNATURE: TESHA Zabala PATIENT NAME: Wild Conklin DATE: January 20, 2023 TIME: 2:49 PM Normal [facility] CONSULT PROGon 01-20-2023 CONSULT PROG HNO ID: [id number] Author: Cuco De La Garza MD Service: General Internal Medicine Author Type: Physician Type: Consult Progress Note Filed: 01/20/2023 4:28 PM Note Text: INTERNAL MEDICINE PROGRESS NOTE SERVICE DATE: 01/20/2023 SERVICE TIME: 4:20 PM ADMITTING PHYSICIAN: Janet Queen MD SUBJECTIVE: Patient was feeling dizzy . Was advised to drink fluids. During time of interview denies any dizziness. Denies any chest pain. No headache nausea or vomiting. No hypoglycemic symptoms. No diarrhea. BMP done for BUN which is normal Patient is drinking fluids. Has slightly elevated PSA levels. Current Facility-Administered Medications Medication Dose Route Frequency melatonin 3 mg tab(s) 3 mg ORAL DAILY (8 PM) LORazepam 0.25 mg tab(s) (ATIVAN) 0.25 mg ORAL q 6 H PRN citalopram 10 mg tab(s) (CeleXA) 10 mg ORAL DAILY sitaGLIPtin phosphate 50 mg tab(s) (JANUVIA) 50 mg ORAL DAILY And metFORMIN ER 1,000 mg tab(s) (GLUCOPHAGE XR) 1,000 mg ORAL DAILY WITH BREAKFAST brimonidine 0.2 % 1 Drop (ALPHAGAN) 1 Drop RIGHT EYE BID mirtazapine 15 mg (REMERON) 15 mg ORAL AT BEDTIME acetaminophen 650 mg tab(s) (TYLENOL) 650 mg ORAL q 6 H PRN aluminum-magnesium hydroxide-simethicone 200-200-20 mg/5 mL 30 mL 30 mL ORAL q 4 H PRN magnesium hydroxide 400 mg/5 mL 30 mL (MOM) 30 mL ORAL DAILY PRN risperiDONE orally disintegrating 1 mg tab(s) (RisperDAL M) 1 mg ORAL q 6 H PRN HISTORIES 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 GENERAL: Not in acute distress SKIN: No skin rashes OROPHARYNX: no lesions NECK: No jugulovenous distention, No carotid bruits, Carotid pulse normal contour, Supple LUNGS: Air entry fair. CARDIAC: S1 S2 heard ABDOMEN: Abdomen soft, non-tender, BS normal, No masses or organomegaly EXTREMITIES: No calf tenderness. NEURO: No acute neuro changes. PULSES: Pedal pulses felt DATA: Diagnostic tests reviewed for today's visit / past visits: CBC, Coags, BMP, Mg, Phos Recent Labs 01/20/23 0430 01/17/23 1922 WBC -- 8.90 HB -- 15.4 HCT -- 44.5 PLT -- 292 NA 139 133* K 4.0 3.9 CHLOR 102 97 CO2 25 24 BUN 12 13 CREAT 0.76 0.87 GLUC 203* 162* CA 9.1 9.1 Latest Reference Range AND Units Most Recent PSA Screening <2.60 ng/mL 2.96 (H) 01/19/23 05:42 (H): Data is abnormally high Latest Reference Range AND Units Most Recent TSH 0.270 - 4.200 mIU/L 1.230 01/17/23 19:22 Vitamin D 25 Hydroxy >=30.0 ng/mL 31.5 01/19/23 05:42 Assessment/Plan Principal Problem: Suicide attempt (HCC) (POA: Yes) Assessment AND Plan: Active Problems: Malnutrition of mild degree (HCC) (POA: Unknown) Assessment AND Plan: Dizziness resolved. DM II Accucheck are being followed. Hyponatremia Resolved. Elevated PSA levels. Plan: Will follow clinically. Will consult urology. SIGNATURE: Cuco De La Garza MD PATIENT NAME: Wild Conklin DATE: January 20, 2023 TIME: 4:20 PM PAGER/CONTACT #: [phone] Normal [facility] NURSING PROGon 01-20-2023 NURSING PROG HNO ID: [id number] Author: Karyna Gama, RN Service: Behavioral Health Author Type: Registered Nurse Type: Nursing Progress Note Filed: 01/20/2023 9:07 PM Note Text: Pt is awake sitting in room at this time. Pt is guarded in conversation. Pt reports feeling anxious and sad. Pt is offered emotional support and reassurance. Pt does not offer much when asked about his stressors. Pt remains on constant observation due to unsteady gait. Report given to BSCG. Pt is compliant with HS medications. Pt denies SI/HI and AH/VH. Pt contracts for safety. Pt is encouraged to seek staff with needs and concerns. Safety monitoring in progress with 15 minute checks and hourly rounding by RN. Normal [facility] NURSING PROG HNO ID: [id number] Author: Toña Mariee RN Service: Nursing Author Type: Registered Nurse Type: Nursing Progress Note Filed: 01/20/2023 9:27 AM Note Text: Pt is withdrawn to room but is out for meals, he is medication compliant. Pt with unsteady gait, no physical complaints. He denies SI/HI/AVH at this time. Flat affect, soft speech and fair eye contact. Pt remains on 1:1 observations for SI and falls. Encouraged to seek staff for concerns. Safety maintained. Normal [facility] 25(OH)D3 [facility] 2022 25-hydroxyvitamin D3 [Mass/Vol] 31.5 ng/mL Normal >=30.0 [facility] Comment on above: Order Comment: Speci men Type: BLOOD SPECIMEN Ordering Facility: [facility] Address: [address] [place] [address] Result Comment: Clas sification of 25 [place] Vitamin D status: Deficiency: <= 20.0 ng/ml. Insufficiency: 21.0-29.0 ng/ml. Sufficiency: >= 30.0 ng/ml. Performed By: #### 1 989-3 #### [facility] CLIA [id number] [address] [place] [address] [facility] NURSING PROGon 01-19-2023 NURSING PROG HNO ID: [id number] Author: Bijal Cleary RN Service: Nursing Author Type: Registered Nurse Type: Nursing Progress Note Filed: 01/20/2023 12:48 AM Note Text: Daily nursing assessment: Patient spent the evening resting in bed. Patient is calm, and cooperative. Patient eats a minimal amount of the large snack provided. Fluids encouraged. Patient appears hesitant to take HS medication (Remeron), but is compliant. Speech is soft. Patient endorses a little anxiety, explaining that the atarax he took earlier took the edge off. Patient denies depression and appears withdrawn, sad, and guarded. Patient denies SI, HI, AH, VH, and thoughts of self harm. Patient contracts for safety. Patient denies any physical complaints other than dizziness. Patient remains on constant observation for recent SI and fall risk. Patient encouraged to seek staff with any concerns. 0040 Patient eating snack in bed. Patient indicates that he cannot sleep and declines PRN medication. Comfort measures provided. This note was completed by Bijal Cleary RN [facility] NURSING PROG HNO ID: [id number] Author: Zena Macias RN Service: Nursing Author Type: Registered Nurse Type: Nursing Progress Note Filed: 01/19/2023 6:20 PM Note Text: Nursing Progress Note Patient Name: Wild Conklin Patient Location: [id number] Daily Note: Patient in day area eating breakfast. BSCG sitting with patient. Patient is a Level 4, 1:1 observation due to SA. Low safety but Level 4 ordered by LIP. Patient is soft-spoken, pleasant, medication compliant and behavior is in control. Reports a headache. Does not want any medication stating that he believes he only needed to eat. Reports that his anxiety is better and the pill that he received (atarax) yesterday helped and also helped him sleep well. States his depression is pretty good. When asked if he is having any suicidal thoughts patient responded, not lately. Patient reports bm yesterday after receiving MOM. Pt denies any HI/AH/VH. Patient agrees to maintain safety on unit. Pt encouraged to seek staff if feeling unsafe or with any other concerns. Patient is a Will continue to monitor. Physical assessment: Alert and oriented to person, place and time. Able to follow commands. Speech clear and coherent. Moves all extremities. Gait is steady. Pt has functional ROM. No weakness. No CP. No SOB. Heart/lung/bowel sounds not auscultated. No peripheral edema noted. Visible skin intact. Respirations even and unlabored. No cough. No voiced c/o GI. No n/v. Urine not observed; pt voiced no concerns r/t urination. 1600: Patient withdrawn to his room, sitting in chair. BSCG standing next to patient. States his anxiety is high but refused Atarax at this time. RN asked if there was anything that she could do to help and patient stated no. Offered patient a diet soda which he received. Patient appears sad, depressed. Will continue to monitor. 1730: Patient states he is dizzy. Vital sign charted; a little hypertensive 150/80, heart rate 90. States that he has been experiencing this feeling off and on at home for the past three weeks. Pupils are equal and reactive, lungs clear to auscultation, strength 4/5 in extremities, no swelling noted in lower or upper extremities, blood sugar 178. Patient reports still feeling anxious. Patient given po, prn Atarax 25 mg. BSCG instructed to pay close attention when patient stands and patient instructed to make sure not feeling dizzy before beginning to walk after standing. Will continue to monitor. 181: RN spoke with Dr. De La Garza and given information regarding patient feeling dizzy and vitals. Orders received. BMP in the morning. Make sure patient is drinking fluids. Will see patient tomorrow. This note was completed by: Zena Parra [facility] PSA/PROSTSPECAG SCRFallon 01-19 Prostate specific Ag [Mass/Vol] 2.96 ng/mL High <2.60 [facility] Comment on above: Order Comment: Speci men Type: BLOOD SPECIMEN Ordering Facility: [facility] Address: [address] [place] [address] [place] [address] Result Comment: Velasquez gordon PSA test methodology used is the Electrochemiluminescence Immunoassay by [employer]. Total PSA values by differing methodologies cannot be interchanged. For an individual patient, the significance of a PSA level should be interpreted in a broad clinical context, including age, race, family history, digital rectal exam, prostate size, results of prior testing (prostate biopsy, free PSA, PCA3), and use of 5-alpha reductase inhibitors. Considering the high incidence of asymptomatic cancer in the general population that may not pose an ultimate risk to a patient, the decision to recommend urological evaluation or prostate biopsy should be individualized after consideration of all these factors. REFERENCE: Yumiko Gardiner M.D., M.P.H., Kehinde Ward M.D., Ph.D., Pablo Perales M.D., Eileen Tapia M.P.H., Oksana Ortiz Sc.D. Effect of Verification Bias on Screening for Prostate Cancer by Measurement of Prostatic Specific Antigen. N Engl J Med 2003,349:335-42. Performed By: #### P SAS1 #### [facility] CLIA [id number] [address] [facility] CASE MGT INIT [place] 2022 CASE MGT INIT KELLY HNO ID: [id number] Author: Kiko Fuller LISW Service: Social Work Author Type: Bartender Manager Type: Care Mgt Initial Assessment Filed: 01/19/2023 10:00 AM Note Text: BEHAVIORAL HEALTH SOCIAL WORK/CARE MANAGEMENT ASSESSMENT AND DISCHARGE PLAN SERVICE DATE: 01/18/2023 SERVICE TIME: 8:20 AM Reason for Admission: Per ED Provider Note: Patient presents with: Suicide Attempt: Pt states he had a loaded gun attempting to shoot himself gun was taken away from him by +si with fleeting thoughts new anti depressants since yesterday -hi 67-year-old male with type II DM presenting with depression and suicide attempt. History obtained from the patient. Patient reports that he has had increasing depression over the last 3 to 4 weeks. He believes this is brought on by family issues and stress. He reports that his family saw a counselor once or twice a couple weeks ago but this did not help. He saw his PCP 2 days ago and was started on antidepressants. Today, he reports that he was talking with his niece and after this conversation decided to end it. He grabbed his loaded gun and says that he was going to shoot himself but his gun was taken away by his . His and niece then brought him to the ED for evaluation. He states that he has had some weight loss over the last 3 to 4 weeks. He denies any recent fevers, chest pain, shortness of breath. Patient reports he does have a history of depression and was on antidepressants several years ago for a short period of time before weaning off. He denies hospitalizations in the past for psych related complaints. Legal Status: Involuntary - Medical Certificate Important Contacts: Primary Contact Name: Tanesha Conklin / Relationship: Spouse / / Does the patient/procurement representative consent to contact with the above at this time? Yes Information obtained from: Chart Patient Referred by: Family and Police/EMS Living Arrangements Prior to Admission: Own Home Prior to Admission, Patient was Living with: Spouse and Son Marital Status: . Relationship described as amicable and 27 years Children (including quality of relationship): one adult son Sexual Orientation: Heterosexual SOCIAL HISTORY Wild Conklin was born and raised in [place] by his biological parents. His childhood is described as unknown. He has 3 brothers and 3 sisters. He has amicable, complicated, and estranged relationship with family members. 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 Yes, Patient admitted for sI In the past 6 months, have you made plans/preparations and/or had an intent to act upon these suicidal ideas/thoughts? Yes, shooting himself/patietn had a pistol out at home to shoot himself Has Patient Been Hospitalized Previously for Psychiatric Reasons? No, Patient/Licensed Practical Nurse Instructor denies Substance Use and Treatment History: Patient/Licensed Practical Nurse Instructor Denies Do special considerations/accommodati ons need to be made (i.e. preferred language, literacy, gender identity, physical disability such as deaf or blind, etc)? 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 No, Patient/Licensed Practical Nurse Instructor Denies Patient Strengths/Protective Factors (Minimum of Two): Able to Communicate Needs Seeking Treatment FAMILY PSYCHIATRIC HISTORY Anxiety: Brother DISCHARGE RECOMMENDATIONS: Counseling Psychiatry Follow-Up Patient/Licensed Practical Nurse Instructor Agreeable With Discharge Recommendations At This Time? Yes FREEDOM OF CHOICE EXPLAINED: No form NEEDS PRIOR TO DISCHARGE: Waiting for: Psychiatric Stabilization Collateral Information Communication with Physician Physician to Discharge OBSTACLES TO TREATMENT/POST-DISCHARGE CHALLENGES: Guns at Home: have been removed Mental Status Poor Insight SUMMARY: SW listened to patient concerns and gave support. Patient is reluctant to talk with this field underwriter and gives superficial answers to questions. He offers no narrative about what led to his hospitalization. Patient was given a safe (more content not included)... [facility] CONSULTon 01-18-2023 CONSULT HNO ID: [id number] Author: Cuco De La Garza MD Service: General Internal Medicine Author Type: Physician Type: Consults Filed: 01/18/2023 12:58 PM Note Text: I have reviewed the patient's medical record in detail. Consult dictated. [facility] CONSULT HNO ID: [id number] Author: Cuco De La Garza MD Service: General Internal Medicine Author Type: Physician Type: Consults Filed: 01/18/2023 11:44 PM Note Text: [facility] - Consultation PATIENT NAME: WILD CONKLIN CSN: [id number] DATE OF : 1955 SEX/AGE: M/67 PATIENT TYPE: I [facility] [place]: [facility] LOCATION: [id number] DATE OF SERVICE: 01/18/2023 TIME OF SERVICE: 12:52 PM REASON FOR CONSULT: Medical management. HISTORY OF PRESENT ILLNESS: Patient is a 67-year-old male admitted through ER with a history of suicidal attempt. Patient had a loaded gun and attempted to shoot himself . His gun was taken away from him by his . Patient during interview denies any problems like fever, cold, cough. No chest pain. No abdominal pain. No urinary symptoms. Says that he lives with his and a son. The patient reported that he has been having increased depression over the last 3 to 4 weeks. PAST MEDICAL HISTORY: Denies any past medical history. PAST SURGICAL HISTORY: Excision of a benign cyst from the right scapula and removal of the skin tags. DM II CURRENT MEDICATIONS: Tylenol, Atarax, milk of magnesia, risperidone. ALLERGIES: Sulfonamides. SOCIAL HISTORY: Denies any smoking, drinking, or drug abuse. FAMILY HISTORY: Mother positive for multiple myeloma, grandmother positive for coronary artery disease, grandfather negative. REVIEW OF SYMPTOMS: Patient denies any problems like fever, cold, cough. No chest pain. No abdominal pain. No urinary symptoms. Says that he is doing fine. Only talks very slowly and in a low voice. PHYSICAL EXAMINATION: GENERAL: Awake, alert, not in acute distress. Walking in the hallway. VITAL SIGNS: Show blood pressure of 119/83, pulse 84, respirations 18, temperature 97.9, pulse ox 99%. HEENT: Atraumatic, normocephalic. NECK: Supple. No thyroid. No JVD. No lymph nodes. CHEST: Air entry fair. No wheezing. No rhonchi. No rales. CVS: S1, S2 heard. ABDOMEN: Soft. Bowel sounds present. Liver and spleen not palpable. EXTREMITIES: No calf tenderness. No gross edema. CLIENT SERVICES DIRECTOR: Cranial nerves 2 through 12 are grossly intact. Sensory system is normal. Motor system is normal. Coordination is normal. Gait is normal. There are no acute neurological changes. LABORATORY DATA: Labs done in the ER showed sodium of 133, potassium 3.9, chloride 97, carbon dioxide 24, BUN 33, creatinine 0.87, glucose 162, protein total 7.0, calcium 9.1, ALT 20, AST 16, CK 70. Tox screen is negative. TSH 1.230. WBC count 8.90, hemoglobin 15.4, hematocrit 44.5. COVID-19 is negative. ASSESSMENT: 1. DM II 2. Hyponatremia. 3. Suicidal attempt. PLAN: We will get hemoglobin A1c as patient has hyperglycemia. Also, we will order vitamin D levels. Patient is being monitored for blood sugars with Accuchecks. Will order PSA levels. We will follow up. Cuco De La Garza MD Medicine RR:[place] /[phone] [facility] HISTORY PHYSICALon HISTORY PHYSICAL HNO ID: [id number] Author: Janet Queen MD Service: Psychiatry Author Type: Physician Type: HANDP Filed: 01/18/2023 2:55 PM Note Text: HISTORY AND PHYSICAL BEHAVIORAL HEALTH SERVICE DATE: 01/18/2023 SERVICE TIME: 11:45 am IDENTIFYING INFORMATION: Wild Conklin is a 67 year old person who identifies as male. REASON FOR ADMISSION: suicide threats Subjective Chief complaint: my niece decided that she'll bring me here. HPI: Wild Antunez presents for admission secondary to Risk of physical harm to self. 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 He is having some legal problems with his problem from doing business with his brother. He reports that he had made a mistake on bank signature that may lead to his removal from being his township trustee. He reports feeling guilty. He feels depressed, anxious and hopeless. He had pulled a gun from a safe at home and had wanted to use it to kill himself but stopped him. STRESSORS: Family: money problems. 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 He is guarded and suspicious when trying to explain this. PSYCHIATRIC REVIEW OF SYMPTOMS: Depression: + Depressed mood, + Sleep disturbance , + Decreased Interests, + Guilt, + Decreased energy, + Decreased Concentration, + Decreased Appetite, + Psychomotor retardation, + Hopelessness, and + Paranoia with positive suicidal ideation (with plan to shoot himself with a gun) Bonnie: Denies any history of hypomanic or manic episodes. Psychosis: Disorganization MODE: Excessive worry more than not, Difficulty controlling worry, Restless / Keyed up, Fatigued, Trouble concentrating, and Sleep disturbance OCD: Obsessions involve themes of making a mistake on signature at a bank. PTSD: Denies any PTSD symptoms. MEDICAL REVIEW OF SYSTEMS: Fatigue, low energy, insomnia. All other systems negative. PSYCHIATRIC HISTORY: Prior Diagnosis: None Current Psychiatrist: none Current Therapist: none Current Branch Library Clerk: none Last Hospitalization: N/A; Total Hospitalizations: none before current hospitalization. History of Suicide Attempts: Total: none except yesterday when he pull a gun from the safe and threatened to shoot himself. Previous Discontinued Psychiatric Med Trials: none PAST MEDICAL HISTORY Diagnosis Date NEGATIVE MEDICAL HISTORY HOME MEDICATIONS: celexa, remeron MEDICATION ADHERENCE: Good SUBSTANCE ABUSE HISTORY: ETOH: No history of abuse or dependence. ILLICIT SUBSTANCE USE: None ALLERGIES Allergen Reactions Sulfa (Sulfonamide * Hives SOCIAL HISTORY: Born AND Raised in [place], [place]. Childhood: raised on a farm by both parents and siblings. 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 Relationships: The patient currently is . Current Supports Include: spouse/partner. Legal History: denies FAMILY HISTORY: Depression (Brother) and Anxiety (Brother) Objective MENTAL STATUS EXAMINATION: Appearance: Casually dressed Behavior: Withdrawn Psychomotor: Retarded Cognition Level of Consciousness: Awake and alert. No fluctuation in wakefulness. Orientation: Person, Place, Time and Situation Memory: Mildly Impaired Attention/Concentration: Good Fund of Knowledge: Able to demonstrate an awareness of current events. Mood: Anxious, Depressed, and Euthymic Affect: Mood-congruent and reactive within a Restricted and normal range. Speech/Language: Halting and Appropriate tone, prosody, bell, phonetics, and syntax Thought Form: Coherent and Goal-directed. No loosening of associations. Thought Content: Vague No delusions noted or endorsed. Perceptual Disturbances: Did not appear to respond to auditory stimuli. Safety: Suicidal Ideations: Intends to suicide and has a plan. Homicidal Ideations: No homicidal ideation, intent or plan. Insight: Limited and Recognized the presence of illness. Judgment: Grossly impaired SUICIDE RISK ASSESSMENT APPLICABLE: Yes SUICIDE RISK ASSESSMENT SUICIDAL IDEATIONS: As per HPI RECENT ACUTE EVENTS: As per HPI LETHALITY FACTORS: Access to Means: Any firearms in home? Yes Moved a firearm recently? No Any current suicide plan not involving firearm? No Demographic Factors: Marital Status: Ethnicity: White(Highest risk is ) Gender: male (Highest risk is male) Age: [age] year old (Highest risk is >65) Family history of suicide? No Evidence of Intentional Self-Harm History of prior suicide attempts? No Past thoughts of self-harm? No Self-Mutilation: History of past self-mutilation without expressed suicide inte (more content not included)... [facility] NURSING PROGon 01-18-2023 NURSING PROG HNO ID: [id number] Author: Zena Macias, MEGHAN Service: Nursing Author Type: Registered Nurse Type: Nursing Progress Note Filed: 01/18/2023 10:37 AM Note Text: Nursing Progress Note Patient Name: Wild Conklin Patient Location: [place] [id number] Daily Note: Patient sitting by telephone in day area while community meeting in progress. Patient is pleasant and behavior is in control. Denies pain, reports high anxiety. Given po, prn Atarax. Rates his depression 08/31. Pt denies any SI/HI/AH/VH. States his last bm was 2 days ago. Given po, prn MOM. Patient agrees to maintain safety on unit. Pt encouraged to seek staff if feeling unsafe or with any other concerns. Patient is a Level 4, 1:1 observation due to SA. Low safety but Level 4 ordered by LIP. Will continue to monitor. Physical assessment: Alert and oriented to person, place and time. Able to follow commands. Speech clear and coherent. Moves all extremities. Gait is steady. Pt has functional ROM. No weakness. No CP. No SOB. Heart/lung/bowel sounds not auscultated. No peripheral edema noted. Visible skin intact. Respirations even and unlabored. No cough. No voiced c/o GI. No n/v. Urine not observed; pt voiced no concerns r/t urination. This note was completed by: Zena Macias [facility] NURSING PROG HNO ID: [id number] Author: Masoud Cruz RN Service: ? Author Type: Registered Nurse Type: Nursing Progress Note Filed: 01/18/2023 5:55 AM Note Text: Pt came to [facility] via wheelchair from [facility] ED. Pt wanded by psych drug safety assistant. Pt belongings inventoried for any contraband. Pt with brought in by and niece for suicidal ideations from home. Pt states that he was having issues at home and financial issues. Pt states that he had a meeting with his niece and and they brought him here. Pt states that he felt like a disappointment to his friends and family. Pt put a loaded gun to his head and his took it out of his hands. Pt states that he lived on a farm/hunts and has roughly 8 guns. Pt states that only about half of then are locked up. Pt was just started on a medication a few days ago. Pt states that he just saw a therapist a week and a half ago. Pt states having increasing depression for about 4 weeks. Pt states that he lost about 25# in 6 weeks but his has helped him to start eating again. Pt states no prior psych history or admits. Pt has no prior suicide attempts. Pt has history of DM-II. Pt denies tobacco, alcohol or substance use. Pt states anxiety and depression are both a 6/10. Pt denies suicidal ideations at this time, pt contracts for safety. Pt denies homicidal ideations. Pt denies any perceptual disturbances. Pt given welcome packet and menu to fill out. Pt given psych safety gown and pants. Pt offered beverage and drink. Pt given unit policy and procedure. Pt has no questions or concerns at this time. Pt encouraged to seek staff with any. 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 Will continue to monitor. [facility] NUTRITIONon 01-18-2023 NUTRITION HNO ID: [id number] Author: Chelly Valencia RD Service: Nutrition Therapy Author Type: Registered Dietitian Type: Nutrition Filed: 01/18/2023 2:18 PM Note Text: NUTRITION THERAPY INITIAL ASSESSMENT SERVICE DATE: 01/18/2023 SERVICE TIME: 1215 Nutrition Assessment: Recommended Malnutrition Diagnosis: Mild Protein-Calorie Malnutrition In the context of: Social/Environmental Circumstance Based on: Unintentional Weight Loss Nutrition Diagnosis: Problem: Suboptimal protein/energy intake Related to: Chronic illness As evidenced by: Patient/family self-report Estimated kilocalorie needs: 2408-8473 Calorie Calculation Method: 25-30 kcals/kg Estimated protein needs (grams): 73-88 Grams protein determined by: 1.0 - 1.2 g/kg Care Plan: Continue current diet Supplements: Zone Perfect Bar Refer to: Craft Demonstrator to Follow +obtain standing weight and document. Monitor and Evaluation: Meet greater than 75% of estimated needs, Monitor bowel function, Monitor fluid/electrolyte balance, Monitor labs, I/Os, vital signs, weight Discharge Recommendations: Diet;Oral Supplements Diet: regular Oral Supplements: high maurice/protein supplement/snack of choice 1-2x/day between meals until meal intake improves. HPI: 67 year old male with PMHx of DM currently being monitored and treated for depression with suicide attempt. Intake History: Nutrition Intake Prior to Admission: Less than 75% estimated energy needs greater than or equal to 1 month Current Nutrition Intake: Unable to determine Pt reports appetite fluctuating x weeks causing wt loss from UBW of 218#, pending standing weight. No chewing/swallowing issues, no N/V/D, +constipation. Pt states he ate 100% of breakfast, but only 50% of lunch due to big breakfast. Educated on importance of maurice/protein for strength, agreeable to above intervention to help meet needs. Diet Orders (From admission, onward) Start Ordered 01/18/23 0000 DIET CARBOHYDRATE CONTROLLED START NOW Question: Carbohydrate Control Answer: CONSISTENT CARBOHYDRATE 01/17/23 4814 Anthropometrics: Height: 175.3 cm (5' 9) Weight: 85.7 kg (189 lb) Dosing Weight: 72.6 kg (160 lb) Usual Weight: 98.9 kg (218 lb) x 6 months prior Usual Weight Obtained From: Patient Body mass index is 27.91 kg/m?. Weight change percentage over time: No wt hx to report on.189# is a stated weight from pt's home scale indicating 13% wt loss x 6 months, significant but unable to confirm. Physical Exam: Subcutaneous fat loss: No fat loss Muscle loss: No muscle loss Potential micronutrient deficiency: No deficiency identified Edema/Ascites: No edema GI Symptoms: Constipation Functional Status: No Change Potential Signs of Inflammation: Chronic condition MNT Billing: $ Initial Assessment: 1-15 minutes SIGNATURE: Chelly Valencia RD PATIENT NAME: Wild Conklin DATE: January 18, 2023 TIME: 2:15 PM [facility] APAP SerPl-mCncon 01-17-2023 Acetaminophen [Mass/Vol] ug/mL Low 10- [facility] Comment on above: Order Comment: Tereza jaramillo Type: BLOOD SPECIMENOrdering Facility: [facility] Address: [address] [place] [address] Result Comment: Toxi c > 150 ug/mL 4 hours post ingestion The Selam Aleman nomogram can be used to estimate the probability of hepatotoxicity via the relationship of plasma acetaminophen concentration to the post ingestion interval. (Ivette. Pediatrics. 1975. 55:871 to 876 and Selam et al. Arch Correctional Security Officer Med. 1981. 141:380 to 385). Reference ranges and high/low indicator flags are provided as general guidelines only. The treating physician must determine appropriate target levels/dosing based on the specific clinical situation. Performed By: #### 3 298-7, 5643-2, 4024-6 ####[facility] [id number] [place] [address] [place] [facility] CBC W Auto Differential pane l (Bld)on 01-17-2023 Basophils (Bld) [#/Vol] 0.08 10*3/uL Normal <0.11 [facility] Comment on above: Order Comment: Tereza jaramillo Type: BLOOD SPECIMEN Ordering Facility: [facility] Address: [address] [place] [address] Performed By: #### 5 7021-8 #### [facility] CLIA [id number] [address] [facility] Basophils/100 WBC (Bld) 0.9 % Normal [facility] Comment on above: Order Comment: Tereza jaramillo Type: BLOOD SPECIMEN Ordering Facility: [facility] Address: [address] [place] [address] Performed By: #### 5 7021-8 #### [facility] CLIA [id number] [address] [facility] Differential cell count method Nom (Bld) Auto [facility] Comment on above: Order Comment: Tereza jaramillo Type: BLOOD SPECIMEN Ordering Facility: [facility] Address: [place] [address] Performed By: #### 5 7021-8 #### [facility] CLIA [id number] [address] [place] Eosinophils (Bld) [#/Vol] 0.13 10*3/uL Normal <0.46 [facility] Comment on above: Order Comment: Speci men Type: BLOOD SPECIMEN Ordering Facility: [facility] Address: [address] [place] [address] Performed By: #### 5 7021-8 #### [facility] CLIA [id number] [address] [place] Eosinophils/100 WBC (Bld) 1.5 % Normal [facility] Comment on above: Order Comment: Speci men Type: BLOOD SPECIMEN Ordering Facility: [facility] Address: [address] [place] [address] Performed By: #### 5 7021-8 #### [facility] CLIA [id number] [address] STATES [facility] Erythrocyte distribution width (RBC) [Ratio] 12.2 % Normal 11.5-15.0 [facility] Comment on above: Order Comment: Speci men Type: BLOOD SPECIMEN Ordering Facility: [facility] Address: [address] [place] [address] Performed By: #### 5 7021-8 #### [facility] CLIA [id number] [address] [place] Hematocrit (Bld) [Volume fraction] 44.5 % Normal 39.0-51.0 [facility] Comment on above: Order Comment: Speci men Type: BLOOD SPECIMEN Ordering Facility: [facility] Address: [address] [place] [address] Performed By: #### 5 7021-8 #### [facility] CLIA [id number] [address] Hemoglobin (Bld) [Mass/Vol] 15.4 g/dL Normal 13.0-17.0 [facility] Comment on above: Order Comment: Speci men Type: BLOOD SPECIMEN Ordering Facility: [facility] Address: [address] [place] [address] Performed By: #### 5 7021-8 #### [facility] CLIA [id number] [address] [place] Immature granulocytes (Bld) [#/Vol] 10*3/uL Normal <0.10 [facility] Comment on above: Order Comment: Speci men Type: BLOOD SPECIMEN Ordering Facility: [facility] Address: [address] [place] [address] Performed By: #### 5 7021-8 #### [facility] CLIA [id number] [address] Immature granulocytes/100 WBC (Bld) 0.2 % Normal [facility] Comment on above: Order Comment: Speci men Type: BLOOD SPECIMEN Ordering Facility: [facility] Address: [address] [place] [address] Performed By: #### 5 7021-8 #### [facility] CLIA [id number] [address] [place] Lymphocytes (Bld) [#/Vol] 2.27 10*3/uL Normal 1.00-4.00 [facility] Comment on above: Order Comment: Speci men Type: BLOOD SPECIMEN Ordering Facility: [facility] Address: [address] [place] [address] Performed By: #### 5 7021-8 #### [facility] CLIA [id number] [address] Lymphocytes/100 WBC (Bld) 25.5 % Normal [facility] Comment on above: Order Comment: Speci men Type: BLOOD SPECIMEN Ordering Facility: [facility] Address: [address] [place] [address] Performed By: #### 5 7021-8 #### [facility] CLIA [id number] [address] [place] MCH (RBC) [Entitic mass] 29.8 pg Normal 26.0-34.0 [facility] Comment on above: Order Comment: Speci men Type: BLOOD SPECIMEN Ordering Facility: [facility] Address: [address] [place] [address] Performed By: #### 5 7021-8 #### [facility] CLIA [id number] [address] MCHC (RBC) [Mass/Vol] 34.6 g/dL Normal 30.5-36.0 [facility] Comment on above: Order Comment: Speci men Type: BLOOD SPECIMEN Ordering Facility: [facility] Address: [address] [place] [address] Performed By: #### 5 7021-8 #### [facility] CLIA [id number] [address] MCV (RBC) [Entitic vol] 86.1 fL Normal 80.0-100.0 [facility] Comment on above: Order Comment: Speci men Type: BLOOD SPECIMEN Ordering Facility: [facility] Address: [address] [place] [address] Performed By: #### 5 7021-8 #### [facility] CLIA [id number] [address] [place] Monocytes (Bld) [#/Vol] 0.64 10*3/uL Normal <0.87 [facility] Comment on above: Order Comment: Speci men Type: BLOOD SPECIMEN Ordering Facility: [facility] Address: [address] [place] [address] Performed By: #### 5 7021-8 #### [facility] CLIA [id number] [address] Monocytes/100 WBC (Bld) 7.2 % Normal [facility] Comment on above: Order Comment: Speci men Type: BLOOD SPECIMEN Ordering Facility: [facility] Address: [address] [place] [address] Performed By: #### 5 7021-8 #### [facility] CLIA [id number] [address] [place] Neutrophils (Bld) [#/Vol] 5.76 10*3/uL Normal 1.45-7.50 [facility] Comment on above: Order Comment: Speci men Type: BLOOD SPECIMEN Ordering Facility: [facility] Address: [address] [place] [address] Performed By: #### 5 7021-8 #### [facility] CLIA [id number] [address] Neutrophils/100 WBC (Bld) 64.7 % Normal [facility] Comment on above: Order Comment: Speci men Type: BLOOD SPECIMEN Ordering Facility: [facility] Address: [address] [place] [address] Performed By: #### 5 7021-8 #### [facility] CLIA [id number] [address] [place] Nucleated RBC (Bld) [#/Vol] 10*3/uL Normal <0.01 [facility] Comment on above: Order Comment: Speci men Type: BLOOD SPECIMEN Ordering Facility: [facility] Address: [address] [place] [address] Performed By: #### 5 7021-8 #### [facility] CLIA [id number] [address] Nucleated RBC/100 WBC (Bld) [Ratio] 0.0 /100 WBC Normal [facility] Comment on above: Order Comment: Speci men Type: BLOOD SPECIMEN Ordering Facility: [facility] Address: [address] [place] [address] Performed By: #### 5 7021-8 #### [facility] CLIA [id number] [address] [place] Platelet mean volume (Bld) [Entitic vol] 8.6 fL Low 9.0-12.7 [facility] Comment on above: Order Comment: Speci men Type: BLOOD SPECIMEN Ordering Facility: [facility] Address: [address] [place] [address] Performed By: #### 5 7021-8 #### [facility] CLIA [id number] [address] [place] Platelets (Bld) [#/Vol] 292 10*3/uL Normal 150-400 [facility] Comment on above: Order Comment: Speci men Type: BLOOD SPECIMEN Ordering Facility: [facility] Address: [address] [place] [address] Performed By: #### 5 7021-8 #### [facility] CLIA [id number] [address] [place] [address] [place] RBC (Bld) [#/Vol] 5.17 10*6/uL Normal 4.20-6.00 [facility] Comment on above: Order Comment: Speci men Type: BLOOD SPECIMEN Ordering Facility: [facility] Address: [address] [place] [address] Performed By: #### 5 7021-8 #### [facility] CLIA [id number] [address] [facility] WBC (Bld) [#/Vol] 8.90 10*3/uL Normal 3.70-11.00 [facility] Comment on above: Order Comment: Speci men Type: BLOOD SPECIMEN Ordering Facility: [facility] Address: [address] [place] [address] Performed By: #### 5 7021-8 #### [facility] CLIA [id number] [address] [place] CK SerPl-cCncon 01-17-2023 CK [Catalytic activity/Vol] 70 U/L Normal 51-298 [facility] Comment on above: Order Comment: Speci men Type: BLOOD SPECIMEN Ordering Facility: [facility] Address: [address] [place] [address] Performed By: #### 2 157-6, 3016-3, 50183-0 #### [facility] CLIA [id number] [address] Comprehensive metabolic 2000 panelon 01-17-2023 Albumin [Mass/Vol] 4.5 g/dL Normal 3.9-4.9 [facility] Comment on above: Order Comment: Speci men Type: BLOOD SPECIMEN Ordering Facility: [facility] Address: [address] [place] [address] Performed By: #### 2 157-6, 3016-3, 70777-7 #### [facility] CLIA [id number] [address] ALP [Catalytic activity/Vol] 63 U/L Normal 38-113 [facility] Comment on above: Order Comment: Speci men Type: BLOOD SPECIMEN Ordering Facility: [facility] Address: [address] [place] [address] Performed By: #### 2 157-6, 3016-3, 03544-5 #### [facility] CLIA [id number] [address] ALT With P-5'-P [Catalytic activity/Vol] 20 U/L Normal 10-54 [facility] Comment on above: Order Comment: Speci men Type: BLOOD SPECIMEN Ordering Facility: [facility] Address: [address] [place] [address] Performed By: #### 2 157-6, 3016-3, #### [facility] CLIA [id number] [address] Anion gap [Moles/Vol] 12 mmol/L Normal 9-18 [facility] Comment on above: Order Comment: Speci men Type: BLOOD SPECIMEN Ordering Facility: [facility] Address: [address] [place] [address] Performed By: #### 2 157-6, 3016-3, #### [facility] CLIA [id number] [address] [facility] AST With P-5'-P [Catalytic activity/Vol] 16 U/L Normal 14-40 [facility] Comment on above: Order Comment: Speci men Type: BLOOD SPECIMEN Ordering Facility: [facility] Address: [address] [place] [address] Performed By: #### 2 157-6, 3016-3, 88290-2 #### [facility] CLIA [id number] [address] [place] [address] [place] Bilirubin [Mass/Vol] 0.3 mg/dL Normal 0.2-1.3 [facility] Comment on above: Order Comment: Speci men Type: BLOOD SPECIMEN Ordering Facility: [facility] Address: [address] [place] [address] Performed By: #### 2 157-6, 3016-3, 20479-4 #### [facility] CLIA [id number] [address] [place] Calcium [Mass/Vol] 9.1 mg/dL Normal 8.5-10.2 [facility] Comment on above: Order Comment: Speci men Type: BLOOD SPECIMEN Ordering Facility: [facility] Address: [address] [place] [address] Performed By: #### 2 157-6, 3016-3, #### [facility] CLIA [id number] [address] [place] Chloride [Moles/Vol] 97 mmol/L Normal 97-105 [facility] Comment on above: Order Comment: Speci men Type: BLOOD SPECIMEN Ordering Facility: [facility] Address: [address] [place] [address] Performed By: #### 2 157-6, 3015-3, #### [facility] CLIA [id number] [address] [place] CO2 [Moles/Vol] 24 mmol/L Normal 22-30 [facility] Comment on above: Order Comment: Speci men Type: BLOOD SPECIMEN Ordering Facility: [facility] Address: [address] [place] [address] Performed By: #### 2 157-6, 3016-3, 53044-4 #### [facility] CLIA [id number] [address] [place] [address] [place] Creatinine [Mass/Vol] 0.87 mg/dL Normal 0.73-1.22 [facility] Comment on above: Order Comment: Speci men Type: BLOOD SPECIMEN Ordering Facility: [facility] Address: [address] [place] [address] Performed By: #### 2 157-6, 3016-3, 66734-4 #### [facility] CLIA [id number] [address] [place] Creatinine and Glomerular filtration rate.predicted panel (S/P/Bld) 95 mL/min/1.73m??? Normal >=60 [facility] Comment on above: Order Comment: Tereza jaramillo Type: BLOOD SPECIMEN Ordering Facility: [facility] Address: [address] [place] [address] Result Comment: Karin mated Glomerular Filtration Rate (eGFR) is calculated using the 2020 CKD-EPI creatinine equation. This equation utilizes serum creatinine, sex, and age as parameters. The creatinine assay has traceable calibration to isotope dilution-mass spectrometry. Refer to KDIGO guidelines for clinical interpretation. In patients with unstable renal function, e.g. those with acute kidney injury, the eGFR may not accurately reflect actual GFR. Performed By: #### 2 157-6, 3016-3, 82569-7 #### [facility] CLIA [id number] [address] [place] [address] [place] Glucose [Mass/Vol] 162 mg/dL High 74-99 [facility] Comment on above: Order Comment: Tereza jaramillo Type: BLOOD SPECIMEN Ordering Facility: [facility] Address: [address] [place] [address] Result Comment: The [place] [employer] (ADA) provides guidance for cutoff values for fasting glucose and random glucose. The ADA defines fasting as no caloric intake for at least 8 hours. Fasting plasma glucose results between 100 to 125 mg/dL indicate increased risk for diabetes (prediabetes). Fasting plasma glucose results greater than or equal to 126 mg/dL meet the criteria for diagnosis of diabetes. In the absence of unequivocal hyperglycemia, results should be confirmed by repeat testing. In a patient with classic symptoms of hyperglycemia or hyperglycemic crisis, random plasma glucose results greater than or equal to 200 mg/dL meet the criteria for diagnosis of diabetes. Reference: Standards of Medical Care in Diabetes 2016, [place] [employer]. Diabetes Care. 2016.39(Suppl 1). Performed By: #### 2 157-6, 3016-3, 26073-5 #### [facility] CLIA [id number] [address] [place] [address] [place] Potassium [Moles/Vol] 3.9 mmol/L Normal 3.7-5.1 [facility] Comment on above: Order Comment: Speci men Type: BLOOD SPECIMEN Ordering Facility: [facility] Address: [address] [place] [address] Performed By: #### 2 157-6, 3016-3, #### [facility] CLIA [id number] [address] [place] [address] [place] Protein [Mass/Vol] 7.0 g/dL Normal 6.3-8.0 [facility] Comment on above: Order Comment: Speci men Type: BLOOD SPECIMEN Ordering Facility: [facility] Address: [address] [place] [address] Performed By: #### 2 157-6, 3015-3, #### [facility] CLIA [id number] [address] [facility] Sodium [Moles/Vol] 133 mmol/L Low 136-144 [facility] Comment on above: Order Comment: Speci men Type: BLOOD SPECIMEN Ordering Facility: [facility] Address: [address] [place] [address] Performed By: #### 2 157-6, 6-3, #### [facility] CLIA [id number] [address] [place] Urea nitrogen [Mass/Vol] 13 mg/dL Normal 9-24 [facility] Comment on above: Order Comment: Speci men Type: BLOOD SPECIMEN Ordering Facility: [facility] Address: [address] [place] [address] Performed By: #### 2 157-6, 3016-3, 91909-0 #### [facility] CLIA [id number] [address] [place] [address] [place] ECG COMPLETEon 01-17-2023 ECG COMPLETE Ventricular Rate : 8 3 BPM Atrial Rate : 83 BPM P-R Interval : 148 ms QRS Duration : 94 ms Q-T Interval : 368 ms QTC Calculation(Bazett) : 432 ms Calculated P [place] : 36 degrees Calculated R [place] : 10 degrees Calculated T [place] : 13 degrees NORMAL SINUS RHYTHM NORMAL ECG NO PREVIOUS ECGS AVAILABLE Confirmed by MD AMBROCIO THOMAS ([id number]) on 02/05/2023 10:50:33 PM NAME : WILD CONKLIN PID : [id number] : 1955 Gender : Male Race : ORD : [id number] Procedure Date : Jan 17 2023 18:57:30 Edit Date : Feb 05 2023 22:50:34 Diagnosis: NORMAL SINUS RHYTHM NORMAL ECG NO PREVIOUS ECGS AVAILABLE Confirmed by MD AMBROCIO THOMAS ([id number]) on 02/05/2023 10:50:33 PM Test Reason : Arrhythmia Location : 4 : [place] [address] Overread By : MD AMBROCIO THOMAS Edited By : MD AMBROCIO THOMAS Referred By : , Acquired by : SEAMUS APPLE [facility] ED PROV NOTEon 01-17-2023 ED PROV NOTE HNO ID: [id number] Author: Parker Soto DO Service: Emergency Medicine Author Type: Resident Type: ED Provider Notes Filed: 01/17/2023 10:06 PM Note Text: -- Attestation signed by Kenyon Sherman MD at 01/19/2023 12:43 PM Attending Note I evaluated the patient and personally participated in the hamilton components. I agree with the resident's findings and plan as documented and have discussed the case and management of the patient's care with the resident. Signature: Kenyon Sherman MD Date: 01/19/2023 Time: 12:43 PM -- ED Provider Note Patient Name: Wild Conklin : 1955 SERVICE DATE: 01/17/23 History Patient presents with: Suicide Attempt: Pt states he had a loaded gun attempting to shoot himself gun was taken away from him by +si with fleeting thoughts new anti depressants since yesterday -hi 67-year-old male with type II DM presenting with depression and suicide attempt. History obtained from the patient. Patient reports that he has had increasing depression over the last 3 to 4 weeks. He believes this is brought on by family issues and stress. He reports that his family saw a counselor once or twice a couple weeks ago but this did not help. He saw his PCP 2 days ago and was started on antidepressants. Today, he reports that he was talking with his niece and after this conversation decided to end it. He grabbed his loaded gun and says that he was going to shoot himself but his gun was taken away by his . His and niece then brought him to the ED for evaluation. He states that he has had some weight loss over the last 3 to 4 weeks. He denies any recent fevers, chest pain, shortness of breath. Patient reports he does have a history of depression and was on antidepressants several years ago for a short period of time before weaning off. He denies hospitalizations in the past for psych related complaints. 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 FIBRQ TAGS ANY AREA UPW/15 Removal skin tags, mole removal face FAMILY HISTORY Problem Relation Age of Onset Blood Disease Mother Multiple Myeloma Coronary Artery Disease Maternal Grandmother None Maternal Grandfather None Paternal Grandmother None Paternal Grandfather None Brother None Brother None Brother None Sister None Sister None Sister Social History Tobacco Use Smoking status: Never Smokeless tobacco: Never Substance and Sexual Activity Alcohol use: No Comment: rarely Drug use: No Sexual activity: Yes Partners: Female ALLERGIES Allergen Reactions Sulfa (Sulfonamide * Hives Review of Systems All other systems reviewed and are negative. Physical Exam Vitals [01/17/23 1845] BP Pulse Temp Temp src Resp SpO2 Weight Height 127/80 84 36 ?C (96.8 ?F) -- 18 100 % 85.7 kg (189 lb) 1.753 m (5' 9) Physical Exam Vitals and nursing note reviewed. Constitutional: Appearance: He is not toxic-appearing. HENT: Head: Normocephalic. Right Ear: External ear normal. Left Ear: External ear normal. Nose: Nose normal. Mouth/Throat: Mouth: Mucous membranes are moist. Eyes: Conjunctiva/sclera: Conjunctivae normal. Cardiovascular: Rate and Rhythm: Normal rate and regular rhythm. Pulses: Normal pulses. Heart sounds: No murmur heard. Pulmonary: Effort: Pulmonary effort is normal. Breath sounds: No wheezing or rhonchi. Abdominal: General: There is no distension. Palpations: Abdomen is soft. Tenderness: There is no abdominal tenderness. Musculoskeletal: Right lower leg: No edema. Left lower leg: No edema. Skin: General: Skin is warm and dry. Capillary Refill: Capillary refill takes less than 2 seconds. Findings: No rash. Neurological: General: No focal deficit present. Mental Status: He is alert and oriented to person, place, and time. Psychiatric: Mood and Affect: Affect is flat. Thought Content: Thought content includes suicidal ideation. Thought content includes suicidal plan. Diagnostic Testing ED Labs Ordered and Reviewed COMP METABOLIC PANEL - Abnormal; Notable for the following components: Result Value Ref Range Glucose 162 (*) 74 - 99 mg/dL Sodium 133 (*) 136 - 144 mmol/L All other components within normal limits URINALYSIS WITH MICROSCOPIC, REFLEX CULTURE - Abnormal; Notable for the following components: Specific Mccall, Ur 1.004 (*) 1.005 - 1.030 All other components within normal limits CBC + DIFF - Abnormal; Notable for the following components: MPV 8.6 (*) 9.0 - 12.7 fL All other components within normal limits SALICYLATE BLD - Abnormal; Notable for the following components: Salicylate <1 (more content not included)... Normal [facility] ED PROV NOTE HNO ID: [id number] Author: Kenyon Sherman MD Service: Emergency Medicine Author Type: Physician Type: ED Provider Notes Filed: 01/17/2023 7:29 PM Note Text: Attending Note I evaluated the patient and personally participated in the hamilton components. I agree with the resident's findings and plan as documented and have discussed the case and management of the patient's care with the resident. Suicide Assessment Five-step Evaluation and Triage (SAFE-T) for Mental Health Professionals 1 IDENTIFY RISK FACTORS Note those that can be modified to reduce risk 2 IDENTIFY PROTECTIVE FACTORS Note those that can be enhanced 3 CONDUCT SUICIDE INQUIRY Suicidal thoughts, plans, behavior and intent 4 DETERMINE RISK LEVEL / INTERVENTION Determine risk. Choose appropriate intervention to address and reduce risk 5 DOCUMENT Assessment of risk,rationale, intervention and follow up Suicide assessments should be conducted at first contact, with any subsequent suicidal behavior, increased ideation, or pertinent clinical Change; for inpatients, prior to increasing privileges and at discharge. 1. RISK FACTORS ? Suicidal behavior: history of prior suicide attempts, aborted suicide attempts or self-injurious behavior ? Current/past psychiatric disorders: especially mood disorders, psychotic disorders, alcohol/substance abuse, ADHD, TBI, PTSD, Cluster B personality disorders, conduct disorders (antisocial behavior, aggression, impulsivity). Co-morbidity and recent onset of illness increase risk ? Hamilton Symptoms: anhedonia, impulsivity, hopelessness, anxiety/panic, insomnia, command hallucinations ? Family history: of suicide, attempts, or [place] 1 psychiatric disorders requiring hospitalization ? Precipitants/Stressors/Int erpersonal: triggering events leading to humiliation, shame or despair (e.g; loss of relationship, financial or Health status-real or anticipated). Ongoing medical illness (citlali. CLIENT SERVICES DIRECTOR disorders, pain). Intoxication. Family turmoil/chaos. History of Physical or sexual abuse. Social isolation. ? Change in treatment: discharge from psychiatric hospital, provider or treatment change ? Access to firearms 2. PROTECTIVE FACTORS protective factors, even if present, may not counteract significant acute risk ? Internal: ability to cope with stress, jewish beliefs, frustration tolerance ? External: responsibility to children or beloved pets, positive therapeutic relationships, social supports 3. SUICIDE INQUIRY Specific questioning about thoughts, plans, behaviors, intent ? Ideation: frequency, intensity, duration- - in last 48 hours, past month and worst ever ? Plan: timing, location, lethality, availability, preparatory acts ? Behaviors: past attempts, aborted attempts, rehearsals (tying noose, loading gun), vs. non -suicidal self injurious actions ? Intent: extent to which the patient (1) expects to carry out the plan and (2) believes the plan/act to be lethal vs. self-injurious; Explore ambivalence: reasons to vs. reasons to live *For Youths: ask parent/guardian about evidence of suicidal thoughts, plans, or behaviors, and changes in mood, behaviors or disposition * Homicide Inquiry: when indicated, citlali. in character disordered or paranoid males dealing with loss or humiliation. Inquire in four areas listed above. 4. RISK LEVEL/INTERVENTION ? Assessment of risk level is based on clinical judgment, after completing steps 1-3 ? Reassess as patient or environmental circumstances change RISK LEVEL RISK/PROTECTIVE FACTOR SUICIDALITY POSSIBLE INTERVENTIONS High Psychiatric disorders with severe symptoms, or acute precipitating event; protective factors not relevant Potentially lethal suicide attempt or persistent ideation with strong intent or suicide rehearsal Admission generally indicated unless a significant change reduces risk. Suicide precautions Moderate Multiple risk factors, few protective factors Suicidal ideation with plan, but no intent or behavior Admission may be necessary depending on risk factors. Develop crisis plan. Give emergency/crisis numbers Low Modifiable risk factors, strong protective factors Thoughts of , no plan, intent or behavior Outpatient referral, symptom reduction. Give emergency/crisis numbers 5. DOCUMENT Risk level and rationale; treatment plan to address/reduce current risk (e.g; setting, medication, psychotherapy, E.C.T, contact with significant others, consultations); firearm instructions, if relevant; follow up plan. For youths, treatment plan should include roles for parent / guardian. SUICIDE RISK LEVEL: moderate RATIONALE FOR RISK LEVEL (see above): Ideation: wanted to shoot self; Plan: shoot self; Intent: yes; Suicidal or Self-harm Behaviors:suicidal ; Access to Firearms: yes; Other Risk Factors: family issues ; Protective Factors: brought in PLAN TO ADDRESS RISK LEVEL: Environment/Sit (order si (more content not included)... Normal [facility]anol [facility] 023 Ethanol [Mass/Vol] mg/dL Normal <11 [facility] Comment on above: Order Comment: Speci men Type: BLOOD SPECIMENOrdering Facility: [facility] Address: [address] [place], [place] [address] Performed By: #### 3 298-7, 5643-2, 4024-6 ####[facility] [id number] [address] [place] NURSING PROGon 01-17-2023 NURSING PROG HNO ID: [id number] Author: Masoud Cruz RN Service: ? Author Type: Registered Nurse Type: Nursing Progress Note Filed: 01/19/2023 5:09 AM Note Text: Pt out in the day topete during assessment with [facility]. Pt alert and oriented x 3. Pt well groomed. Pt calm and cooperative, behavior in control. Pt appears brief and superficial during interactions. Pt given medication education, pt compliant with HS medication. Pt complains of anxiety and depression at both a 07/31. Pt denies suicidal and homicidal ideations. Pt denies any perceptual disturbances. Pt offered emotional support, reassurance and encouragement. Pt denies any physical complaints. Pt has no questions or concerns at this time. Pt encouraged to seek staff with any. Pt safe per constant observations for suicide risk. Will continue to monitor. Normal [facility] SARS-CoV-2 RNA Resp Ql MEGHAN+p robeon 01-17-2023 SARS-CoV-2 (COVID-19) RNA MEGHAN+probe Ql (Resp) COVID 19 RESULT: Not detected The method used is RT-PCR or an equivalent NAAT method. Reference Range(the expected result in uninfected individuals): Not detected Normal [facility] Comment on above: Performed By: #### 9 4500-6 ####[facility] [id number] [address] [place] Salicylates SerPl-mCncon Salicylates [Mass/Vol] mg/dL Low 3.0-30.0 [facility] Comment on above: Order Comment: Speci men Type: BLOOD SPECIMENOrdering Facility: [facility] Address: [address] [place] [address] Result Comment: The therapeutic range varies and has been reported to be 3.0 to 10.0 mg/dL for anti pyretic/analgesic conditions and 15.0 to 30.0 mg/dL for anti inflammatory/rheumatic fever conditions. Ranges published by the instrument housing court judge. Reference ranges and high/low indicator flags are provided as general guidelines only. The treating physician must determine appropriate target levels/dosing based on the specific clinical situation. Performed By: #### 3 298-7, 5643-2, 4024-6 ####[facility] [id number] [address] TOX SCREEN ROUT URon 10-27-2 023 Amphetamines Confirm (U) [Mass/Vol] Negative Normal Negative [facility] Comment on above: Order Comment: Speci men Type: BLOOD SPECIMEN [facility] Address: [address] [place] [address] Result Comment: Cuto ff threshold at 1000 ng/mL. Performed By: #### 5 7021-8 #### [facility] CLIA [id number] [address] BARBITURATES, URINE Negative Normal Negative [facility] Comment on above: Order Comment: Speci men Type: BLOOD SPECIMEN [facility]ing Facility: [facility] Address: [address] [place] [address] Result Comment: Cuto ff threshold at 200 ng/mL. Performed By: #### 5 7021-8 #### [facility] CLIA [id number] [address] [place] [facility] BENZODIAZEPINES, UR Negative Normal Negative [facility] Comment on above: Order Comment: Speci men Type: BLOOD SPECIMEN [facility]ing Facility: [facility] Address: [address] [place] [address] Result Comment: Cuto ff threshold at 200 ng/mL. Performed By: #### 5 7021-8 #### [facility] CLIA [id number] [address] Cannabinoids Screen Ql (U) Negative Normal Negative [facility] Comment on above: Order Comment: Speci men Type: BLOOD SPECIMEN [facility]ing Facility: [facility] Address: [address] [place] [address] Result Comment: Cuto ff threshold at 50 ng/mL. Performed By: #### 5 7021-8 #### [facility] CLIA [id number] [address] [place] Cocaine Ql (U) Negative Normal Negative [facility] Comment on above: Order Comment: Speci men Type: BLOOD SPECIMEN [facility]ing Facility: [facility] Address: [address] [place] [address] Result Comment: Cuto ff threshold at 300 ng/mL. Performed By: #### 5 7021-8 #### [facility] CLIA [id number] [address] Ethanol (U) [Mass/Vol] <11 Normal <11 [facility] Comment on above: Order Comment: Speci men Type: BLOOD SPECIMEN [facility]ing [facility]: [facility] Address: [address] [place] [address] Performed By: #### 5 7021-8 #### [facility] CLIA [id number] [address] Opiates Screen Ql (U) Negative Normal Negative [facility] Comment on above: Order Comment: Speci men Type: BLOOD SPECIMEN [facility]ing Facility: [facility] Address: [address] [place] [address] Result Comment: Cuto ff threshold at 300 ng/mL. Performed By: #### 5 7021-8 #### [facility] CLIA [id number] [address] oxyCODONE cutoff Screen (U) [Mass/Vol] Negative Normal Negative [facility] Comment on above: Order Comment: Speci men Type: BLOOD SPECIMEN [facility]: [facility] Address: [address] [place] [address] Result Comment: Cuto ff threshold at 100 ng/mL. Performed By: #### 5 7021-8 #### [facility] CLIA [id number] [address] Phencyclidine Ql (U) Negative Normal Negative [facility] Comment on above: Order Comment: Speci men Type: BLOOD SPECIMEN [facility] Address: [address] [place] [address] Result Comment: Cuto ff threshold at 25 ng/mL. Performed By: #### 5 7021-8 #### [facility] CLIA [id number] [address] [place] TSH SerPl-aCncon 01-17-2023 TSH Qn 1.230 m[IU]/L Normal 0.270-4.200 [facility] Comment on above: Order Comment: Speci men Type: BLOOD SPECIMEN [facility] Address: [address] [place] [address] Performed By: #### 2 157-6, 3016-3, 10805-1 #### [facility] CLIA [id number] [address] Urinalysis complete panel (U )on 01-17-2023 Bilirubin Ql (U) Negative Normal Negative [facility] Comment on above: Order Comment: Speci men Type: URINE SPECIMEN [facility]ing [facility]: [facility] Address: [address] [place] [address] Performed By: #### 2 4356-8 #### [facility] CLIA [id number] [address] Clarity (Unsp spec) Clear Normal Clear [facility] Comment on above: Order Comment: Speci men Type: URINE SPECIMEN [facility] Address: [address] [place] [address] Performed By: #### 2 4356-8 #### [facility] CLIA [id number] [address] Color (U) Colorless Normal yellow [facility] Comment on above: Order Comment: Speci men Type: URINE SPECIMEN [facility]ing Facility: [facility] Address: [address] [place] [address] Performed By: #### 2 4356-8 #### [facility] CLIA [id number] [address] Glucose Test strip (U) [Mass/Vol] Negative Normal Trace, Negative [facility] Comment on above: Order Comment: Speci men Type: URINE SPECIMEN [facility]ing [facility] Address: [address] [place] [address] Performed By: #### 2 4356-8 #### [facility] CLIA [id number] [address] [place] Hemoglobin Ql (U) Negative Normal Negative, Trace [facility] Comment on above: Order Comment: Speci men Type: URINE SPECIMEN [facility]ing [facility] Address: [address] [place] [address] Performed By: #### 2 4356-8 #### [facility] CLIA [id number] [address] [place] Ketones Ql (U) Negative Normal Negative, Trace [facility] Comment on above: Order Comment: Speci men Type: URINE SPECIMEN [facility] Address: [address] [place] [address] Performed By: #### 2 4356-8 #### [facility] CLIA [id number] [address] Leukocyte esterase Test strip Ql (U) Negative Normal Negative, 25 Jair/uL [facility] Comment on above: Order Comment: Speci men Type: URINE SPECIMEN [facility] Address: [address] [place] [address] Performed By: #### 2 4356-8 #### [facility] CLIA [id number] [address] Nitrite Ql (U) Negative Normal Negative [facility] Comment on above: Order Comment: Speci men Type: URINE SPECIMEN [facility]ing [facility] Address: [address] [place] [address] Performed By: #### 2 4356-8 #### [facility] CLIA [id number] [address] [place] pH (U) 5.5 [pH] Normal 5.0-8.0 [facility] Comment on above: Order Comment: Speci men Type: URINE SPECIMEN [facility] Address: [address] [place] [address] Performed By: #### 2 4356-8 #### [facility] CLIA [id number] [address] [place] Protein (U) [Mass/Vol] Negative Normal Trace , Negative [facility] Comment on above: Order Comment: Speci men Type: URINE SPECIMEN [facility] Address: [address] [place] [address] Performed By: #### 2 4356-8 #### [facility] CLIA [id number] [address] RBC LM.HPF (Urine sed) [#/Area] 0-3 /HPF Normal 0-3 /HPF [facility] Comment on above: Order Comment: Speci men Type: URINE SPECIMEN [facility] Address: [address] [place] [address] Performed By: #### 2 4356-8 #### [facility] CLIA [id number] [address] Specific gravity (U) [Rel density] 1.004 Low 1.005-1.030 [facility] Comment on above: Order Comment: Speci men Type: URINE SPECIMEN [facility] Address: [address] [place] [address] Performed By: #### 2 4356-8 #### [facility] CLIA [id number] [address] Urobilinogen Ql (U) Normal Normal Negative [facility] Comment on above: Order Comment: Speci men Type: URINE SPECIMEN [facility] Address: [address] [place] [address] Performed By: #### 2 4356-8 #### [facility] CLIA [id number] [address] WBC LM.HPF (Urine sed) [#/Area] 0-5 /HPF Normal 0-5 /HPF [facility] Comment on above: Order Comment: Speci men Type: URINE SPECIMEN [facility] Address: [address] [place] [address] Performed By: #### 2 4356-8 #### [facility] CLIA [id number] [address] [place] [address] [place] [facility] Absolute lymphocyte countOrd ered By: Ale Bradford on 12-21-2022 Lymphocytes Auto (Unsp spec) [#/Vol] 2.68 10*3/uL 0.83-4.51 [facility] Basophil percentageOrdered B y: Ale Bradford on 12-21-2022 Basophil percentage 0 SEEN /hpf 0-5 [facility] Basophils/100 WBC (Bld) 0.5 % 0-1 [facility] Chloride [Moles/Vol] 104 mmol/L 98-107 [facility] Eosinophils/100 WBC (Bld) 1.4 % 0-5 [facility] Glucose [Mass/Vol] 177 mg/dL 74-106 [facility] Comment on above: Fasting Glucose resu lt greater than or equal to 126 mg/dL suggests DIABETES MELLITUS per A.D.A. criteria. Neutrophils (Bld) [#/Vol] 5.8 10*3/uL 2.0-7.7 [facility] Neutrophils/100 WBC (Bld) 62.7 % 47-70 [facility] Potassium [Moles/Vol] 3.9 mmol/L 3.5-5.1 [facility] Comment on above: Slight Hemolysis, Re sult may be falsely increased. Sodium [Moles/Vol] 135 mmol/L 136-145 [facility] WBC (Bld) [#/Vol] 9.3 10*3/uL 4.4-11.0 [facility] Bilirubin Test strip Ql (U)O rdered By: Ale Bradford on 12-21-2022 Bilirubin Ql (U) Negative Negative [facility] Blood erythrocytes count (nu mber/volume)Ordered By: Ale Bradford on 12-21-2022 RBC (Bld) [#/Vol] 4.82 10*6/uL 4.6-6.2 [facility] Blood hemoglobin measurement (mass/volume)Ordered By: Ale Bradford on 12-21-2022 Hemoglobin (Bld) [Mass/Vol] 15.6 g/dL 13.0-16.5 [facility] Blood lymphocytes/100 leukoc ytesOrdered By: Ale Bradford on 12-21-2022 Lymphocytes/100 WBC (Bld) 28.7 % 19-41 [facility] Blood monocytes/100 leukocyt esOrdered By: Ale Bradford on 12-21-2022 Monocytes/100 WBC (Bld) 6.6 % 0-10 [facility] Blood platelet mean volumeOr dered By: Ale Bradford on 12-21-2022 Platelet mean volume (Bld) [Entitic vol] 9.1 fL 6.2-12.0 [facility] Determination of erythrocyte mean corpuscular volume (MCV)Ordered By: Ael Bradford on 12-21-2022 MCV (RBC) [Entitic vol] 89.4 fL 80-94 [facility] Hematocrit Auto (Bld) [Volum e fraction]Ordered By: Ale Bradford on 12-21-2022 Hematocrit (Bld) [Volume fraction] 43.1 % 40-54 [facility] Ketones Test strip Ql (U)Ord ered By: Ale Bradford on 12-21-2022 Ketones Ql (U) Negative Negative [facility] Laboratory - Chemistry and C hemistry - challengeOrdered By: Ale Bradford on 12-21-2022 CO2 [Moles/Vol] 24.0 mmol/L 21.0-32.0 [facility] Urea nitrogen/Creatinine [Mass ratio] 18.4 mg/mg 10-20 [facility] Laboratory - Hematology and Cell countsOrdered By: Ale Bradford on 12-21-2022 Erythrocyte distribution width (RBC) [Entitic vol] 39.5 fL 35.1-43.9 [facility] Erythrocyte distribution width (RBC) [Ratio] 12.2 % 11.6-14.6 [facility] Immature granulocytes/100 WBC (Bld) 0.100 % 0.0-0.9 [facility] Comment on above: IG% - Immature Granu locytes (promyelocytes, myelocytes and metamyelocytes) > 1% indicates that a LEFT SHIFT is Present. MCH (RBC) [Entitic mass] 32.4 pg 27.0-32.0 [facility] Nucleated RBC/100 WBC (Bld) [Ratio] 0 % 0-5 [facility] MCHC Auto (RBC) [Mass/Vol]Or dered By: Ale Bradford on 12-21-2022 MCHC (RBC) [Mass/Vol] 36.2 g/dL 32-36 [facility] Mucus LM Ql (Urine sed)Order ed By: Ale Bradford on 12-21-2022 Mucus Ql (Urine sed) 0 SEEN /hpf [facility] Nitrite Test strip Ql (U)Ord ered By: Ale Bradford on 12-21-2022 Nitrite Ql (U) Negative Negative [facility] No Panel InformationOrdered By: Ale Bradford on 12-21-2022 Estimated Creatinine Clearance Calc 73.14 ml/min [facility] Estimated GFR (MDRD) Amer 98 mL/min >60 [facility] Comment on above: GFR Calc Estimated GFR (MDRD) Non-Af Amer 81 mL/min >60 [facility] Comment on above: Non- GFR Calc Platelets bldOrdered By: Adryan Bradford on 12-21-2022 Platelets (Bld) [#/Vol] 258 10*3/uL 150-450 [facility] Protein Test strip Ql (U)Ord ered By: Ale Bradford on 12-21-2022 Protein Ql (U) Negative Negative [facility] Serum or plasma calcium bella urement (mass/volume)Ordered By: Ale Bradford on 12-21-2022 Calcium [Mass/Vol] 8.7 mg/dL 8.5-10.1 [facility] Serum or plasma creatinine m easurement (mass/volume)Ordered By: Ale Bradford on 12-21-2022 Creatinine [Mass/Vol] 0.98 mg/dL 0.70-1.30 [facility] Comment on above: The validity of the calculated GFR & GFRAA in patients over 70 years has not been determined. Clinical correlation is essential. Serum or plasma urea nitroge n measurement (mass/volume)Ordered By: Ale Bradford on 12-21-2022 Urea nitrogen [Mass/Vol] 18 mg/dL 7-18 [facility] Squamous epithelial cells de tection in urine sediment by light microscopyOrdered By: Ale Bradford on 12-21-2022 Epithelial cells.squamous LM Ql (Urine sed) 0 SEEN /hpf 0-5 [facility] Thin prep Papanicolaou smear with manual screeningOrdered By: Ale Bradford on 12-21-2022 Thin prep Papanicolaou smear with manual screening 7 5-15 [facility] Urine blood detectionOrdered By: Ale Bradford on 12-21-2022 RBC Ql (U) Negative Negative [facility] RBC Ql (U) 0 SEEN /hpf 0-5 [facility] Urine clarityOrdered By: Adyran Bradford on 12-21-2022 Clarity (U) Clear Clear [facility] Urine color determinationOrd ered By: Ale Bradford on 12-21-2022 Color (U) Yellow Yellow [facility] Urine glucose detectionOrder ed By: Ale Bradford on 12-21-2022 Glucose Ql (U) Normal mg/dl Normal [facility] Urine leukocyte esterase det ection by dipstickOrdered By: Ale Bradford on 12-21-2022 Leukocyte esterase Test strip Ql (U) Negative Negative [facility] Urine pHOrdered By: Richa Bradford on 12-21-2022 pH (U) 6.0 [pH] 5.0 - 8.0 [facility] Urine sediment bacteria coun t by microscopy (number/high power field)Ordered By: Ale Bradford on 12-21-2022 Bacteria LM.HPF (Urine sed) [#/Area] 0 /[HPF] None Seen [facility] Urine specific gravity measu rementOrdered By: Ale Bradford on 12-21-2022 Specific gravity (U) [Rel density] 1.015 1.002-1.030 [facility] Urobilinogen Auto test strip Ql (U)Ordered By: Ale Bradford on 12-21-2022 Urobilinogen Ql (U) Normal mg/dl Normal [facility] No Panel InformationOrdered By: Abdirahman Gonzalez on 10-18-2022 Percent Free Prostate Specific Ag 0.90 ng/mL N/A [facility] Comment on above: Concha ECLIA methodol ogy. Prostate Specific Ag, Ultra-Sensitv 3.280 ng/mL 0.000-4.000 [facility] Comment on above: [employer]cha ECLIA methodol ogy.According to the [place] [employer], Serum PSAshould decrease and remain at undetectable levels afterradical prostatectomy. The AUA defines biochemicalrecurrence as an initial PSA value 0.200 ng/mL or greaterfollowed by a subsequent confirmatory PSA value 0.200 ng/mLor greater. Values obtained with different assay methods orkits cannot be used interchangeably. Results cannot beinterpreted as absolute evidence of the presence or absenceof malignant disease. Prostate Specific Antigen Total 3.78 ng/mL 0.0-4.0 [facility] Comment on above: This test was perfor med using the TPSA assay method for [employer] chemistry system. Values obtained with differentassay methods cannot be used interchangably.When changing PSA assays in the course of monitoring apatient, additional sequential testing should be carriedout to confirm baseline values. Serum or plasma free prostat e specific antigen/total prostate specific antigen ratioOrdered By: Abdirahman Gonzalez on 10-18-2022 Free PSA/Total PSA [Mass fraction] 27.4 % . [facility] Comment on above: The table below list s the probability of prostate cancer formen with non-suspicious TOMÁS results and total PSA between4 and 10 ng/mL, by patient age (Catalona et al, ANNMARIE 1998,279:1542). % Free PSA 50-64 yr 65-75 yr 0.00-10.00% 56% 55% 10.01-15.00% 24% 35% 15.01-20.00% 17% 23% 20.01-25.00% 10% 20% >25.00% 5% 9%Please note: Mihai et al did not make specific recommendations regarding the use of percent free PSA for any other population of men.Performed at: [employer] [facility] [id number] Director: Sharath Galaviz PhD, Phone: [phone] Absolute lymphocyte countOrd ered By: Dr. Grijalva on 08-14-2022 Lymphocytes Auto (Unsp spec) [#/Vol] 2.01 10*3/uL 0.83-4.51 [facility] Basophil percentageOrdered B y: Dr. Grijalva on 08-14-2022 Basophils/100 WBC (Bld) 0.9 % 0-1 [facility] Bilirubin [Mass/Vol] 0.40 mg/dL 0.20-1.00 [facility] Comment on above: For patients on eltr ombopag therapy, use of Dimension [place] TBIL is not recommended. Chloride [Moles/Vol] 107 mmol/L 98-107 [facility] Eosinophils/100 WBC (Bld) 2.6 % 0-5 [facility] Glucose [Mass/Vol] 183 mg/dL 74-106 [facility] Comment on above: Fasting Glucose resu lt greater than or equal to 126 mg/dL suggests DIABETES MELLITUS per A.D.A. criteria. Neutrophils (Bld) [#/Vol] 5.8 10*3/uL 2.0-7.7 [facility] Neutrophils/100 WBC (Bld) 66.7 % 47-70 [facility] Potassium [Moles/Vol] 4.4 mmol/L 3.5-5.1 [facility] Protein [Mass/Vol] 6.9 g/dL 6.4-8.2 [facility] Sodium [Moles/Vol] 138 mmol/L 136-145 [facility] WBC (Bld) [#/Vol] 8.7 10*3/uL 4.4-11.0 [facility] Blood erythrocytes count (nu mber/volume)Ordered By: Dr. Grijalva on 08-14-2022 RBC (Bld) [#/Vol] 4.82 10*6/uL 4.6-6.2 [facility] Blood hemoglobin measurement (mass/volume)Ordered By: Dr. Grijalva on 08-14-2022 Hemoglobin (Bld) [Mass/Vol] 15.3 g/dL 13.0-16.5 [facility] Blood lymphocytes/100 leukoc ytesOrdered By: Dr. Grijalva on 08-14-2022 Lymphocytes/100 WBC (Bld) 23.1 % 19-41 [facility] Blood monocytes/100 leukocyt esOrdered By: Dr. Grijalva on 08-14-2022 Monocytes/100 WBC (Bld) 6.4 % 0-10 [facility] Blood platelet mean volumeOr dered By: Dr. Grijalva on 08-14-2022 Platelet mean volume (Bld) [Entitic vol] 9.0 fL 6.2-12.0 [facility] Determination of erythrocyte mean corpuscular volume (MCV)Ordered By: Dr. Grijalva on 08-14-2022 MCV (RBC) [Entitic vol] 90.5 fL 80-94 [facility] Hematocrit Auto (Bld) [Volum e fraction]Ordered By: Dr. Grijalva on 08-14-2022 Hematocrit (Bld) [Volume fraction] 43.6 % 40-54 [facility] Laboratory - Chemistry and C hemistry - challengeOrdered By: Dr. Grijalva on 08-14-2022 ALP [Catalytic activity/Vol] 60 U/L 45-117 [facility] ALT [Catalytic activity/Vol] 40 U/L 16-61 [facility] CO2 [Moles/Vol] 22.0 mmol/L 21.0-32.0 [facility] Globulin (S) [Mass/Vol] 3.0 g/dL 2.2-4.2 [facility] Urea nitrogen/Creatinine [Mass ratio] 21.6 mg/mg 10-20 [facility] Laboratory - Hematology and Cell countsOrdered By: Dr. Grijalva on 08-14-2022 Erythrocyte distribution width (RBC) [Entitic vol] 40.0 fL 35.1-43.9 [facility] Erythrocyte distribution width (RBC) [Ratio] 12.5 % 11.6-14.6 [facility] Immature granulocytes/100 WBC (Bld) 0.300 % 0.0-0.9 [facility] Comment on above: IG% - Immature Granu locytes (promyelocytes, myelocytes and metamyelocytes) > 1% indicates that a LEFT SHIFT is Present. MCH (RBC) [Entitic mass] 31.7 pg 27.0-32.0 [facility] Nucleated RBC/100 WBC (Bld) [Ratio] 0 % 0-5 [facility] MCHC Auto (RBC) [Mass/Vol]Or dered By: Dr. Grijalva on 08-14-2022 MCHC (RBC) [Mass/Vol] 35.1 g/dL 32-36 [facility] No Panel InformationOrdered By: Dr. Grijalva on 08-14-2022 Estimated GFR (MDRD) Amer 94 mL/min >60 [facility] Comment on above: GFR Calc Estimated GFR (MDRD) Non-Af Amer 77 mL/min >60 [facility] Comment on above: Non- GFR Calc Prostate Specific Antigen Screen 3.92 ng/mL 0.00-4.00 [facility] Comment on above: This test was perfor med using the TPSA assay method for theWelltok chemistry system. Values obtained with differentassay methods cannot be used interchangably.When changing PSA assays in the course of monitoring apatient, additional sequential testing should be carriedout to confirm baseline values. Thyroid Stimulating Hormone (TSH) 1.20 uIU/mL 0.358-3.74 [facility] Vitamin D 25-Hydroxy 43.8 ng/mL [facility] Comment on above: Vitamin D 25(OH) Sta tus Range Deficiency <20 ng/mL (50nmol/L) Insufficiency 20 - 30 ng/mL (50 - 75 nmol/L) Sufficiency 30 - 100 ng/mL (75 - 250 nmol/L) Toxicity >100 ng/mL (>250 nmol/L) Platelets bldOrdered By: Dr. Grijalva on 08-14-2022 Platelets (Bld) [#/Vol] 291 10*3/uL 150-450 [facility] Serum or plasma albumin bella urement (mass/volume)Ordered By: Dr. Grijalva on 08-14-2022 Albumin [Mass/Vol] 3.9 g/dL 3.2-5.0 [facility] Serum or plasma albumin/glob ulin mass ratioOrdered By: Dr. Grijalva on 08-14-2022 Albumin/Globulin [Mass ratio] 1.3 {ratio} 0.9-2.4 [facility] Serum or plasma calcium bella urement (mass/volume)Ordered By: Dr. Grijalva on 08-14-2022 Calcium [Mass/Vol] 8.4 mg/dL 8.5-10.1 [facility] Serum or plasma creatinine m easurement (mass/volume)Ordered By: Dr. Grijalva on 08-14-2022 Creatinine [Mass/Vol] 1.02 mg/dL 0.70-1.30 [facility] Comment on above: The validity of the calculated GFR & GFRAA in patients over 70 years has not been determined. Clinical correlation is essential. Serum or plasma urea nitroge n measurement (mass/volume)Ordered By: Dr. Grijalva on 08-14-2022 Urea nitrogen [Mass/Vol] 22 mg/dL 7-18 [facility] Thin prep Papanicolaou smear with manual screeningOrdered By: Dr. Grijalva on 08-14-2022 Thin prep Papanicolaou smear with manual screening 25 U/L 15-37 [facility] Thin prep Papanicolaou smear with manual screening 9 5-15 [facility] Absolute lymphocyte countOrd ered By: Leandro Grijalva on 05-15-2022 Lymphocytes Auto (Unsp spec) [#/Vol] 2.35 10*3/uL 0.83-4.51 [facility] Basophil percentageOrdered B y: Leandro Grijalva on 05-15-2022 Basophils/100 WBC (Bld) 0.7 % 0-1 [facility] Bilirubin [Mass/Vol] 0.50 mg/dL 0.20-1.00 [facility] Comment on above: For patients on eltr ombopag therapy, use of Dimension [place] TBIL is not recommended. Chloride [Moles/Vol] 106 mmol/L 98-107 [facility] Eosinophils/100 WBC (Bld) 1.8 % 0-5 [facility] Glucose [Mass/Vol] 173 mg/dL 74-106 [facility] Comment on above: Fasting Glucose resu lt greater than or equal to 126 mg/dL suggests DIABETES MELLITUS per A.D.A. criteria. Neutrophils (Bld) [#/Vol] 5.9 10*3/uL 2.0-7.7 [facility] Neutrophils/100 WBC (Bld) 65.3 % 47-70 [facility] Potassium [Moles/Vol] 4.0 mmol/L 3.5-5.1 [facility] Comment on above: Slight Hemolysis, Re sult may be falsely increased. Protein [Mass/Vol] 7.5 g/dL 6.4-8.2 [facility] Sodium [Moles/Vol] 138 mmol/L 136-145 [facility] WBC (Bld) [#/Vol] 9.0 10*3/uL 4.4-11.0 [facility] Blood erythrocytes count (nu mber/volume)Ordered By: Leandro Grijalva on 05-15-2022 RBC (Bld) [#/Vol] 4.83 10*6/uL 4.6-6.2 [facility] Blood hemoglobin measurement (mass/volume)Ordered By: Leandro Grijalva on 05-15-2022 Hemoglobin (Bld) [Mass/Vol] 15.3 g/dL 13.0-16.5 [facility] Blood lymphocytes/100 leukoc ytesOrdered By: Leandro Grijalva on 05-15-2022 Lymphocytes/100 WBC (Bld) 26.0 % 19-41 [facility] Blood monocytes/100 leukocyt esOrdered By: Leandro Grijalva on 05-15-2022 Monocytes/100 WBC (Bld) 6.1 % 0-10 [facility] Blood platelet mean volumeOr dered By: Leandro Grijalva on 05-15-2022 Platelet mean volume (Bld) [Entitic vol] 9.7 fL 6.2-12.0 [facility] Determination of erythrocyte mean corpuscular volume (MCV)Ordered By: Leandro Grijalva on 05-15-2022 MCV (RBC) [Entitic vol] 90.1 fL 80-94 [facility] Hematocrit Auto (Bld) [Volum e fraction]Or[facility]: [facility] Hematocrit (Bld) [Volume fraction] 43.5 % 40-54 [facility] Laboratory - Chemistry and C hemistry - challengeOrdered By: Leandro Grijalva 05-15-2022 ALP [Catalytic activity/Vol] 73 U/L 45-117 [facility] ALT [Catalytic activity/Vol] 44 U/L 16-61 [facility] CO2 [Moles/Vol] 22.0 mmol/L 21.0-32.0 [facility] Globulin (S) [Mass/Vol] 3.4 g/dL 2.2-4.2 [facility] Urea nitrogen/Creatinine [Mass ratio] 19.1 mg/mg 10-20 [facility] Laboratory - Hematology and Cell countsOrdered By: Leandro Grijalva 05-15-2022 Erythrocyte distribution width (RBC) [Entitic vol] 41.3 fL 35.1-43.9 [facility] Erythrocyte distribution width (RBC) [Ratio] 13.5 % 11.6-14.6 [facility] Immature granulocytes/100 WBC (Bld) 0.100 % 0.0-0.9 [facility] Comment on above: IG% - Immature Granu locytes (promyelocytes, myelocytes and metamyelocytes) > 1% indicates that a LEFT SHIFT is Present. MCH (RBC) [Entitic mass] 31.7 pg 27.0-32.0 [facility] Nucleated RBC/100 WBC (Bld) [Ratio] 0 % 0-5 [facility] MCHC Auto (RBC) [Mass/Vol]Or dered By: Leandro Grijalva on 05-15-2022 MCHC (RBC) [Mass/Vol] 35.2 g/dL 32-36 [facility] No Panel InformationOrdered By: Leandro Grijalva on 05-15-2022 Estimated GFR (MDRD) Amer 86 mL/min >60 [facility] Comment on above: GFR Calc Estimated GFR (MDRD) Non-Af Amer 71 mL/min >60 [facility] Comment on above: Non- GFR Calc Thyroid Stimulating Hormone (TSH) 1.10 uIU/mL 0.358-3.74 [facility] Vitamin D 25-Hydroxy 30.0 ng/mL [facility] Comment on above: Vitamin D 25(OH) Sta tus Range Deficiency <20 ng/mL (50nmol/L) Insufficiency 20 - 30 ng/mL (50 - 75 nmol/L) Sufficiency 30 - 100 ng/mL (75 - 250 nmol/L) Toxicity >100 ng/mL (>250 nmol/L) Platelets bldOrdered By: Leandro Grijalva on 05-15-2022 Platelets (Bld) [#/Vol] 294 10*3/uL 150-450 [facility] Serum or plasma albumin bella urement (mass/volume)Ordered By: Leandro Grijalva on 05-15-2022 Albumin [Mass/Vol] 4.1 g/dL 3.2-5.0 [facility] Serum or plasma albumin/glob ulin mass ratioOrdered By: Leandro Grijalva 05-15-2022 Albumin/Globulin [Mass ratio] 1.2 {ratio} 0.9-2.4 [facility] Serum or plasma calcium bella urement (mass/volume)Ordered By: Leandro Grijalva on 05-15-2022 Calcium [Mass/Vol] 9.1 mg/dL 8.5-10.1 [facility] Serum or plasma creatinine m easurement (mass/volume)Ordered By: Leandro Grijalva on 05-15-2022 Creatinine [Mass/Vol] 1.10 mg/dL 0.70-1.30 [facility] Comment on above: The validity of the calculated GFR & GFRAA in patients over 70 years has not been determined. Clinical correlation is essential. Serum or plasma urea nitroge n measurement (mass/volume)Ordered By: Leandro Grijalva on 05-15-2022 Urea nitrogen [Mass/Vol] 21 mg/dL 7-18 [facility] Thin prep Papanicolaou smear with manual screeningOrdered By: Leandro Grijalva on 05-15-2022 Thin prep Papanicolaou smear with manual screening 27 U/L 15-37 [facility] Comment on above: Slight Hemolysis, Re sult may be falsely increased. Thin prep Papanicolaou smear with manual screening 10 5-15 [facility] Absolute lymphocyte countOrd ered By: Dr. Grijalva on 02-18-2022 Lymphocytes Auto (Unsp spec) [#/Vol] 1.83 10*3/uL 0.83-4.51 [facility] Basophil percentageOrdered B y: Dr. Grijalva on 02-18-2022 Basophils/100 WBC (Bld) 1.0 % 0-1 [facility] Bilirubin [Mass/Vol] 0.30 mg/dL 0.20-1.00 [facility] Comment on above: For patients on eltr ombopag therapy, use of Dimension [place] TBIL is not recommended. Chloride [Moles/Vol] 102 mmol/L 98-107 [facility] Eosinophils/100 WBC (Bld) 2.2 % 0-5 [facility] Glucose [Mass/Vol] 363 mg/dL 74-106 [facility] Comment on above: Glucose result great er than or equal to 200 mg/dLsuggests DIABETES MELLITUS per A.D.A. criteria. Neutrophils (Bld) [#/Vol] 5.8 10*3/uL 2.0-7.7 [facility] Neutrophils/100 WBC (Bld) 69.4 % 47-70 [facility] Potassium [Moles/Vol] 3.9 mmol/L 3.5-5.1 [facility] Protein [Mass/Vol] 7.1 g/dL 6.4-8.2 [facility] Sodium [Moles/Vol] 134 mmol/L 136-145 [facility] WBC (Bld) [#/Vol] 8.4 10*3/uL 4.4-11.0 [facility] Blood erythrocytes count (nu mber/volume)Ordered By: Dr. Grijalva on 02-18-2022 RBC (Bld) [#/Vol] 4.98 10*6/uL 4.6-6.2 [facility] Blood hemoglobin measurement (mass/volume)Ordered By: Dr. Grijalva on 02-18-2022 Hemoglobin (Bld) [Mass/Vol] 15.7 g/dL 13.0-16.5 [facility] Blood lymphocytes/100 leukoc ytesOrdered By: Dr. Grijalva on 02-18-2022 Lymphocytes/100 WBC (Bld) 21.9 % 19-41 [facility] Blood monocytes/100 leukocyt esOrdered By: Dr. Grijalva on 02-18-2022 Monocytes/100 WBC (Bld) 5.1 % 0-10 [facility] Blood platelet mean volumeOr dered By: Dr. Grijalva on 02-18-2022 Platelet mean volume (Bld) [Entitic vol] 9.6 fL 6.2-12.0 [facility] Determination of erythrocyte mean corpuscular volume (MCV)Ordered By: Dr. Grijalva on 02-18-2022 MCV (RBC) [Entitic vol] 90.8 fL 80-94 [facility] Hematocrit Auto (Bld) [Volum e fraction]Ordered By: Dr. Grijalva on 02-18-2022 Hematocrit (Bld) [Volume fraction] 45.2 % 40-54 [facility] Laboratory - Chemistry and C hemistry - challengeOrdered By: Dr. Grijalva on 02-18-2022 ALP [Catalytic activity/Vol] 70 U/L 45-117 [facility] ALT [Catalytic activity/Vol] 38 U/L 16-61 [facility] CO2 [Moles/Vol] 20.0 mmol/L 21.0-32.0 [facility] Globulin (S) [Mass/Vol] 3.5 g/dL 2.2-4.2 [facility] Urea nitrogen/Creatinine [Mass ratio] 18.5 mg/mg 10-20 [facility] Laboratory - Hematology and Cell countsOrdered By: Dr. Grijalva on 02-18-2022 Erythrocyte distribution width (RBC) [Entitic vol] 39.2 fL 35.1-43.9 [facility] Erythrocyte distribution width (RBC) [Ratio] 12.0 % 11.6-14.6 [facility] Immature granulocytes/100 WBC (Bld) 0.400 % 0.0-0.9 [facility] Comment on above: IG% - Immature Granu locytes (promyelocytes, myelocytes and metamyelocytes) > 1% indicates that a LEFT SHIFT is Present. MCH (RBC) [Entitic mass] 31.5 pg 27.0-32.0 [facility] Nucleated RBC/100 WBC (Bld) [Ratio] 0 % 0-5 [facility] MCHC Auto (RBC) [Mass/Vol]Or dered By: Dr. Grijalva on 02-18-2022 MCHC (RBC) [Mass/Vol] 34.7 g/dL 32-36 [facility] No Panel InformationOrdered By: Dr. Grijalva on 02-18-2022 Estimated GFR (MDRD) Amer 99 mL/min >60 [facility] Comment on above: GFR Calc Estimated GFR (MDRD) Non-Af Amer 82 mL/min >60 [facility] Comment on above: Non- GFR Calc Thyroid Stimulating Hormone (TSH) 1.54 uIU/mL 0.358-3.74 [facility] Vitamin D 25-Hydroxy 31.7 ng/mL [facility] Comment on above: Vitamin D 25(OH) Sta tus Range Deficiency <20 ng/mL (50nmol/L) Insufficiency 20 - 30 ng/mL (50 - 75 nmol/L) Sufficiency 30 - 100 ng/mL (75 - 250 nmol/L) Toxicity >100 ng/mL (>250 nmol/L) Platelets bldOrdered By: Dr. Grijalva on 02-18-2022 Platelets (Bld) [#/Vol] 245 10*3/uL 150-450 [facility] Serum or plasma albumin bella urement (mass/volume)Ordered By: Dr. Grijalva on 02-18-2022 Albumin [Mass/Vol] 3.6 g/dL 3.2-5.0 [facility] Serum or plasma albumin/glob ulin mass ratioOrdered By: Dr. Grijalva on 02-18-2022 Albumin/Globulin [Mass ratio] 1.0 {ratio} 0.9-2.4 [facility] Serum or plasma calcium bella urement (mass/volume)Ordered By: Dr. Grijalva on 02-18-2022 Calcium [Mass/Vol] 8.4 mg/dL 8.5-10.1 [facility] Serum or plasma creatinine m easurement (mass/volume)Ordered By: Dr. Grijalva on 02-18-2022 Creatinine [Mass/Vol] 0.98 mg/dL 0.70-1.30 [facility] Comment on above: The validity of the calculated GFR & GFRAA in patients over 70 years has not been determined. Clinical correlation is essential. Serum or plasma urea nitroge n measurement (mass/volume)Ordered By: Dr. Grijalva on 02-18-2022 Urea nitrogen [Mass/Vol] 18 mg/dL 7-18 [facility] Thin prep Papanicolaou smear with manual screeningOrdered By: Dr. Grijalva on 02-18-2022 Thin prep Papanicolaou smear with manual screening 17 U/L 15-37 [facility] Thin prep Papanicolaou smear with manual screening 12 5-15 [facility] Laboratory - Microbiology an d Antimicrobial susceptibilityOrdered By: Dr. Grijalva on 01-30-2022 SARS-CoV-2 (COVID-19) RNA MEGHAN+probe Ql (Unsp spec) Not detected Not Detect [facility] Comment on above: Normal Reference Ran ge: Not DetectedMethod:(RT-PCR) real-time reverse transcriptase PCRLuminex BETTY Instrument*The Food and Drug Administration (FDA) has issued an Emergency Use Authorization (EAU) for the BETTY SARS-CoV-2 Assay for the rapid detection of the virus that causes COVID-19. This test has been validated, but the FDAs independent review of this validation is pending.*Negative results do not preclude infection and should not be used as the sole basis for treatment or patient management. Optimum specimen types and timing for peak viral levels during infections caused by SARS-CoV-2 have not been determined. Collection of multiple specimens from the same patient may be necessary to detect the virus. The possibility of a false negative result should be considered if the patient has clinical presentation or has had recent exposure. No Panel InformationOrdered By: Dr. Grijalva on 01-30-2022 Influenza Types A,B Direct FA (SKYE) [facility] RSV Ag EIAOrdered By: Dr. Phong adan on 01-30-2022 RSV Ag Immune stain Ql (Tiss) [facility] Absolute lymphocyte counton 11-12-2021 Lymphocytes Auto (Unsp spec) [#/Vol] 2.56 10*3/uL 0.83-4.51 [facility] Work Phone: [phone] Basophil percentageon 2021 Basophils/100 WBC (Bld) 0.8 % 0-1 [facility] Work Phone: [phone] Bilirubin [Mass/Vol] 0.40 mg/dL 0.20-1.00 [facility] Work Phone: Comment on above: For patients on eltr ombopag therapy, use of Dimension [place] TBIL is not recommended. Chloride [Moles/Vol] 105 mmol/L 98-107 [facility] Work Phone: [phone] Eosinophils/100 WBC (Bld) 1.6 % 0-5 [facility] Work Phone: [phone] Glucose [Mass/Vol] 254 mg/dL 74-106 [facility] Work Phone: [phone] Comment on above: Glucose result great er than or equal to 200 mg/dLsuggests DIABETES MELLITUS per A.D.A. criteria. Neutrophils (Bld) [#/Vol] 5.5 10*3/uL 2.0-7.7 [facility] Work Phone: [phone] Neutrophils/100 WBC (Bld) 61.7 % 47-70 [facility] Work Phone: Potassium [Moles/Vol] 4.0 mmol/L 3.5-5.1 [facility]: Protein [Mass/Vol] 6.7 g/dL 6.4-8.2 [facility] Work Phone: Sodium [Moles/Vol] 136 mmol/L 136-145 [facility] Work Phone: WBC (Bld) [#/Vol] 8.8 10*3/uL 4.4-11.0 [facility] Work Phone: Blood erythrocytes count (nu mber/volume)on 11-12-2021 RBC (Bld) [#/Vol] 4.33 10*6/uL 4.6-6.2 [facility] Work [facility]: Blood hemoglobin measurement (mass/volume)on 11-12-2021 Hemoglobin (Bld) [Mass/Vol] 14.1 g/dL 13.0-16.5 [facility] Work Phone: Blood lymphocytes/100 leukoc yteson 11-12-2021 Lymphocytes/100 WBC (Bld) 29.0 % 19-41 [facility] Work Phone: Blood monocytes/100 leukocyt eson 11-12-2021 Monocytes/100 WBC (Bld) 6.6 % 0-10 [facility] Work Phone: Blood platelet mean volumeon 11-12-2021 Platelet mean volume (Bld) [Entitic vol] 9.1 fL 6.2-12.0 [facility] Work Phone: Determination of erythrocyte mean corpuscular volume (MCV)on 11-12-2021 MCV (RBC) [Entitic vol] 90.1 fL 80-94 [facility] Work Phone: Hematocrit Auto (Bld) [Volum e fraction]on 11-12-2021 Hematocrit (Bld) [Volume fraction] 39.0 % 40-54 [facility] Work Phone: Laboratory - Chemistry and C hemistry - challengeon 11-12-2021 ALP [Catalytic activity/Vol] 59 U/L 45-117 [facility] Work Phone: ALT [Catalytic activity/Vol] 46 U/L 16-61 [facility] Work Phone: CO2 [Moles/Vol] 24.0 mmol/L 21.0-32.0 [facility] Work Phone: [phone] Globulin (S) [Mass/Vol] 3.0 g/dL 2.2-4.2 [facility] Work Phone: [phone] Urea nitrogen/Creatinine [Mass ratio] 22.0 mg/mg 10-20 [facility] Work Phone: [phone] Laboratory - Hematology and Cell countson 11-12-2021 Erythrocyte distribution width (RBC) [Entitic vol] 43.0 fL 35.1-43.9 [facility] Work Phone: [phone] Erythrocyte distribution width (RBC) [Ratio] 13.3 % 11.6-14.6 [facility] Work Phone: [phone] Immature granulocytes/100 WBC (Bld) 0.300 % 0.0-0.9 [facility] Work Phone: Comment on above: IG% - Immature Granu locytes (promyelocytes, myelocytes and metamyelocytes) > 1% indicates that a LEFT SHIFT is Present. MCH (RBC) [Entitic mass] 32.6 pg 27.0-32.0 [facility] Work Phone: [phone] Nucleated RBC/100 WBC (Bld) [Ratio] 0 % 0-5 [facility] Work Phone: [phone] MCHC Auto (RBC) [Mass/Vol]on 11-12-2021 MCHC (RBC) [Mass/Vol] 36.2 g/dL 32-36 [facility] Work Phone: [phone] No Panel Informationon 11-12 Estimated GFR (MDRD) Amer 96 mL/min >60 [facility] Work Phone: Comment on above: GFR Calc Estimated GFR (MDRD) Non-Af Amer 79 mL/min >60 [facility] Work Phone: Comment on above: Non- GFR Calc Thyroid Stimulating Hormone (TSH) 1.28 uIU/mL 0.358-3.74 [facility] Work Phone: Vitamin D 25-Hydroxy 34.0 ng/mL [facility] Work Phone: Comment on above: Vitamin D 25(OH) Sta tus Range Deficiency <20 ng/mL (50nmol/L) Insufficiency 20 - 30 ng/mL (50 - 75 nmol/L) Sufficiency 30 - 100 ng/mL (75 - 250 nmol/L) Toxicity >100 ng/mL (>250 nmol/L) Platelets bldon 11-12-2021 Platelets (Bld) [#/Vol] 254 10*3/uL 150-450 [facility] Work Phone: Serum or plasma albumin bella urement (mass/volume)on 11-12-2021 Albumin [Mass/Vol] 3.7 g/dL 3.2-5.0 [facility] Work Phone: Serum or plasma albumin/glob ulin mass ratioon 11-12-2021 Albumin/Globulin [Mass ratio] 1.2 {ratio} 0.9-2.4 [facility] Work Phone: Serum or plasma calcium bella urement (mass/volume)on 11-12-2021 Calcium [Mass/Vol] 8.5 mg/dL 8.5-10.1 [facility] Work Phone: Serum or plasma creatinine m easurement (mass/volume)on 11-12-2021 Creatinine [Mass/Vol] 1.00 mg/dL 0.70-1.30 [facility] Work Phone: Comment on above: The validity of the calculated GFR & GFRAA in patients over 70 years has not been determined. Clinical correlation is essential. Serum or plasma urea nitroge n measurement (mass/volume)on 11-12-2021 Urea nitrogen [Mass/Vol] 22 mg/dL 7-18 [facility] Work Phone: Thin prep Papanicolaou smear with manual screeningon 11-12-2021 Thin prep Papanicolaou smear with manual screening 20 U/L 15-37 [facility] Work Phone: Thin prep Papanicolaou smear with manual screening 7 5-15 [facility] Work Phone: [phone] Absolute lymphocyte counton 07-27-2021 Lymphocytes Auto (Unsp spec) [#/Vol] 2.38 10*3/uL 0.83-4.51 [facility] Work Phone: [phone] Basophil percentageon 2021 Basophils/100 WBC (Bld) 0.9 % 0-1 [facility] Work Phone: [phone] Bilirubin [Mass/Vol] 0.30 mg/dL 0.20-1.00 [facility] Work Phone: [phone] Comment on above: For patients on eltr ombopag therapy, use of Dimension [place] TBIL is not recommended. Chloride [Moles/Vol] 105 mmol/L 98-107 [facility] Work Phone: [phone] Eosinophils/100 WBC (Bld) 2.3 % 0-5 [facility] Work Phone: [phone] Glucose [Mass/Vol] 118 mg/dL 74-106 [facility] Work Phone: [phone] Comment on above: Fasting Glucose resu lt from 100 to 125 mg/dL suggests IMPAIRED HOMEOSTASIS per A.D.A. criteria. Neutrophils (Bld) [#/Vol] 4.8 10*3/uL 2.0-7.7 [facility] Work Phone: [phone] Neutrophils/100 WBC (Bld) 59.3 % 47-70 [facility] Work Phone: [phone] Potassium [Moles/Vol] 4.2 mmol/L 3.5-5.1 [facility] Work Phone: [phone] Protein [Mass/Vol] 7.3 g/dL 6.4-8.2 [facility] Work Phone: [phone] Sodium [Moles/Vol] 137 mmol/L 136-145 [facility] Work Phone: WBC (Bld) [#/Vol] 8.1 10*3/uL 4.4-11.0 [facility] Work Phone: Blood erythrocytes count (nu mber/volume)on 07-27-2021 RBC (Bld) [#/Vol] 4.94 10*6/uL 4.6-6.2 [facility] Work Phone: Blood hemoglobin measurement (mass/volume)on 07-27-2021 Hemoglobin (Bld) [Mass/Vol] 15.8 g/dL 13.0-16.5 [facility] [facility] Work Phone: Blood lymphocytes/100 leukoc yteson 07-27-2021 Lymphocytes/100 WBC (Bld) 29.3 % 19-41 [facility] Work Phone: Blood monocytes/100 leukocyt eson 07-27-2021 Monocytes/100 WBC (Bld) 8.0 % 0-10 [facility] Work Phone: Blood platelet mean volumeon 07-27-2021 Platelet mean volume (Bld) [Entitic vol] 9.4 fL 6.2-12.0 [facility] Work Phone: [phone] Determination of erythrocyte mean corpuscular volume (MCV)on 07-27-2021 MCV (RBC) [Entitic vol] 89.1 fL 80-94 [facility] Work Phone: Hematocrit Auto (Bld) [Volum e fraction]on 07-27-2021 Hematocrit (Bld) [Volume fraction] 44.0 % 40-54 [facility] Work Phone: [phone] Laboratory - Chemistry and C hemistry - challengeon 07-27-2021 ALP [Catalytic activity/Vol] 62 U/L 45-117 [facility] Work Phone: ALT [Catalytic activity/Vol] 40 U/L 16-61 [facility] Work Phone: [phone] CO2 [Moles/Vol] 25.0 mmol/L 21.0-32.0 [facility] Work Phone: Globulin (S) [Mass/Vol] 3.4 g/dL 2.2-4.2 [facility] Work Phone: Urea nitrogen/Creatinine [Mass ratio] 23.1 mg/mg 10-20 [facility] Work Phone: Laboratory - Hematology and Cell countson 07-27-2021 Erythrocyte distribution width (RBC) [Entitic vol] 39.7 fL 35.1-43.9 [facility] Work Phone: Erythrocyte distribution width (RBC) [Ratio] 12.7 % 11.6-14.6 [facility] Work Phone: Immature granulocytes/100 WBC (Bld) 0.200 % 0.0-0.9 [facility] Work Phone: Comment on above: IG% - Immature Granu locytes (promyelocytes, myelocytes and metamyelocytes) > 1% indicates that a LEFT SHIFT is Present. MCH (RBC) [Entitic mass] 32.0 pg 27.0-32.0 [facility] Work Phone: Nucleated RBC/100 WBC (Bld) [Ratio] 0 % 0-5 [facility] Work Phone: MCHC Auto (RBC) [Mass/Vol]on 07-27-2021 MCHC (RBC) [Mass/Vol] 35.9 g/dL 32-36 [facility] Work Phone: No Panel Informationon 07-27 Estimated GFR (MDRD) Amer 102 mL/min >60 [facility] Work Phone: Comment on above: GFR Calc Estimated GFR (MDRD) Non-Af Amer 84 mL/min >60 [facility] Work Phone: Comment on above: Non- GFR Calc Prostate Specific Antigen Screen 4.36 ng/mL 0.00-4.00 [facility] Work Phone: Comment on above: This test was perfor med using the TPSA assay method for [employer] chemistry system. Values obtained with differentassay methods cannot be used interchangably.When changing PSA assays in the course of monitoring apatient, additional sequential testing should be carriedout to confirm baseline values. Thyroid Stimulating Hormone (TSH) 1.72 uIU/mL 0.358-3.74 [facility] Work Phone: Vitamin D 25-Hydroxy 37.1 ng/mL [facility] Work Phone: Comment on above: Vitamin D 25(OH) Sta tus Range Deficiency <20 ng/mL (50nmol/L) Insufficiency 20 - 30 ng/mL (50 - 75 nmol/L) Sufficiency 30 - 100 ng/mL (75 - 250 nmol/L) Toxicity >100 ng/mL (>250 nmol/L) Platelets bldon 07-27-2021 Platelets (Bld) [#/Vol] 288 10*3/uL 150-450 [facility] Work Phone: Serum or plasma albumin bella urement (mass/volume)on 07-27-2021 Albumin [Mass/Vol] 3.9 g/dL 3.2-5.0 [facility] Work Phone: Serum or plasma albumin/glob ulin mass ratioon 07-27-2021 Albumin/Globulin [Mass ratio] 1.1 {ratio} 0.9-2.4 [facility] Work Phone: Serum or plasma calcium bella urement (mass/volume)on 07-27-2021 Calcium [Mass/Vol] 8.9 mg/dL 8.5-10.1 [facility] Work Phone: Serum or plasma creatinine m easurement (mass/volume)on 07-27-2021 Creatinine [Mass/Vol] 0.95 mg/dL 0.70-1.30 [facility] Work Phone: Comment on above: The validity of the calculated GFR & GFRAA in patients over 70 years has not been determined. Clinical correlation is essential. Serum or plasma urea nitroge n measurement (mass/volume)on 07-27-2021 Urea nitrogen [Mass/Vol] 22 mg/dL 7-18 [facility] Work Phone: Thin prep Papanicolaou smear with manual screeningon 07-27-2021 Thin prep Papanicolaou smear with manual screening 20 U/L 15-37 [facility] Work Phone: Thin prep Papanicolaou smear with manual screening 7 5-15 [facility] Work Phone: [phone] Absolute lymphocyte counton 04-25-2021 Lymphocytes Auto (Unsp spec) [#/Vol] 2.03 10*3/uL 0.83-4.51 [facility] Work Phone: Basophil percentageon 2021 Basophils/100 WBC (Bld) 1.1 % 0-1 [facility] Work Phone: [phone] Bilirubin [Mass/Vol] 0.40 mg/dL 0.20-1.00 [facility] Work Phone: [phone] Comment on above: For patients on eltr ombopag therapy, use of Dimension [place] TBIL is not recommended. Chloride [Moles/Vol] 103 mmol/L 98-107 [facility] Work Phone: Eosinophils/100 WBC (Bld) 2.3 % 0-5 [facility] Work Phone: Glucose [Mass/Vol] 143 mg/dL 74-106 [facility] Work Phone: [phone] Comment on above: Fasting Glucose resu lt greater than or equal to 126 mg/dL suggests DIABETES MELLITUS per A.D.A. criteria. Neutrophils (Bld) [#/Vol] 6.6 10*3/uL 2.0-7.7 [facility] Work Phone: Neutrophils/100 WBC (Bld) 68.2 % 47-70 [facility] Work Phone: Potassium [Moles/Vol] 4.0 mmol/L 3.5-5.1 [facility] Work Phone: [phone] Protein [Mass/Vol] 7.5 g/dL 6.4-8.2 [facility] Work Phone: Sodium [Moles/Vol] 136 mmol/L 136-145 [facility] Work Phone: WBC (Bld) [#/Vol] 9.7 10*3/uL 4.4-11.0 [facility] Work Phone: Blood erythrocytes count (nu mber/volume)on 04-25-2021 RBC (Bld) [#/Vol] 4.89 10*6/uL 4.6-6.2 [facility] Work Phone: Blood hemoglobin measurement (mass/volume)on 04-25-2021 Hemoglobin (Bld) [Mass/Vol] 15.3 g/dL 13.0-16.5 [facility] Work Phone: Blood lymphocytes/100 leukoc yteson 04-25-2021 Lymphocytes/100 WBC (Bld) 20.8 % 19-41 [facility] Work Phone: Blood monocytes/100 leukocyt eson 04-25-2021 Monocytes/100 WBC (Bld) 7.4 % 0-10 [facility] Work Phone: Blood platelet mean volumeon 04-25-2021 Platelet mean volume (Bld) [Entitic vol] 9.3 fL 6.2-12.0 [facility] Work Phone: [phone] Determination of erythrocyte mean corpuscular volume (MCV)on 04-25-2021 MCV (RBC) [Entitic vol] 89.4 fL 80-94 [facility] Work Phone: Hematocrit Auto (Bld) [Volum e fraction]on 04-25-2021 Hematocrit (Bld) [Volume fraction] 43.7 % 40-54 [facility] Work Phone: [phone] Laboratory - Chemistry and C hemistry - challengeon 04-25-2021 ALP [Catalytic activity/Vol] 83 U/L 45-117 [facility] Work Phone: ALT [Catalytic activity/Vol] 43 U/L 16-61 [facility] Work Phone: CO2 [Moles/Vol] 25.0 mmol/L 21.0-32.0 [facility] Work Phone: Globulin (S) [Mass/Vol] 3.8 g/dL 2.2-4.2 [facility] Work Phone: Urea nitrogen/Creatinine [Mass ratio] 19.8 mg/mg 10-20 [facility] Work Phone: Laboratory - Hematology and Cell countson 04-25-2021 Erythrocyte distribution width (RBC) [Entitic vol] 40.6 fL 35.1-43.9 [facility] Work Phone: Erythrocyte distribution width (RBC) [Ratio] 12.6 % 11.6-14.6 [facility] Work Phone: Immature granulocytes/100 WBC (Bld) 0.200 % 0.0-0.9 [facility] Work Phone: Comment on above: IG% - Immature Granu locytes (promyelocytes, myelocytes and metamyelocytes) > 1% indicates that a LEFT SHIFT is Present. MCH (RBC) [Entitic mass] 31.3 pg 27.0-32.0 [facility] Work Phone: Nucleated RBC/100 WBC (Bld) [Ratio] 0 % 0-5 [facility] Work Phone: MCHC Auto (RBC) [Mass/Vol]on 04-25-2021 MCHC (RBC) [Mass/Vol] 35.0 g/dL 32-36 [facility] Work Phone: No Panel Informationon 04-25 Estimated GFR (MDRD) Amer 90 mL/min >60 [facility] Work Phone: Comment on above: GFR Calc Estimated GFR (MDRD) Non-Af Amer 74 mL/min >60 [facility] Work Phone: Comment on above: Non- GFR Calc Thyroid Stimulating Hormone (TSH) 1.54 uIU/mL 0.358-3.74 [facility] Work Phone: Platelets bldon 04-25-2021 Platelets (Bld) [#/Vol] 275 10*3/uL 150-450 [facility] Work Phone: Serum or plasma albumin bella urement (mass/volume)on 04-25-2021 Albumin [Mass/Vol] 3.7 g/dL 3.2-5.0 [facility] Work Phone: Serum or plasma albumin/glob ulin mass ratioon 04-25-2021 Albumin/Globulin [Mass ratio] 1.0 {ratio} 0.9-2.4 [facility] Work Phone: Serum or plasma calcium bella urement (mass/volume)on 04-25-2021 Calcium [Mass/Vol] 8.8 mg/dL 8.5-10.1 [facility] Work Phone: Serum or plasma creatinine m easurement (mass/volume)on 04-25-2021 Creatinine [Mass/Vol] 1.06 mg/dL 0.70-1.30 [facility] Work Phone: Comment on above: The validity of the calculated GFR & GFRAA in patients over 70 years has not been determined. Clinical correlation is essential. Serum or plasma urea nitroge n measurement (mass/volume)on 04-25-2021 Urea nitrogen [Mass/Vol] 21 mg/dL 7-18 [facility] Work Phone: Thin prep Papanicolaou smear with manual screeningon 04-25-2021 Thin prep Papanicolaou smear with manual screening 21 U/L 15-37 [facility] Work Phone: Thin prep Papanicolaou smear with manual screening 8 5-15 [facility] Work Phone: Laboratory - Microbiology an d Antimicrobial susceptibilityon 04-06-2021 SARS-CoV-2 (COVID-19) RNA MEGHAN+probe Ql (Unsp spec) Not detected Not Detect [facility] Work Phone: Comment on above: Normal Reference Ran ge: Not DetectedMethod:(RT-PCR) real-time reverse transcriptase PCRLuminex BETTY Instrument*The Food and Drug Administration (FDA) has issued an Emergency Use Authorization (EAU) for the BETTY SARS-CoV-2 Assay for the rapid detection of the virus that causes COVID-19. This test has been validated, but the FDAs independent review of this validation is pending.*Negative results do not preclude infection and should not be used as the sole basis for treatment or patient management. Optimum specimen types and timing for peak viral levels during infections caused by SARS-CoV-2 have not been determined. Collection of multiple specimens from the same patient may be necessary to detect the virus. The possibility of a false negative result should be considered if the patient has clinical presentation or has had recent exposure. No Panel Informationon 04-06 Influenza Types A,B Direct FA ([facility]) [facility] Work Phone: No Panel Information Influenza Types A,B Direct FA ([facility]) [facility] Work Phone: Vital Signs Date Time Vital Sign Value Performing Clinician Faci lity 12-21-2022 23:25-0400 Diastolic blood pressure 85 mm[Hg] Dr. Leandro Grijalva Work Phone: [facility] 12-21-2022 23:25-0400 Heart rate 86 /min Dr. Leandro Grijalva Work Phone: [facility] 12-21-2022 23:25-0400 Respiratory rate 18 /min Dr. Leandro Grijalva Work Phone: [facility] 12-21-2022 23:25-0400 SaO2% (BldA) [Mass fraction] 99 % Dr. Leandro Grijalva Work Phone: [facility] 12-21-2022 23:25-0400 Systolic blood pressure 138 mm[Hg] Dr. Leandro Grijalva Work Phone: [facility] 12-21-2022 19:28-0400 Body height 175.[address] Leandro Grijalva Work Phone: [facility] 12-21-2022 19:28-0400 Body mass index (BMI) [Ratio] 29.8 kg/m2 Dr. Leandro Grijalva Work Phone: [facility] 12-21-2022 19:28-0400 Body temperature 98.1 [degF] Dr. Leandro Grijalva Work Phone: [facility] 12-21-2022 19:28-0400 Body weight 91.[address] Leandro Grijalva Work Phone: [facility] Encounters Encounter Date Encounter Type Care Provider Facility Start: 11-03-2024 End: 11-03-2024 ambulatory Leandro Chi Rudi Facility:[facility] Start: 10-12-2024 End: 10-12-2024 ambulatory Leandro Chi Rudi Facility:[facility] Start: 09-22-2024 End: 09-22-2024 ambulatory Leandro Chi Ruid Facility:[facility] Start: 09-13-2024 End: 09-13-2024 ambulatory Leandro Chi Rudi Facility:[facility] Start: 08-19-2024 End: 08-19-2024 ambulatory Leandro Chi Rudi Facility:[facility] Start: 08-17-2024 End: 08-17-2024 ambulatory Leandro Chi Rudi Facility:[facility] Start: 07-20-2024 End: 07-20-2024 ambulatory Leandro Chi Rudi Facility:[facility] Start: 07-06-2024 End: 07-06-2024 ambulatory Leandro Chi Rudi Facility:[facility] Start: 06-21-2024 End: 06-21-2024 ambulatory Leandro Chi Rudi Facility:[facility] Start: 05-19-2024 End: 05-19-2024 ambulatory Leandro Chi Rudi Facility:[facility] Start: 04-20-2024 End: 04-20-2024 ambulatory Leandro Chi Rudi Facility:[facility] Start: 03-09-2024 End: 03-09-2024 ambulatory Leandro Chi Rudi Facility:[facility] Start: 02-16-2024 End: 02-16-2024 ambulatory Leandro Chi Rudi Facility:[facility] Start: 02-10-2024 End: 02-10-2024 ambulatory Leandro Chi Rudi Facility:[facility] Start: 02-10-2024 End: 02-10-2024 ambulatory Leandro Chi Rudi Facility:[facility] Start: 01-26-2024 End: 01-26-2024 ambulatory Leandro Chi Rudi Facility:[facility] Start: 01-23-2024 End: 01-23-2024 ambulatory Leandro Chi Rudi Facility:[facility] Start: 01-12-2024 End: 01-12-2024 ambulatory Leandro Chi Rudi Facility:[facility] Start: 12-16-2023 End: 12-16-2023 ambulatory Leandro Chi Rudi Facility:[facility] Start: 11-18-2023 End: 11-18-2023 ambulatory Leandro Chi Rudi Facility:[facility] Start: 01-17-2023 Emergency department patient visit Facility:[facility] Start: 12-21-2022 End: 12-21-2022 Emergency department patient visit Dr. Leandro Grijalva Work Phone: [facility]Emergency Department Work Phone: Start: 12-05-2022 End: 12-05-[address] [facility] Work [facility]: Start: 11-04-2022 End: 11-04-[address] [facility]al[facility] Work [facility]: Start: 10-18-2022 End: 10-18-[address] Leandro Grijalva Work Phone: [facility]-Laboratory Work Phone: Start: 10-10-2022 End: 10-10-[address] Le[facility]rijal[facility] Work [facility]: Start: 09-12-2022 End: 09-12-[address] Leandro Grijalva Work Phone: [facility] Work Phone: Start: 08-15-2022 End: 08-15-[address] Leandro Grijalva Work Phone: [facility] Start: 08-14-2022 End: 08-14-[address] Leandro Grijalva Work Phone: [facility] Work Phone: Start: 08-14-2022 End: 08-14-[address] Leandro Grijalva Work Phone: [facility] 3rd Flr Start: 07-18-2022 End: 07-18-[address] Leandro Grijalva Work Phone: [facility] Start: 06-20-2022 End: 06-20-[address] Leandro Grijalva Work Phone: [facility] Start: 05-23-2022 End: 05-23-[address] Leandro Grijalva Work Phone: [facility] Start: 05-15-2022 End: 05-15-[address] Leandro Grijalva Work Phone: [facility] Work Phone: Start: 05-15-2022 End: 05-15-[address] Leandro Grijalva Work Phone: [facility] 3rd Flr Start: 04-25-2022 End: 04-25-[address] Leandro Grijalva Work Phone: [facility] Start: 03-28-2022 End: 03-28-[address] Leandro Grijalva Work Phone: [facility] Start: 02-21-2022 End: 02-21-[address] Leandro Grijalva Work Phone: [facility] Start: 02-18-2022 End: 02-18-[address] Leandro Grijalva Work Phone: [facility]-Laboratory, Phy Office 3rd Flr Start: 01-30-2022 End: 01-30-[address] Leandro Grijalva Work Phone: [facility] Work Phone: Start: 01-30-2022 End: 01-30-[address] Leandro Grijalva Work Phone: [facility]-Pulmonary Services/Neurology Start: 01-24-2022 End: 01-24-[address] Leandro Grijalva Work Phone: [facility] Start: 01-18-[address] [facility] Start: 12-20-2021 End: 12-20-[address] Leandro Grijalva Work Phone: [facility] Start: 11-15-2021 End: 11-15-[address] Leandro Grijalva Work Phone: [facility] Start: 11-12-2021 End: 11-12-[address] Leandro Grijalva Work Phone: [facility] Work Phone: Start: 11-12-2021 End: 11-12-[address] Leandro Grijalva Work Phone: [facility] Start: 11-08-2021 End: 11-08-[address] Leandro Grijalva Work Phone: [facility] Start: 11-06-2021 End: 11-06-[address] Leandro Grijalva Work Phone: [facility] Start: 11-01-2021 End: 11-01-[address] Leandro Grijalva Work Phone: [facility] Start: 10-30-2021 End: 10-30-[address] Leandro Grijalva Work Phone: [facility] Start: 10-25-2021 End: 10-25-[address] Leandro Grijalva Work Phone: [facility] Start: 10-23-2021 End: 10-23-[address] Leandro Grijalva Work Phone: [facility] Start: 10-18-2021 End: 10-18-[address] Leandro Grijalva Work Phone: [facility] Start: 10-18-2021 End: 10-18-[address] Leandro Grijalva Work Phone: [facility] Start: 10-16-2021 End: 10-16-[address] Leandro Grijalva Work Phone: [facility] Start: 10-11-2021 End: 10-11-[address] Leandro Grijalva Work Phone: [facility] Start: 10-09-2021 End: 10-09-[address] Leandro Grijalva Work Phone: [facility] Start: 10-04-2021 End: 10-04-[address] Leandro Grijalva Work Phone: [facility] Start: 10-01-2021 Non-patient / Non-visit Dr. Felix Grijalva Work Phone: [facility] Start: 10-01-2021 End: 10-01-[address] Leandro Grijalva Work Phone: [facility] Start: 09-06-2021 End: 09-06-[address] Leandro Grijalva Work Phone: [facility] Start: 08-09-2021 End: 08-09-[address] Leandro Grijalva Work Phone: [facility] Start: 07-27-2021 End: 07-27-[address] Leandro Grijalva Work Phone: [facility], y Office 3rd Flr Start: 07-12-2021 End: 07-12-[address] Leandro Grijalva Work Phone: [facility] Start: 06-07-2021 End: 06-07-[address] Leandro Grijalva Work Phone: [facility] Start: 05-10-2021 End: 05-10-[address] Leandro Grijalva Work Phone: [facility] Start: 04-25-2021 End: 04-25-[address] Leandro Grijalva Work Phone: [facility] 3rd Flr Start: 04-12-2021 End: 04-12-[address] Leandro Grijalva Work Phone: [facility] Start: 04-06-2021 End: 04-06-[address] Leandro Grijalva Work Phone: [facility]-Pulmonary Services/Neurology Procedures Date Procedure Procedure Detail Performing Clinician Start: 12-21-2022 Plain chest X-ray Dr. Syeda Grijalva Work Phone: Start: 12-21-2022 CT of head without contrast Dr. Leandro Grijalva Work Phone: Start: 10-18-2021 MRI of lumbar spine Dr. Leandro Grijalva Work Phone: Start: 10-01-2021 X-ray of lumbosacral spine Dr. Leandro Grijalva Work Phone: Start: 04-06-2021 Influenza Types A,B Direct FA ([facility]) Dr. Leandro Grijalva Work Phone: Start: 04-06-2021 End: 04-06-2021 Respiratory syncytial virus antigen assay Dr. Leandro Grijalva Work Phone: Influenza Types A,B Direct FA ([facility]) Dr. Leandro Grijalva Work Phone: Influenza Types A,B Direct FA ([facility]) Dr. Leandro Grijalva Work Phone: Respiratory syncytia l virus antigen assay Dr. Leandro Grijalva Work Phone: Respiratory syncytia l virus antigen assay Dr. Leandro Grijalva Work Phone: Plan of Treatment Date Care Activity Detail Author Chiropractic manipulation [facility] Work Phone: Patient Education Understanding Delusional Disorders [facility] Work Phone: Patient referral [facility] Work Phone: Immunizations Immunization Date Immunization Notes Care Provider Fa [facility] 03-25-2019 tetanus toxoid, redu lex diphtheria toxoid, and acellular pertussis vaccine, adsorbed Dr. Leandro Grijalva Work Phone: [facility] Payers Date Payer Category Payer Self-pay [id number] 2023 Private Health Insurance [id number] 2005 Unknown [id number] Medicare MEDICARE A ONLY [id number] Private Health Insurance [id number] Unknown [id number] 2.16.840.1.784576.3.579.2.462 Unknown [id number] 2.16.840.1.771109.3.579.2.462 Unknown [id number] 2.16.840.1.621324.3.579.2.462 Unknown [id number] 2.16840.1.887432.3.579.2.462 Unknown [id number] 2.840.1.914452.3.579.2.462 Unknown [id number] 2.840.1.423838.3.579.2.462 Unknown [id number] 2.840.1.871863.3.579.2.462 Unknown [id number] 2.840.1.827722.3.579.2.462 Unknown [id number] 2.840.1.376635.3.579.2.462 Unknown [id number] 2.840.1.563440.3.579.2.462 Unknown [id number] 2.840.1.910959.3.579.2.462 Unknown [id number] 2.840.1.817254.3.579.2.462 Unknown [id number] 2.840.1.529543.3.579.2.462 Unknown [id number] .840.1.040000.3.579.2.462 Unknown [id number] 2.840.1.010632.3.579.2.462 Unknown [id number] .840.1.283804.3.579.2.462 Unknown [id number] 2.840.1.387176.3.579.2.462 Unknown [id number] 2.840.1.804582.3.579.2.462 Unknown [id number] 2.840.1.175987.3.579.2.462 Unknown [id number] 2.16.840.1.589212.3.579.2.462 Unknown [id number] 2.16.840.1.683340.3.579.2.462 Unknown [id number] 2.16.840.1.217496.3.579.2.462 Unknown [id number] 2.16.840.1.616593.3.579.2.462 Unknown [id number] 2..840.1.674457.3.579.2.462 Social History Date Type Detail Facility Start: 07-12-2021 End: 12-21-2022 Tobacco smoking status NHIS Unknown if ever smoked [facility] Start: 09-01-2019 Non-smoker [facility] Start: 1955 Sex Assigned At Male W [facility] Medical Equipment Procedure Code Equipment Code Equipment Origin al Text Equipment Identifier Dates Appendectomy, laparoscopic 45mm Standard Reload FDA Start: 08-03-2019 Appendectomy, laparoscopic 45mm Standard Reload FDA Start: 08-03-2019 Appendectomy, laparoscopic 45mm Standard Reload FDA Start: 08-03-2019 Appendectomy, laparoscopic 45mm Standard Reload FDA Start: 08-03-2019 Appendectomy, laparoscopic 45mm Standard Reload FDA Start: 08-03-2019 Appendectomy, laparoscopic 45mm Standard Reload FDA Start: 08-03-2019 Appendectomy, laparoscopic 45mm Standard Reload FDA Start: 08-03-2019 Goals Date Patient Goal Desired Activity /State Mental Status Date Assessment Result Facility 12-21-2022 Cognitive function Level Of Consciousness Drowsy [facility] Work Phone: Clinical Notes 01-19-2023 to 02-03-2023 Note Date & Type Note Facility 02-03-2023 Note HNO ID: [id number] Author: Lottie Vargas RPh Service: Pharmacy Author Type: Pharmacist Type: Plan of Care Filed: 02/03/2023 12:03 PM Note Text: DISCHARGE MEDICATION REVIEW BY PHARMACY Patient Name: Wild Conklin Account #: Data Unavailable Admission Date: 01/17/2023 Date of Contact: February 03, 2023 Time of Contact: 12:00 PM Medication list was reviewed by a Pharmacist for drug interactions or drug related problems:Yes Below is a summary of pharmacist recommendations discussed with LIP: No Recommendations at this time from Discharge Medication List. Note that patient could switch back to Janumet XR (instead of metformin and sitagliptin separately) in the outpatient setting to reduce pill burden. Lottie Vargas [facility] February 03, 2023 12:00 PM Medication List START taking these medications brimonidine 0.2 % ophthalmic solution Commonly known as: ALPHAGAN Use 1 Drop in the right eye two times a day. Replaces: ALPHAGAN P 0.1 % Drop * LORazepam 1 mg tablet Commonly known as: ATIVAN Take 1 tablet by mouth daily at bedtime. * LORazepam 0.5 mg Commonly known as: ATIVAN Take 1 tablet by mouth once daily for 30 days. Do not start before February 04, 2023. Start taking on: February 04, 2023 melatonin 3 mg tablet Take 1 tablet by mouth daily at bedtime. metFORMIN ER 500 mg 24 hr tablet Commonly known as: GLUCOPHAGE XR Take 2 tablets by mouth daily with breakfast. Start taking on: February 04, 2023 risperiDONE 0.25 mg tablet Commonly known as: RisperDAL Take 3 tablets by mouth daily at bedtime. sitaGLIPtin phosphate 100 mg tablet Commonly known as: JANUVIA Take 1 tablet by mouth once daily. Start taking on: February 04, 2023 * This list has 2 medication(s) that are the same as other medications prescribed for you. Read the directions carefully, and ask your doctor or other care provider to review them with you. CHANGE how you take these medications citalopram 20 mg tablet Commonly known as: CeleXA Take 1 tablet by mouth daily at bedtime. What changed: when to take this STOP taking these medications ALPHAGAN P 0.1 % Drop Generic drug: brimonidine Replaced by: brimonidine 0.2 % ophthalmic solution glimepiride 4 mg tablet Commonly known as: AMARYL JANUMET XR 50-1,000 mg Tm24 Generic drug: SITagliptin-metFORMIN Mirtazapine 7.5 mg tablet Commonly known as: Remeron Where to Get Your Medications These medications were sent to [facility] [address] [place] [address] Hours: Friday-Friday, 8am-7pm, Friday 9am-1pm brimonidine 0.2 % ophthalmic solution citalopram 20 mg tablet melatonin 3 mg tablet metFORMIN ER 500 mg 24 hr tablet risperiDONE 0.25 mg tablet sitaGLIPtin phosphate 100 mg tablet You can get these medications from any pharmacy Bring a paper prescription for each of these medications LORazepam 0.5 mg LORazepam 1 mg tablet [facility] 02-03-2023 Note HNO ID: [id number] Author: Lottie Vargas RPh Service: Pharmacy Author Type: Pharmacist Type: Plan of Care Filed: 02/03/2023 9:15 AM Note Text: PHARMACY MEDICATION REVIEW Patient Name: Wild Conklin : 1955 The following medications were updated within the [facility] medication list: Medications CHANGED on [facility] medication list Sitagliptin-metformin ER 50-1000 mcg tablet; Take 2 tablets daily LF 11/09/22 (#180/90d) Patient reports only taking 1 tablet daily Medications REMOVED from [facility] medication list Fish oil capsule (from 2010) Vitamin B complex (from 2010) Zinc (from 2010) Additional comments: N/A The below information represents the best possible medication history: Yes Medication history completed by: Pharmacist: Lottie Vargas RPh Source of history: Patient: Reliability of source: Appears reliable, clearly identified: Medication name and Medication dose (based on conversation with RN), Pharmacy records: [facility], and [facility] records Medication nonadherence identified: Unable to assess Reconciliation completed: Yes Completed by: KIANNA All [facility] medications addressed by KIANNA Patient interested in Bedside Delivery Services or using OP Pharmacy at discharge? Unable to assess Preferred outpatient pharmacy: [facility]- [id number] [place] [address] - [phone] [facility] - [phone] [facility] [id number] Allergies: Sulfa (Sulfonamide * Hives Prior to Admission Medications Prescriptions Last Dose Informant Patient Reported? Taking? Mirtazapine (REMERON) 7.5 mg tablet Yes Yes Sig: Take 7.5 mg by mouth daily at bedtime. Taking 1/2 tablet per patient 01/18/2023 SITagliptin-metFORMIN (JANUMET XR) 50-1,000 mg TM24 Yes Yes Sig: Take 1 tablet by mouth once daily. Taking 1 tablet per patient 01/18/2023 brimonidine (ALPHAGAN P) 0.1 % drop Yes Yes Sig: Use 1 Drop in the right eye two times a day. citalopram (CELEXA) 20 mg tablet Yes Yes Sig: Take 20 mg by mouth once daily. glimepiride (AMARYL) 4 mg tablet Not Taking Yes No Sig: Take 4 mg by mouth two times a day with meals. Not taking per patient 01/18/2023 Patient not taking: Reported on 02/03/2023 Facility-Administered Medications: None Lottie Vargas [facility] 02/03/2023 [facility] 02-02-2023 Note HNO ID: [id number] Author: Ernesto Gatica APRN.RELIGIOUS HEALER Service: Psychiatry Author Type: Nurse Practitioner Type: Progress Notes Filed: 02/02/2023 12:20 PM Note Text: -- Summary: Progress Note, Psychiatry, 02/02/2023 -- PROGRESS NOTE BEHAVIORAL HEALTH SERVICE DATE: 02/02/2023 SERVICE TIME: 20 minutes with client, 30 minutes total including chart review and collaboration with nursing staff The Interdisciplinary team met and reviewed treatment goals and discharge planning. 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 Chart and nursing database reviewed. Per nursing staff: Today, Mr. Conklin reported feeling less tired/drowsy. Last night, nursing noted that he reported mild depression and anxiety. No behavioral issues in the past 24 hours. Today, Mr. Conklin was assessed by this field underwriter in a conference room. He was observed out on the unit watching TV alongside peers this morning. He appears much less tired/drowsy and doesn't yawn excessively during our interaction. He reports showering this morning. He reports mild to moderate depression and anxiety but feels they are tolerable/manageable. He denies any SI, passive wishes for , HI, violent thoughts, and hallucinations in the past 24 hours. He does endorse some mild paranoia that he is being watched. He reports sleeping well with some nocturia but otherwise no insomnia or bad dreams. When he did wake up to urinate, he was not dizzy and was able to fall back asleep easily. His appetite is improving. He denies any physical concerns today and feels his medications are working well. He asks about his discharge plan and says he may feel ready this coming week. I encouraged him to discuss it with his team tomorrow so he can get a general idea for his discharge. Objective PHYSICAL EXAM: BP 132/81 Pulse 81 Temp 36.7 ?C (98.1 ?F) (Temporal) Resp 18 Ht 175.3 cm (5' 9) Wt 83.8 kg (184 lb 11.2 oz) SpO2 99% BMI 27.28 kg/m? MENTAL STATUS EXAMINATION: Appearance: In hospital attire. Fair hygiene and grooming. Behavior: Cooperative, Pleasant, More awake today Orientation: Person, Place, Time and Situation Speech/Language: Underproductive, slightly improved spontaneity, otherwise WNL Mood/Affect: Anxious and Depressed; Affect is constricted. Thought Form: Coherent Thought Content: Coherent Delusions: Paranoid Hallucinations: None Suicidal Ideations: No suicidal ideation, intent or plan. Homicidal Ideations: No homicidal ideation, intent or plan. Insight: Recognizes presence of illness Judgment: Limited, Improving Memory/Cognition: Intact Psychomotor: Psychomotor activity was normal NEW PROBLEMS ON UNIT SINCE LAST ENCOUNTER: None Current Facility-Administered Medications Medication Dose Route Frequency acetaminophen 650 mg tab(s) (TYLENOL) 650 mg ORAL q 6 H PRN aluminum-magnesium hydroxide-simethicone 200-200-20 mg/5 mL 30 mL 30 mL ORAL q 4 H PRN magnesium hydroxide 400 mg/5 mL 30 mL (MOM) 30 mL ORAL DAILY PRN brimonidine 0.2 % 1 Drop (ALPHAGAN) 1 Drop RIGHT EYE BID melatonin 3 mg tab(s) 3 mg ORAL DAILY (8 PM) LORazepam 0.25 mg tab(s) (ATIVAN) 0.25 mg ORAL q 6 H PRN OLANZapine 2.5 mg tab(s) (ZYPREXA) 2.5 mg ORAL q 8 H PRN Or OLANZapine 2.5 mg injection (ZYPREXA) 2.5 mg INTRAMUSCULAR q 8 H PRN sitaGLIPtin phosphate 100 mg tab(s) (JANUVIA) 100 mg ORAL DAILY And metFORMIN ER 1,000 mg tab(s) (GLUCOPHAGE XR) 1,000 mg ORAL DAILY WITH BREAKFAST citalopram 20 mg tab(s) (CeleXA) 20 mg ORAL AT BEDTIME risperiDONE (RisperDAL) tab(s) 0.75 mg 0.75 mg ORAL AT BEDTIME LORazepam 1 mg tab(s) (ATIVAN) 1 mg ORAL AT BEDTIME LORazepam 0.5 mg tab(s) (ATIVAN) 0.5 mg ORAL DAILY DATA: Diagnostic tests reviewed for today's visit: Most recent labs Component Latest Ref Rng AND Units 02/01/2023 02/02/2023 02/02/2023 6:55 AM 10:51 AM Glucose, Point of Care 74 - 99 mg/dL 182 (A) 172 (A) 217 (A) Assessment/Plan DIAGNOSIS: PRIMARY: Major depressive disorder, single episode, severe with psychotic features Catatonia R/O Neurocognitive disorder RISK ASSESSMENT: Suicide: low (inpatient); low to moderate (outpatient) Homicide: low Deliberate Self-Harm: low Aggression: low Imminent Physical Self Impairment: low (inpatient); low to moderate (outpatient) INFORMED CONSENT: Yes, completed with the Patient. Discussed the risks, benefits and alternatives to the medication(s) recommended. Consent was given. INTERVENTION: Biological: Continue current medication regimen without changes. Continue psychiatric admission on 6099 with Level 2 precautions. Continued admission as patient requires more time to adjust (more content not included)... [facility] 02-01-2023 Note HNO ID: [id number] Author: Ernesto Gatica APRN.RELIGIOUS HEALER Service: Psychiatry Author Type: Nurse Practitioner Type: Progress Notes Filed: 02/01/2023 2:01 PM Note Text: -- Summary: Progress Note, Psychiatry, 02/01/2023 -- PROGRESS NOTE BEHAVIORAL HEALTH SERVICE DATE: 02/01/2023 SERVICE TIME: 20 minutes with client, 35 minutes total including chart review and collaboration with nursing staff The Interdisciplinary team met and reviewed treatment goals and discharge planning. 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 Chart and nursing database reviewed. Per nursing staff: Today, Mr. Conklin reported depression and anxiety 07/01. He reported to nursing that he felt too drowsy/sedated. Last night, nursing noted he was mostly withdrawn to his room. No behavioral issues in the past 24 hours. Today, Mr. Conklin was assessed by this field underwriter in a conference room. He had been laying in bed napping but was agreeable to talk. He does yawn excessively during our interaction. He reports his mood is pretty good but says he feels excessively tired/sedated. He feels like his medications are too strong. He denies any initial or middle insomnia last night. He did experience some nocturia but was able to fall back asleep. He notes worsening dizziness when he did get up last night. He denies any nightmares or bad dreams last night. He reports mild depression and moderate anxiety today. He denies any SI, passive wishes for , HI, violent thoughts, and hallucinations in the past day. He reports mild paranoia that others are watching him. His appetite has been pretty good. He reports dry skin and feels like the skin on his feet is cracking and more dry than normal. Encouraged to maintain adequate hydration and use lotion to help with moisture level on his skin. He feels this is related to his medications as well. I reinforced that the air in the hospital isn't the same as it may be out in the community and his skin is likely adjusting to several different factors that are contributing to his dry skin. He denies any other physical concerns. He reports that he would like to reduce both his Ativan and Risperdal. I did inform him that as these medications were recently changed his body will adjust to them more the longer he is taking them. Objective PHYSICAL EXAM: BP 132/81 Pulse 81 Temp 36.7 ?C (98.1 ?F) (Temporal) Resp 18 Ht 175.3 cm (5' 9) Wt 83.8 kg (184 lb 11.2 oz) SpO2 99% BMI 27.28 kg/m? MENTAL STATUS EXAMINATION: Appearance: Casually dressed and Disheveled Behavior: Cooperative, Pleasant Orientation: Person, Place, Time and Situation Speech/Language: Underproductive, minimal spontaneity, otherwise WNL Mood/Affect: Anxious, Depressed, and Withdrawn; Affect is constricted. Thought Form: Coherent Thought Content: Coherent Delusions: Paranoid Hallucinations: None Suicidal Ideations: No suicidal ideation, intent or plan. Homicidal Ideations: No homicidal ideation, intent or plan. Insight: Recognizes presence of illness Judgment: Limited Memory/Cognition: Intact Psychomotor: Psychomotor activity was normal NEW PROBLEMS ON UNIT SINCE LAST ENCOUNTER: None Current Facility-Administered Medications Medication Dose Route Frequency acetaminophen 650 mg tab(s) (TYLENOL) 650 mg ORAL q 6 H PRN aluminum-magnesium hydroxide-simethicone 200-200-20 mg/5 mL 30 mL 30 mL ORAL q 4 H PRN magnesium hydroxide 400 mg/5 mL 30 mL (MOM) 30 mL ORAL DAILY PRN brimonidine 0.2 % 1 Drop (ALPHAGAN) 1 Drop RIGHT EYE BID melatonin 3 mg tab(s) 3 mg ORAL DAILY (8 PM) LORazepam 0.25 mg tab(s) (ATIVAN) 0.25 mg ORAL q 6 H PRN OLANZapine 2.5 mg tab(s) (ZYPREXA) 2.5 mg ORAL q 8 H PRN Or OLANZapine 2.5 mg injection (ZYPREXA) 2.5 mg INTRAMUSCULAR q 8 H PRN sitaGLIPtin phosphate 100 mg tab(s) (JANUVIA) 100 mg ORAL DAILY And metFORMIN ER 1,000 mg tab(s) (GLUCOPHAGE XR) 1,000 mg ORAL DAILY WITH BREAKFAST citalopram 20 mg tab(s) (CeleXA) 20 mg ORAL AT BEDTIME LORazepam 1 mg tab(s) (ATIVAN) 1 mg ORAL BID risperiDONE 1 mg tab(s) (RisperDAL) 1 mg ORAL AT BEDTIME DATA: Diagnostic tests reviewed for today's visit: Most recent labs Component Latest Ref Rng AND Units 01/24/2023 01/24/2023 01/25/2023 01/25/2023 01/26/2023 01/27/2023 01/28/2023 02/01/2023 7:14 AM 10:26 AM 7:32 AM 8:40 PM Hemoglobin A1C 4.3 - 5.6 % Estimated Average Glucose mg/dL Glucose, Point of Care 74 - 99 mg/dL 194 (A) 244 (A) 183 (A) 180 (A) 192 (A) 193 (A) 196 (A) 182 (A) Assessment/Plan DIAGNOSIS: PRIMARY: Major depressive disorder, single episode, severe with psychotic features Catatonia R/O Neurocognitive disorde (more content not included)... [facility] 01-31-2023 Note HNO ID: [id number] Author: Spenser Orellana APRN.RELIGIOUS HEALER Service: Psychiatry Author Type: Nurse Practitioner Type: Progress Notes Filed: 01/31/2023 11:06 AM Note Text: PROGRESS NOTE BEHAVIORAL HEALTH SERVICE DATE: 01/31/2023 SERVICE TIME: 1015 The Interdisciplinary team met and reviewed treatment goals and discharge planning. Subjective INTERVAL HISTORY of last 24 hours: Today's chief complaint (in patient's own words): I think I need more protein in my meals Today, Wild Conklin is found sitting in the day room watching TV. He readily engages in conversation and recalls this provider's name. He is oriented and can verbalize why he is in the hospital. Pt states he feels groggy and that it is taking him about an hour to get his day started, once he gets going then he is fine. Pt states he wakes up feeling down and depressed, - this gets better as the day goes on - currently depression is 6/10. Pt also c/o a sense of being watched or like something is going to happen - pt states he cannot shake it - it is looming over his right shoulder. Pt denies seeing anything or hearing anything - but states it is more of a feeling that he can't shake. He states it is mildly bothersome - more a distraction. 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 Pt speech is soft but coherent and mildly underproduction as he takes time to think about what he is going to say next. Patient reports mood is stable and improving. Wild Conklin denies suicidal ideations, thoughts of non-suicidal self-harm, homicidal ideations, paranoia, auditory hallucinations, and visual hallucinations. Sleep as reported by nursing flowsheet: Sleep (Number of Hours): 10.5 (01/31/23 0600) Difficulties with sleep: pt states he got to sleep late - but slept well after that.. Anormal appetite/eating: None reported. Concerns for side effects with medications: None reported. Any additional physical complaints: None reported. (Objective portions of note included here for ease of comparison to patient's subjective report) Per chart review and staff report of last 24 hours: Compliant with medication: Yes. Emergency treatment order or PRN agitation medication past 24 hours: No. Seclusion/restraints required: No. Attending therapy groups: No. Agitated behavior : Observed during rounds No. Reported by staff No. Objective VITALS: Body mass index is 27.28 kg/m?. BP 114/81 Pulse 71 Temp 36.2 ?C (97.2 ?F) (Temporal) Resp 16 Ht 175.3 cm (5' 9) Wt 83.8 kg (184 lb 11.2 oz) SpO2 97% BMI 27.28 kg/m? MENTAL STATUS/PHYSICAL EXAMINATION: Mental Status Exam General/Sensorium: Alert AND interactive Orientation: AAOx3 Appearance: Appears stated age and casually dressed Eye contact: Appropriate Demeanor: Appropriately interactive Motor activity: Normal Speech: Underproductive / minimal spontaneity Mood: Depressed- 6/10 Affect: Euthymic and constricted Thought process: Within normal limits Associations: Normal Thought content: Discussing stressors and paranoid ideation Suicidal ideation: SI: no Plan: no Intent: no Homicidal ideation: HI: no Plan: no Intent: no Abnormal/psychotic thoughts: Present- paranoia - sense that something is about to happen, looming feeling hovering behind him Perceptions: He does not appear internally stimulated and denies hallucinations. Intelligence: Average Attention: Intact Memory: Short-term: Intact Language: Intact Fund of knowledge: Fair Insight: Fair Judgment: Fair Gait: Steady Station: Sitting GENERAL: Alert, no distress, cooperative. NEUROLOGIC: deferred MUSCULOSKELETAL: Normal muscle strength and No involuntary movements. GAIT: Pt walks w limp - d/t left foot is numb - per pt d/t DM CURRENT/INPATIENT MEDICATIONS: Current Facility-Administered Medications Medication Dose Route Frequency acetaminophen 650 mg tab(s) (TYLENOL) 650 mg ORAL q 6 H PRN aluminum-magnesium hydroxide-simethicone 200-200-20 mg/5 mL 30 mL 30 mL ORAL q 4 H PRN magnesium hydroxide 400 mg/5 mL 30 mL (MOM) 30 mL ORAL DAILY PRN brimonidine 0.2 % 1 Drop (ALPHAGAN) 1 Drop RIGHT EYE BID melatonin 3 mg tab(s) 3 mg ORAL DAILY (8 PM) LORazepam 0.25 mg tab(s) (ATIVAN) 0.25 mg ORAL q 6 H PRN OLANZapine 2.5 mg tab(s) (ZYPREXA) 2.5 mg ORAL q 8 H PRN Or OLANZapine 2.5 mg injection (ZYPREXA) 2.5 mg INTRAMUSCULAR q 8 H PRN sitaGLIPtin phosphate 100 mg tab(s) (JANUVIA) 100 mg ORAL DAILY And metFORMIN ER 1,000 mg tab(s) (GLUCOPHAGE XR) 1,000 mg ORAL DAILY WITH BREAKFAST citalopram 20 mg tab(s) (CeleXA) 20 mg ORAL AT BEDTIME OLANZapine 2.5 mg tab(s) (ZYPREXA) 2.5 mg ORAL AT BEDTIME LORazepam 1 mg tab(s) (ATIVAN) 1 mg ORAL BID DATA: Diagnostic tests reviewed for today's visit: Most recent labs, imaging and EKG HEAD IMAGING (if indicated): Not indicated. LAB RESULTS: Lab Results Component Value Date/Time (more content not included)... [facility] 01-30-2023 Note HNO ID: [id number] Author: Spenser Orellana APRN.ONDINA Service: Psychiatry Author Type: Nurse Practitioner Type: Progress Notes Filed: 01/30/2023 1:17 PM Note Text: PROGRESS NOTE BEHAVIORAL HEALTH SERVICE DATE: 01/30/2023 SERVICE TIME: 1015 The Interdisciplinary team met and reviewed treatment goals and discharge planning. Subjective INTERVAL HISTORY of last 24 hours: Today's chief complaint (in patient's own words): I am feeling so much better today Today, Wild Conklin is found resting in bed - he readily agrees to walk to the day room for this assessment. Pt states he slept well again last night and he is glad to be able to hold conversation - her reports eating is getting better. He does report morning grogginess - in spite of not taking Trazodone last night. Discussed w pt trialing a decrease in ativan - PT agreeable. Pt denies dizziness and difficulty walking - his left foot has been numb for years - this causes him to be unstable at times - pt reports his walking is at baseline. Patient reports mood is stable and improving. Wild Conklin denies suicidal ideations, thoughts of non-suicidal self-harm, homicidal ideations, paranoia, auditory hallucinations, and visual hallucinations. Sleep as reported by nursing flowsheet: Sleep (Number of Hours): 8 (01/30/23 0600) Difficulties with sleep: pt states he got to sleep late - but slept well after that.. Anormal appetite/eating: None reported. Concerns for side effects with medications: None reported. Any additional physical complaints: None reported. (Objective portions of note included here for ease of comparison to patient's subjective report) Per chart review and staff report of last 24 hours: Compliant with medication: Yes. Emergency treatment order or PRN agitation medication past 24 hours: No. Seclusion/restraints required: No. Attending therapy groups: No. Agitated behavior : Observed during rounds No. Reported by staff No. Objective VITALS: Body mass index is 27.28 kg/m?. BP 143/86 Pulse 92 Temp 36.3 ?C (97.3 ?F) (Temporal) Resp 19 Ht 175.3 cm (5' 9) Wt 83.8 kg (184 lb 11.2 oz) SpO2 98% BMI 27.28 kg/m? MENTAL STATUS/PHYSICAL EXAMINATION: Mental Status Exam General/Sensorium: Alert AND interactive Orientation: AAOx3 Appearance: Appears stated age and casually dressed Eye contact: Appropriate Demeanor: Appropriately interactive Motor activity: Normal Speech: Articulate with appropriate rhythm and volume Affect: Euthymic Thought process: Within normal limits Associations: Normal Thought content: Appropriate and discussing stressors Suicidal ideation: SI: no Plan: no Intent: no Homicidal ideation: HI: no Plan: no Intent: no Abnormal/psychotic thoughts: Absent Perceptions: He does not appear internally stimulated and denies hallucinations. Intelligence: Average Attention: Intact Memory: Short-term: Intact Language: Intact Fund of knowledge: Fair Insight: Fair Judgment: Fair Gait: Steady Station: Sitting GENERAL: Alert, no distress, cooperative. NEUROLOGIC: deferred MUSCULOSKELETAL: Normal muscle strength and No involuntary movements. GAIT: Pt walks w limp - d/t left foot is numb - per pt d/t DM CURRENT/INPATIENT MEDICATIONS: Current Facility-Administered Medications Medication Dose Route Frequency acetaminophen 650 mg tab(s) (TYLENOL) 650 mg ORAL q 6 H PRN aluminum-magnesium hydroxide-simethicone 200-200-20 mg/5 mL 30 mL 30 mL ORAL q 4 H PRN magnesium hydroxide 400 mg/5 mL 30 mL (MOM) 30 mL ORAL DAILY PRN brimonidine 0.2 % 1 Drop (ALPHAGAN) 1 Drop RIGHT EYE BID melatonin 3 mg tab(s) 3 mg ORAL DAILY (8 PM) LORazepam 0.25 mg tab(s) (ATIVAN) 0.25 mg ORAL q 6 H PRN OLANZapine 2.5 mg tab(s) (ZYPREXA) 2.5 mg ORAL q 8 H PRN Or OLANZapine 2.5 mg injection (ZYPREXA) 2.5 mg INTRAMUSCULAR q 8 H PRN sitaGLIPtin phosphate 100 mg tab(s) (JANUVIA) 100 mg ORAL DAILY And metFORMIN ER 1,000 mg tab(s) (GLUCOPHAGE XR) 1,000 mg ORAL DAILY WITH BREAKFAST citalopram 20 mg tab(s) (CeleXA) 20 mg ORAL AT BEDTIME LORazepam 1 mg tab(s) (ATIVAN) 1 mg ORAL TID hydrocortisone 2.5 % oint TOPICAL BID OLANZapine 2.5 mg tab(s) (ZYPREXA) 2.5 mg ORAL AT BEDTIME DATA: Diagnostic tests reviewed for today's visit: Most recent labs, imaging and EKG HEAD IMAGING (if indicated): Not indicated. LAB RESULTS: Lab Results Component Value Date/Time WBC 8.90 01/17/2023 07:22 PM RBC 5.17 01/17/2023 07:22 PM HCT 44.5 01/17/2023 07:22 PM MCV 86.1 01/17/2023 07:22 PM MCH 29.8 01/17/2023 07:22 PM MCHC 34.6 01/17/2023 07:22 PM RDWCV 12.2 01/17/2023 07:22 PM PLT 292 01/17/2023 07:22 PM NEUTP 64.7 01/17/2023 07:22 PM LYMPHP 25.5 01/17/2023 07:22 PM MONOP 7.2 01/17/2023 07:22 PM BASOP 0.9 01/17/2023 07:22 PM ABSNEUT 5.76 01/17/2023 07:22 PM ABSMONO 0.64 01/17/2023 07:22 PM ABSEOSIN 0.13 01/17/2023 07:22 PM ABSBASO 0.08 01/17/2023 07:22 PM GLUC 2 (more content not included)... [facility] 01-29-2023 Note HNO ID: [id number] Author: Markus Sam MD Service: Psychiatry Author Type: Physician Type: Progress Notes Filed: 01/29/2023 2:35 PM Note Text: Attending Note I have personally performed a face to face assessment of the patient and have reviewed the FLEET DISPATCH MANAGER's note. I performed a substantive portion of the visit including all aspects of the following. My hamilton findings include: History is as edited Exam is as edited Medical Decision Making as edited Other additions or changes: As edited We discussed his history in detail and r/b/a/c of ECT. At this time he feels that the Ativan is helpful and would like to hold off on ECT treatments. He c/o unsteady gait this morning which he believes is due to the Trazodone. We discussed that this is more likely due to Ativan and he prefers to dc the trazodone. Signature: Markus Sam MD Date: 01/29/2023 Time: 2:30 PM PROGRESS NOTE BEHAVIORAL HEALTH SERVICE DATE: 01/29/2023 SERVICE TIME: 0900 The Interdisciplinary team met and reviewed treatment goals and discharge planning. Subjective INTERVAL HISTORY of last 24 hours: Today's chief complaint (in patient's own words): I am doing good, I am sleepy but still doing good Today, Wild Conklin is found resting in bed, he reports that he got too much sleep medication and that he is still very tired - he did get up for breakfast and was able to eat. Pt reports that his thoughts are still clear and that he is feeling more like himself. Pt asked about ECT - discussed briefly Ativan vs ECt for catatonia - pt will speak w Dr. Sam later today regarding both treatment options. Pt asks if this interview can be postponed to another time d/t feeling tired. Patient reports mood is stable and improving. Wild Conklin denies suicidal ideations, thoughts of non-suicidal self-harm, homicidal ideations, paranoia, auditory hallucinations, and visual hallucinations. Sleep as reported by nursing flowsheet: Sleep (Number of Hours): 9 (01/29/23 0631) Difficulties with sleep: None reported.. Anormal appetite/eating: None reported. Concerns for side effects with medications: None reported. Any additional physical complaints: None reported. (Objective portions of note included here for ease of comparison to patient's subjective report) Per chart review and staff report of last 24 hours: Compliant with medication: Yes. Emergency treatment order or PRN agitation medication past 24 hours: No. Seclusion/restraints required: No. Attending therapy groups: Yes. Agitated behavior : Observed during rounds No. Reported by staff No. Objective VITALS: Body mass index is 27.28 kg/m?. BP 123/69 Pulse 78 Temp 36.6 ?C (97.9 ?F) (Temporal) Resp 19 Ht 175.3 cm (5' 9) Wt 83.8 kg (184 lb 11.2 oz) SpO2 96% BMI 27.28 kg/m? MENTAL STATUS/PHYSICAL EXAMINATION: Mental Status Exam General/Sensorium: Alert AND interactive Orientation: AAOx3 Appearance: Appears stated age, casually dressed and appropriately groomed Eye contact: Fair Demeanor: Appropriately interactive Motor activity: Psychomotor retardation- mild Speech: Articulate with appropriate rhythm and volume and soft Mood: Euthymic Affect: Congruent with mood Thought process: Linear, logical, and goal-directed Associations: Normal Thought content: Focused on history, symptoms, and management and discussing stressors Suicidal ideation: SI: no Plan: no Intent: no Homicidal ideation: HI: no Plan: no Intent: no Abnormal/psychotic thoughts: Absent Perceptions: He does not appear internally stimulated and denies hallucinations. Intelligence: Average Attention: Intact Memory: Short-term: Intact Long-term: Intact Language: Intact Fund of knowledge: Fair Insight: Fair Judgment: Fair Gait: - slowed. occasionally unstead and holds rails to support self when walking down the toepte. Station: Sitting GENERAL: Alert, no distress, cooperative. NEUROLOGIC: deferred MUSCULOSKELETAL: Normal muscle strength and No involuntary movements. GAIT: Normal. CURRENT/INPATIENT MEDICATIONS: Current Facility-Administered Medications Medication Dose Route Frequency acetaminophen 650 mg tab(s) (TYLENOL) 650 mg ORAL q 6 H PRN aluminum-magnesium hydroxide-simethicone 200-200-20 mg/5 mL 30 mL 30 mL ORAL q 4 H PRN magnesium hydroxide 400 mg/5 mL 30 mL (MOM) 30 mL ORAL DAILY PRN brimonidine 0.2 % 1 Drop (ALPHAGAN) 1 Drop RIGHT EYE BID melatonin 3 mg tab(s) 3 mg ORAL DAILY (8 PM) LORazepam 0.25 mg tab(s) (ATIVAN) 0.25 mg ORAL q 6 H PRN OLANZapine 2.5 mg tab(s) (ZYPREXA) 2.5 mg ORAL q 8 H PRN Or OLANZapine 2.5 mg injection (more content not included)... [facility] 01-28-2023 Note HNO ID: [id number] Author: Spenser Orellana APRN.RELIGIOUS HEALER Service: Psychiatry Author Type: Nurse Practitioner Type: Progress Notes Filed: 01/28/2023 1:09 PM Note Text: PROGRESS NOTE BEHAVIORAL HEALTH SERVICE DATE: 01/28/2023 SERVICE TIME: 0900 The Interdisciplinary team met and reviewed treatment goals and discharge planning. Subjective INTERVAL HISTORY of last 24 hours: Today's chief complaint (in patient's own words): I am feeling so much better today Today, Wild Conklin was found walking on the unit, he reports that he slept better, is more alert, and he ate better this morning than he has in a while. 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 Pt reports that he recalls being confused over the past few days - today his mind is clear. He is oriented x4 and has no concerns at this time. Patient reports mood is stable and improving. Wild Conklin denies suicidal ideations, thoughts of non-suicidal self-harm, homicidal ideations, paranoia, auditory hallucinations, and visual hallucinations. Sleep as reported by nursing flowsheet: Sleep (Number of Hours): 7 (01/28/23625) Difficulties with sleep: pt states he got to sleep late - but slept well after that.. Anormal appetite/eating: None reported. Concerns for side effects with medications: None reported. Any additional physical complaints: None reported. (Objective portions of note included here for ease of comparison to patient's subjective report) Per chart review and staff report of last 24 hours: Compliant with medication: Yes. Emergency treatment order or PRN agitation medication past 24 hours: No. Seclusion/restraints required: No. Attending therapy groups: No. Agitated behavior : Observed during rounds No. Reported by staff No. Objective VITALS: Body mass index is 27.28 kg/m?. BP 154/78 Pulse 78 Temp 36.8 ?C (98.2 ?F) Resp 16 Ht 175.3 cm (5' 9) Wt 83.8 kg (184 lb 11.2 oz) SpO2 95% BMI 27.28 kg/m? MENTAL STATUS/PHYSICAL EXAMINATION: Mental Status Exam General/Sensorium: Alert AND interactive Orientation: AAOx3 Appearance: Appears stated age and casually dressed Eye contact: Appropriate Demeanor: Appropriately interactive Motor activity: Normal Speech: Articulate with appropriate rhythm and volume Affect: Euthymic Thought process: Within normal limits Associations: Normal Thought content: Appropriate and discussing stressors Suicidal ideation: SI: no Plan: no Intent: no Homicidal ideation: HI: no Plan: no Intent: no Abnormal/psychotic thoughts: Absent Perceptions: He does not appear internally stimulated and denies hallucinations. Intelligence: Average Attention: Intact Memory: Short-term: Intact Language: Intact Fund of knowledge: Fair Insight: Fair Judgment: Fair Gait: Steady Station: Sitting GENERAL: Alert, no distress, cooperative. NEUROLOGIC: deferred MUSCULOSKELETAL: Normal muscle strength and No involuntary movements. GAIT: Normal. CURRENT/INPATIENT MEDICATIONS: Current Facility-Administered Medications Medication Dose Route Frequency acetaminophen 650 mg tab(s) (TYLENOL) 650 mg ORAL q 6 H PRN aluminum-magnesium hydroxide-simethicone 200-200-20 mg/5 mL 30 mL 30 mL ORAL q 4 H PRN magnesium hydroxide 400 mg/5 mL 30 mL (MOM) 30 mL ORAL DAILY PRN brimonidine 0.2 % 1 Drop (ALPHAGAN) 1 Drop RIGHT EYE BID melatonin 3 mg tab(s) 3 mg ORAL DAILY (8 PM) LORazepam 0.25 mg tab(s) (ATIVAN) 0.25 mg ORAL q 6 H PRN traZODone 25 mg tab(s) (DESYREL) 25 mg ORAL AT BEDTIME PRN OLANZapine 2.5 mg tab(s) (ZYPREXA) 2.5 mg ORAL q 8 H PRN Or OLANZapine 2.5 mg injection (ZYPREXA) 2.5 mg INTRAMUSCULAR q 8 H PRN sitaGLIPtin phosphate 100 mg tab(s) (JANUVIA) 100 mg ORAL DAILY And metFORMIN ER 1,000 mg tab(s) (GLUCOPHAGE XR) 1,000 mg ORAL DAILY WITH BREAKFAST OLANZapine 5 mg tab(s) (ZYPREXA) 5 mg ORAL AT BEDTIME citalopram 20 mg tab(s) (CeleXA) 20 mg ORAL AT BEDTIME LORazepam 1 mg tab(s) (ATIVAN) 1 mg ORAL TID hydrocortisone 2.5 % oint TOPICAL BID DATA: Diagnostic tests reviewed for today's visit: Most recent labs, imaging and EKG HEAD IMAGING (if indicated): Not indicated. LAB RESULTS: Lab Results Component Value Date/Time WBC 8.90 01/17/2023 07:22 PM RBC 5.17 01/17/2023 07:22 PM HCT 44.5 01/17/2023 07:22 PM MCV 86.1 01/17/2023 07:22 PM MCH 29.8 01/17/2023 07:22 PM MCHC 34.6 01/17/2023 07:22 PM RDWCV 12.2 01/17/2023 07:22 PM PLT 292 01/17/2023 07:22 PM NEUTP 64.7 01/17/2023 07:22 PM LYMPHP 25.5 01/17/2023 07:22 PM MONOP 7.2 01/17/2023 07:22 PM BASOP 0.9 01/17/2023 07:22 PM ABSNEUT 5.76 01/17/2023 07:22 PM ABSMONO 0.64 01/17/2023 07:22 PM ABSEOSIN 0.13 01/17/2023 07:22 PM ABSBASO 0.08 01/17/2023 07:22 PM GLUC 203 (H) 01/20/2023 04:30 AM NA 139 01/20/2023 04:30 AM K 4.0 01/20/2023 04:30 AM CHLOR 102 01/20/2023 04:30 AM BUN 12 01/20/2023 04:30 AM CREAT 0.76 01/20/2023 04:30 AM (more content not included)... [facility] 01-27-2023 Note HNO ID: [id number] Author: Nancie Hagan APRN.RELIGIOUS HEALER Service: Psychiatry Author Type: Nurse Practitioner Type: Progress Notes Filed: 01/27/2023 6:15 PM Note Text: PROGRESS NOTE BEHAVIORAL HEALTH SERVICE DATE: 01/27/2023 SERVICE TIME: 12:08 PM The Interdisciplinary team met and reviewed treatment goals and discharge planning. Subjective INTERVAL HISTORY of last 24 hours: Patient resting in bed when approached for interview. Alert and oriented * 2. Describes sleeping once he got the medications which he describes as sedating. Rates anxiety 8/10 and depression 8/10. Describes having had passive thoughts of . Then complained of constipation and being uncomfortable for it. Discussed plan of care, including concern for catatonia, and lorazepam challenge. Anixous about medication change though ultimately agreeable. Sleep as reported by nursing flowsheet: Sleep (Number of Hours): 11 (01/27/23 0657) Difficulties with sleep: None reported.. Anormal appetite/eating: None reported. Concerns for side effects with medications: Possible sedation. Any additional physical complaints: Complaining of constipation (Objective portions of note included here for ease of comparison to patient's subjective report) Per chart review and staff report of last 24 hours: Compliant with medication: Yes. Emergency treatment order or PRN agitation medication past 24 hours: No. Seclusion/restraints required: No. Attending therapy groups: No. Agitated behavior : Observed during rounds No. Reported by staff No. Objective PHYSICAL EXAM: BP 154/78 Pulse 78 Temp 36.8 ?C (98.2 ?F) Resp 16 Ht 175.3 cm (5' 9) Wt 83.8 kg (184 lb 11.2 oz) SpO2 95% BMI 27.28 kg/m? MENTAL STATUS EXAMINATION: Appearance: Disheveled and In hospital gown Behavior: Appropriate and Engaged readily. Psychomotor: No psychomotor agitation. Cognition Level of Consciousness: Awake and alert. No fluctuation in wakefulness. Orientation: Person and Place Memory: Impaired Attention/Concentration: Impaired Fund of Knowledge: Limited Mood: Depressed Affect: Mood-congruent and reactive within a Restricted range. Speech/Language: Soft and Slow Thought Form: Coherent Thought Content: Vague No delusions noted or endorsed. Perceptual Disturbances: Did not appear to respond to auditory stimuli. Safety: Suicidal Ideations: Thoughts of , but not suicide. Homicidal Ideations: No homicidal ideation, intent or plan. Insight: Poor Judgment: Poor NEW PROBLEMS ON UNIT SINCE LAST ENCOUNTER: None Current Facility-Administered Medications Medication Dose Route Frequency acetaminophen 650 mg tab(s) (TYLENOL) 650 mg ORAL q 6 H PRN aluminum-magnesium hydroxide-simethicone 200-200-20 mg/5 mL 30 mL 30 mL ORAL q 4 H PRN magnesium hydroxide 400 mg/5 mL 30 mL (MOM) 30 mL ORAL DAILY PRN brimonidine 0.2 % 1 Drop (ALPHAGAN) 1 Drop RIGHT EYE BID melatonin 3 mg tab(s) 3 mg ORAL DAILY (8 PM) LORazepam 0.25 mg tab(s) (ATIVAN) 0.25 mg ORAL q 6 H PRN traZODone 25 mg tab(s) (DESYREL) 25 mg ORAL AT BEDTIME PRN OLANZapine 2.5 mg tab(s) (ZYPREXA) 2.5 mg ORAL q 8 H PRN Or OLANZapine 2.5 mg injection (ZYPREXA) 2.5 mg INTRAMUSCULAR q 8 H PRN sitaGLIPtin phosphate 100 mg tab(s) (JANUVIA) 100 mg ORAL DAILY And metFORMIN ER 1,000 mg tab(s) (GLUCOPHAGE XR) 1,000 mg ORAL DAILY WITH BREAKFAST OLANZapine 5 mg tab(s) (ZYPREXA) 5 mg ORAL AT BEDTIME citalopram 20 mg tab(s) (CeleXA) 20 mg ORAL AT BEDTIME LORazepam 1 mg tab(s) (ATIVAN) 1 mg ORAL TID DATA: Diagnostic tests reviewed for today's visit: Most recent labs and imaging results. Assessment/Plan ASSESSMENT: Interpretive Summary: Wild Coknlin is a 67 year old male who is a 67 year old male who presented for suicidal ideation, had expressed SI and removed gun from his hand. Has been depressed and expressing bizarre beliefs, started on citalopram and zyprexa. Remains slowed physically and cognitively. Reporting fatigue and constipation. Reports continued depression and anxiety, though answering being unsure/not knowing when asked to elaborate. Will try lorazepam challenge. DIAGNOSIS: 1. Major Depressive Disorder, single episode, severe, with psychotic features 2. R/O Neurocognitive disorder 3. R/O Catatonia PLAN: Scheduled Medications: - citalopram to 20 mg will switch to HS as reports sedation - Olanzapine to 5 mg at bedtime to target delusional beliefs and act as adjunct to citalopram to help with mood - Will start lorazepam 1 mg three times daily to see if patient catatonia Labs: Reviewed Safety Precautions: Standard unit precautions. (Level 2) -Will continue to monitor patient's risk level, discuss with treatment team, and re-evaluate needs on an ongoing basis. Biological Intervention: -Consult to internal medicine to assist in care for medical needs. Psychological Intervention: -Discussed psychiatric differential and prov (more content not included)... [facility] 01-27-2023 Note HNO ID: [id number] Author: Zena Macias RN Service: Nursing Author Type: Registered Nurse Type: Plan of Care Filed: 01/27/2023 4:44 PM Note Text: -- Attestation signed by Nancie Hagan APRN.RELIGIOUS HEALER at 01/29/2023 8:16 AM -- BEHAVIORAL HEALTH INPATIENT INTERDISCIPLINARY TREATMENT PLAN UPDATE DATE INITIATED: 01/27/2023 4:38 PM Patient's Goal of Treatment: to be able to function again Active Hospital Problems Malnutrition of mild degree (HCC) *Suicide attempt (HCC) Criteria for Discharge: Elimination/reduction of presenting behavior: SI, Depression, Confusion, Disorganization Estimated length of stay: 5-10 days Interdisciplinary Treatment Plan Date Initiated: 01/17/23 Time Initiated: 2300 Patient Participation in Initial Treatment Plan: Yes Initial Treatment Plan Date: 01/17/23 Other Participants: N/A Strengths/Assets: Motivated for treatment, Able to read and/ or write Limitations: Lacks health literacy Precautions indicated: 1:1 Constant Observation Individualized problems: Risk of harm to self Problem - Discharge Needs Date Initiated: 01/27/23 Time Initiated: 1055 Interventions - Nursing: Obtain baseline level of functioning on admission Interventions - Social Work: Assess for appropriate level of care and initiate referral upon admission or as needed, Assess Social Determinants of Health upon admission or as needed, Assist with identifying community/social supports daily or as needed, Collateral information as needed, Coordination with family as needed, Coordination with outpatient providers as needed, Create safety plan as needed, Develop aftercare plan, Encourage group participation daily or as needed, Encourage medication compliance daily or as needed, Encourage milieu therapy daily or as needed, Encourage sobriety as needed, Resolve acute symptoms by working with interdisciplinary team Interventions - Therapy: Educate on/promote the utilization of Community Resources daily and as needed, Help patient to identify people, places and things that support recovery and stabilization of mental health, Promote medication compliance as needed, Promote ongoing practice of effective coping strategies daily and as needed, Promote the importance of following up with medical/behavioral health providers daily and as needed Post discharge referrals: Crisis Hotline Number, Psychiatry Identify next level of care: Home, with others Problem - Risk of Harm to Self As evidenced by: Suicidal thoughts or behavior, Impaired impulse control, Past and/or recent hx of self-injurious behavior Date Initiated: 01/17/23 Time Initiated: 2300 Short Term Goals: Refrain from self injurious behavior Target Date Short Term Goals: 01/20/23 Progress Towards Short Term Goals: Progressing Usp Goals: Identify positive alternatives to self-injurious behavior Target Date Pickle Sorter Goals: 01/20/23 Progress Towards Pickle Sorter Goals: Not progressing Interventions - Nursing: Encourage patient participation in milieu activities daily and as needed, Assist with developing positive coping behaviors daily and as needed, Provide non-judgmental supportive, empathetic and comprehensive trauma informed care daily and as needed, Administer medications as indicated and monitor patient for effect daily, Remain calm and firmly set limits for the patient's behaviors daily and as needed Medical Problems Medical Problems Identified: Yes Active Problems: Diabetes Diabetes - Short Term Goal: Patient will demonstrate compliance with medical treatment Diabetes - Interventions: Medications, Monitor Diabetes - Target Date Short Term Goals: 01/20/23 Diabetes - Progress Towards Short Term Goals: Progressing Staff in attendance and in agreement with this plan: Nurse Practitioner: Nancie Nurse: Zena Bartender Manager: Melinda Recreational Therapy: Asai Patient did not meet with care team all at once due to disorganization and confusion, but met separately with treatment team members and participated in developing overall care plan. Start Lorazepam challenge. Patient appears a little better, still guarded. Patient does not attend group therapy sessions on the unit. This plan was reviewed with patient/family. Attending Psychiatrist: Dr. Sam DOCUMENTED BY: Zena Macias, RN PATIENT NAME: Wild Conklin DATE: January 27, 2023 TIME: 4:38 PM [facility] 01-26-2023 Note HNO ID: [id number] Author: Katherine Rajput APRN.RELIGIOUS HEALER Service: Psychiatry Author Type: Nurse Practitioner Type: Progress Notes Filed: 01/26/2023 2:25 PM Note Text: PROGRESS NOTE BEHAVIORAL HEALTH SERVICE DATE: January 26, 2023 WHEEL LOADER OPERATOR covering for Dr. Liz Sam MD. Chart and nursing data base reviewed. Spoke with nursing who report that patient has agreed to having help with a shower AND shave today. Continues to be very flat with slow, deliberate responses to questions. was in last night and requests a call for update tomorrow. Patient endorses that he has more energy. Has lost some weight since being here. Has nutrition consult currently. INFORMED CONSENT: Yes, completed with the Patient. Discussed the risks, benefits and alternatives to the medication(s) recommended. Consent was given. Subjective Patient is lying in bed. Eyes open to name. Patient is very slow to respond to questions and needs much response time. Affect very flat. Speech is deliberate. When asked about his mood, he halts for several seconds and describes as somber. Is unsure of month and date/day. Knows he is in the hospital, although denies remembering why he is here? SI/HI/SIB: denies Denies any experiences consistent with psychosis, including auditory or visual hallucinations. Sleep: 11 hours. Appetite: eating AND drinking nutrition shakes. States had eggs and cereal for breakfast. Compliant with medication regimen. PRN medications in the last 24 hours: MOM Reports medication side effects: reports constipation. Review of Systems Constitutional: Negative for fatigue and fever. HENT: Negative for congestion. Respiratory: Negative for cough, chest tightness and shortness of breath. Cardiovascular: Negative for chest pain and palpitations. Gastrointestinal: Negative for diarrhea and nausea. Neurological: Negative for tremors and headaches. All other systems reviewed and are negative. Objective PHYSICAL EXAM: BP 134/77 Pulse 73 Temp 37.4 ?C (99.3 ?F) (Temporal) Resp 16 Ht 175.3 cm (5' 9) Wt 83.8 kg (184 lb 11.2 oz) SpO2 97% BMI 27.28 kg/m? Physical Exam Vitals and nursing note reviewed. Cardiovascular: Rate and Rhythm: Normal rate. Pulmonary: Effort: Pulmonary effort is normal. Musculoskeletal: General: Normal range of motion. Skin: General: Skin is warm and dry. Neurological: Mental Status: He is alert and oriented to person, place, and time. Gait: Gait is intact. Psychiatric: Comments: See psych MSE Mental Status Exam: General/Sensorium: Alert - did not know month or holiday coming up Appearance: Casually dressed, Malodorous, Unkempt, Disheveled and Dirty clothes - Eye Contact: Poor eye contact - Demeanor: Asocial, Guarded and Passive - Motor Activity: Psychomotor retardation - Speech: Soft, Underproductive / minimal spontaneity and Halting - very slow AND deliberate Mood: Reports feeling depressed - Reported as: but improving Affect: Not congruent with mood, Sad/tearful, Blunted, Constricted and Flat - affect is not convincing that mood is improvimg Thought Process: Thought blocking, Poverty of thought and Vague - Associations: Normal - Thought Content: Appropriate with no SI/HI/AVH - Perceptions: The patient does not appear internally stimulated - AND denies Cognition: Cognitive difficulties as specified and Word finding difficulty - Insight: Poor - Judgment: Poor - Current Facility-Administered Medications Medication Dose Route Frequency acetaminophen 650 mg tab(s) (TYLENOL) 650 mg ORAL q 6 H PRN aluminum-magnesium hydroxide-simethicone 200-200-20 mg/5 mL 30 mL 30 mL ORAL q 4 H PRN magnesium hydroxide 400 mg/5 mL 30 mL (MOM) 30 mL ORAL DAILY PRN brimonidine 0.2 % 1 Drop (ALPHAGAN) 1 Drop RIGHT EYE BID melatonin 3 mg tab(s) 3 mg ORAL DAILY (8 PM) LORazepam 0.25 mg tab(s) (ATIVAN) 0.25 mg ORAL q 6 H PRN traZODone 25 mg tab(s) (DESYREL) 25 mg ORAL AT BEDTIME PRN OLANZapine 2.5 mg tab(s) (ZYPREXA) 2.5 mg ORAL q 8 H PRN Or OLANZapine 2.5 mg injection (ZYPREXA) 2.5 mg INTRAMUSCULAR q 8 H PRN sitaGLIPtin phosphate 100 mg tab(s) (JANUVIA) 100 mg ORAL DAILY And metFORMIN ER 1,000 mg tab(s) (GLUCOPHAGE XR) 1,000 mg ORAL DAILY WITH BREAKFAST OLANZapine 5 mg tab(s) (ZYPREXA) 5 mg ORAL AT BEDTIME citalopram 20 mg tab(s) (CeleXA) 20 mg ORAL AT BEDTIME LABS: no new lab results this am RISK ASSESSMENT: Suicide risk as inpatient: low Suicide risk if in the community: moderate Homicide risk as inpatient: low Homicide risk if in the community: low Deliberate Self-Harm risk as inpatient: low Deliberate Self-Harm risk if in the community: moderate Aggression risk as inpatient: low Aggression risk if in the community: low Imminent Physical Self Impairment: moderate PSYCHIATRIC DIAGNOSIS: PRIMARY: Major Depressive Disorder, single episode, severe, with psychotic features - denies AVH, however slow to respond and of (more content not included)... [facility] 01-25-2023 Note HNO ID: [id number] Author: Katherine Rajput APRN.RELIGIOUS HEALER Service: Psychiatry Author Type: Nurse Practitioner Type: Progress Notes Filed: 01/25/2023 3:11 PM Note Text: PROGRESS NOTE BEHAVIORAL HEALTH SERVICE DATE: January 25, 2023 WHEEL LOADER OPERATOR covering for Dr. Liz Sam MD. Chart and nursing note reviewed. Spoke with nursing who report patient still seems depressed with slow response time and flat affect. Will attempt to get him to shower today, as he is malodorous. Compliant with medications. INFORMED CONSENT: Yes, completed with the Patient. Discussed the risks, benefits and alternatives to the medication(s) recommended. Consent was given. Subjective Upon entering room, patient is lying in bed and awakens to name. Voice is very soft and offers little spontaneously. He answers questions with appropriate show answers. C/o constipation. Is alert AND oriented x 4. Denies SI/HI/AVH. Denies any experiences consistent with psychosis, including auditory or visual hallucinations. Sleep: 11 hours Appetite: eating in common area. Compliant with medication regimen. PRN medications in the last 24 hours: none Reports medication side effects:denies, other than constipation. Review of Systems Constitutional: Negative for fatigue and fever. HENT: Negative for congestion. Respiratory: Negative for cough, chest tightness and shortness of breath. Cardiovascular: Negative for chest pain and palpitations. Gastrointestinal: Negative for diarrhea and nausea. Neurological: Negative for tremors and headaches. All other systems reviewed and are negative. Objective PHYSICAL EXAM: BP 132/85 Pulse 84 Temp 36.6 ?C (97.9 ?F) (Temporal) Resp 16 Ht 175.3 cm (5' 9) Wt 84.5 kg (186 lb 4.8 oz) SpO2 98% BMI 27.51 kg/m? Physical Exam Vitals and nursing note reviewed. Cardiovascular: Rate and Rhythm: Normal rate. Pulmonary: Effort: Pulmonary effort is normal. Musculoskeletal: General: Normal range of motion. Skin: General: Skin is warm and dry. Neurological: Mental Status: He is alert and oriented to person, place, and time. Gait: Gait is intact. Psychiatric: Comments: See psych MSE Mental Status Exam: General/Sensorium: Alert and AO X 4 - Appearance: In hospital gown - Eye Contact: Poor eye contact - Demeanor: Appropriately interactive, Guarded, Superficially cooperative, Oddly related and Asocial - Motor Activity: Normal - Speech: Halting, Underproductive / minimal spontaneity and Soft - Mood: Denies mood concerns - Affect: Not congruent with mood, Constricted, Flat and Blunted - Thought Process: Vague, Poverty of thought and Thought blocking - Associations: Normal - Thought Content: - vague content, but denies SI/HI Perceptions: The patient does not appear internally stimulated - Cognition: Cognitive difficulties as specified - Insight: Poor - Judgment: Poor - Current Facility-Administered Medications Medication Dose Route Frequency acetaminophen 650 mg tab(s) (TYLENOL) 650 mg ORAL q 6 H PRN aluminum-magnesium hydroxide-simethicone 200-200-20 mg/5 mL 30 mL 30 mL ORAL q 4 H PRN magnesium hydroxide 400 mg/5 mL 30 mL (MOM) 30 mL ORAL DAILY PRN brimonidine 0.2 % 1 Drop (ALPHAGAN) 1 Drop RIGHT EYE BID melatonin 3 mg tab(s) 3 mg ORAL DAILY (8 PM) LORazepam 0.25 mg tab(s) (ATIVAN) 0.25 mg ORAL q 6 H PRN traZODone 25 mg tab(s) (DESYREL) 25 mg ORAL AT BEDTIME PRN OLANZapine 2.5 mg tab(s) (ZYPREXA) 2.5 mg ORAL q 8 H PRN Or OLANZapine 2.5 mg injection (ZYPREXA) 2.5 mg INTRAMUSCULAR q 8 H PRN sitaGLIPtin phosphate 100 mg tab(s) (JANUVIA) 100 mg ORAL DAILY And metFORMIN ER 1,000 mg tab(s) (GLUCOPHAGE XR) 1,000 mg ORAL DAILY WITH BREAKFAST OLANZapine 5 mg tab(s) (ZYPREXA) 5 mg ORAL AT BEDTIME citalopram 20 mg tab(s) (CeleXA) 20 mg ORAL AT BEDTIME LABS: Component Latest Ref Rng AND Units 01/24/2023 Cholesterol, Total <200 mg/dL 159 Triglyceride <150 mg/dL 115 HDL Cholesterol >39 mg/dL 41 Non HDL Cholesterol <130 mg/dL 118 Fasting Time hrs 8 VLDL Cholesterol <30 mg/dL 23 TC:HDL Ratio <5.10 3.88 LDL Cholesterol <100 mg/dL 95 LDL:HDL Ratio <2.54 2.32 Hemoglobin A1C 4.3 - 5.6 % 8.1 (H) Estimated Average Glucose mg/dL 186 Vitamin B12 232 - 1,245 pg/mL 975 RISK ASSESSMENT: Suicide risk as inpatient: low Suicide risk if in the community: moderate Homicide risk as inpatient: low Homicide risk if in the community: low Deliberate Self-Harm risk as inpatient: low Deliberate Self-Harm risk if in the community: moderate Aggression risk as inpatient: low Aggression risk if in the community: low Imminent Physical Self Impairment: moderate PSYCHIATRIC DIAGNOSIS: PRIMARY: Major Depressive Disorder, single episode, severe, with psychotic features - denies AVH, however slow to respond and offers little verbally. May be due to paranoia or #2 to 3. R/O Neurocognitive disorder R/O Catatonia INTERVENTION: Biological: Patient requires mor (more content not included)... [facility] 01-24-2023 Note HNO ID: [id number] Author: Nancie Hagan APRN.RELIGIOUS HEALER Service: Psychiatry Author Type: Nurse Practitioner Type: Progress Notes Filed: 01/24/2023 2:51 PM Note Text: PROGRESS NOTE BEHAVIORAL HEALTH SERVICE DATE: 01/24/2023 SERVICE TIME: 8:39 AM The Interdisciplinary team met and reviewed treatment goals and discharge planning. Subjective INTERVAL HISTORY of last 24 hours: Patient resting in bed when approached for interview, easily awoken. Expressed feeling unsure when asked about mood and if he slept. Endorses feeling fatigued this morning. No SI, HI or AVH expressed. Complained of feeling thirsty. Remains vague about stressors. Support provided and reviewed plan of care. Sleep as reported by nursing flowsheet: Sleep (Number of Hours): 8 (01/24/23 0600) Difficulties with sleep: None reported.. Anormal appetite/eating: None reported. Concerns for side effects with medications: Drowsiness to nure. Any additional physical complaints: Fatigue. (Objective portions of note included here for ease of comparison to patient's subjective report) Per chart review and staff report of last 24 hours: Compliant with medication: Yes. Emergency treatment order or PRN agitation medication past 24 hours: No. Seclusion/restraints required: No. Attending therapy groups: No. Agitated behavior : Observed during rounds No. Reported by staff No. Objective PHYSICAL EXAM: BP 136/70 Pulse 82 Temp 36.6 ?C (97.9 ?F) Resp 15 Ht 175.3 cm (5' 9) Wt 85.3 kg (188 lb 1.6 oz) SpO2 97% BMI 27.78 kg/m? MENTAL STATUS EXAMINATION: Appearance: Casually dressed and In hospital gown Behavior: Withdrawn Psychomotor: No psychomotor agitation. Cognition Level of Consciousness: Awake and alert. No fluctuation in wakefulness. Orientation: Person, Place, Time and Situation Memory: Intact Attention/Concentration: Distracted Fund of Knowledge: Able to demonstrate an awareness of current events. Mood: Depressed and Fatigued Affect: Mood-congruent and reactive within a Restricted range. Speech/Language: Soft and Slow Thought Form: Coherent Thought Content: Vague Perceptual Disturbances: Did not appear to respond to auditory stimuli. Safety: Suicidal Ideations: No suicidal ideation, intent or plan. Homicidal Ideations: No homicidal ideation, intent or plan. Insight: Limited Judgment: Limited NEW PROBLEMS ON UNIT SINCE LAST ENCOUNTER: None Current Facility-Administered Medications Medication Dose Route Frequency acetaminophen 650 mg tab(s) (TYLENOL) 650 mg ORAL q 6 H PRN aluminum-magnesium hydroxide-simethicone 200-200-20 mg/5 mL 30 mL 30 mL ORAL q 4 H PRN magnesium hydroxide 400 mg/5 mL 30 mL (MOM) 30 mL ORAL DAILY PRN brimonidine 0.2 % 1 Drop (ALPHAGAN) 1 Drop RIGHT EYE BID melatonin 3 mg tab(s) 3 mg ORAL DAILY (8 PM) LORazepam 0.25 mg tab(s) (ATIVAN) 0.25 mg ORAL q 6 H PRN citalopram 20 mg tab(s) (CeleXA) 20 mg ORAL DAILY traZODone 25 mg tab(s) (DESYREL) 25 mg ORAL AT BEDTIME PRN OLANZapine 2.5 mg tab(s) (ZYPREXA) 2.5 mg ORAL q 8 H PRN Or OLANZapine 2.5 mg injection (ZYPREXA) 2.5 mg INTRAMUSCULAR q 8 H PRN sitaGLIPtin phosphate 100 mg tab(s) (JANUVIA) 100 mg ORAL DAILY And metFORMIN ER 1,000 mg tab(s) (GLUCOPHAGE XR) 1,000 mg ORAL DAILY WITH BREAKFAST OLANZapine 5 mg tab(s) (ZYPREXA) 5 mg ORAL AT BEDTIME DATA: Diagnostic tests reviewed for today's visit: Most recent labs and imaging results. Assessment/Plan ASSESSMENT: Interpretive Summary: Wild Conklin is a 67 year old male who presented for suicidal ideation, had expressed SI and removed gun from his hand. Has been depressed and expressing bizarre beliefs, started on citalopram and zyprexa. Remains slowed physically and cognitively, engaged less than two days prior. Reporting fatigue will continue to monitor DIAGNOSIS: PRIMARY: Major Depressive Disorder, single episode, severe, with psychotic features R/O Neurocognitive disorder R/O Catatonia PLAN: Scheduled Medications: - citalopram to 20 mg will switch to HS as reports sedation - Olanzapine to 5 mg at bedtime to target delusional beliefs and act as adjunct to citalopram to help with mood PRN Medications: - Standard unit precautions. (Level 2) -Will continue to monitor patient's risk level, discuss with treatment team, and re-evaluate needs on an ongoing basis. Labs: Reviewed Safety Precautions: Standard unit precautions. (Level 2) -Will continue to monitor patient's risk level, discuss with treatment team, and re-evaluate needs on an ongoing basis. Biological Intervention: -Consult to internal medicine to assist in care for medical needs. Psychological Intervention: -Discussed psychiatric differential and provided psychoeducation regarding biopsychosocial model of illness and recovery. -Provided supportive therapy regarding recent life stressors and circumstances leading to admission. -Encouraged patient to (more content not included)... [facility] 01-24-2023 Note HNO ID: [id number] Author: Lauren Mai, MEGHAN Service: Nursing Author Type: Registered Nurse Type: Nursing Progress Note Filed: 01/24/2023 4:52 AM Note Text: Assumed care of patient at this time. [facility] 01-23-2023 Note HNO ID: [id number] Author: Nancie Hagan APRN.CNP Service: Psychiatry Author Type: Nurse Practitioner Type: Progress Notes Filed: 01/23/2023 3:31 PM Note Text: PROGRESS NOTE BEHAVIORAL HEALTH SERVICE DATE: 01/23/2023 SERVICE TIME: 8:46 AM The Interdisciplinary team met and reviewed treatment goals and discharge planning. Subjective INTERVAL HISTORY of last 24 hours: Patient resting in bed when approached for interview. Alert and oriented, slowed to respond. Describes doing so-so. When asked about sleep describes having slept off and on, unsure what had woken him up. Feels a little bit tired today. Reports appetite as fair. Denies symptoms of side effect or intolerance to medications. Describes depression the same a yesterday 07/31, though anxiety is higher did not give exact rating. Describes bieng worried about things at home though remains vague about exact stressors. Discussed increasing Zyprexa which patient was accepting of. Sleep as reported by nursing flowsheet: Sleep (Number of Hours): 7 (01/23/23 0600) Difficulties with sleep: Slept on and off but ok overall.. Anormal appetite/eating: None reported. Concerns for side effects with medications: None reported. Any additional physical complaints: None reported. (Objective portions of note included here for ease of comparison to patient's subjective report) Per chart review and staff report of last 24 hours: Compliant with medication: Yes. Emergency treatment order or PRN agitation medication past 24 hours: No. Seclusion/restraints required: No. Attending therapy groups: No. Agitated behavior : Observed during rounds No. Reported by staff No. Objective PHYSICAL EXAM: BP 141/78 Pulse 76 Temp 36.8 ?C (98.2 ?F) Resp 16 Ht 175.3 cm (5' 9) Wt 85.3 kg (188 lb 1.6 oz) SpO2 97% BMI 27.78 kg/m? MENTAL STATUS EXAMINATION: Appearance: In hospital gown Behavior: Psychomotorly Slowed Psychomotor: Retarded Cognition Level of Consciousness: Awake and alert. No fluctuation in wakefulness. Orientation: Person, Place, Time and Situation Memory: Fair Attention/Concentration: Fair Fund of Knowledge: Able to demonstrate an awareness of current events. Mood: Depressed and Fatigued Affect: Mood-congruent and reactive within a Restricted range. Speech/Language: Soft and Slow Thought Form: Goal-directed. No loosening of associations. Thought Content: Vague Perceptual Disturbances: Did not appear to respond to auditory stimuli. Safety: Suicidal Ideations: No suicidal ideation, intent or plan. Homicidal Ideations: No homicidal ideation, intent or plan. Insight: Limited Judgment: Limited Suicide Assessment Five-step Evaluation and Triage (SAFE-T) for Mental Health Professionals 1 IDENTIFY RISK FACTORS Note those that can be modified to reduce risk 2 IDENTIFY PROTECTIVE FACTORS Note those that can be enhanced 3 CONDUCT SUICIDE INQUIRY Suicidal thoughts, plans, behavior and intent 4 DETERMINE RISK LEVEL / INTERVENTION Determine risk. Choose appropriate intervention to address and reduce risk 5 DOCUMENT Assessment of risk,rationale, intervention and follow up Suicide assessments should be conducted at first contact, with any subsequent suicidal behavior, increased ideation, or pertinent clinical Change; for inpatients, prior to increasing privileges and at discharge. 1. RISK FACTORS ? Suicidal behavior: history of prior suicide attempts, aborted suicide attempts or self-injurious behavior ? Current/past psychiatric disorders: especially mood disorders, psychotic disorders, alcohol/substance abuse, ADHD, TBI, PTSD, Cluster B personality disorders, conduct disorders (antisocial behavior, aggression, impulsivity). Co-morbidity and recent onset of illness increase risk ? [place] Symptoms: anhedonia, impulsivity, hopelessness, anxiety/panic, insomnia, command hallucinations ? Family history: of suicide, attempts, or [place] 1 psychiatric disorders requiring hospitalization ? Precipitants/Stressors/Interpersonal: triggering events leading to humiliation, shame or despair (e.g; loss of relationship, financial or Health status-real or anticipated). Ongoing medical illness (citlali. CLIENT SERVICES DIRECTOR disorders, pain). Intoxication. Family turmoil/chaos. History of Physical or sexual abuse. Social isolation. ? Change in treatment: discharge from psychiatric hospital, provider or treatment change ? Access to firearms 2. PROTECTIVE FACTORS protective factors, even if present, may not counteract significant acute risk ? Internal: ability to cope with stress, jewish beliefs, frustration tolerance ? External: responsibility to children or beloved pets, positive therapeutic relationships, social supports 3. SUICIDE INQUIRY Specific questioning about thoughts, plans, behaviors, intent ? Ideation: frequency, intensity, duration- - in last 48 hours, past month and worst ever ? Plan: zaria (more content not included)... [facility] 01-22-2023 Note HNO ID: [id number] Author: Nancie Hagan APRN.ONDINA Service: Psychiatry Author Type: Nurse Practitioner Type: Progress Notes Filed: 01/22/2023 6:30 PM Note Text: PROGRESS NOTE BEHAVIORAL HEALTH SERVICE DATE: 01/22/2023 SERVICE TIME: 9:16 AM The Interdisciplinary team met and reviewed treatment goals and discharge planning. Subjective INTERVAL HISTORY of last 24 hours: Patient awake walking in topete when approached for interview, agreed to interview and followed staff to conference room. Remains physically and cognitively slowed but quicker to respond and more fluent than when seen by this provider during days prior. Endorses feeling better, describing feeling about 50% better - rating depression and anxiety 5/10 today. Denies having had thoughts of or suicide today. Reports thoughts being clearer. Denied delusions, though still vague and guarded about stressors in general. Denies symptoms of side effect or intolerance to medication. Sleep as reported by nursing flowsheet: Sleep (Number of Hours): 8 (01/22/23 0619) Difficulties with sleep: None reported.. Anormal appetite/eating: Fair. Concerns for side effects with medications: None reported. Any additional physical complaints: None reported. (Objective portions of note included here for ease of comparison to patient's subjective report) Per chart review and staff report of last 24 hours: Compliant with medication: Yes. Emergency treatment order or PRN agitation medication past 24 hours: No. Seclusion/restraints required: No. Attending therapy groups: Yes - though non participatory Agitated behavior : Observed during rounds No. Reported by staff No. Suicide Assessment Five-step Evaluation and Triage (SAFE-T) for Mental Health Professionals 1 IDENTIFY RISK FACTORS Note those that can be modified to reduce risk 2 IDENTIFY PROTECTIVE FACTORS Note those that can be enhanced 3 CONDUCT SUICIDE INQUIRY Suicidal thoughts, plans, behavior and intent 4 DETERMINE RISK LEVEL / INTERVENTION Determine risk. Choose appropriate intervention to address and reduce risk 5 DOCUMENT Assessment of risk,rationale, intervention and follow up Suicide assessments should be conducted at first contact, with any subsequent suicidal behavior, increased ideation, or pertinent clinical Change; for inpatients, prior to increasing privileges and at discharge. 1. RISK FACTORS ? Suicidal behavior: history of prior suicide attempts, aborted suicide attempts or self-injurious behavior ? Current/past psychiatric disorders: especially mood disorders, psychotic disorders, alcohol/substance abuse, ADHD, TBI, PTSD, Cluster B personality disorders, conduct disorders (antisocial behavior, aggression, impulsivity). Co-morbidity and recent onset of illness increase risk ? [place] Symptoms: anhedonia, impulsivity, hopelessness, anxiety/panic, insomnia, command hallucinations ? Family history: of suicide, attempts, or [place] 1 psychiatric disorders requiring hospitalization ? Precipitants/Stressors/Interpersonal: triggering events leading to humiliation, shame or despair (e.g; loss of relationship, financial or Health status-real or anticipated). Ongoing medical illness (citlali. CLIENT SERVICES DIRECTOR disorders, pain). Intoxication. Family turmoil/chaos. History of Physical or sexual abuse. Social isolation. ? Change in treatment: discharge from psychiatric hospital, provider or treatment change ? Access to firearms 2. PROTECTIVE FACTORS protective factors, even if present, may not counteract significant acute risk ? Internal: ability to cope with stress, jewish beliefs, frustration tolerance ? External: responsibility to children or beloved pets, positive therapeutic relationships, social supports 3. SUICIDE INQUIRY Specific questioning about thoughts, plans, behaviors, intent ? Ideation: frequency, intensity, duration- - in last 48 hours, past month and worst ever ? Plan: timing, location, lethality, availability, preparatory acts ? Behaviors: past attempts, aborted attempts, rehearsals (tying noose, loading gun), vs. non -suicidal self injurious actions ? Intent: extent to which the patient (1) expects to carry out the plan and (2) believes the plan/act to be lethal vs. self-injurious; Explore ambivalence: reasons to vs. reasons to live *For Youths: ask parent/guardian about evidence of suicidal thoughts, plans, or behaviors, and changes in mood, behaviors or disposition * Homicide Inquiry: when indicated, citlali. in character disordered or paranoid males dealing with loss or humiliation. Inquire in four areas listed above. 4. RISK LEVEL/INTERVENTION ? Assessment of risk level is based on clinical judgment, after completing steps 1-3 ? Reassess as patient or environmental circumstances change RISK LEVEL RISK/PROTECTIVE FACTOR SUICIDALITY POSSIBLE INTERVENTIONS High Psychiatric disorders with severe symptoms, or acute precip (more content not included)... [facility] 01-21-2023 Note HNO ID: [id number] Author: Nancie Hagan APRN.RELIGIOUS HEALER Service: Psychiatry Author Type: Nurse Practitioner Type: Progress Notes Filed: 01/21/2023 5:38 PM Note Text: PROGRESS NOTE BEHAVIORAL HEALTH SERVICE DATE: 01/21/2023 SERVICE TIME: 8:44 AM The Interdisciplinary team met and reviewed treatment goals and discharge planning. Subjective INTERVAL HISTORY of last 24 hours: Attempted to see in morning, though napping and drowsy. Was more coherent than day before. Was able to talk to patient in afternoon. Was alert and oriented. Describes high depression and anxiety rating both 10/10. Withdrawn and slowed to answer, guarded about stressors. Worried about the things he doesn't know. Endorsed having had thoughts of and suicide in last 24 hours, though no plan Talked to patient and during visiting hours, informed this caregiver about bizarre beliefs he has been expressing over last few months - including that william who bought house from them and helps them out from time to time is evil which started after they had conflict with patient's sister and expressing fear that their was a warrant out for his arrest. Described when she started visiting him to day he had expressed belief We need to go. They're kicking us out because they need the beds. There's been a trial and we're going to lose the house. [place]. Patient became anxious and distressed, shooshing when she disclosed this worried about her telling personal things. Internally stimulated and paranoia noted, much reassurance and support provided. Discussed plan of care including medications adjustments and adding antipsychotic. Agreeable to this. Also signed form for voluntary admission after it was reviewed. Sleep as reported by nursing flowsheet: Sleep (Number of Hours): 3 (01/21/23 0621) Difficulties with sleep: None reported.. Anormal appetite/eating: Low, though able to eat. Denied GI symptoms. Concerns for side effects with medications: None reported. Any additional physical complaints: None reported. (Objective portions of note included here for ease of comparison to patient's subjective report) Per chart review and staff report of last 24 hours: Compliant with medication: Yes. Emergency treatment order or PRN agitation medication past 24 hours: No. Seclusion/restraints required: No. Attending therapy groups: No. Agitated behavior : Observed during rounds No. Reported by staff No. Objective PHYSICAL EXAM: BP 105/86 Pulse 78 Temp 36.6 ?C (97.9 ?F) (Temporal) Resp 18 Ht 175.3 cm (5' 9) Wt 85.3 kg (188 lb 1.6 oz) SpO2 100% BMI 27.78 kg/m? MENTAL STATUS EXAMINATION: Appearance: Casually dressed Behavior: Withdrawn Psychomotor: No psychomotor agitation. Cognition Level of Consciousness: Awake and alert. No fluctuation in wakefulness. Orientation: Person, Place, Time and Situation Memory: Mildly Impaired Attention/Concentration: Distractable Fund of Knowledge: Able to demonstrate an awareness of current events. Mood: Depressed and Withdrawn Affect: Mood-congruent and reactive within a Restricted range. Speech/Language: Soft and Slow Thought Form: Coherent Thought Content: Vague Perceptual Disturbances: Did not appear to respond to auditory stimuli. Safety: Suicidal Ideations: No suicidal ideation, intent or plan. Homicidal Ideations: No homicidal ideation, intent or plan. Insight: Limited Judgment: Limited Suicide Assessment Five-step Evaluation and Triage (SAFE-T) for Mental Health Professionals 1 IDENTIFY RISK FACTORS Note those that can be modified to reduce risk 2 IDENTIFY PROTECTIVE FACTORS Note those that can be enhanced 3 CONDUCT SUICIDE INQUIRY Suicidal thoughts, plans, behavior and intent 4 DETERMINE RISK LEVEL / INTERVENTION Determine risk. Choose appropriate intervention to address and reduce risk 5 DOCUMENT Assessment of risk,rationale, intervention and follow up Suicide assessments should be conducted at first contact, with any subsequent suicidal behavior, increased ideation, or pertinent clinical Change; for inpatients, prior to increasing privileges and at discharge. 1. RISK FACTORS ? Suicidal behavior: history of prior suicide attempts, aborted suicide attempts or self-injurious behavior ? Current/past psychiatric disorders: especially mood disorders, psychotic disorders, alcohol/substance abuse, ADHD, TBI, PTSD, Cluster B personality disorders, conduct disorders (antisocial behavior, aggression, impulsivity). Co-morbidity and recent onset of illness increase risk ? [place] Symptoms: anhedonia, impulsivity, hopelessness, anxiety/panic, insomnia, command hallucinations ? Family history: of suicide, attempts, or [place] 1 psychiatric disorders requiring hospitalization ? Precipitants/Stressors/Interpersonal: triggering events leading to humiliation, shame or despair (e.g; loss of relationship (more content not included)... [facility] 01-20-2023 Note HNO ID: [id number] Author: Skyla Massey MD Service: Urology Author Type: Resident Type: Plan of Care Filed: 01/20/2023 5:08 PM Note Text: Patient admitted for suicidal ideations. Patient has elevated PSA to 2.96. Patient can follow up as an outpatient with urology for repeat PSA test, as he is very low risk stratified for prostate cancer with current given information. Will place for follow up in patients DC instructions Skyla Massey PGY-1 [facility] 01-20-2023 Note HNO ID: [id number] Author: Nancie Hagan APRN.ONDINA Service: Psychiatry Author Type: Nurse Practitioner Type: Progress Notes Filed: 01/20/2023 3:58 PM Note Text: PROGRESS NOTE BEHAVIORAL HEALTH SERVICE DATE: 01/20/2023 SERVICE TIME: 2:20 PM The Interdisciplinary team met and reviewed treatment goals and discharge planning. Subjective INTERVAL HISTORY of last 24 hours: Patient awake in room with 1:1 caregiver at bedside due to impaired gait. When patient approached for interview described feeling mixed up. Speech notably repetitive and impoverished, was not able to engage in discussion due to limited speech. Would answer I think [or guess] so, I don't know or complain of feeling mixed up. When asked about thoughts of and suicide expressed he thought he had thoughts like that earlier, though unsure/not able to elaborate further. When asked about plan described not having way, though unclear he had been trying to come up with a plan. No HI or AVH expressed. Unsure about his sleep/appetite. Spoke with nursing staff who are also new to patient's care, so not able to confirm how much of change in mental status this is. Called and left message for patient's and was able to talk to her when she was no unit later in afternoon during visiting hours. Appears patient has had periods of confusion in past thought not to current extent, and concern about medication side effect. Patient notably able to show awareness to situation and answer more coherently, described feeling better after drinking water. Discussed concern that increased confusion was related to hydroxyzine which patient had received for anxiety, though also describes patient had only taking mirtazapine 3.25 at bedtime so cannot completely rule this out as possiblity either - though seems less likely. Patient had also been started on citalopram, /patient agreeable to restarting this as patient may want or need to taper off of mirtazapine. Will evaluate how patient is doing tomorrow. Sleep as reported by nursing flowsheet: Sleep (Number of Hours): 3.75 (01/20/23 06) Difficulties with sleep: Not discussed due to the circumstances of this interview.. Anormal appetite/eating: Not discussed due to the circumstances of this interview. Concerns for side effects with medications: Concern for confusion related to anitcholongergic effects of hydroxyzine. Any additional physical complaints: weaker gait. (Objective portions of note included here for ease of comparison to patient's subjective report) Per chart review and staff report of last 24 hours: Compliant with medication: Yes. Emergency treatment order or PRN agitation medication past 24 hours: PRN hydroxyzine for anxiety. Seclusion/restraints required: No. Attending therapy groups: Yes. Agitated behavior : Observed during rounds No. Reported by staff No. Objective PHYSICAL EXAM: BP 147/86 Pulse 86 Temp 36.8 ?C (98.2 ?F) Resp 18 Ht 175.3 cm (5' 9) Wt 85.3 kg (188 lb 1.6 oz) SpO2 98% BMI 27.78 kg/m? MENTAL STATUS EXAMINATION: Appearance: Disheveled and In hospital gown Behavior: Withdrawn Psychomotor: No psychomotor agitation. Cognition Level of Consciousness: Awake and alert. No fluctuation in wakefulness. Orientation: Person and Place Memory: Impaired Attention/Concentration: Distractable Fund of Knowledge: Limited Mood: Depressed and Distressed Affect: Mood-congruent and reactive within a Restricted range. Speech/Language: Impoverished Thought Form: Perseveration Thought Content: No delusions noted or endorsed. Perceptual Disturbances: Did not appear to respond to auditory stimuli. Safety: Suicidal Ideations: Thoughts of suicide, no intent or plan. Homicidal Ideations: No homicidal ideation, intent or plan. Insight: Impaired Judgment: Impaired Suicide Assessment Five-step Evaluation and Triage (SAFE-T) for Mental Health Professionals 1 IDENTIFY RISK FACTORS Note those that can be modified to reduce risk 2 IDENTIFY PROTECTIVE FACTORS Note those that can be enhanced 3 CONDUCT SUICIDE INQUIRY Suicidal thoughts, plans, behavior and intent 4 DETERMINE RISK LEVEL / INTERVENTION Determine risk. Choose appropriate intervention to address and reduce risk 5 DOCUMENT Assessment of risk,rationale, intervention and follow up Suicide assessments should be conducted at first contact, with any subsequent suicidal behavior, increased ideation, or pertinent clinical Change; for inpatients, prior to increasing privileges and at discharge. 1. RISK FACTORS ? Suicidal behavior: history of prior suicide attempts, aborted suicide attempts or self-injurious behavior ? Current/past psychiatric disorders: especially mood disorders, psychotic disorders, alcohol/substance abuse, ADHD, TBI, PTSD, Cluster B personality disorders, conduct disorders (antisocial behavior, aggression, impulsivity). (more content not included)... [facility] 01-20-2023 Note HNO ID: [id number] Author: Ligia Becerril LSW Service: Social Work Author Type: Bartender Manager Type: Plan of Care Filed: 01/20/2023 12:48 PM Note Text: -- Attestation signed by Nancie Hagan APRN.CNP at 01/22/2023 9:01 AM -- BEHAVIORAL HEALTH INITIAL INPATIENT INTERDISCIPLINARY TREATMENT PLAN DATE INITIATED: 01/20/2023 8:23 AM Patient's Goal of Treatment: to be able to function again Active Hospital Problems Malnutrition of mild degree (HCC) *Suicide attempt (HCC) Criteria for Discharge: Elimination/reduction of presenting behavior: SI, depression, confusion, disporganized Estimated length of stay: 5-10 days Interdisciplinary Treatment Plan Date Initiated: 01/17/23 Time Initiated: 2299 Patient Participation in Initial Treatment Plan: Yes Initial Treatment Plan Date: 01/17/23 Other Participants: N/A Strengths/Assets: Motivated for treatment, Able to read and/ or write Limitations: Lacks health literacy Precautions indicated: 1:1 Constant Observation Individualized problems: Risk of harm to self Problem - Discharge Needs Date Initiated: 01/18/23 Time Initiated: 819 Interventions - Nursing: Obtain baseline level of functioning on admission Interventions - Social Work: Assess for appropriate level of care and initiate referral upon admission or as needed, Assess Social Determinants of Health upon admission or as needed, Assist with identifying community/social supports daily or as needed, Collateral information as needed, Coordination with family as needed, Coordination with outpatient providers as needed, Create safety plan as needed, Develop aftercare plan, Encourage group participation daily or as needed, Encourage medication compliance daily or as needed, Encourage milieu therapy daily or as needed, Encourage sobriety as needed, Resolve acute symptoms by working with interdisciplinary team Post discharge referrals: Psychiatry Identify next level of care: Home, with others Problem - Risk of Harm to Self As evidenced by: Suicidal thoughts or behavior, Impaired impulse control, Past and/or recent hx of self-injurious behavior Date Initiated: 01/17/23 Time Initiated: 2299 Short Term Goals: Refrain from self injurious behavior Target Date Short Term Goals: 01/20/23 Progress Towards Short Term Goals: Progressing Pickle Sorter Goals: Identify positive alternatives to self-injurious behavior Target Date Pickle Sorter Goals: 01/20/23 Progress Towards Pickle Sorter Goals: Not progressing Interventions - Nursing: Encourage patient participation in milieu activities daily and as needed, Assist with developing positive coping behaviors daily and as needed, Provide non-judgmental supportive, empathetic and comprehensive trauma informed care daily and as needed, Administer medications as indicated and monitor patient for effect daily, Remain calm and firmly set limits for the patient's behaviors daily and as needed Medical Problems Medical Problems Identified: Yes Active Problems: Diabetes Diabetes - Short Term Goal: Patient will demonstrate compliance with medical treatment Diabetes - Interventions: Medications, Monitor Diabetes - Target Date Short Term Goals: 01/20/23 Diabetes - Progress Towards Short Term Goals: Progressing Staff in attendance and in agreement with this plan: Nurse Practitioner: Nancie Nurse: Jann Patient was not appropriate for meeting with entire interprofessional care team at once (due to confusion and disorganized), but met separately with treatment team members and participated in developing individual components of overall care plan which was discussed together in a collaborative treatment team. Bartender Manager: Ligia Recreational Therapy: [place] This plan was reviewed with patient/family. Pt is admitted for suicidal threats, pulled a loaded gun but removed it; depression and family stressors; pt resides in [place] w/ supportive ; has no o/p psychiatry follow up care but has PCP. Pt safe-t moderate risk, was given a safety plan. Attending Psychiatrist: Dr Sam DOCUMENTED BY: TESHA Zabala PATIENT NAME: Wild Conklin DATE: January 20, 2023 TIME: 8:23 AM [facility] 01-19-2023 Note HNO ID: [id number] Author: Janet Queen MD Service: Psychiatry Author Type: Physician Type: Progress Notes Filed: 01/19/2023 4:38 PM Note Text: PROGRESS NOTE BEHAVIORAL HEALTH SERVICE DATE: 01/19/2023 SERVICE TIME: 2:39 pm The Interdisciplinary team met and reviewed treatment goals and discharge planning. Subjective Patient states, okay. Patient taking medications and denies medication side effects. He still feels sad and anxious. Denies delusions today. Denies hallucinations. His visited him in the hospital today. He is in the day area this afternoon. Objective PHYSICAL EXAM: BP 136/82 Pulse 72 Temp 36.7 ?C (98.1 ?F) Resp 16 Ht 175.3 cm (5' 9) Wt 85.3 kg (188 lb 1.6 oz) SpO2 97% BMI 27.78 kg/m? MENTAL STATUS EXAMINATION: Appearance: Casually dressed Behavior: Appropriate and Withdrawn Orientation: Person, Place, Time and Situation Speech/Language: Soft Mood/Affect: Anxious and Depressed Thought Form: Coherent Thought Content: Coherent Suicidal Ideations: No suicidal ideation, intent or plan. Homicidal Ideations: No homicidal ideation, intent or plan. Insight: Appropriate and Limited Judgment: Limited Memory/Cognition: Mildly Impaired Psychomotor: Retarded NEW PROBLEMS ON UNIT SINCE LAST ENCOUNTER: None Current Facility-Administered Medications Medication Dose Route Frequency melatonin 3 mg tab(s) 3 mg ORAL AT BEDTIME PRN hydrOXYzine HCl 25 mg tab(s) (ATARAX) 25 mg ORAL q 6 H PRN acetaminophen 650 mg tab(s) (TYLENOL) 650 mg ORAL q 6 H PRN aluminum-magnesium hydroxide-simethicone 200-200-20 mg/5 mL 30 mL 30 mL ORAL q 4 H PRN magnesium hydroxide 400 mg/5 mL 30 mL (MOM) 30 mL ORAL DAILY PRN risperiDONE orally disintegrating 1 mg tab(s) (RisperDAL M) 1 mg ORAL q 6 H PRN sitaGLIPtin phosphate 50 mg tab(s) (JANUVIA) 50 mg ORAL DAILY And metFORMIN ER 1,000 mg tab(s) (GLUCOPHAGE XR) 1,000 mg ORAL DAILY WITH BREAKFAST brimonidine 0.2 % 1 Drop (ALPHAGAN) 1 Drop RIGHT EYE BID mirtazapine 15 mg (REMERON) 15 mg ORAL AT BEDTIME Assessment/Plan DIAGNOSIS: PRIMARY: Mood Disorder Major Depressive Disorder, Single Episode, Severe With Psychotic Symptoms RISK ASSESSMENT: Suicide: moderate Homicide: low Deliberate Self-Harm: moderate Aggression: low Imminent Physical Self Impairment: moderate INFORMED CONSENT: Yes, completed with the Patient. Discussed the risks, benefits and alternatives to the medication(s) recommended. Consent was given. INTERVENTION: Biological: continue medications as prescribed. Psychological: encouraged to participate in group and unit activities and learn positive coping skills. Social: encouraged to ask staff for help if needed. I called and spoke to his and requested that removes or secures all the guns at the home before patient is discharged from the hospital. says that there are 6 to 8 guns in the home and that the guns belongs to their 26 year old son who also lives in the home. Son was away on a retreat and just returned home today. says that she has already spoken to their son about the gun and son would be handling removing/securing the guns before the patient is discharged. DISCHARGE PLANNING: will be determined by treatment team. SIGNATURE: Janet Queen MD PATIENT NAME: Wild Conklin DATE: January 19, 2023 TIME: 3:40 PM [facility] Evaluation note Diagnosis Onset Date Neck pain acute Segmental and somatic dysfun ction of cervical region acute Segmental and somatic dysfun ction of lumbar region acute Segmental and somatic dysfun ction of pelvic region acute Segmental and somatic dysfun ction of thoracic region acute Neck pain acute Segmental and somatic dysfun ction of cervical region acute Segmental and somatic dysfun ction of lumbar region acute Segmental and somatic dysfun ction of pelvic region acute Segmental and somatic dysfun ction of thoracic region acute Neck pain acute Segmental and somatic dysfun ction of cervical region acute Segmental and somatic dysfun ction of lumbar region acute Segmental and somatic dysfun ction of pelvic region acute Segmental and somatic dysfun ction of thoracic region acute Neck pain acute Segmental and somatic dysfun ction of cervical region acute Segmental and somatic dysfun ction of lumbar region acute Segmental and somatic dysfun ction of pelvic region acute Segmental and somatic dysfun ction of thoracic region acute [facility] Work Phone: Evaluation note* Diagnosis Onset Date Resolution Status Neck pain acute Segmental and somatic dysfunction of cervical region acute Segmental and somatic dysfunction of lumbar region acute Segmental and somatic dysfunction of pelvic region acute Segmental and somatic dysfunction of thoracic region acute Back pain acute Neck pain acute Segmental and somatic dysfunction of cervical region acute Segmental and somatic dysfunction of lumbar region acute Segmental and somatic dysfunction of pelvic region acute Segmental and somatic dysfunction of thoracic region acute Back pain acute Neck pain acute Segmental and somatic dysfunction of cervical region acute Segmental and somatic dysfunction of lumbar region acute Segmental and somatic dysfunction of pelvic region acute Segmental and somatic dysfunction of thoracic region acute Back pain acute Segmental and somatic dysfunction of lumbar region acute Segmental and somatic dysfunction of pelvic region acute DDD (degenerative disc disease), lumbosacral chronic Back pain acute Segmental and somatic dysfunction of lumbar region acute Segmental and somatic dysfunction of pelvic region acute DDD (degenerative disc disease), lumbosacral chronic Back pain acute Segmental and somatic dysfunction of lumbar region acute Segmental and somatic dysfunction of pelvic region acute DDD (degenerative disc disease), lumbosacral chronic Back pain acute Segmental and somatic dysfunction of lumbar region acute Segmental and somatic dysfunction of pelvic region acute DDD (degenerative disc disease), lumbosacral chronic Back pain acute Segmental and somatic dysfunction of lumbar region acute Segmental and somatic dysfunction of pelvic region acute DDD (degenerative disc disease), lumbosacral chronic Back pain acute Segmental and somatic dysfunction of lumbar region acute Segmental and somatic dysfunction of pelvic region acute DDD (degenerative disc disease), lumbosacral chronic Back pain acute Segmental and somatic dysfunction of cervical region acute Segmental and somatic dysfunction of lumbar region acute Segmental and somatic dysfunction of pelvic region acute Segmental and somatic dysfunction of thoracic region acute DDD (degenerative disc disease), lumbosacral chronic [facility] Work Phone: Evaluation note* Diagnosis Onset Date Resolution Status Back pain acute Neck pain acute Segmental and somatic dysfunction of cervical region acute Segmental and somatic dysfunction of lumbar region acute Segmental and somatic dysfunction of pelvic region acute Segmental and somatic dysfunction of thoracic region acute Back pain acute Neck pain acute Segmental and somatic dysfunction of cervical region acute Segmental and somatic dysfunction of lumbar region acute Segmental and somatic dysfunction of pelvic region acute Segmental and somatic dysfunction of thoracic region acute Back pain acute Segmental and somatic dysfunction of lumbar region acute Segmental and somatic dysfunction of pelvic region acute DDD (degenerative disc disease), lumbosacral chronic Back pain acute Segmental and somatic dysfunction of lumbar region acute Segmental and somatic dysfunction of pelvic region acute DDD (degenerative disc disease), lumbosacral chronic Back pain acute Segmental and somatic dysfunction of lumbar region acute Segmental and somatic dysfunction of pelvic region acute DDD (degenerative disc disease), lumbosacral chronic Back pain acute Segmental and somatic dysfunction of lumbar region acute Segmental and somatic dysfunction of pelvic region acute DDD (degenerative disc disease), lumbosacral chronic Back pain acute Segmental and somatic dysfunction of lumbar region acute Segmental and somatic dysfunction of pelvic region acute DDD (degenerative disc disease), lumbosacral chronic Back pain acute Segmental and somatic dysfunction of lumbar region acute Segmental and somatic dysfunction of pelvic region acute DDD (degenerative disc disease), lumbosacral chronic Back pain acute Segmental and somatic dysfunction of cervical region acute Segmental and somatic dysfunction of lumbar region acute Segmental and somatic dysfunction of pelvic region acute Segmental and somatic dysfunction of thoracic region acute DDD (degenerative disc disease), lumbosacral chronic Back pain acute Segmental and somatic dysfunction of lumbar region acute Segmental and somatic dysfunction of pelvic region acute DDD (degenerative disc disease), lumbosacral chronic Back pain acute Segmental and somatic dysfunction of lumbar region acute Segmental and somatic dysfunction of pelvic region acute DDD (degenerative disc disease), lumbosacral chronic Back pain acute Segmental and somatic dysfunction of lumbar region acute Segmental and somatic dysfunction of pelvic region acute DDD (degenerative disc disease), lumbosacral chronic Back pain acute Segmental and somatic dysfunction of lumbar region acute Segmental and somatic dysfunction of pelvic region acute DDD (degenerative disc disease), lumbosacral chronic Back pain acute Segmental and somatic dysfunction of lumbar region acute Segmental and somatic dysfunction of pelvic region acute DDD (degenerative disc disease), lumbosacral chronic Back pain acute Segmental and somatic dysfunction of lumbar region acute Segmental and somatic dysfunction of pelvic region acute DDD (degenerative disc disease), lumbosacral chronic Back pain acute Segmental and somatic dysfunction of lumbar region acute Segmental and somatic dysfunction of pelvic region acute DDD (degenerative disc disease), lumbosacral chronic [facility] Work Phone: Evaluation note* Diagnosis Onset Date Resolution Status Back pain acute Segmental and somatic dysfunction of lumbar region acute Segmental and somatic dysfunction of pelvic region acute DDD (degenerative disc disease), lumbosacral chronic Back pain acute Segmental and somatic dysfunction of lumbar region acute Segmental and somatic dysfunction of pelvic region acute DDD (degenerative disc disease), lumbosacral chronic Back pain acute Segmental and somatic dysfunction of lumbar region acute Segmental and somatic dysfunction of pelvic region acute DDD (degenerative disc disease), lumbosacral chronic Back pain acute Segmental and somatic dysfunction of lumbar region acute Segmental and somatic dysfunction of pelvic region acute DDD (degenerative disc disease), lumbosacral chronic Back pain acute Segmental and somatic dysfunction of cervical region acute Segmental and somatic dysfunction of lumbar region acute Segmental and somatic dysfunction of pelvic region acute Segmental and somatic dysfunction of thoracic region acute DDD (degenerative disc disease), lumbosacral chronic Back pain acute Segmental and somatic dysfunction of lumbar region acute Segmental and somatic dysfunction of pelvic region acute DDD (degenerative disc disease), lumbosacral chronic Back pain acute Segmental and somatic dysfunction of lumbar region acute Segmental and somatic dysfunction of pelvic region acute DDD (degenerative disc disease), lumbosacral chronic Back pain acute Segmental and somatic dysfunction of lumbar region acute Segmental and somatic dysfunction of pelvic region acute DDD (degenerative disc disease), lumbosacral chronic Back pain acute Segmental and somatic dysfunction of lumbar region acute Segmental and somatic dysfunction of pelvic region acute DDD (degenerative disc disease), lumbosacral chronic Back pain acute Segmental and somatic dysfunction of lumbar region acute Segmental and somatic dysfunction of pelvic region acute DDD (degenerative disc disease), lumbosacral chronic Back pain acute Segmental and somatic dysfunction of lumbar region acute Segmental and somatic dysfunction of pelvic region acute DDD (degenerative disc disease), lumbosacral chronic Back pain acute Segmental and somatic dysfunction of lumbar region acute Segmental and somatic dysfunction of pelvic region acute DDD (degenerative disc disease), lumbosacral chronic Back pain acute Segmental and somatic dysfunction of cervical region acute Segmental and somatic dysfunction of lumbar region acute Segmental and somatic dysfunction of pelvic region acute Segmental and somatic dysfunction of thoracic region acute DDD (degenerative disc disease), lumbosacral chronic Back pain acute Segmental and somatic dysfunction of cervical region acute Segmental and somatic dysfunction of thoracic region acute [facility] Work Phone: Evaluation note* Diagnosis Onset Date Resolution Status Back pain acute Segmental and somatic dysfunction of cervical region acute Segmental and somatic dysfunction of thoracic region acute Back pain acute Segmental and somatic dysfunction of cervical region acute Segmental and somatic dysfunction of pelvic region acute Segmental and somatic dysfunction of thoracic region acute Back pain acute Segmental and somatic dysfunction of cervical region acute Segmental and somatic dysfunction of pelvic region acute Segmental and somatic dysfunction of thoracic region acute Back pain acute History of lumbar surgery ac emi Segmental and somatic dysfunction of cervical region acute Segmental and somatic dysfunction of pelvic region acute Segmental and somatic dysfunction of thoracic region acute [facility] Work Phone: Evaluation note* Diagnosis Onset Date Resolution Status Back pain acute Segmental and somatic dysfunction of cervical region acute Segmental and somatic dysfunction of pelvic region acute Segmental and somatic dysfunction of thoracic region acute History of lumbar surgery ch ronic Back pain acute Segmental and somatic dysfunction of cervical region acute Segmental and somatic dysfunction of pelvic region acute Segmental and somatic dysfunction of thoracic region acute History of lumbar surgery ch ronic Back pain acute Segmental and somatic dysfunction of cervical region acute Segmental and somatic dysfunction of pelvic region acute Segmental and somatic dysfunction of thoracic region acute History of lumbar surgery ch ronic Back pain acute Segmental and somatic dysfunction of cervical region acute Segmental and somatic dysfunction of pelvic region acute Segmental and somatic dysfunction of thoracic region acute History of lumbar surgery ch ronic Back pain acute Segmental and somatic dysfunction of cervical region acute Segmental and somatic dysfunction of pelvic region acute Segmental and somatic dysfunction of thoracic region acute History of lumbar surgery [facility] Work Phone: Evaluation note* Diagnosis Onset Date Resolution Status Back pain acute Segmental and somatic dysfunction of cervical region acute Segmental and somatic dysfunction of pelvic region acute Segmental and somatic dysfunction of thoracic region acute History of lumbar surgery ch ronic Back pain acute Segmental and somatic dysfunction of cervical region acute Segmental and somatic dysfunction of pelvic region acute Segmental and somatic dysfunction of thoracic region acute History of lumbar surgery ch ronic Back pain acute Segmental and somatic dysfunction of cervical region acute Segmental and somatic dysfunction of pelvic region acute Segmental and somatic dysfunction of thoracic region acute History of lumbar surgery ch ron Back pain acute Segmental and somatic dysfunction of cervical region acute Segmental and somatic dysfunction of pelvic region acute Segmental and somatic dysfunction of thoracic region acute History of lumbar surgery [facility] Work Phone: Chief Complaint and Reason for Visit Chief Complaint TESTING Back pain Back pain Back pain Back pain Reason for Visit Neck pain Segmental and somatic dysfunction of cervical region Segmental and somatic dysfunction of lumbar region Segmental and somatic dysfunction of pelvic region Segmental and somatic dysfunction of thoracic region Neck pain Segmental and somatic dysfunction of cervical region Segmental and somatic dysfunction of lumbar region Segmental and somatic dysfunction of pelvic region Segmental and somatic dysfunction of thoracic region Neck pain Segmental and somatic dysfunction of cervical region Segmental and somatic dysfunction of lumbar region Segmental and somatic dysfunction of pelvic region Segmental and somatic dysfunction of thoracic region Neck pain Segmental and somatic dysfunction of cervical region Segmental and somatic dysfunction of lumbar region Segmental and somatic dysfunction of pelvic region Segmental and somatic dysfunction of thoracic region Chief Complaint Back pain BACK PAIN ADJUSTMENT XRAY Back pain Back pain Back pain Back pain Back pain LUMBAR RAD Back pain Reason for Visit Neck pain Segmental and somatic dysfunction of cervical region Segmental and somatic dysfunction of lumbar region Segmental and somatic dysfunction of pelvic region Segmental and somatic dysfunction of thoracic region Back pain Neck pain Segmental and somatic dysfunction of cervical region Segmental and somatic dysfunction of lumbar region Segmental and somatic dysfunction of pelvic region Segmental and somatic dysfunction of thoracic region Back pain Neck pain Segmental and somatic dysfunction of cervical region Segmental and somatic dysfunction of lumbar region Segmental and somatic dysfunction of pelvic region Segmental and somatic dysfunction of thoracic region Back pain Segmental and somatic dysfunction of lumbar region Segmental and somatic dysfunction of pelvic region DDD (degenerative disc disease), lumbosacral Back pain Segmental and somatic dysfunction of lumbar region Segmental and somatic dysfunction of pelvic region DDD (degenerative disc disease), lumbosacral Back pain Segmental and somatic dysfunction of lumbar region Segmental and somatic dysfunction of pelvic region DDD (degenerative disc disease), lumbosacral Back pain Segmental and somatic dysfunction of lumbar region Segmental and somatic dysfunction of pelvic region DDD (degenerative disc disease), lumbosacral Back pain Segmental and somatic dysfunction of lumbar region Segmental and somatic dysfunction of pelvic region DDD (degenerative disc disease), lumbosacral Back pain Segmental and somatic dysfunction of lumbar region Segmental and somatic dysfunction of pelvic region DDD (degenerative disc disease), lumbosacral Back pain Segmental and somatic dysfunction of cervical region Segmental and somatic dysfunction of lumbar region Segmental and somatic dysfunction of pelvic region Segmental and somatic dysfunction of thoracic region DDD (degenerative disc disease), lumbosacral Chief Complaint BACK PAIN ADJUSTMENT XRAY Back pain Back pain Back pain Back pain Back pain LUMBAR RAD Back pain Back pain Back pain Back pain Back pain Back pain BACK PAIN BACK PAIN Reason for Visit Back pain Neck pain Segmental and somatic dysfunction of cervical region Segmental and somatic dysfunction of lumbar region Segmental and somatic dysfunction of pelvic region Segmental and somatic dysfunction of thoracic region Back pain Neck pain Segmental and somatic dysfunction of cervical region Segmental and somatic dysfunction of lumbar region Segmental and somatic dysfunction of pelvic region Segmental and somatic dysfunction of thoracic region Back pain Segmental and somatic dysfunction of lumbar region Segmental and somatic dysfunction of pelvic region DDD (degenerative disc disease), lumbosacral Back pain Segmental and somatic dysfunction of lumbar region Segmental and somatic dysfunction of pelvic region DDD (degenerative disc disease), lumbosacral Back pain Segmental and somatic dysfunction of lumbar region Segmental and somatic dysfunction of pelvic region DDD (degenerative disc disease), lumbosacral Back pain Segmental and somatic dysfunction of lumbar region Segmental and somatic dysfunction of pelvic region DDD (degenerative disc disease), lumbosacral Back pain Segmental and somatic dysfunction of lumbar region Segmental and somatic dysfunction of pelvic region DDD (degenerative disc disease), lumbosacral Back pain Segmental and somatic dysfunction of lumbar region Segmental and somatic dysfunction of pelvic region DDD (degenerative disc disease), lumbosacral Back pain Segmental and somatic dysfunction of cervical region Segmental and somatic dysfunction of lumbar region Segmental and somatic dysfunction of pelvic region Segmental and somatic dysfunction of thoracic region DDD (degenerative disc disease), lumbosacral Back pain Segmental and somatic dysfunction of lumbar region Segmental and somatic dysfunction of pelvic region DDD (degenerative disc disease), lumbosacral Back pain Segmental and somatic dysfunction of lumbar region Segmental and somatic dysfunction of pelvic region DDD (degenerative disc disease), lumbosacral Back pain Segmental and somatic dysfunction of lumbar region Segmental and somatic dysfunction of pelvic region DDD (degenerative disc disease), lumbosacral Back pain Segmental and somatic dysfunction of lumbar region Segmental and somatic dysfunction of pelvic region DDD (degenerative disc disease), lumbosacral Back pain Segmental and somatic dysfunction of lumbar region Segmental and somatic dysfunction of pelvic region DDD (degenerative disc disease), lumbosacral Back pain Segmental and somatic dysfunction of lumbar region Segmental and somatic dysfunction of pelvic region DDD (degenerative disc disease), lumbosacral Back pain Segmental and somatic dysfunction of lumbar region Segmental and somatic dysfunction of pelvic region DDD (degenerative disc disease), lumbosacral Chief Complaint Back pain Back pain Back pain Back pain LUMBAR RAD Back pain Back pain Back pain Back pain Back pain Back pain BACK PAIN BACK PAIN Back pain LUMBAR STENOSIS, L FOOT DROP. RX HERE Back pain CHILLS WITH OUT FEVER Reason for Visit Back pain Segmental and somatic dysfunction of lumbar region Segmental and somatic dysfunction of pelvic region DDD (degenerative disc disease), lumbosacral Back pain Segmental and somatic dysfunction of lumbar region Segmental and somatic dysfunction of pelvic region DDD (degenerative disc disease), lumbosacral Back pain Segmental and somatic dysfunction of lumbar region Segmental and somatic dysfunction of pelvic region DDD (degenerative disc disease), lumbosacral Back pain Segmental and somatic dysfunction of lumbar region Segmental and somatic dysfunction of pelvic region DDD (degenerative disc disease), lumbosacral Back pain Segmental and somatic dysfunction of cervical region Segmental and somatic dysfunction of lumbar region Segmental and somatic dysfunction of pelvic region Segmental and somatic dysfunction of thoracic region DDD (degenerative disc disease), lumbosacral Back pain Segmental and somatic dysfunction of lumbar region Segmental and somatic dysfunction of pelvic region DDD (degenerative disc disease), lumbosacral Back pain Segmental and somatic dysfunction of lumbar region Segmental and somatic dysfunction of pelvic region DDD (degenerative disc disease), lumbosacral Back pain Segmental and somatic dysfunction of lumbar region Segmental and somatic dysfunction of pelvic region DDD (degenerative disc disease), lumbosacral Back pain Segmental and somatic dysfunction of lumbar region Segmental and somatic dysfunction of pelvic region DDD (degenerative disc disease), lumbosacral Back pain Segmental and somatic dysfunction of lumbar region Segmental and somatic dysfunction of pelvic region DDD (degenerative disc disease), lumbosacral Back pain Segmental and somatic dysfunction of lumbar region Segmental and somatic dysfunction of pelvic region DDD (degenerative disc disease), lumbosacral Back pain Segmental and somatic dysfunction of lumbar region Segmental and somatic dysfunction of pelvic region DDD (degenerative disc disease), lumbosacral Back pain Segmental and somatic dysfunction of cervical region Segmental and somatic dysfunction of lumbar region Segmental and somatic dysfunction of pelvic region Segmental and somatic dysfunction of thoracic region DDD (degenerative disc disease), lumbosacral Back pain Segmental and somatic dysfunction of cervical region Segmental and somatic dysfunction of thoracic region Chief Complaint Back pain CHILLS WITH OUT FEVER Back pain Back pain Back pain Reason for Visit Back pain Segmental and somatic dysfunction of cervical region Segmental and somatic dysfunction of thoracic region Back pain Segmental and somatic dysfunction of cervical region Segmental and somatic dysfunction of pelvic region Segmental and somatic dysfunction of thoracic region Back pain Segmental and somatic dysfunction of cervical region Segmental and somatic dysfunction of pelvic region Segmental and somatic dysfunction of thoracic region Back pain History of lumbar surgery Segmental and somatic dysfunction of cervical region Segmental and somatic dysfunction of pelvic region Segmental and somatic dysfunction of thoracic region Chief Complaint Back pain Back pain Back Pain Back pain Back pain Reason for Visit Back pain Segmental and somatic dysfunction of cervical region Segmental and somatic dysfunction of pelvic region Segmental and somatic dysfunction of thoracic region History of lumbar surgery Back pain Segmental and somatic dysfunction of cervical region Segmental and somatic dysfunction of pelvic region Segmental and somatic dysfunction of thoracic region History of lumbar surgery Back pain Segmental and somatic dysfunction of cervical region Segmental and somatic dysfunction of pelvic region Segmental and somatic dysfunction of thoracic region History of lumbar surgery Back pain Segmental and somatic dysfunction of cervical region Segmental and somatic dysfunction of pelvic region Segmental and somatic dysfunction of thoracic region History of lumbar surgery Back pain Segmental and somatic dysfunction of cervical region Segmental and somatic dysfunction of pelvic region Segmental and somatic dysfunction of thoracic region History of lumbar surgery Chief Complaint Back pain Back pain Back pain Back pain HYPERGLYCEMIA Reason for Visit Back pain Segmental and somatic dysfunction of cervical region Segmental and somatic dysfunction of pelvic region Segmental and somatic dysfunction of thoracic region History of lumbar surgery Back pain Segmental and somatic dysfunction of cervical region Segmental and somatic dysfunction of pelvic region Segmental and somatic dysfunction of thoracic region History of lumbar surgery Back pain Segmental and somatic dysfunction of cervical region Segmental and somatic dysfunction of pelvic region Segmental and somatic dysfunction of thoracic region History of lumbar surgery Back pain Segmental and somatic dysfunction of cervical region Segmental and somatic dysfunction of pelvic region Segmental and somatic dysfunction of thoracic region History of lumbar surgery Advance Directives No Advanced Directives Records Found Advance Directive Response Recorded Date/ Time Living Will Yes September 01, 2019 9:24am Power of Cupola Tender Yes August 31 9:24am Advance Directive Response Recorded Date/ Time Living Will Yes September 06, 2021 11:30am Power of Cupola Tender Yes September 06 11:30am Advance Directive Response Recorded Date/ Time Living Will Yes September 06, 2021 10:30am Power of Cupola Tender Yes September 06 10:30am Advance Directive Response Recorded Date/ Time Living Will No December 21, 2022 8:15pm Power of Cupola Tender No November 8:15pm Summary Purpose Family History No Family History Records FoundNo Family History Records Found Additional Source Comments Care Teams (unrecognized sec tion and content) Team Status: Active Member Role Status Dates Dr. Sean Boone MD Family Provider Active Dr. Leandro Grijalva MD Primary Care Provider Active Team Status: Inactive Member Role Status Dates Dr. Leandro Grijalva MD Primary Care Provider, Referring Provider Active Dr. Mariajose Gonzalez DC Attending Provider Active Team Status: Inactive Member Role Status Dates Dr. Leandro Grijalva MD Primary Care Provider, Attending Provider Active Team Status: Inactive Member Role Status Dates Dr. Leandro Grijalva MD Primary Care Provider Active Leandro Grijalva MD Attending Provider Active Team Status: Inactive Member Role Status Dates Dr. Leandro Grijalva MD Primary Care Provider Active Leandro NAIR MD Attending Provider Active Team Status: Inactive Member Role Status Dates Dr. Leandro Grijalva MD Primary Care Provider Active Dr. Abdirahman Gonzalez MD Attending Provider, Referr ing Provider Active Team Status: Inactive Member Role Status Dates Dr. Leandro Grijalva MD Primary Care Provider Active Dr. Sergey Rosen MD Emergency Provider Active (unrecognized sect ion and content) No Status Records FoundNo Status Records Found INFORMATION SOURCE (unrecogn ized section and content) DATE CREATED AUTHOR 02/08/2023 [facility] DATE CREATED AUTHOR AUTHOR'S ORGANIZ ATION 11/03/2024 [facility] FOR RECORDS PERTAINING TO PATIENTS WHO ARE OR HAVE BEEN ENROLLED IN A CHEMICAL DEPENDENCY/SUBSTANCEABUSE PROGRAM, SOME INFORMATION MAY BE OMITTED. This clinical summary was aggregated from multiple sources. Caution should be exercised in using it in the provision of clinical care. This summary normalizes information from multiple sources, and as a consequence, information in this document may materially change the coding, format and clinical context of patient data. In addition, data may be omitted in some cases. CLINICAL DECISIONS SHOULD BE BASED ON THE PRIMARY CLINICAL RECORDS. [employer] provides no warranty or guarantee of the accuracy or completeness of information in this document.
[2024-11-04 12:09] LABS: PSA, Free 1.06 ng/mL; PSA, Free % 28.0 % (.); PSA, Total Ultrasensitive 3.780 ng/mL (0.000-4.000)
== END | disposition home or self-care (01) ==
PROVIDERS: PCP Family Medicine Geriatric Medicine; Referring Provider Urology; Visit Provider Family Medicine Geriatric Medicine
DX: R97.20 Elevated prostate specific antigen [PSA] (principal); E11.65 Type 2 diabetes mellitus with hyperglycemia; E78.5 Hyperlipidemia, unspecified; I10 Essential (primary) hypertension
CPT/HCPCS: 36415; 80053; 80061; 83036; 84153; 84154; 84443; 85025

== ENCOUNTER → 2024-11-11 | Outpatient (CLI) | payer OTHER, SELFPAY ==
[2024-11-11 12:01] LABS: Vitamin D,25 Hydroxy 39.7 ng/mL (30-100)
[2024-11-11 18:37] LABS: Xtra Tube Kwok EXTRA TUBE
[2024-11-11 18:38] LABS: Xtra Tube Kwok EXTRA TUBE
== END | disposition home or self-care (01) ==
LOC: POLAB3 10:26
PROVIDERS: PCP Family Medicine Geriatric Medicine; Visit Provider Family Medicine Geriatric Medicine
DX: I10 Essential (primary) hypertension (principal); E11.65 Type 2 diabetes mellitus with hyperglycemia; E55.9 Vitamin D deficiency, unspecified; E78.5 Hyperlipidemia, unspecified
CPT/HCPCS: 36415; 82306

== ENCOUNTER → 2025-02-02 | Outpatient (CLI) | payer OTHER, SELFPAY ==
[2025-02-02 17:45] LABS: Anion Gap 13 (5-15); BUN 21 mg/dL (4-19); BUN/Creat Ratio 21.0 RATIO (10-20); Calcium,Total 9.1 mg/dL (7.6-11.0); Carbon Dioxide 21.8 mmol/L (21.0-32.0); Chloride 101 mmol/L (98-108); Glucose 143 mg/dL (70-99); Potassium 4.0 mmol/L (3.3-5.1)
[2025-02-02 17:56] LABS: Hematocrit 43.5 % (40-54); Hemoglobin 15.7 g/dL (13.0-16.5); Immature Granulocytes Count 0.030 X10^3/uL (0.0-0.0); Mean Corp Hgb Conc 36.1 g/dL (32-36); Mean Corpuscular Volume 87.9 fL (80-94); Mean Platelet Vol. 8.9 fl (6.2-12.0); NRBC Flagged by Analyzer 0 % (0-5); Platelet Count 298 K/mm3 (150-450); RBC Distribution Width CV 12.3 % (11.6-14.6); RBC Distribution Width SD 38.5 fl (35.1-43.9); Red Blood Count 4.95 M/mm3 (4.6-6.2); White Blood Count 9.9 K/mm3 (4.4-11.0)
[2025-02-03 00:43] LABS: Xtra Tube Kwok EXTRA TUBE
== END | disposition home or self-care (01) ==
LOC: LAB 16:27
PROVIDERS: PCP Family Medicine Geriatric Medicine; Referring Provider Family Medicine Geriatric Medicine; Visit Provider Family Medicine Geriatric Medicine
DX: E11.65 Type 2 diabetes mellitus with hyperglycemia (principal); I10 Essential (primary) hypertension
CPT/HCPCS: 36415; 80048; 84443; 85025

== ENCOUNTER → 2025-02-15 | Outpatient (CLI) | payer OTHER, SELFPAY ==
[2025-02-15 10:55] LABS: Hematocrit 46.3 % (40-54); Hemoglobin 16.0 g/dL (13.0-16.5); Immature Granulocytes Count 0.030 X10^3/uL (0.0-0.0); Mean Corp Hgb Conc 34.6 g/dL (32-36); Mean Corpuscular Volume 89.2 fL (80-94); Mean Platelet Vol. 8.9 fl (6.2-12.0); NRBC Flagged by Analyzer 0 % (0-5); Platelet Count 294 K/mm3 (150-450); RBC Distribution Width CV 12.2 % (11.6-14.6); RBC Distribution Width SD 39.8 fl (35.1-43.9); Red Blood Count 5.19 M/mm3 (4.6-6.2); White Blood Count 9.5 K/mm3 (4.4-11.0)
[2025-02-15 11:57] LABS: Cholesterol 167 mg/dL (<=200); Low Density Lipoprotein Calc. 101 mg/dL; Triglycerides 123 mg/dL; Very Low Density Lipoprotein 25 mg/dL (5-40); Vitamin D,25 Hydroxy 31.2 ng/mL (30-100); cholesterol:hdl ratio screen 3.78
[2025-02-15 18:15] LABS: Xtra Tube Kwok EXTRA TUBE
== END | disposition home or self-care (01) ==
LOC: POLAB3 10:14
PROVIDERS: PCP Family Medicine Geriatric Medicine; Visit Provider Family Medicine Geriatric Medicine
DX: E11.65 Type 2 diabetes mellitus with hyperglycemia (principal); E55.9 Vitamin D deficiency, unspecified; I10 Essential (primary) hypertension; R53.83 Other fatigue
CPT/HCPCS: 36415; 80061; 82306; 83036; 84443; 85025